=== PATIENT | male | born 1965 | race Caucasian/White ===

== ENCOUNTER 2016-07-03 15:53 | Inpatient (IN) | payer OTHER ==
[~2016-07-03] VITALS: Ht 175.3 cm; Wt 117.0 kg
[~2016-07-03 15:53] MED LIST: BACTDS PO; CEPH-443 PO; CHOL100062 PO; IBUP400T22 PO; KOMBIGLYZE XR PO; LANT3I SC; OMEG-135 PO; PRED20TA PO; ZOC10 PO
[2016-07-03] MEDS ORDERED: SOD CHLORIDE 0.9% 1,000 ML IV STA ×2 (16:14→17:24)
[2016-07-03] MEDS ORDERED: ONDANSETRON 4 MG INJ IV STA (16:27)
[2016-07-03] MEDS ORDERED: CARV6.2579 PO (16:34)
[2016-07-03] MEDS ORDERED: RIVA15TA PO (16:34)
[2016-07-03] MEDS ORDERED: INSU300I SQ (16:35)
[2016-07-03] MEDS ORDERED: INSU100C SQ (16:36)
[2016-07-03 16:48] LABS: ADD SCAN DIFF NO
[2016-07-03 16:56] LABS: BASOPHILS % 0.3 % (0.0-2.0); EOSINOPHILS # 0.1 10^3/ul (0.0-0.5); EOSINOPHILS % 0.4 % (0.0-7.0); HEMATOCRIT 35.4 % (42.0-52.0); HEMOGLOBIN 12.4 g/dl (14.0-18.0); LYMPHOCYTES # 2.6 10^3/ul (0.8-2.9); LYMPHOCYTES % 16.8 % (15.0-51.0); MEAN CORPUSCULAR HEMOGLOBIN 29.5 pg (29.0-33.0); MEAN CORPUSCULAR VOLUME 84.3 fl (82.0-101.0); MONOCYTE # 0.9 10^3/ul (0.3-0.9); MONOCYTES % 5.6 % (0.0-11.0); NEUTROPHILS % 76.4 % (39.0-77.0); PLATELET COUNT 323 10^3/UL (140-415); RED CELL DISTRIBUTION WIDTH 13.3 % (11.5-14.5); WHITE BLOOD COUNT 15.7 10^3/ul (4.8-10.8)
[2016-07-03 17:02] LABS: CHLORIDE 94 mmol/L (97-110); INR 0.9; PARTIAL THROMBOPLASTIN TIME 24.8 Sec (25.0-35.0); PROTIME 12.1 Sec (12.2-14.2); PT RATIO 0.9; SODIUM 128 mmol/L (135-144)
[2016-07-03 17:05] LABS: ANION GAP 21 (8-16); CARBON DIOXIDE 19 mmol/L (21-31); CREATININE 2.58 mg/dl (0.61-1.24)
[2016-07-03 17:06] LABS: BLOOD UREA NITROGEN 35 mg/dl (7-20); CALCIUM 8.5 mg/dl (8.4-10.2)
[2016-07-03 17:19] LABS: POTASSIUM 6.3 mmol/L (3.5-5.1)
[2016-07-03 17:20] LABS: GLUCOSE 700 mg/dl (70-220); TROPONIN-I < 0.010 ng/ml (0.00-0.12)
--- NOTE | 2016-07-03 17:20 | RADRPT ---
PROCEDURE: XR Chest. CLINICAL INDICATION: Syncope. Status post fall TECHNIQUE: Portable AP view of the chest was obtained. COMPARISON: 10/26/2008 FINDINGS: The cardiomediastinal silhouette is within upper normal limits. The lungs are clear. There is no e vidence for pleural effusion, pneumothorax or pulmonary vascular congestion. The osseous structures are intact with no evidence for acute abnormality. RPTAT:HJJR IMPRESSION: No evidence for acute intrathoracic pathology. Physician Lily Date Time Electronically viewed and signed by Azeem Blackwell Physician on 07/03/2016 17:20 JR/
[2016-07-03] MEDS ORDERED: CA GLUCONATE (GM) 10% 10ML INJ IV STA (17:24)
[2016-07-03] MEDS ORDERED: ALBUTEROL 0.5% (NEB) 2.5 MG/0.5 ML AMP INH STA (17:24)
[2016-07-03] MEDS ORDERED: INSULIN REGULAR, HUMAN 100 UNIT/1 ML 3ML VIAL IV STA (17:24)
--- NOTE | 2016-07-03 17:25 | RADRPT ---
PROCEDURE: XR shoulder. CLINICAL INDICATION: Syncope. Status post fall with left shoulder pain TECHNIQUE: Two views of the left shoulder were performed. COMPARISON: None available. FINDINGS: There is normal mineralization and alignment. Ossific fragment interposed between the humeral head a nd acromion process is concerning for an avulsion type fracture of the greater tuberosity . The join t spaces are preserved. Metallic density projecting at the left axilla suggest prior surgery RPTAT:HJJR IMPRESSION: Triangular shaped ossific density in the acromiohumeral space is concerning for an avulsion type fra cture of the greater tuberosity. Physician Lily Date Time Electronically viewed and signed by Physician Lily on 07/03/2016 17:24 JR/
[2016-07-03] MEDS ORDERED: INSULIN REGULAR, HUMAN 100 UNIT in SOD CHLORIDE 0.9% 99 ML IV STA ×2 (17:52)
[2016-07-03] MEDS ORDERED: LORAZEPAM 2 MG INJ ONE (18:10)
[2016-07-03] MEDS ORDERED: morphine 4 MG/ML VIAL IV STA (18:18)
[2016-07-03] MEDS ORDERED: GLUCOSE GEL 15 GRAM TUBE PO PRN ×2 (18:30)
[2016-07-03] MEDS ORDERED: DEXTROSE 50% 50 ML SYRINGE IV PRN ×4 (18:30→19:30)
[2016-07-03] MEDS ORDERED: GLUCOSE GEL 15 GRAM TUBE BUCCAL PRN (18:30)
[2016-07-03] MEDS ORDERED: GLUCAGON 1 MG INJ IM PRN (18:30)
[2016-07-03 18:55] LABS: MAGNESIUM 2.2 mg/dl (1.7-2.5); PHOSPHORUS 2.2 mg/dl (2.5-4.9)
--- NOTE | 2016-07-03 18:55 | RADRPT ---
PROCEDURE: CT brain without IV contrast. CLINICAL INDICATION: Syncope. TECHNIQUE: CT scan of the brain was performed without IV contrast on a 64-slice multidetector scan ner. . Coronal and sagittal reformatted images were made. Radiation dose: Total CTDI volume: 43 mGY. Total DLP: 698 mGycm. COMPARISON: None available. FINDINGS: There is mild cerebral atrophy. There are mild periventricular low density white matter changes, li delfino microvascular ischemic changes. The crockett/white matter differentiation is well preserved. Ther e is no abnormal intra-axial or extra-axial high or low density lesion, suggesting tumor or infarct, bleeding or inflammatory lesion. No subdural, epidural hematoma or subarachnoid bleeding is seen. No displacement of the midline. T he posterior fossa is normal. The visualized paranasal sinuses, orbits and temporal bones are deyanira l. No abnormal calvarial lesion. IMPRESSION: 1. Mild cerebral atrophy. 2. Mild periventricular low density white matter changes, likely microvascular ischemic changes.. RPTAT: GG .Mason Hanson MD, MD Date Time Electronically viewed and signed by .Mason Hanson MD, on 07/03/2016 18:54 .Y/
--- NOTE | 2016-07-03 18:56 | RADRPT ---
PROCEDURE: US bilateral lower extremity arteries. CLINICAL INDICATION: Bilateral leg pain. Claudication that interferes significantly with the tegan ent's lifestyle. TECHNIQUE: Multiple longitudinal and transverse images of the bilateral lower extremity arteries w ere obtained with crockett scale, pulsed Doppler, and color Doppler imaging. COMPARISON: No prior studies are available for comparison. FINDINGS: Right ENROLLMENT PROCESSOR:111 cm/sec PSFA:87 cm/sec MSFA:113 cm/sec DSFA:76 cm/sec POP:66 cm/sec PLUMBERS AND TOP HELPERS:136 cm/sec PER:48 cm/sec ROMA:60 cm/sec DPA:58 cm/sec Left ENROLLMENT PROCESSOR:81 cm/sec PSFA:102 cm/sec MSFA:128 cm/sec DSFA:75 cm/sec POP:67 cm/sec PLUMBERS AND TOP HELPERS:115 cm/sec PER:Not visualized ROMA:69 cm/sec DPA:58 cm/sec The left peroneal artery is not visualized. There is otherwise normal triphasic flow throughout the arterial system bilaterally. There is no significant plaque, stenosis, or occlusion. IMPRESSION: 1. Left peroneal artery not visualized. 2. Otherwise normal bilateral lower extremity arterial Doppler. RPTAT: QQ .Willie Ayers MD, MD Date Time Electronically viewed and signed by .Willie Ayers MD, on 07/03/2016 18:55 .R/
[2016-07-03] MEDS ORDERED: DEXTROSE 5%-0.45% NACL 1,000 ML IV PRN (19:03)
--- NOTE | 2016-07-03 19:15 | HP ---
Date/Time of Note Date/Time of Note DATE: 07/03/16 TIME: 18:56 Assessment/Plan VTE Prophylaxis VTE Prophylaxis Intervention: other (xarelto) Assessment/Plan Assessment/Plan 51 yo M with DKA Uncontrolled DM2 Reactive leucocytosis Humeral fracture Acute renal failure r/o CKD Prev DVT on anticoagulation Anemia of chronic disease Hyponatremia HTN: good control PLAN: admit ICU DKA protocol Ortho review and recs Serial labs Home meds PRN pain control/ antiemetics/ antipyretics/ supportive care PROPHYLAXIS: Xarelto / Pepcid HPI/ROS Admit Date/Time Admit Date/Time 07/03/16 Hx of Present Illness PRESENTING COMPLAINT: weakness and fall HISTORY OF PRESENTING COMPLAINT:pt biba from home. pt states his legs became weak while walking upstairs. pt was guided to ground and is positive for KO. noted redness, swelling and abrasions of L shoulder, flank, and legs. ROS 12 point review if systems was done and pertinent findings are as noted. Constitutional: fatigue, nausea, poor po, No diaphoresis, No febrile Cardiovascular: No chest pain Gastrointestinal: nausea, passing stool, No diarrhea, No vomiting Genitourinary: no complaints Neurologic: No focal-weakness, No seizure PMH/Family/Social Past Medical History * Osteomyelitis * ?DVT Medical History: diabetes, hypertension Past Surgical History * L shoulder surgery Family History Significant Family History: diabetes, hypertension Social History Alcohol Use: none Smoking Status: Never smoker Drug Use: none Exam/Review of Systems Vital Signs Vitals VS - Last 72 Hours, by Label Date Time Temp Pulse Resp B/P Pulse Ox O2 Delivery O2 Flow Rate FiO2 07/03/16 16:22 98.2 94 20 110/71 99 Vital Signs Date Time Temp Pulse Resp B/P Pulse Ox O2 Delivery O2 Flow Rate FiO2 07/03/16 16:22 98.2 94 20 110/71 99 Exam Constitutional: alert, oriented, No distress Head: atraumatic, normocephalic Eyes: PERRL ENMT: No mucosa pink and moist Neck: non-tender, supple Respiratory: clear to auscultation, normal air movement Cardiovascular: nl pulses, regular rate and rhythm Gastrointestinal: bowel sounds, non-tender, soft Extremities: No edema Neurological: lethargic, nl mental status Labs Result Diagram: 07/03/16 1635 07/03/16 1635 Medications Medications Current Medications Miscellaneous Information 1 ea NOTE XX ; Start 07/03/16 at 18:30 Glucose (Glutose) 15 gm Q15M PRN PO DECREASED GLUCOSE; Start 07/03/16 at 18:30 Glucose (Glutose) 22.5 gm Q15M PRN PO DECREASED GLUCOSE; Start 07/03/16 at 18: 30 Dextrose (D50w Syringe) 25 ml Q15M PRN IV DECREASED GLUCOSE; Start 07/03/16 at 18:30 Dextrose (D50w Syringe) 50 ml Q15M PRN IV DECREASED GLUCOSE; Start 07/03/16 at 18:30 Glucagon (Glucagen) 1 mg Q15M PRN IM DECREASED GLUCOSE; Start 07/03/16 at 18:30 Glucose (Glutose) 15 gm Q15M PRN BUCCAL DECREASED GLUCOSE; Start 07/03/16 at 18 :30 Procedures Procedures Laboratory Tests Test 07/03/16 16:35 07/03/16 16:38 07/03/16 18:00 Activated Partial Thromboplast Time 24.8Sec Anion Gap 21 Basophils # 0.010^3/ul Basophils % 0.3% Blood Urea Nitrogen 35mg/dl Calcium Level 8.5mg/dl Carbon Dioxide Level 19mmol/L Chloride Level 94mmol/L Creatinine 2.58mg/dl Eosinophils # 0.110^3/ul Eosinophils % 0.4% Glucose Level 700mg/dl Hematocrit 35.4% Hemoglobin 12.4g/dl INR International Normalized Ratio 0.90 Lymphocytes # 2.610^3/ul Lymphocytes % 16.8% Mean Corpuscular Hemoglobin 29.5pg Mean Corpuscular Hemoglobin Concent 35.0g/dl Mean Corpuscular Volume 84.3fl Mean Platelet Volume 12.0fl Monocytes # 0.910^3/ul Monocytes % 5.6% Neutrophils # 12.010^3/ul Neutrophils % 76.4% Nucleated Red Blood Cells # 0.010^3/ul Nucleated Red Blood Cells % 0.0/100WBC Platelet Count 25087^3/UL Potassium Level 6.3mmol/L Prothrombin Time 12.1Sec Prothrombin Time Ratio 0.9 Red Blood Count 4.2010^6/ul Red Cell Distribution Width 13.3% Sodium Level 128mmol/L Troponin I < 0.010ng/ml White Blood Count 15.710^3/ul Bedside Glucose > 595mg/dL Magnesium Level 2.2mg/dl Phosphorus Level 2.2mg/dl Current Medications Medications (Trade) Dose Ordered Sig/Eloy Route PRN Reason Start Time Stop Time Status Last Admin Dose Admin Sodium Chloride (NS) 1,000 ml @ 1,000 mls/hr Q1H STAT IV 07/03/16 16:14 07/03/16 17:13 DC 07/03/16 16:41 1,000 MLS/HR Ondansetron HCl (Zofran Inj) 4 mg ONCE STAT IV 07/03/16 16:27 07/03/16 16:28 DC 07/03/16 16:41 4 MG Insulin Human Regular (Humulin R) 10 unit ONCE STAT IV 07/03/16 17:24 07/03/16 17:31 DC 07/03/16 18:01 10 UNIT Albuterol (Proventil 0.5% (Neb)) 15 mg ONCE STAT INH 07/03/16 17:24 07/03/16 17:31 DC Calcium Gluconate 1 gm 1 gm ONCE STAT IV 07/03/16 17:24 07/03/16 17:31 DC 07/03/16 18:00 1 GM Sodium Chloride 1,000 ml @ 1,000 mls/hr Q1H STAT IV 07/03/16 17:24 07/03/16 18:23 DC 07/03/16 18:00 1,000 MLS/HR Insulin Human Regular/Sodium Chloride (Humulin R/NS) 100 ml @ 10 mls/hr TITRATE STAT IV 07/03/16 17:52 07/04/16 03:51 Lorazepam (Ativan) 2 mg STK-MED ONCE .ROUTE 07/03/16 18:10 07/03/16 18:11 DC Morphine Sulfate (morphine) 4 mg ONCE STAT IV 07/03/16 18:18 07/03/16 18:19 DC 07/03/16 18:23 4 MG Miscellaneous Information 1 ea NOTE XX 07/03/16 18:30 Glucose (Glutose) 15 gm Q15M PRN PO DECREASED GLUCOSE 07/03/16 18:30 Glucose (Glutose) 22.5 gm Q15M PRN PO DECREASED GLUCOSE 07/03/16 18:30 Dextrose (D50w Syringe) 25 ml Q15M PRN IV DECREASED GLUCOSE 07/03/16 18:30 Dextrose (D50w Syringe) 50 ml Q15M PRN IV DECREASED GLUCOSE 07/03/16 18:30 Glucagon (Glucagen) 1 mg Q15M PRN IM DECREASED GLUCOSE 07/03/16 18:30 Glucose (Glutose) 15 gm Q15M PRN BUCCAL DECREASED GLUCOSE 07/03/16 18:30 PROCEDURE: XR shoulder. CLINICAL INDICATION: Syncope. Status post fall with left shoulder pain TECHNIQUE: Two views of the left shoulder were performed. COMPARISON: None available. FINDINGS: There is normal mineralization and alignment. Ossific fragment interposed between the humeral head and acromion process is concerning for an avulsion type fracture of the greater tuberosity . The joint spaces are preserved. Metallic density projecting at the left axilla suggest prior surgery RPTAT:HJJR IMPRESSION: Triangular shaped ossific density in the acromiohumeral space is concerning for an avulsion type fracture of the greater tuberosity. Azeem Blackwell Physician Date Time Electronically viewed and signed by Azeem Blackwell Physician on 07/03/2016 17:24 JR/ CC: KRISH ADAMS MD PROCEDURE: XR Chest. CLINICAL INDICATION: Syncope. Status post fall TECHNIQUE: Portable AP view of the chest was obtained. COMPARISON: 10/26/2008 FINDINGS: The cardiomediastinal silhouette is within upper normal limits. The lungs are clear. There is no evidence for pleural effusion, pneumothorax or pulmonary vascular congestion. The osseous structures are intact with no evidence for acute abnormality. RPTAT:HJJR IMPRESSION: No evidence for acute intrathoracic pathology. Azeem Blackwell Physician Date Time Electronically viewed and signed by Azeem Blackwell Physician on 07/03/2016 17:20 LUCIANO WATT Jul 03, 2016 19:07
[2016-07-03] MEDS ORDERED: ONDANSETRON 4 MG INJ IV PRN (19:30)
--- NOTE | 2016-07-03 20:21 | ERA ---
ER Documentation Chief Complaint Date/Time DATE: 07/03/16 TIME: 19:59 Chief Complaint weakness, fall left shoulder pain started today HPI 51-year-old male with a history of diabetes on insulin, hypertension, and hyperlipidemia presenting after a syncopal episode. 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 As the last thing he remembers. Per his son, when he woke up he was combative and somewhat confused. Patient currently complains of nausea without chest pain, shortness of breath, headache, focal weakness or numbness. He also complains of left shoulder pain after the fall that is located in the anterior shoulder, worse with any type of movement. He has difficulty lifting his arm secondary to the pain. Pain is an 8 out of 10. He denies any associated numbness or tingling. He scraped up his legs and his left abdomen, however he denies any significant pain. He also complains of pain in the left thigh that is intermittent, worse with movement. He has not tried to ambulate ever since he fell. ROS All systems reviewed and are negative except as per history of present illness. Medications Home Meds Reported Medications Insulin Lispro (Humalog) 100 Unit/1 Ml Cartridge, 0 SQ WITH MEALS SLIDING SCALE 07/03/16 Insulin Glargine,Hum.rec.anlog (Vish Ospina) 300 Unit/1 Ml Insuln.pen, 40 UNIT SQ QHS 07/03/16 Carvedilol* (Carvedilol*) 6.25 Mg Tablet, 6.25 MG PO BID, #60 TAB 07/03/16 Rivaroxaban* (Xarelto*) 15 Mg Tablet, 15 MG PO DAILY, TAB 07/03/16 Discontinued Reported Medications Simvastatin (Simvastatin) 10 Mg Tablet, 10 MG PO HS, TAB 01/28/15 [Kombiglyze Xr] No Conflict Check, 5-1000 MG PO DAILY 01/28/15 Fish Oil* (Fish Oil*) 1,000 Mg Cap, 1000 MG PO BID, CAP 01/28/15 Cholecalciferol* (Vitamin D3*) 1,000 Unit Tablet, 1000 UNIT PO DAILY, TAB 01/28/15 Insulin Glargine* (Lantus*) 100 Unit/Ml Soln, 25 UNIT SC AM, EA 09/01/14 Discontinued Scripts Ibuprofen* (Motrin*) 400 Mg Tab, 400 MG PO Q6 for 7 Days, #30 TAB 0 Refills Prov:ALLA BOJORQUEZ PA-C 11/09/15 Sulfamethoxazole-Trimethoprim* (Bactrim* DS) 800-160 Mg Tab, 1 TAB PO BID for 7 Days, #14 TAB 0 Refills Prov:ALLA BOJORQUEZ PA-C 11/09/15 Cephalexin* (Keflex*) 500 Mg Capsule, 500 MG PO TID for 7 Days, #21 CAP 0 Refills Prov:ALLA BOJORQUEZ PA-C 11/09/15 Sulfamethoxazole-Trimethoprim* (Bactrim* DS) 800-160 Mg Tab, 1 TAB PO BID for 5 Days, TAB Prov:FÁTIMA GRAFF MD 01/28/15 Cephalexin* (Keflex*) 500 Mg Capsule, 500 MG PO QID for 5 Days, CAP Prov:FÁTIMA GRAFF MD 01/28/15 Prednisone* (Prednisone*) 20 Mg Tab, 40 MG PO DAILY for 4 Days, TAB Prov:FÁTIMA GRAFF MD 01/28/15 Allergies Allergies: Coded Allergies: levofloxacin (Verified Allergy, Unknown, 07/03/16) PMhx/Soc History of Surgery: Yes (LEFT SHOULDER IN 1985) Anesthesia Reaction: No Hx Neurological Disorder: No Hx Respiratory Disorders: No Hx Cardiac Disorders: Yes (HTN) Hx Psychiatric Problems: No Hx Miscellaneous Medical Probl: Yes (DM, DVT on Xarelto) Hx Alcohol Use: No Hx Substance Use: No Hx Tobacco Use: No Smoking Status: Never smoker FmHx Family History: diabetes Physical Exam Vitals Vital Signs Date Time Temp Pulse Resp B/P Pulse Ox O2 Delivery O2 Flow Rate FiO2 07/03/16 16:22 98.2 94 20 110/71 99 Physical Exam Const: Awake, speaking in full sentences, no significant distress Head: Atraumatic Eyes: Normal Conjunctiva, EOMI, PERRL, no nystagmus ENT: Normal External Ears, Nose. No facial tenderness to palpation. Bite hair to the left side of his tongue. Neck: Full range of motion. No meningismus. No midline C-spine tenderness. Resp: Clear to auscultation bilaterally Cardio: Regular rate and rhythm, no murmurs Abd: Soft, non tender, non distended. Normal bowel sounds. Superficial abrasions to the left abdominal wall. No ecchymoses. Pelvis: Stable, left hip tender to palpation. Limited range of motion secondary to pain. Skin: Superficial abrasions to left abdomen, and bilateral shins. Back: No midline or flank tenderness Ext: No cyanosis, or edema. Extremities distally warm with cap refill less than 2 seconds. 2+ bilateral radial pulses. Difficulty palpating DP and PT pulses. Left shoulder with tenderness to palpation in the anterior aspect. Unable to abduct arm secondary to pain. Full range of motion at the elbow, wrist, fingers. All other extremities without deformities and with full range of motion. Neur: Awake and alert and oriented 3, cranial nerves intact, normal telecommunications consultant strength in bilateral upper extremities. Strength and sensations intact in bilateral lower extremities. Psych: Normal Mood and Affect Result Diagram: 07/03/16 1635 07/03/16 1635 Results 24 hrs Laboratory Tests Test 07/03/16 16:35 07/03/16 16:38 07/03/16 18:00 Activated Partial Thromboplast Time 24.8Sec Anion Gap 21 Basophils # 0.010^3/ul Basophils % 0.3% Blood Urea Nitrogen 35mg/dl Calcium Level 8.5mg/dl Carbon Dioxide Level 19mmol/L Chloride Level 94mmol/L Creatinine 2.58mg/dl Eosinophils # 0.110^3/ul Eosinophils % 0.4% Glucose Level 700mg/dl Hematocrit 35.4% Hemoglobin 12.4g/dl INR International Normalized Ratio 0.90 Lymphocytes # 2.610^3/ul Lymphocytes % 16.8% Mean Corpuscular Hemoglobin 29.5pg Mean Corpuscular Hemoglobin Concent 35.0g/dl Mean Corpuscular Volume 84.3fl Mean Platelet Volume 12.0fl Monocytes # 0.910^3/ul Monocytes % 5.6% Neutrophils # 12.010^3/ul Neutrophils % 76.4% Nucleated Red Blood Cells # 0.010^3/ul Nucleated Red Blood Cells % 0.0/100WBC Platelet Count 59659^3/UL Potassium Level 6.3mmol/L Prothrombin Time 12.1Sec Prothrombin Time Ratio 0.9 Red Blood Count 4.2010^6/ul Red Cell Distribution Width 13.3% Sodium Level 128mmol/L Troponin I < 0.010ng/ml White Blood Count 15.710^3/ul Bedside Glucose > 595mg/dL Lactic Acid Level 3.3mmol/L Magnesium Level 2.2mg/dl Phosphorus Level 2.2mg/dl Current Medications Medications (Trade) Dose Ordered Sig/Eloy Route PRN Reason Start Time Stop Time Status Last Admin Dose Admin Sodium Chloride (NS) 1,000 ml @ 1,000 mls/hr Q1H STAT IV 07/03/16 16:14 07/03/16 17:13 DC 07/03/16 16:41 Ondansetron HCl (Zofran Inj) 4 mg ONCE STAT IV 07/03/16 16:27 07/03/16 16:28 DC 07/03/16 16:41 Insulin Human Regular (Humulin R) 10 unit ONCE STAT IV 07/03/16 17:24 07/03/16 17:31 DC 07/03/16 18:01 Albuterol (Proventil 0.5% (Neb)) 15 mg ONCE STAT INH 07/03/16 17:24 07/03/16 17:31 DC Calcium Gluconate 1 gm 1 gm ONCE STAT IV 07/03/16 17:24 07/03/16 17:31 DC 07/03/16 18:00 Sodium Chloride 1,000 ml @ 1,000 mls/hr Q1H STAT IV 07/03/16 17:24 07/03/16 18:23 DC 07/03/16 18:00 Insulin Human Regular/Sodium Chloride (Humulin R/NS) 100 ml @ 10 mls/hr TITRATE STAT IV 07/03/16 17:52 07/04/16 03:51 Lorazepam (Ativan) 2 mg STK-MED ONCE .ROUTE 07/03/16 18:10 07/03/16 18:11 DC Morphine Sulfate (morphine) 4 mg ONCE STAT IV 07/03/16 18:18 07/03/16 18:19 DC 07/03/16 18:23 Miscellaneous Information 1 ea NOTE XX 07/03/16 18:30 Glucose (Glutose) 15 gm Q15M PRN PO DECREASED GLUCOSE 07/03/16 18:30 Glucose (Glutose) 22.5 gm Q15M PRN PO DECREASED GLUCOSE 07/03/16 18:30 Dextrose (D50w Syringe) 25 ml Q15M PRN IV DECREASED GLUCOSE 07/03/16 18:30 Dextrose (D50w Syringe) 50 ml Q15M PRN IV DECREASED GLUCOSE 07/03/16 18:30 Glucagon (Glucagen) 1 mg Q15M PRN IM DECREASED GLUCOSE 07/03/16 18:30 Glucose (Glutose) 15 gm Q15M PRN BUCCAL DECREASED GLUCOSE 07/03/16 18:30 Dextrose (D50w Syringe) 50 ml Q15M PRN IV For BS 50 or less 07/03/16 19:30 UNV Dextrose 25 ml 25 ml Q15M PRN IV BS between 50-70 07/03/16 19:30 UNV Insulin Human Regular/Sodium Chloride (Humulin R/NS) 100 ml @ 0 mls/hr DKA PROTOCOL IV 07/03/16 19:30 UNV Diagnostic Test (Pha) (Accucheck) 1 ea Q1H XX 07/03/16 19:30 UNV Miscellaneous Information HYPOGLYCEMIA TREATMENT HYPOGLYCEM PROTOCOL PRN XX Hypoglycemia (BS < 70) 07/03/16 19:30 UNV Sodium Chloride 1,000 ml @ 125 mls/hr Q8H IV 07/03/16 19:03 UNV Dextrose/Sodium Chloride (D5-1/2ns) 1,000 ml @ 125 mls/hr Q8H IV 07/03/16 19:03 UNV Famotidine (Pepcid Iv) 20 mg BID IV 07/03/16 21:00 UNV Ondansetron HCl (Zofran Inj) 4 mg Q6H PRN IV NAUSEA AND/OR VOMITING 07/03/16 19:30 UNV Docusate Sodium (Colace) 200 mg BID PO 07/03/16 21:00 UNV Carvedilol (Coreg) 6.25 mg BID PO 07/03/16 21:00 UNV Rivaroxaban (Xarelto) 15 mg DAILY PO 07/04/16 09:00 UNV Acetaminophen (Tylenol Tab) 650 mg Q6H PRN PO PAIN AND OR ELEVATED TEMP 07/03/16 19:30 UNV Procedures/MDM EKG #1: Rate/Rhythm: Normal Sinus Rhythm QRS, ST, T-waves: Left anterior fascicular block, no changes consistent w/ acute ischemia Impression: No evidence of ischemia or arrhythmia EKG #2: Rate/Rhythm: Sinus tachycardia at 110 QRS, ST, T-waves: Left anterior fascicular block, no changes consistent w/ acute ischemia Impression: No evidence of ischemia or arrhythmia Patient is presenting after a syncopal episode with possible seizure-like activity. Initial vital signs were within normal limits. Patient was placed on a bus driver/monitor. Initial EKG did not show acute ischemia. Labs were however notable for acute renal failure with hyperkalemia, lactic acidosis, and severe hyperglycemia. Leukocytosis was also noted, likely a stress reaction. I also have a concern for acute coronary syndrome versus transient arrhythmia. I have a lower suspicion for severe sepsis or septic shock, pulmonary embolism, stroke. CT brain was normal. Chest x-ray was normal. 2 L of IV fluids were started. Hyperkalemia was treated with calcium gluconate, insulin IV, and albuterol inhaled. He was started on insulin drip for his hyperglycemia per the request of Dr. Bess, the admitting physician. Patient was also noted to have a left shoulder fracture on x-ray. I spoke with Dr. Mckeon, the orthopedist occupational health coordinator regarding this and he agreed to see the patient. His pain was treated with morphine with significant relief. Ultrasound of his lower extremities were done and showed normal arterial flow. Patient will be admitted to the ICU for treatment of his acute renal failure, hyperglycemia, hyperkalemia, and for ACS rule out. Critical Care Time: 45 minutes Treatments/Evaluations: Close monitoring and treatment of unstable vital signs, cardiorespiratory, and neurologic status, while maintaining tight balance of fluid, respiratory, and cardiac interventions. This time includes discussing the case with the patient and the patients family. This time does not include all procedures stated elsewhere in this record. This time also includes reviewing old records, labs and radiological studies. This time includes examining and re-examining the patient. Additionally, this time also includes arranging care with admitting and consulting physicians. Accepting Care Team: Current data and ongoing care discussed at time of admission. Primary: Maria Alejandra Consulting: Mike (Orthopedics) Outstanding Data: repeat lactate Departure Diagnosis: Primary Impression: Syncope and collapse Additional Impressions: Hyperglycemia Lactic acidosis Severe dehydration Acute renal failure Qualified Code: N17.9 - Acute renal failure, unspecified acute renal failure type Hyperkalemia Condition: Critical KRISH ADAMS MD Jul 03, 2016 20:12
[2016-07-03 20:33] LABS: ADD UMIC YES; URINE BILIRUBIN (Dip) NEGATIVE (NEGATIVE); URINE BLOOD (Dip) 2+ (NEGATIVE); URINE COLOR LT. YELLOW (YELLOW); URINE GLUCOSE (Dip) >=1000 % (NEGATIVE); URINE KETONES (Dip) NEGATIVE (NEGATIVE); URINE LEUKOCYTE ESTERASE (Dip) NEGATIVE (NEGATIVE); URINE NITRITE (Dip) NEGATIVE (NEGATIVE); URINE TOTAL PROTEIN (Dip) 2+ (NEGATIVE); URINE UROBILINOGEN (Dip) 0.2 E.U./dL (0.1-1.0)
--- NOTE | 2016-07-03 20:50 | RADRPT ---
PROCEDURE: XR Pelvis. CLINICAL INDICATION: Pain TECHNIQUE: Single AP view of the pelvis. COMPARISON: No prior studies are available for comparison. FINDINGS: Single frontal view of the pelvis demonstrates no displaced fracture. Both femoral heads are anatom ically seated. Pubic symphysis is intact. SI joints are within normal limits. Sacral arches are i ntact. IMPRESSION: No displaced fracture identified on this single frontal view of the pelvis. RPTAT: HH .Rashaun Mancini MD, Date Time Electronically viewed and signed by .Rashaun Mancini MD, on 07/03/2016 20:50 .W/
--- NOTE | 2016-07-03 20:50 | RADRPT ---
PROCEDURE: XR Hip. CLINICAL INDICATION: Pain TECHNIQUE: AP and frog lateral views of the left hip were performed. COMPARISON: None. FINDINGS: Two views of the left hip demonstrate no displaced fracture. The femoral head articulates anatomica lly with the acetabulum. There is no significant degenerative change. The bones are normally wrapper layer and examiner soft work alized. The soft tissues are unremarkable IMPRESSION: 1. No acute fracture dislocation. 2. No significant degenerate change. RPTAT: HH .Rashaun Mancini MD, Date Time Electronically viewed and signed by .Rashaun Mancini MD, on 07/03/2016 20:50 .W/
[2016-07-03 21:16] LABS: POTASSIUM 5.2 mmol/L (3.5-5.1)
[2016-07-03 21:18] LABS: CREATININE 2.27 mg/dl (0.61-1.24)
[2016-07-03 21:20] LABS: CALCIUM 8.5 mg/dl (8.4-10.2)
[2016-07-03 21:40] LABS: BARBITURATES Negative (NEGATIVE); BENZODIAZEPINES Negative (NEGATIVE); CANNABINOIDS Negative (NEGATIVE); COCAINE Negative (NEGATIVE); OPIATES Negative (NEGATIVE)
[2016-07-03] MEDS ORDERED: ACETAMINOPHEN 325 MG TAB ONE (22:26)
[2016-07-03] MEDS: ACETAMINOPHEN 325 MG TAB PO PRN (22:27)
[2016-07-03 22:51] LABS: POTASSIUM 4.2 mmol/L (3.5-5.1)
[2016-07-03 22:53] LABS: CREATININE 2.17 mg/dl (0.61-1.24)
[2016-07-03 22:54] LABS: CALCIUM 8.5 mg/dl (8.4-10.2)
[2016-07-04 00:09] LABS: CREATININE 2.18 mg/dl (0.61-1.24)
[2016-07-04 00:10] LABS: CALCIUM 8.4 mg/dl (8.4-10.2)
[2016-07-04] MEDS ORDERED: INSULIN REGULAR, HUMAN 100 UNIT in SOD CHLORIDE 0.9% 99 ML IV SCH ×2 (05:00)
[2016-07-04] MEDS: ACETAMINOPHEN 325 MG TAB PO PRN ×2 (05:09→22:46)
[2016-07-04 05:32] LABS: ADD SCAN DIFF NO
[2016-07-04 05:39] LABS: ABNORMAL IP MESSAGE 1; BASOPHILS % 0.1 % (0.0-2.0); EOSINOPHILS % 0.2 % (0.0-7.0); HEMATOCRIT 33.1 % (42.0-52.0); HEMOGLOBIN 11.4 g/dl (14.0-18.0); LYMPHOCYTES # 3.3 10^3/ul (0.8-2.9); LYMPHOCYTES % 16.5 % (15.0-51.0); MEAN CORPUSCULAR HEMOGLOBIN 29.1 pg (29.0-33.0); MEAN CORPUSCULAR HGB CONC 34.4 g/dl (32.0-37.0); MEAN CORPUSCULAR VOLUME 84.4 fl (82.0-101.0); MEAN PLATELET VOLUME 11.3 fl (7.4-10.4); MONOCYTE # 1.6 10^3/ul (0.3-0.9); MONOCYTES % 7.8 % (0.0-11.0); NEUTROPHIL # 15.1 10^3/ul (1.6-7.5); NEUTROPHILS % 74.9 % (39.0-77.0); PLATELET COUNT 300 10^3/UL (140-415); RED BLOOD COUNT 3.92 10^6/ul (4.70-6.10); RED CELL DISTRIBUTION WIDTH 13.5 % (11.5-14.5); WHITE BLOOD COUNT 20.2 10^3/ul (4.8-10.8)
[2016-07-04 05:58] LABS: CREATININE 2.39 mg/dl (0.61-1.24)
[2016-07-04 05:59] LABS: CALCIUM 8.7 mg/dl (8.4-10.2)
[2016-07-04 06:01] LABS: CHOL/HDL RATIO 7.5 RATIO
[2016-07-04] MEDS: SOD CHLORIDE 0.9% 1,000 ML IV SCH ×3 (06:31→19:03)
[2016-07-04] MEDS: ACCUCHECK XX SCH ×6 (07:08→21:20)
[2016-07-04 08:00] VITALS: TEMP 98.2
[2016-07-04] MEDS: FAMOTIDINE 20 MG INJ IV SCH (09:00)
[2016-07-04] MEDS: DOCUSATE SODIUM 100 MG CAP PO SCH ×2 (09:00→21:08)
[2016-07-04] MEDS ORDERED: INSULIN GLARGINE [LANtus] 3 ML PEN SC ONE ×2 (09:30→21:30)
[2016-07-04] MEDS: RIVAROXABAN 15 MG TABLET PO SCH (09:55)
[2016-07-04] MEDS: INSULIN ASPART [NOVOLOG] 3 ML PEN SC SCH ×3 (12:17→21:19)
[2016-07-04 16:32] VITALS: Ht 175.3 cm; Wt 117.0 kg
[2016-07-04 16:41] VITALS: BP 160/90; PULSE 77; RESP 20
[2016-07-04 20:00] VITALS: BP 174/84; PULSE 105; RESP 18
[2016-07-04 21:10] VITALS: BP 158/79
--- NOTE | 2016-07-04 21:17 | PN ---
Date/Time of Note Date/Time of Note DATE: 07/04/16 TIME: 21:16 Assessment/Plan VTE Prophylaxis VTE Prophylaxis Intervention: other Lines/Catheters IV Catheter Type (from Nrsg): Saline Lock Assessment/Plan Assessment/Plan 51 yo M with DKA: resolved Uncontrolled DM2 Reactive leucocytosis Humeral fracture Acute renal failure r/o CKD Prev DVT on anticoagulation Anemia of chronic disease Hyponatremia HTN: good control PLAN: * Resume home dosing of insulin * Resume and uptitrate antihypertensivse * Monitor renal function * PRN pain control/ antiemetics/ antipyretics/ supportive care PROPHYLAXIS: Xarelto / Pepcid Subjective 24 Hr Interval Summary Constitutional: improved, no complaints Exam/Review of Systems Vital Signs Vitals Vital Signs Date Time Temp Pulse Resp B/P Pulse Ox O2 Delivery O2 Flow Rate FiO2 07/04/16 16:41 96.7 77 20 160/90 98 Room Air 07/03/16 21:20 21 Intake and Output 07/03/16 07/03/16 07/04/16 15:00 23:00 07:00 Intake Total 125 ml Balance 125 ml Exam Constitutional: alert, oriented Psych: anxiety Head: normocephalic ENMT: mucosa pink and moist Neck: supple Respiratory: clear to auscultation Cardiovascular: regular rate and rhythm Gastrointestinal: bowel sounds, non-tender, soft Extremities: No edema Neurological: nl mental status Results Result Diagram: 07/04/16 0515 07/04/16 0525 Results 24 hrs Laboratory Tests Test 07/03/16 21:18 07/03/16 21:21 07/03/16 22:14 07/03/16 22:15 Bedside Glucose 438 *H 404 *H Lactic Acid Level 1.9 Anion Gap 17 H Blood Urea Nitrogen 34 H Calcium Level 8.5 Carbon Dioxide Level 22 Chloride Level 101 Creatinine 2.17 H Glucose Level 409 *H Potassium Level 4.2 Sodium Level 136 Test 07/03/16 23:01 07/03/16 23:21 07/04/16 00:04 07/04/16 01:10 Bedside Glucose 349 H 308 H 295 H Anion Gap 15 Blood Urea Nitrogen 34 H Calcium Level 8.4 Carbon Dioxide Level 22 Chloride Level 102 Creatinine 2.18 H Glucose Level 353 H Lactic Acid Level 2.3 H Potassium Level 4.0 Sodium Level 135 Test 07/04/16 02:06 07/04/16 03:04 07/04/16 04:13 07/04/16 05:02 Bedside Glucose 250 H 216 175 139 Test 07/04/16 05:15 07/04/16 05:25 07/04/16 06:07 07/04/16 06:48 Basophils # 0.0 Basophils % 0.1 Eosinophils # 0.0 Eosinophils % 0.2 Hematocrit 33.1 L Hemoglobin 11.4 L Hemoglobin A1c 13.0 H Lymphocytes # 3.3 H Lymphocytes % 16.5 Mean Corpuscular Hemoglobin 29.1 Mean Corpuscular Hemoglobin Concent 34.4 Mean Corpuscular Volume 84.4 Mean Platelet Volume 11.3 H Monocytes # 1.6 H Monocytes % 7.8 Neutrophils # 15.1 H Neutrophils % 74.9 Nucleated Red Blood Cells # 0.0 Nucleated Red Blood Cells % 0.0 Platelet Count 300 Red Blood Count 3.92 L Red Cell Distribution Width 13.5 White Blood Count 20.2 #H Anion Gap 15 Blood Urea Nitrogen 34 H Calcium Level 8.7 Carbon Dioxide Level 24 Chloride Level 105 Cholesterol Level 241 H Cholesterol/HDL Ratio 7.5 Creatinine 2.39 H Glucose Level 129 # HDL Cholesterol 32 LDL Cholesterol, Calculated 77 Potassium Level 4.0 Sodium Level 140 Triglycerides Level 658 H Bedside Glucose 140 155 Test 07/04/16 08:00 07/04/16 08:49 07/04/16 10:05 07/04/16 11:00 Bedside Glucose 197 205 287 H 354 H Test 07/04/16 14:21 07/04/16 17:49 07/04/16 21:07 07/04/16 21:14 Bedside Glucose 309 H 236 H 361 H 340 H Medications Medications Current Medications Miscellaneous Information 1 ea NOTE XX ; Start 07/03/16 at 18:30 Glucose (Glutose) 15 gm Q15M PRN PO DECREASED GLUCOSE; Start 07/03/16 at 18:30 Glucose (Glutose) 22.5 gm Q15M PRN PO DECREASED GLUCOSE; Start 07/03/16 at 18: 30 Dextrose (D50w Syringe) 25 ml Q15M PRN IV DECREASED GLUCOSE; Start 07/03/16 at 18:30 Dextrose (D50w Syringe) 50 ml Q15M PRN IV DECREASED GLUCOSE; Start 07/03/16 at 18:30 Glucagon (Glucagen) 1 mg Q15M PRN IM DECREASED GLUCOSE; Start 07/03/16 at 18:30 Glucose (Glutose) 15 gm Q15M PRN BUCCAL DECREASED GLUCOSE; Start 07/03/16 at 18 :30 Dextrose (D50w Syringe) 50 ml Q15M PRN IV For BS 50 or less; Start 07/03/16 at 19:30 Dextrose (D50w Syringe) 25 ml Q15M PRN IV BS between 50-70; Start 07/03/16 at 19:30 Diagnostic Test (Pha) 1 ea 1 ea Q1H XX Last administered on 07/04/16 19:20; Admin Dose 1 EA; Start 07/03/16 at 19:30 Sodium Chloride 1,000 ml @ 125 mls/hr Q8H IV Last administered on 07/04/16 18 :58; Admin Dose 125 MLS/HR; Start 07/03/16 at 19:03 Dextrose/Sodium Chloride (D5-1/2ns) 1,000 ml @ 125 mls/hr Q8H PRN IV START WHEN BS IS BELOW 125mg/d; Start 07/03/16 at 19:03 Famotidine (Pepcid Iv) 20 mg DAILY IV ; Start 07/04/16 at 09:00 Ondansetron HCl (Zofran Inj) 4 mg Q6H PRN IV NAUSEA AND/OR VOMITING; Start at 19:30 Docusate Sodium (Colace) 200 mg BID PO ; Start 07/04/16 at 09:00 Carvedilol (Coreg) 6.25 mg BID PO Last administered on 07/04/16 09:56; Admin Dose 6.25 MG; Start 07/04/16 at 09:00 Rivaroxaban (Xarelto) 15 mg DAILY PO Last administered on 07/04/16 09:55; Admin Dose 15 MG; Start 07/04/16 at 09:00 Acetaminophen (Tylenol Tab) 650 mg Q6H PRN PO PAIN AND OR ELEVATED TEMP Last administered on 07/04/16 05:09; Admin Dose 650 MG; Start 07/03/16 at 19:30 Diagnostic Test (Pha) (Accucheck) 1 ea 02 XX ; Start 07/05/16 at 02:00 LUCIANO WATT Jul 04, 2016 21:17
[2016-07-05] MEDS: ACCUCHECK AT 2AM (Patients on SS coverage) XX SCH (02:00)
[2016-07-05] MEDS: SOD CHLORIDE 0.9% 1,000 ML IV SCH ×3 (03:15→21:22)
[2016-07-05 08:04] VITALS: BP 188/94; RESP 16
[2016-07-05] MEDS: FAMOTIDINE 20 MG INJ IV SCH (08:26)
[2016-07-05] MEDS: RIVAROXABAN 15 MG TABLET PO SCH (08:26)
[2016-07-05] MEDS: INSULIN GLARGINE [LANtus] 3 ML PEN SC SCH (08:28)
[2016-07-05] MEDS: INSULIN ASPART [NOVOLOG] 3 ML PEN SC SCH ×7 (08:29→21:00)
[2016-07-05 08:34] VITALS: BP 166/83; PULSE 93
[2016-07-05] MEDS: DOCUSATE SODIUM 100 MG CAP PO SCH ×2 (08:34→21:25)
[2016-07-05 10:00] LABS: ADD SCAN DIFF NO
[2016-07-05 10:05] LABS: BASOPHIL # 0.1 10^3/ul (0.0-0.1); BASOPHILS % 0.3 % (0.0-2.0); EOSINOPHILS # 0.2 10^3/ul (0.0-0.5); HEMOGLOBIN 10.5 g/dl (14.0-18.0); LYMPHOCYTES % 11.9 % (15.0-51.0); MEAN CORPUSCULAR HEMOGLOBIN 29.1 pg (29.0-33.0); MEAN CORPUSCULAR HGB CONC 33.9 g/dl (32.0-37.0); MEAN CORPUSCULAR VOLUME 85.9 fl (82.0-101.0); MEAN PLATELET VOLUME 11.4 fl (7.4-10.4); MONOCYTE # 1.3 10^3/ul (0.3-0.9); MONOCYTES % 7.8 % (0.0-11.0); NEUTROPHIL # 13.5 10^3/ul (1.6-7.5); NEUTROPHILS % 78.4 % (39.0-77.0); PLATELET COUNT 285 10^3/UL (140-415); RED BLOOD COUNT 3.61 10^6/ul (4.70-6.10); RED CELL DISTRIBUTION WIDTH 13.6 % (11.5-14.5); WHITE BLOOD COUNT 17.2 10^3/ul (4.8-10.8)
--- NOTE | 2016-07-05 10:09 | PN ---
Date/Time of Note Date/Time of Note DATE: 07/05/16 TIME: 10:05 Assessment/Plan VTE Prophylaxis VTE Prophylaxis Intervention: SCD's Lines/Catheters IV Catheter Type (from Nrsg): Peripheral IV Assessment/Plan Assessment/Plan 51 yo M with 1. DKA: resolved 2. Uncontrolled DM2 HBA1C : 13 3. Mild sepsis 2/2 perirectal abscess 4. Perirectal pain and abscess 5. S/p Near syncopy with Acute Humeral fracture 6. Acute renal failure r/o CKD 7. Prev DVT on anticoagulation 8. Anemia of chronic disease 9. Hyponatremia 10. HTN: improved control PLAN: * Commence broad spectrum abx and f/u blood cultures * Surgical consult for abscess drainage * Monitor blood glucose levels today on current regimen / Titrate dosing as indicated * Patient will need JULIUS i or ARB once Cr is stable / Nephrology consult * Titrate BP meds for improved control * Continue use of sling / Per Ortho, no surgical intervention required, maintain arm in sling for comfort * PRN pain control/ antiemetics/ antipyretics/ supportive care PROPHYLAXIS: Hold Xarelto and use Lovenox till after surgical review/ Pepcid Subjective 24 Hr Interval Summary Free Text/Dictation c/o rectal pain and fluctuance spoke with surgery, spoke with ortho Exam/Review of Systems Vital Signs Vitals Vital Signs Date Time Temp Pulse Resp B/P Pulse Ox O2 Delivery O2 Flow Rate FiO2 07/05/16 08:34 93 166/83 07/05/16 08:04 98.8 16 95 07/04/16 20:00 Room Air 07/03/16 21:20 21 Intake and Output 07/04/16 07/04/16 07/05/16 15:00 23:00 07:00 Intake Total 500 ml 720 ml 1550 ml Output Total 1050 ml 800 ml Balance -550 ml 720 ml 750 ml Exam Constitutional: alert, oriented, No distress Psych: nl mood/affect Head: atraumatic, normocephalic Eyes: PERRL ENMT: mucosa pink and moist Neck: supple Respiratory: clear to auscultation, normal air movement Cardiovascular: nl pulses, regular rate and rhythm Gastrointestinal: non-tender, other (perirectal abscess and fluctuancy), soft Genitourinary - Male: nl penis, nl scrotum Musculoskeletal: other (LUE in sling) Extremities: No edema Neurological: nl mental status, nl speech, No focal weakness Results Result Diagram: 07/05/16 0950 07/04/16 0525 Results 24 hrs Laboratory Tests Test 07/04/16 11:00 07/04/16 14:21 07/04/16 17:49 07/04/16 21:07 Bedside Glucose 354 H 309 H 236 H 361 H Test 07/04/16 21:14 07/05/16 02:22 07/05/16 07:49 07/05/16 09:50 Bedside Glucose 340 H 306 H 260 H Basophils # 0.1 Basophils % 0.3 Eosinophils # 0.2 Eosinophils % 1.0 Hematocrit 31.0 L Hemoglobin 10.5 L Lymphocytes # 2.0 Lymphocytes % 11.9 L Mean Corpuscular Hemoglobin 29.1 Mean Corpuscular Hemoglobin Concent 33.9 Mean Corpuscular Volume 85.9 Mean Platelet Volume 11.4 H Monocytes # 1.3 H Monocytes % 7.8 Neutrophils # 13.5 H Neutrophils % 78.4 H Nucleated Red Blood Cells # 0.0 Nucleated Red Blood Cells % 0.0 Platelet Count 285 Red Blood Count 3.61 L Red Cell Distribution Width 13.6 White Blood Count 17.2 H Medications Medications Current Medications Miscellaneous Information 1 ea NOTE XX ; Start 07/03/16 at 18:30 Glucose (Glutose) 15 gm Q15M PRN PO DECREASED GLUCOSE; Start 07/03/16 at 18:30 Glucose (Glutose) 22.5 gm Q15M PRN PO DECREASED GLUCOSE; Start 07/03/16 at 18: 30 Dextrose (D50w Syringe) 25 ml Q15M PRN IV DECREASED GLUCOSE; Start 07/03/16 at 18:30 Dextrose (D50w Syringe) 50 ml Q15M PRN IV DECREASED GLUCOSE; Start 07/03/16 at 18:30 Glucagon (Glucagen) 1 mg Q15M PRN IM DECREASED GLUCOSE; Start 07/03/16 at 18:30 Glucose (Glutose) 15 gm Q15M PRN BUCCAL DECREASED GLUCOSE; Start 07/03/16 at 18 :30 Dextrose (D50w Syringe) 50 ml Q15M PRN IV For BS 50 or less; Start 07/03/16 at 19:30 Dextrose 25 ml 25 ml Q15M PRN IV BS between 50-70; Start 07/03/16 at 19:30 Sodium Chloride (NS) 1,000 ml @ 125 mls/hr Q8H IV Last administered on 03:15; Admin Dose 125 MLS/HR; Start 07/03/16 at 19:03 Famotidine (Pepcid Iv) 20 mg DAILY IV Last administered on 07/05/16 08:26; Admin Dose 20 MG; Start 07/04/16 at 09:00 Ondansetron HCl (Zofran Inj) 4 mg Q6H PRN IV NAUSEA AND/OR VOMITING; Start at 19:30 Docusate Sodium (Colace) 200 mg BID PO Last administered on 07/04/16 21:08; Admin Dose 200 MG; Start 07/04/16 at 09:00 Carvedilol (Coreg) 6.25 mg BID PO Last administered on 07/05/16 08:26; Admin Dose 6.25 MG; Start 07/04/16 at 09:00 Rivaroxaban (Xarelto) 15 mg DAILY PO Last administered on 07/05/16 08:26; Admin Dose 15 MG; Start 07/04/16 at 09:00 Acetaminophen (Tylenol Tab) 650 mg Q6H PRN PO PAIN AND OR ELEVATED TEMP Last administered on 07/04/16 22:46; Admin Dose 650 MG; Start 07/03/16 at 19:30 Diagnostic Test (Pha) (Accucheck) 1 ea 02 XX ; Start 07/05/16 at 02:00 Insulin Glargine (Lantus) 35 unit DAILY@08 SC Last administered on 07/05/16 08 :28; Admin Dose 35 UNIT; Start 07/05/16 at 08:00 LUCIANO WATT Jul 05, 2016 10:09
[2016-07-05 10:10] LABS: POTASSIUM 4.3 mmol/L (3.5-5.1)
[2016-07-05 10:13] LABS: CALCIUM 8.2 mg/dl (8.4-10.2); CREATININE 2.02 mg/dl (0.61-1.24)
[2016-07-05 10:47] VITALS: BP 129/70; PULSE 85
--- NOTE | 2016-07-05 12:00 | RADRPT ---
PROCEDURE: US Retroperitoneum. CLINICAL INDICATION: renal failure TECHNIQUE: Sonographic evaluation of the kidneys and bladder was performed using a curved array tr ansducer. COMPARISON: None. FINDINGS: Right kidney measures 13.2 cm in length. Left kidney measures 12.9 cm in length. There is mild bilateral cortical thinning with mild increase in echogenicity. No hydronephrosis is demonstrated bilaterally. The incompletely distended bladder is grossly unremarkable. IMPRESSION: 1. Mild bilateral cortical thinning and increased echogenicity reflecting medical renal disease. N o hydronephrosis bilaterally. RPTAT: [facility] .Bunny Carrasco MD, Date Time Electronically viewed and signed by .Bunny Carrasco MD, MD on 07/05/2016 11:59 .C/
[2016-07-05] MEDS ORDERED: LEVOFLOXACIN 500MG/D5W (PMX) 100 ML IVPB SCH ×2 (13:30→15:00)
[2016-07-05] MEDS ORDERED: VANCOMYCIN IV PER PHARMACY XX SCH (13:30)
[2016-07-05] MEDS ORDERED: CEFTRIAXONE 1 GM/50 ML (PMX) 50 ML IVPB SCH (14:00)
--- NOTE | 2016-07-05 14:00 | CONS ---
DATE OF ADMISSION: 07/03/2016 DATE OF CONSULTATION: 07/05/2016 TYPE OF CONSULTATION: Nephrology. REFERRING PHYSICIAN: Rosanne Del Valle MD REASON FOR CONSULTATION: Acute kidney injury versus acute kidney injury on chronic kidney disease. HISTORY OF PRESENT ILLNESS: This is a 51-year-old male with a past medical history of hypertension, diabetes mellitus, history of previous DVT on Xarelto for anticoagulation, patient presented with a cute humeral fracture. He also had uncontrolled diabetes with diabetic ketoacidosis and had reactiv e leukocytosis. The patient was noted to have hyponatremia on admission with a sodium down to 128, potassium 6.3, BUN 35, creatinine was 2.5. The patient was treated with IV fluid hydration and DKA protocol for diabetic ketoacidosis. The patient continues to improve slowly, gradually back to norm al. Currently, he is on NS at 125 mL/hour. He is on IV antibiotics for possible concern about infe ction, but his creatinine and BUN remain elevated. The patient had a BUN of 34, creatinine of 2.39. He also has elevated blood sugars in 200s to 350. Renal has been consulted for acute kidney injur y versus acute kidney injury on chronic kidney disease. REVIEW OF SYSTEMS: As per HPI. PAST MEDICAL HISTORY: Hypertension, diabetes mellitus, history of previous osteomyelitis, history o f previous left shoulder surgery, history of DVT on Xarelto. PAST SURGICAL HISTORY: History of left shoulder surgery in 1979. PICC line placement on the left u pper arm. SOCIAL HISTORY: No smoking, alcohol or recreational drug use. FAMILY HISTORY: Not available at this point. PHYSICAL EXAMINATION: VITAL SIGNS: Temperature 99.5, heart rate is 105, respirations , blood pressure 129/70, the bl ood pressure goes up to 174/84, and 97% room air saturation. GENERAL: Awake, alert, mild distress due to the elevated blood pressure. HEENT: Normal. Oropharynx clear. NECK: Supple, no JVD, no lymphadenopathy. LUNGS: Clear to auscultation. No crackles, no wheezes. HEART: S1, S2, with regular rhythm, no murmur. ABDOMEN: Soft, nontender, nondistended. Bowel sounds are present. EXTREMITIES: No clubbing, cyanosis, or edema. NEUROLOGICAL: Nonfocal, intact. PSYCHIATRIC: Appropriate affect and mood. LABORATORY DATA/DIAGNOSTIC IMAGING 1. Urinalysis shows 2+ blood, 2+ protein. Sodium 135, potassium 4.3, chloride 104, bicarbonate 22, BUN 27, creatinine 2.39. Potassium on admission was 6.3, sodium was 128, BUN was 35, creatinine wa s 2.58. 2. Blood sugar is still elevated. Hemoglobin A1c is 13. Calcium is 8.7. Urine toxicology is nega tive. 3. Prothrombin time 12.1, PTT 24.8, INR 0.9. WBC 17.2, hemoglobin 10.5, platelet count is 285. 4. The patient had a CT brain negative for any acute finding, mild cerebral atrophy. Chest x-ray d one on day of admission is negative. Left shoulder x-ray shows the left humerus fracture. IMPRESSION: This is a 51-year-old male with: 1. Acute kidney injury versus acute kidney injury on chronic kidney disease secondary to severe pre renal azotemia from diabetic ketoacidosis. 2. Hyponatremia secondary to uncontrolled diabetes mellitus. 3. Possible history of chronic kidney disease secondary to diabetic nephropathy, undiagnosed, unsta ged. 4. Acute humeral fracture, left. 5. Status post diabetic ketoacidosis with uncontrolled diabetes mellitus. 6. History of previous deep venous thrombosis on anticoagulation. 7. Anemia of chronic disease. 8. Hypertension, accelerated, not at goal. PLAN: 1. Thank you, Dr. Rosanne Del Valle, for this consultation. I will continue the patient on IV fluids NS at 125 mL/hour. Plan is to order the urine studies including a urine protein/creatinine ratio, uri ne sodium, urine eosinophils. 2. Renal ultrasound has been ordered to assess the kidney size and to rule out hydronephrosis. 3. I will also order the CK total with a uric acid in the a.m. labs. The patient currently seen in the medical/surgical floor and he will be followed up along with the hospitalist service. Once again, thank you, Dr. Rosanne Del Valle, for this consultation. I will continue to follow this tegan ent. Total time spent in this patient's assessment, evaluation, making a plan, communicating and updating the patient/family member, communicating with the nursing staff took more than 60 minutes. Dictated By: OPAL QUINONEZ MD, KP/ALEXANDREA Conf#: [id number] DID#: [id number]
[2016-07-05] MEDS ORDERED: VANCOMYCIN 2 GM in SOD CHLORIDE 0.9% 500 ML IVPB SCH (16:00)
[2016-07-05] MEDS ORDERED: PIPER-TAZO 3.375 GM IV (PMX) 100 ML IVPB SCH (18:00)
[2016-07-05 21:30] VITALS: BP 164/79; PULSE 87; RESP 18
[2016-07-05 22:30] VITALS: BP 141/65
[2016-07-06] MEDS: ACCUCHECK AT 2AM (Patients on SS coverage) XX SCH (02:00)
[2016-07-06] MEDS: SOD CHLORIDE 0.9% 1,000 ML IV SCH ×2 (03:03→05:33)
[2016-07-06] MEDS: PIPER-TAZO 3.375 GM IV (PMX) 100 ML IVPB SCH ×3 (05:32→21:57)
[2016-07-06 05:34] LABS: URIC ACID 5.1 mg/dl (3.1-7.9)
[2016-07-06 07:15] LABS: PROTEIN URINE > 200.0 mg/dl (0.0-9.9); PROTEIN/CREAT RATIO 2.01 RATIO
[2016-07-06] MEDS: FAMOTIDINE 20 MG INJ IV SCH (08:26)
[2016-07-06] MEDS: INSULIN GLARGINE [LANtus] 3 ML PEN SC SCH (08:36)
[2016-07-06] MEDS: INSULIN ASPART [NOVOLOG] 3 ML PEN SC SCH ×7 (08:36→20:53)
[2016-07-06 08:50] VITALS: BP 142/62; PULSE 88
[2016-07-06] MEDS: DOCUSATE SODIUM 100 MG CAP PO SCH ×3 (09:00→20:46)
[2016-07-06] MEDS: ENOXAPARIN 40 MG/0.4 ML SYG SC SCH (09:37)
[2016-07-06 10:35] LABS: ADD SCAN DIFF NO
[2016-07-06 10:46] LABS: ABNORMAL IP MESSAGE 1; BASOPHIL # 0.1 10^3/ul (0.0-0.1); BASOPHILS % 0.3 % (0.0-2.0); EOSINOPHILS # 0.2 10^3/ul (0.0-0.5); EOSINOPHILS % 0.9 % (0.0-7.0); HEMATOCRIT 29.1 % (42.0-52.0); HEMOGLOBIN 9.7 g/dl (14.0-18.0); LYMPHOCYTES # 2.9 10^3/ul (0.8-2.9); LYMPHOCYTES % 14.5 % (15.0-51.0); MEAN CORPUSCULAR HEMOGLOBIN 29.4 pg (29.0-33.0); MEAN CORPUSCULAR HGB CONC 33.3 g/dl (32.0-37.0); MEAN CORPUSCULAR VOLUME 88.2 fl (82.0-101.0); MONOCYTE # 1.6 10^3/ul (0.3-0.9); NEUTROPHILS % 75.6 % (39.0-77.0); PLATELET COUNT 283 10^3/UL (140-415); RED CELL DISTRIBUTION WIDTH 13.8 % (11.5-14.5); WHITE BLOOD COUNT 19.9 10^3/ul (4.8-10.8)
[2016-07-06 11:06] LABS: POTASSIUM 4.1 mmol/L (3.5-5.1)
[2016-07-06 11:09] LABS: CREATININE 2.14 mg/dl (0.61-1.24)
[2016-07-06 11:10] LABS: CALCIUM 8.1 mg/dl (8.4-10.2)
--- NOTE | 2016-07-06 12:05 | CONS ---
Date/Time of Note Date/Time of Note DATE: 07/06/16 TIME: 12:02 Assessment/Plan Assessment/Plan Additional Assessment/Plan 1. Acute kidney injury versus acute kidney injury on chronic kidney disease secondary to severe prerenal azotemia from diabetic ketoacidosis. 2. Hyponatremia secondary to uncontrolled diabetes mellitus. 3. Possible history of chronic kidney disease secondary to diabetic nephropathy , undiagnosed, unstaged. 4. Acute humeral fracture, left. 5. Status post diabetic ketoacidosis with uncontrolled diabetes mellitus. 6. History of previous deep venous thrombosis on anticoagulation. 7. Anemia of chronic disease. 8. Hypertension, accelerated, not at goal. PLAN: renal US c/w medical renal disease Change IVF To /2 NS at 100 cc/hr will start bicitra 30ml PO BID will continue to follow up on patient pt is on IV abx including vancomycin, please monitor level and renally dose all medications Consultation Date/Type/Reason Admit Date/Time Jul 03, 2016 at 19:03 Initial Consult Date Jun Type of Consultation: NEPHROLOGY Reason for Consultation Acute kidney injury Referring Provider: LUCIANO WATT 24 HR Interval Summary Free Text/Dictation Cr still high, good urine output, HCo3 20 Exam/Review of Systems Vital Signs Vitals Vital Signs Date Time Temp Pulse Resp B/P Pulse Ox O2 Delivery O2 Flow Rate FiO2 07/06/16 08:50 88 142/62 07/05/16 21:30 99.1 18 98 Room Air 07/03/16 21:20 21 Intake and Output 07/05/16 07/05/16 07/06/16 15:00 23:00 07:00 Intake Total 2780 ml 1500 ml Output Total 1400 ml 600 ml Balance 1380 ml 900 ml Exam GENERAL: Awake, alert, mild distress due to the elevated blood pressure. HEENT: Normal. Oropharynx clear. NECK: Supple, no JVD, no lymphadenopathy. LUNGS: Clear to auscultation. No crackles, no wheezes. HEART: S1, S2, with regular rhythm, no murmur. ABDOMEN: Soft, nontender, nondistended. Bowel sounds are present. EXTREMITIES: No clubbing, cyanosis, or edema. NEUROLOGICAL: Nonfocal, intact. PSYCHIATRIC: Appropriate affect and mood. Results Result Diagram: 07/06/16 5024 07/06/16 0500 Results 24 hrs Laboratory Tests Test 07/05/16 16:58 07/05/16 17:20 07/05/16 21:28 07/06/16 01:30 Bedside Glucose 114 160 Urine Eosinophils % 1.0 Urine Random Sodium 69 Urine Protein/Creatinine Ratio 2.01 Urine Random Creatinine 99.23 Urine Total Protein > 200.0 H Test 07/06/16 04:44 07/06/16 05:00 07/06/16 07:37 07/06/16 11:55 Basophils # 0.1 Basophils % 0.3 Creatine Kinase 96 Eosinophils # 0.2 Eosinophils % 0.9 Hematocrit 29.1 L Hemoglobin 9.7 L Lymphocytes # 2.9 Lymphocytes % 14.5 L Mean Corpuscular Hemoglobin 29.4 Mean Corpuscular Hemoglobin Concent 33.3 Mean Corpuscular Volume 88.2 Mean Platelet Volume 12.0 H Monocytes # 1.6 H Monocytes % 8.0 Neutrophils # 15.0 H Neutrophils % 75.6 Nucleated Red Blood Cells # 0.0 Nucleated Red Blood Cells % 0.0 Platelet Count 283 Red Blood Count 3.30 L Red Cell Distribution Width 13.8 Uric Acid 5.1 White Blood Count 19.9 H Anion Gap 14 Blood Urea Nitrogen 29 H Calcium Level 8.1 L Carbon Dioxide Level 20 L Chloride Level 103 Creatinine 2.14 H Glucose Level 151 # Potassium Level 4.1 Sodium Level 133 L Bedside Glucose 153 229 H Medications Medications Current Medications Miscellaneous Information 1 ea NOTE XX ; Start 07/03/16 at 18:30 Glucose (Glutose) 15 gm Q15M PRN PO DECREASED GLUCOSE; Start 07/03/16 at 18:30 Glucose (Glutose) 22.5 gm Q15M PRN PO DECREASED GLUCOSE; Start 07/03/16 at 18: 30 Dextrose (D50w Syringe) 25 ml Q15M PRN IV DECREASED GLUCOSE; Start 07/03/16 at 18:30 Dextrose (D50w Syringe) 50 ml Q15M PRN IV DECREASED GLUCOSE; Start 07/03/16 at 18:30 Glucagon (Glucagen) 1 mg Q15M PRN IM DECREASED GLUCOSE; Start 07/03/16 at 18:30 Glucose (Glutose) 15 gm Q15M PRN BUCCAL DECREASED GLUCOSE; Start 07/03/16 at 18 :30 Dextrose (D50w Syringe) 50 ml Q15M PRN IV For BS 50 or less; Start 07/03/16 at 19:30 Dextrose 25 ml 25 ml Q15M PRN IV BS between 50-70; Start 07/03/16 at 19:30 Sodium Chloride (NS) 1,000 ml @ 125 mls/hr Q8H IV Last administered on 05:33; Admin Dose 125 MLS/HR; Start 07/03/16 at 19:03 Famotidine (Pepcid Iv) 20 mg DAILY IV Last administered on 07/06/16 08:26; Admin Dose 20 MG; Start 07/04/16 at 09:00 Ondansetron HCl (Zofran Inj) 4 mg Q6H PRN IV NAUSEA AND/OR VOMITING; Start at 19:30 Docusate Sodium (Colace) 200 mg BID PO Last administered on 07/05/16 21:25; Admin Dose 200 MG; Start 07/04/16 at 09:00 Acetaminophen (Tylenol Tab) 650 mg Q6H PRN PO PAIN AND OR ELEVATED TEMP Last administered on 07/04/16 22:46; Admin Dose 650 MG; Start 07/03/16 at 19:30 Diagnostic Test (Pha) (Accucheck) 1 ea 02 XX ; Start 07/05/16 at 02:00 Insulin Glargine (Lantus) 35 unit DAILY@08 SC Last administered on 07/06/16 08 :36; Admin Dose 35 UNIT; Start 07/05/16 at 08:00 Carvedilol (Coreg) 12.5 mg BID PO Last administered on 07/06/16 08:26; Admin Dose 12.5 MG; Start 07/05/16 at 21:00 Enoxaparin Sodium 40 mg 40 mg DAILY SC Last administered on 07/06/16 09:37; Admin Dose 40 MG; Start 07/06/16 at 09:00 Vancomycin HCl 1.5 gm/Sodium Chloride 250 ml @ 83.333 mls/ hr Q24H IVPB ; Start 07/06/16 at 16:00 Piperacillin Sod/ Tazobactam Sod (Zosyn 3.375gm/ 100 ml (Pmx)) 100 ml @ 200 mls /hr Q8 IVPB Last administered on 07/06/16 05:32; Admin Dose 200 MLS/HR; Start 07/06/16 at 06:00 OPAL QUINONEZ MD Jul 06, 2016 12:05
[2016-07-06] MEDS ORDERED: CITRIC ACID/NA CITRATE 30 ML CUP PO ONE (12:30)
[2016-07-06] MEDS ORDERED: LIDOCAINE 1%/EPI 30 ML INJ INJ SCH (12:30)
[2016-07-06] MEDS ORDERED: LIDOCAINE 1%/EPI (MDV) 20 ML INJ INJ ONE (12:30)
[2016-07-06] MEDS: SOD CHLORIDE 0.45% 1,000 ML IV SCH ×2 (12:56→22:30)
--- NOTE | 2016-07-06 13:54 | PN ---
Date/Time of Note Date/Time of Note DATE: 07/06/16 TIME: 13:42 Assessment/Plan VTE Prophylaxis VTE Prophylaxis Intervention: LMWH Lines/Catheters IV Catheter Type (from Nrs): Peripheral IV Urinary Cath still in place: No Assessment/Plan Assessment/Plan 51 yo M with 1. DKA: resolved 2. Uncontrolled DM2 HBA1C : 13 : improved in-house control 3. Mild sepsis 2/2 perirectal abscess 4. Perirectal pain and abscess 5. S/p Near syncopy with Acute Humeral fracture 6. Acute renal failure r/o CKD 7. Prev DVT on anticoagulation 8. Anemia of chronic disease 9. HTN: improved control PLAN: * Continue abx / ID consult /Surgical consult for abscess drainage * Continue current blood glucose regimen and uptitrate as needed * Patient will need JULIUS i or ARB once Cr is stable / Appreciate Nephrology consult * Continue use of sling / Per Ortho, no surgical intervention required, maintain arm in sling for comfort * PRN pain control/ antiemetics/ antipyretics/ supportive care PROPHYLAXIS: Hold Xarelto and use Lovenox till after surgical review/ Pepcid Subjective 24 Hr Interval Summary Free Text/Dictation Still reporting rectal pain no new issues eating and drinking well Exam/Review of Systems Vital Signs Vitals Vital Signs Date Time Temp Pulse Resp B/P Pulse Ox O2 Delivery O2 Flow Rate FiO2 07/06/16 08:50 88 142/62 07/05/16 21:30 99.1 18 98 Room Air 07/03/16 21:20 21 Intake and Output 07/05/16 07/05/16 07/06/16 15:00 23:00 07:00 Intake Total 2780 ml 1500 ml Output Total 1400 ml 600 ml Balance 1380 ml 900 ml Exam Constitutional: alert, oriented, No distress Psych: nl mood/affect Head: atraumatic, normocephalic Eyes: PERRL ENMT: mucosa pink and moist Neck: supple Respiratory: clear to auscultation, normal air movement Cardiovascular: nl pulses, regular rate and rhythm Gastrointestinal: non-tender, other (perirectal abscess and fluctuancy), soft Genitourinary - Male: nl penis, nl scrotum Musculoskeletal: other (LUE in sling) Extremities: No edema Neurological: nl mental status, nl speech, No focal weakness Results Result Diagram: 07/06/16 0444 07/06/16 0500 Results 24 hrs Laboratory Tests Test 07/05/16 16:58 07/05/16 17:20 07/05/16 21:28 07/06/16 01:30 Bedside Glucose 114 160 Urine Eosinophils % 1.0 Urine Random Sodium 69 Urine Protein/Creatinine Ratio 2.01 Urine Random Creatinine 99.23 Urine Total Protein > 200.0 H Test 07/06/16 04:44 07/06/16 05:00 07/06/16 07:37 07/06/16 11:55 Basophils # 0.1 Basophils % 0.3 Creatine Kinase 96 Eosinophils # 0.2 Eosinophils % 0.9 Hematocrit 29.1 L Hemoglobin 9.7 L Lymphocytes # 2.9 Lymphocytes % 14.5 L Mean Corpuscular Hemoglobin 29.4 Mean Corpuscular Hemoglobin Concent 33.3 Mean Corpuscular Volume 88.2 Mean Platelet Volume 12.0 H Monocytes # 1.6 H Monocytes % 8.0 Neutrophils # 15.0 H Neutrophils % 75.6 Nucleated Red Blood Cells # 0.0 Nucleated Red Blood Cells % 0.0 Platelet Count 283 Red Blood Count 3.30 L Red Cell Distribution Width 13.8 Uric Acid 5.1 White Blood Count 19.9 H Anion Gap 14 Blood Urea Nitrogen 29 H Calcium Level 8.1 L Carbon Dioxide Level 20 L Chloride Level 103 Creatinine 2.14 H Glucose Level 151 # Potassium Level 4.1 Sodium Level 133 L Bedside Glucose 153 229 H Medications Medications Current Medications Miscellaneous Information 1 ea NOTE XX ; Start 07/03/16 at 18:30 Glucose (Glutose) 15 gm Q15M PRN PO DECREASED GLUCOSE; Start 07/03/16 at 18:30 Glucose (Glutose) 22.5 gm Q15M PRN PO DECREASED GLUCOSE; Start 07/03/16 at 18: 30 Dextrose (D50w Syringe) 25 ml Q15M PRN IV DECREASED GLUCOSE; Start 07/03/16 at 18:30 Dextrose (D50w Syringe) 50 ml Q15M PRN IV DECREASED GLUCOSE; Start 07/03/16 at 18:30 Glucagon (Glucagen) 1 mg Q15M PRN IM DECREASED GLUCOSE; Start 07/03/16 at 18:30 Glucose (Glutose) 15 gm Q15M PRN BUCCAL DECREASED GLUCOSE; Start 07/03/16 at 18 :30 Dextrose (D50w Syringe) 50 ml Q15M PRN IV For BS 50 or less; Start 07/03/16 at 19:30 Dextrose (D50w Syringe) 25 ml Q15M PRN IV BS between 50-70; Start 07/03/16 at 19:30 Famotidine (Pepcid Iv) 20 mg DAILY IV Last administered on 07/06/16 08:26; Admin Dose 20 MG; Start 07/04/16 at 09:00 Ondansetron HCl (Zofran Inj) 4 mg Q6H PRN IV NAUSEA AND/OR VOMITING; Start at 19:30 Docusate Sodium (Colace) 200 mg BID PO Last administered on 07/06/16 12:51; Admin Dose 200 MG; Start 07/04/16 at 09:00 Acetaminophen (Tylenol Tab) 650 mg Q6H PRN PO PAIN AND OR ELEVATED TEMP Last administered on 07/04/16 22:46; Admin Dose 650 MG; Start 07/03/16 at 19:30 Diagnostic Test (Pha) (Accucheck) 1 ea 02 XX ; Start 07/05/16 at 02:00 Insulin Glargine (Lantus) 35 unit DAILY@08 SC Last administered on 07/06/16 08 :36; Admin Dose 35 UNIT; Start 07/05/16 at 08:00 Carvedilol (Coreg) 12.5 mg BID PO Last administered on 07/06/16 08:26; Admin Dose 12.5 MG; Start 07/05/16 at 21:00 Enoxaparin Sodium 40 mg 40 mg DAILY SC Last administered on 07/06/16 09:37; Admin Dose 40 MG; Start 07/06/16 at 09:00 Vancomycin HCl 1.5 gm/Sodium Chloride 250 ml @ 83.333 mls/ hr Q24H IVPB ; Start 07/06/16 at 16:00 Piperacillin Sod/ Tazobactam Sod 100 ml @ 200 mls/hr Q8 IVPB Last administered on 07/06/16 05:32; Admin Dose 200 MLS/HR; Start 07/06/16 at 06:00 Sodium Chloride (1/2 NS) 1,000 ml @ 100 mls/hr Q10H IV Last administered on 12:56; Admin Dose 100 MLS/HR; Start 07/06/16 at 12:30 Citric Acid/ Sodium Citrate (Bicitra) 30 ml BID PO ; Start 07/06/16 at 21:00 Lidocaine/ Epinephrine (Xylocaine 1%/ Epi) 20 ml NOW INJ ; Start 07/06/16 at 12: 30; Stop 07/06/16 at 23:00 LUCIANO WATT Jul 06, 2016 13:52
[2016-07-06] MEDS ORDERED: VANCOMYCIN 1.5 GM in SOD CHLORIDE 0.9% 250 ML IVPB SCH (16:00)
--- NOTE | 2016-07-06 16:23 | PN ---
Date/Time of Note Date/Time of Note DATE: 07/06/16 TIME: 16:19 Assessment/Plan Lines/Catheters IV Catheter Type (from [facility]): Peripheral IV Espitia in Place (from [facility]): No Assessment/Plan Chief Complaint/Hosp Course 1. Right buttock abscess -Antibiotics -Incision and drainage 2. DKA improved -Judicious fluid management -Insulin and diabetes therapy 3. Type 2 diabetes mellitus -Diet and medication control -Encourage weight loss 4. Hypertension -Diet and medication control -Encourage weight loss 5. Morbid obesity with BMI of 38 -Diet optimization encouraged -Exercise encouraged 6. Sepsis secondary to above -Treatment as above 7. Acute kidney injury secondary to above -Judicious fluid management -Monitor creatinine -Treatment as above Thank you, Dictation #: [id number] Problems: Subjective 24 Hr Interval Summary Right buttock pain. No fevers or chills. No nausea vomiting. No chest pain or shortness of breath. No headache. No visual or neurologic changes. No dysuria. Bowel function. Leukocytosis. Exam/Review of Systems Vital Signs Vitals Vital Signs Date Time Temp Pulse Resp B/P Pulse Ox O2 Delivery O2 Flow Rate FiO2 07/06/16 08:50 88 142/62 07/05/16 21:30 99.1 18 98 Room Air 07/03/16 21:20 21 Intake and Output 07/05/16 07/05/16 07/06/16 15:00 23:00 07:00 Intake Total 2780 ml 1500 ml Output Total 1400 ml 600 ml Balance 1380 ml 900 ml Exam Constitutional: alert, obese, oriented, No distress Psych: nl mood/affect, No anxiety, No confusion Head: normocephalic, No atraumatic Eyes: EOMI, PERRL, nl conjunctiva, No icteric ENMT: mucosa pink and moist, nl external ears & nose, nl lips & teeth Neck: non-tender, supple, No jvd Respiratory: normal air movement, No congested cough, No diminished breath sounds Cardiovascular: regular rate and rhythm, No edema Gastrointestinal: non-tender, other (right buttock with induration and fluctuance plus erythema and tenderness), soft, No rebound or guarding Musculoskeletal: joint tenderness (left shoulder), nl gait and stance, No nl extremities to inspection (left upper extremity in a sling) Extremities: normal pulses, No calf tenderness, No cyanosis Neurological: nl mental status, nl speech, nl strength Skin: nl turgor, No diaphoresis, No rash or lesions Lymph: nl lymph nodes Results Result Diagram: 07/06/16 0444 07/06/16 0500 CHARLY ELY MD Jul 06, 2016 16:23
--- NOTE | 2016-07-06 18:55 | CONS ---
DATE OF ADMISSION: 07/03/2016 DATE OF CONSULTATION: 07/06/2016 TYPE OF CONSULTATION: Surgical. REFERRING PHYSICIAN: Rosanne Del Valle MD CHIEF COMPLAINT: 1. Right buttocks/perineal abscess. 2. BMI 38. 3. Diabetes. 4. Diabetic ketoacidosis. 5. Hypertension. 6. Sepsis. 7. Acute renal failure. 8. Previous DVT, on anticoagulation. 9. Anemia. HISTORY OF PRESENT ILLNESS: Mr. Taco Short is a 51-year-old male with multiple significant comor bidities who was brought in by ambulance from home after he became weak and fell down the stairs ass ociated with left shoulder injury and on presentation was found to be in sepsis and DKA. He has bee n on antibiotics and DKA has been stabilized. However, just recently the patient reported that he i s having right buttock swelling and pain and was found to have an abscess and surgical consult was o btained for further evaluation and treatment. He denies any current fevers or chills. No nausea, v omiting. No chest pain, shortness of breath. No visual or neurologic changes. No dysuria. No abd ominal pain. Positive bowel function. PAST MEDICAL HISTORY: 1. Morbid obesity, BMI of 38. 2. Diabetes. 3. Hypertension. 4. Osteomyelitis history. 5. Deep venous thrombosis history. 6. Left humeral fracture. 7. Syncope. 8. Acute kidney injury. 9. DKA. 10. Hypoglycemia. 11. Hypocalcemia. 12. Hypertriglyceridemia. 13. Hypercholesterolemia. 14. Anemia. 15. Leukocytosis. PAST SURGICAL HISTORY: 1. Left shoulder. 2. Excision of pilonidal cyst. 3. I and D of perirectal/anal abscess. MEDICATIONS: As per JUL. ALLERGIES: LEVOFLOXACIN. SOCIAL HISTORY: Drinks rarely. No recreational drugs. No tobacco. Works at a warehouse. FAMILY HISTORY: Noncontributory. REVIEW OF SYSTEMS: A 12-point review of systems negative, unless addressed in the HPI. PHYSICAL EXAMINATION: VITAL SIGNS: Temperature 99.1, pulse 87, blood pressure 164/79. GENERAL: No acute distress, obese. HEENT: Pupils equal, reactive. No scleral icterus. Mucous membranes are somewhat dry. NECK: Supple, no JVD. PULMONARY: No respiratory effort. No wheezing. HEART: S1, S2 present. ABDOMEN: Soft, nontender, obese. EXTREMITIES: Left shoulder in a sling. No edema. VASCULAR: Cap refill less than 2 seconds. NEUROLOGIC: Alert, oriented, moves all 4 extremities grossly. RECTAL: Right buttock with induration, fluctuance and erythema and tenderness. No perianal extensi on. No anal tenderness. LABORATORY DATA: WBC is 17, H and H 03/10, platelets 285, neutrophils 78%. Sodium 135, potassium 4 .3, chloride 104, CO2 22, BUN 27, creatinine 2, glucose 277, calcium 8.2. ASSESSMENT AND PLAN: Mr. Taco Short is a 51-year-old male with multiple significant comorbiditie s. 1. Right buttock abscess. Antibiotics. Incision and drainage. 2. Diabetic ketoacidosis, improved. Judicious fluid management. Insulin and diabetes therapy. 3. Type 2 diabetes mellitus. Diet and medication control. Encourage weight loss. 4. Hypertension. Diet and medication control. Encourage weight loss. 5. Morbid obesity with body mass index of 38. Diet optimization encouraged. Exercise encouraged. 6. Sepsis secondary to above. Treatment as above. 7. Acute kidney injury secondary to above. Judicious fluid management. Monitor creatinine. Treatment as above. Thank you very much for consulting me in this patient's care. Dictated By: CHARLY BYNUM/ALEXANDREA Conf#: [id number] DID#: [id number]
--- NOTE | 2016-07-06 19:01 | OPR ---
DATE OF OPERATION: 07/06/2016 PREOPERATIVE DIAGNOSIS: Right buttock abscess. POSTOPERATIVE DIAGNOSIS: Right buttock abscess. OPERATION PERFORMED: 1. Incision and drainage of right buttock abscess. 2. Local anesthetic injection, [id number]. SURGEON: Charly Ely MD CARPENTER FORM: None. ANESTHESIA: 1% lidocaine with epinephrine, 20 mL. COMPLICATIONS: None. SPECIMEN: Culture. ESTIMATED BLOOD LOSS: 5 mL. INDICATION: Mr. Taco Short is a 51-year-old male with multiple comorbidities with a right buttoc k abscess and sepsis and DKA in need of incision and drainage. Risks, benefits, alternatives were f ully explained to patient including bleeding, infection, abscess, chronic wound, chronic pain, fistu la, need for further surgeries, local damage, heart attack, stroke, PE, DVT, pneumonia, organ failur es or . Patient and understand and elect to proceed with surgery. DISPOSITION: Tolerated procedure well in his own room. PROCEDURE NOTE: The patient was placed in the lateral decubitus on his own bed and all pressure poi nts were well padded. Timeout was performed and he was prepped and draped sterilely. He is already on antibiotics. Local anesthetic was injected at the abscess site on the right buttock and after patient was numb, u sing an 11 blade scalpel, the abscess cavity was entered vertically and lots of pus under pressure w as released. Culture was sent. Wound was irrigated and loculations was opened with a Grisel instrum ent. Wound was packed with Kerlix and dry dressing was applied. The patient tolerated the procedur e well. Dictated By: CHARLY ELY MD SK/NTS Conf#: [id number] DID#: [id number]
[2016-07-06 19:33] VITALS: BP 132/66; RESP 18
[2016-07-06] MEDS: CITRIC ACID/NA CITRATE 30 ML CUP PO SCH (20:47)
[2016-07-07] MEDS: ACCUCHECK AT 2AM (Patients on SS coverage) XX SCH (02:00)
[2016-07-07] MEDS: SOD CHLORIDE 0.45% 1,000 ML IV SCH (03:11)
[2016-07-07] MEDS: PIPER-TAZO 3.375 GM IV (PMX) 100 ML IVPB SCH (06:20)
--- NOTE | 2016-07-07 07:30 | CONS ---
DATE OF ADMISSION: 07/03/2016 DATE OF CONSULTATION: 07/07/2016 CHIEF COMPLAINT: Fall. HISTORY OF PRESENT ILLNESS: This is a 51-year-old male with a history of diabetes and multiple medi daylni comorbidities who had a syncopal episode. The patient may have had loss of consciousness. He u nderwent incision and debridement for a buttock abscess. He complains of left shoulder pain after t he fall. He denies any numbness or weakness. He denies any other history of trauma. He denies any recent infections. He has no other complaints. PAST MEDICAL HISTORY: Diabetes, hypertension and hyperlipidemia. MEDICATIONS: 1. Insulin. 2. Lispro. 3. Carvedilol 6.25 mg. 4. Xarelto 15 mg. 5. Simvastatin 10 mg. PAST SURGICAL HISTORY: Previous left shoulder surgery in 1985. SOCIAL HISTORY: The patient denies tobacco, alcohol or drug use. FAMILY HISTORY: Diabetes. ALLERGIES: LEVAFLOXACIN. PHYSICAL EXAMINATION: VITAL SIGNS: 98.2 temperature, 94 pulse, 110/71 blood pressure, 20 Respiratory rate. GENERAL: The patient is in no acute distress. He is alert and oriented x3. EXTREMITIES: Left upper extremity, there is no deformity. There are no open wounds. There is pain with passive range of motion. He has 160 degrees of forward flexion, 160 degrees of abduction, 40 degrees of extension, 60 degrees of internal rotation and 60 degrees of external rotation. Negative Neer's and Kumar test and 5/5 function of axillary, radial, ulnar and median nerve function. X-RAYS: Left shoulder: Two views of the left shoulder demonstrates a triangular shaped avulsion fr acture. The fracture is well corticated. No other fractures or dislocations are seen. ASSESSMENT: A 51-year-old male who fell with a chronic avulsion fracture of the left greater tubero sity. PLAN: The patient can have a sling. He does not require any surgical intervention at this time. H e can follow up on an outpatient basis for further treatment. Dictated By: BULMARO PATINO/ALEXANDREA Conf#: [id number] DID#: [id number] CC: LUCIANO WATT MD;*EndCC*
[2016-07-07 07:49] VITALS: BP 167/83; RESP 18
[2016-07-07] MEDS: INSULIN ASPART [NOVOLOG] 3 ML PEN SC SCH ×4 (07:55→11:54)
[2016-07-07] MEDS ORDERED: INSULIN GLARGINE [LANtus] 3 ML PEN SC SCH (08:00)
[2016-07-07] MEDS: CITRIC ACID/NA CITRATE 30 ML CUP PO SCH (08:49)
[2016-07-07] MEDS: DOCUSATE SODIUM 100 MG CAP PO SCH (08:50)
[2016-07-07] MEDS ORDERED: FAMOTIDINE 20 MG TAB PO SCH (09:00)
[2016-07-07] MEDS: ENOXAPARIN 40 MG/0.4 ML SYG SC SCH (09:01)
[2016-07-07 09:03] VITALS: BP 150/78; PULSE 80
--- NOTE | 2016-07-07 09:30 | PN ---
Date/Time of Note Date/Time of Note DATE: 07/07/16 TIME: Assessment/Plan Lines/Catheters IV Catheter Type (from [facility]): Peripheral IV Espitia in Place (from [facility]): No Assessment/Plan Chief Complaint/Hosp Course 1. Right buttock abscess s/p I&D 07/06 -Antibiotics -Wound care -Off load -Nutrition optimization -Vit C -Debridement prn 2. DKA improved -Judicious fluid management -Insulin and diabetes therapy 3. Type 2 diabetes mellitus -Diet and medication control -Encourage weight loss 4. Hypertension -Diet and medication control -Encourage weight loss 5. Morbid obesity with BMI of 38 -Diet optimization encouraged -Exercise encouraged 6. Sepsis secondary to above -Treatment as above 7. Acute kidney injury secondary to above -Judicious fluid management -Monitor creatinine -Treatment as above Thank you, Problems: Subjective 24 Hr Interval Summary s/p I&D right buttock abscess 07/06. Right buttock pain improving. Leukocytosis. No fevers or chills. No nausea vomiting. No chest pain or shortness of breath. No headache. No visual or neurologic changes. No dysuria. Bowel function. Exam/Review of Systems Vital Signs Vitals Vital Signs Date Time Temp Pulse Resp B/P Pulse Ox O2 Delivery O2 Flow Rate FiO2 07/07/16 09:03 80 150/78 07/07/16 07:49 98.2 18 98 07/05/16 21:30 Room Air 07/03/16 21:20 21 Intake and Output 07/06/16 07/06/16 07/07/16 15:00 23:00 07:00 Intake Total 600 ml 1570 ml 1250 ml Output Total 900 ml Balance 600 ml 670 ml 1250 ml Exam Free Text/Dictation Constitutional: alert, obese, oriented, No distress Psych: nl mood/affect, No anxiety, No confusion Head: normocephalic, No atraumatic Eyes: EOMI, PERRL, nl conjunctiva, No icteric ENMT: mucosa pink and moist, nl external ears & nose, nl lips & teeth Neck: non-tender, supple, No jvd Respiratory: normal air movement, No congested cough, No diminished breath sounds Cardiovascular: regular rate and rhythm, No edema Gastrointestinal: non-tender, soft, No rebound or guarding. Right buttock wound packed. Decreased erythema Musculoskeletal: joint tenderness (left shoulder), nl gait and stance, No nl extremities to inspection (left upper extremity in a sling) Extremities: normal pulses, No calf tenderness, No cyanosis Neurological: nl mental status, nl speech, nl strength Skin: nl turgor, No diaphoresis, No rash or lesions Lymph: nl lymph nodes Results Result Diagram: 07/06/16 0444 07/06/16 0500 CHARLY ELY MD Jul 07, 2016 09:30
[2016-07-07] MEDS ORDERED: hydrALAzine 20 MG INJ IV PRN (11:00)
--- NOTE | 2016-07-07 11:09 | PDOCDIS ---
Discharge Instructions CONDITION Patient Condition: Stable HOME CARE INSTRUCTIONS: Special Diet: 1800 ada, 2 gm na ACTIVITY: Activity Restrictions: Slowly Increase Activity FOLLOW UP/APPOINTMENTS Appointments Please take your medications, and see your doctor in the clinic in 1 week. KALA SOLOMON Jul 07, 2016 11:09
[2016-07-07] MEDS ORDERED: NOVO3I SC (11:12)
[2016-07-07] MEDS ORDERED: CEPH-443 PO (11:12)
[2016-07-07] MEDS ORDERED: CARV6.2579 PO (11:12)
[2016-07-07] MEDS ORDERED: INSU300I SQ (11:12)
--- NOTE | 2016-07-07 11:56 | DS ---
DATE OF ADMISSION: 07/03/2016 DATE OF DISCHARGE: 07/07/2016 HOSPITAL COURSE: The patient came in with weakness symptoms, lower extremity weakness, specifically was found to have DKA. His hemoglobin A1c was found to be 13.0. He was admitted, given aggressive IV fluids and IV insulin management. His sugars improved. He was also seen by renal team for camacho l insufficiency, thought to be prerenal cause from diabetic ketoacidosis. He was given IV fluids as well. He had some hyponatremia which resolved as well. He was also found with shoulder pain and o n imaging studies. He had a triangular-shaped avulsion fracture of the left shoulder. He was seen by orthopedic surgery team for that. Recommended sling placement. No indications for surgical inte rvention at this time. The patient was also given pain control medicines as well for that. He also was found with a rectal abscess that had an incision and drainage performed for that, placed on ant ibiotics as well for that. There was a right buttock abscess, specifically. Again, over the course of his hospital stay after getting IV fluids, insulin, his sugars improved. His white count was st ill elevated on time of discharge, but no fevers and this was thought to be reactive secondary to th e surgical procedure, so the patient had again his sodium levels improved, his renal insufficiency t hat resolved. He was able to ambulate and tolerate a p.o. diet. He will be discharged home today i n improved condition. DISCHARGE MEDICATIONS: He will be sent with: 1. Coreg 12.5 mg b.i.d. 2. Keflex 500 mg q.8 hours for 7 days. 3. Aspart insulin 10 units with meals. 4. Lantus 40 units subQ at bedtime. 5. Xarelto 15 mg daily. He will need to follow up with orthopedic surgery team, primary care doctor team, and general surger y team in the clinic in the next 1 to 2 weeks. FINAL DIAGNOSES: 1. Weakness and lethargy secondary to DKA with an A1c found of 13.0, now resolved. 2. Uncontrolled type 2 diabetes with A1c of 13.0, now improved with subcutaneous insulin. 3. Left greater tuberosity chronic avulsion fracture, now on sling placement, status post fall. 4. Renal insufficiency, now resolved, secondary to prerenal azotemia from diabetic ketoacidosis. 5. History of deep venous thrombosis, on anticoagulation, Xarelto. 6. Hyponatremia, resolved. 7. Reactive leukocytosis, improving. 8. Rectal abscess, status post incision and drainage. 9. Essential hypertension. Time spent discharging the patient, 50 minutes. Dictated By: KALA WELLS Conf#: [id number] DID#: [id number]
[2016-07-07 12:39] LABS: POTASSIUM 4.2 mmol/L (3.5-5.1)
[2016-07-07 12:42] LABS: CALCIUM 8.2 mg/dl (8.4-10.2)
[2016-07-07 12:47] LABS: CREATININE 2.32 mg/dl (0.61-1.24)
[2016-07-07] MEDS ORDERED: SODIUM HYPOCHLORITE 0.125% 473 ML BTL IRR SCH (13:00)
--- NOTE | 2016-07-07 17:37 | CONS ---
Date/Time of Note Date/Time of Note DATE: 07/07/16 TIME: 17:36 Assessment/Plan Assessment/Plan Additional Assessment/Plan 1. Acute kidney injury versus acute kidney injury on chronic kidney disease secondary to severe prerenal azotemia from diabetic ketoacidosis. 2. Hyponatremia secondary to uncontrolled diabetes mellitus. 3. Possible history of chronic kidney disease secondary to diabetic nephropathy , undiagnosed, unstaged. 4. Acute humeral fracture, left. 5. Status post diabetic ketoacidosis with uncontrolled diabetes mellitus. 6. History of previous deep venous thrombosis on anticoagulation. 7. Anemia of chronic disease. 8. Hypertension, accelerated, not at goal. PLAN: pt is seen early in AM, plan for d/c home today renal US c/w medical renal disease Cr stable, on bicitra will start bicitra 30ml PO BID will continue to follow up on patient pt is on IV abx including vancomycin, please monitor level and renally dose all medications ok to d/c with follow up with me in clinic in 1 -2 week afte rdischarge Consultation Date/Type/Reason Admit Date/Time Jul 03, 2016 at 19:03 Initial Consult Date Jun Type of Consultation: NEPHROLOGY Referring Provider: LUCIANO WATT 24 HR Interval Summary Free Text/Dictation Pt seen early in AM< cr stable, no dysuria, no hematuria Exam/Review of Systems Vital Signs Vitals Vital Signs Date Time Temp Pulse Resp B/P Pulse Ox O2 Delivery O2 Flow Rate FiO2 07/07/16 09:03 80 150/78 07/07/16 07:49 98.2 18 98 07/05/16 21:30 Room Air 07/03/16 21:20 21 Intake and Output 07/06/16 07/06/16 07/07/16 15:00 23:00 07:00 Intake Total 600 ml 1570 ml 1250 ml Output Total 900 ml Balance 600 ml 670 ml 1250 ml Exam GENERAL: Awake, alert, mild distress due to the elevated blood pressure. HEENT: Normal. Oropharynx clear. NECK: Supple, no JVD, no lymphadenopathy. LUNGS: Clear to auscultation. No crackles, no wheezes. HEART: S1, S2, with regular rhythm, no murmur. ABDOMEN: Soft, nontender, nondistended. Bowel sounds are present. EXTREMITIES: No clubbing, cyanosis, or edema. NEUROLOGICAL: Nonfocal, intact. PSYCHIATRIC: Appropriate affect and mood. Results Result Diagram: 07/06/16 0444 07/07/16 1200 Results 24 hrs Laboratory Tests Test 07/06/16 20:50 07/07/16 02:12 07/07/16 07:42 07/07/16 11:49 Bedside Glucose 186 159 148 238 H Test 07/07/16 12:00 Anion Gap 12 Blood Urea Nitrogen 29 H Calcium Level 8.2 L Carbon Dioxide Level 24 Chloride Level 104 Creatinine 2.32 H Glucose Level 221 H Potassium Level 4.2 Sodium Level 136 OPAL QUINONEZ MD Jul 07, 2016 17:37
== END 2016-07-07 13:25 | disposition home or self-care (01) | DRG 638 ==
LOC: E/R 15:53 → MS2 19:03
PROVIDERS: ADMIT Family Medicine; ATTEND Family Medicine
PROC: 0Y900ZZ Drainage of Right Buttock, Open Approach (ICD-10-PCS; principal; 2016-07-06)
DX: E13.10 Other specified diabetes mellitus with ketoacidosis without coma (principal); N17.9 Acute kidney failure, unspecified; E87.5 Hyperkalemia; E66.01 Morbid (severe) obesity due to excess calories; E87.1 Hypo-osmolality and hyponatremia; S42.255A Nondisplaced fracture of greater tuberosity of left humerus, initial encounter for closed fracture; I10 Essential (primary) hypertension; D63.8 Anemia in other chronic diseases classified elsewhere; L02.31 Cutaneous abscess of buttock; N28.9 Disorder of kidney and ureter, unspecified; D72.829 Elevated white blood cell count, unspecified; E78.5 Hyperlipidemia, unspecified; E86.0 Dehydration; W19.XXXA Unspecified fall, initial encounter; Y92.038 Other place in apartment as the place of occurrence of the external cause; Z79.4 Long term (current) use of insulin; Z68.38 Body mass index [BMI] 38.0-38.9, adult
CPT/HCPCS: 36415; 70450; 71010; 72170; 73030; 73510; 76775; 80048; 80061; 80307; 81001; 81003; 82550; 82553; 82570; 82962; 83036; 83605; 83735; 84100; 84300; 84484; 84560; 85025; 85610; 85730; 87070; 89190; 93005; 93923; 94664; 96365; 96366; 96372; 96375; 96376; 97166; J0610; J0696; J1650; J1815; J2060; J2270; J2405; J2543; J3370; J7030; J7040; J7050

== ENCOUNTER 2017-01-30 07:53 | Day surgery (SDC) | payer OTHER ==
[~2017-01-30] VITALS: Ht 177.8 cm; Wt 122.2 kg
[2017-01-30] VITALS (10 sets, daily range): BP systolic 107–164; BP diastolic 59–92; PULSE 68–84; RESP 10–17; Ht 177.8 cm; Wt 122.2 kg
[~2017-01-30 07:53] MED LIST changes: -BACTDS PO; +CARV6.2579 PO; +CEFAZOLIN 1 GM INJ ONE; -CHOL100062 PO; -IBUP400T22 PO; +INSU300I SQ; -KOMBIGLYZE XR PO; -LANT3I SC; +NOVO3I SC; -OMEG-135 PO; -PRED20TA PO; +RIVA15TA PO; -ZOC10 PO
[2017-01-30] MEDS ORDERED: CARV25TA97 PO (08:20)
[2017-01-30] MEDS ORDERED: ATOR10TA65 PO (08:22)
--- NOTE | 2017-01-30 09:00 | HPN ---
Date/Time of Note Date/Time of Note DATE: 01/30/17 TIME: 08:59 Interval H&P Admission Note Pt. seen H&P reviewed: No system changes SOLITARIO SY MD Jan 30, 2017 08:59
[2017-01-30] MEDS ORDERED: LIDOCAINE 1% (MPF) 30 ML INJ ONE (09:01)
[2017-01-30] MEDS ORDERED: HEPARIN 1000 UNITS/ML 10 ML INJ ONE (09:01)
[2017-01-30] MEDS ORDERED: INSULIN LISPRO 100 UNIT/ML VIAL SC STA ×2 (09:09→10:44)
[2017-01-30] MEDS ORDERED: HEPARIN 1000 UNITS/ML 10 ML INJ IRR ONE (09:25)
[2017-01-30] MEDS ORDERED: LIDOCAINE 1% (MDV) 20 ML INJ INJ ONE (09:25)
[2017-01-30] MEDS ORDERED: MIDAZOLAM 1 MG/ML 2 ML INJ ONE (09:36)
[2017-01-30] MEDS ORDERED: FENTAnyl 50 MCG/ML VIAL ONE (09:36)
[2017-01-30] MEDS ORDERED: PROPOFOL 40 ML ONE (09:36)
[2017-01-30] MEDS ORDERED: ONDANSETRON 4 MG INJ ONE (10:13)
[2017-01-30] MEDS ORDERED: METOCLOPRAMIDE 10 MG INJ ONE (10:13)
[2017-01-30] MEDS ORDERED: PROPOFOL 20 ML ONE ×2 (10:13)
[2017-01-30] MEDS ORDERED: EPHEDrine SULFATE 50 MG/5 ML SYG ONE (10:15)
[2017-01-30] MEDS ORDERED: FENTAnyl 50 MCG/ML VIAL IV PRN ×3 (10:30)
[2017-01-30] MEDS ORDERED: MEPERIDINE 25 MG INJ IV PRN (10:30)
[2017-01-30] MEDS ORDERED: DIPHENHYDRAMINE 50 MG INJ IV PRN (10:30)
[2017-01-30] MEDS ORDERED: LABETALOL HCL 20MG INJ IV PRN (10:30)
[2017-01-30] MEDS ORDERED: ONDANSETRON 4 MG INJ IV PRN (10:30)
[2017-01-30] MEDS ORDERED: morphine (1 MG/ML) 10ML SYRINGE IV PRN ×3 (10:30)
[2017-01-30] MEDS ORDERED: hydrALAzine 20 MG INJ IV PRN (10:30)
[2017-01-30] MEDS ORDERED: EPHEDrine SULFATE 50 MG/5 ML SYG IV PRN (10:30)
--- NOTE | 2017-01-30 10:30 | SIPON ---
Date/Time of Note Date/Time of Note DATE: 01/30/17 TIME: 10:27 Operative Report Preoperative Diagnosis CKD Stage 4 Postoperative Diagnosis same Operation/Procedure Performed R snuffbox AVF creation Surgeon see signature line physiotherapy assistant none Anesthesia: MAC Estimated blood loss: minimal Transfusion Required none Specimen none Grafts/Implants none Complications none SOLITARIO SY MD Jan 30, 2017 10:29
--- NOTE | 2017-01-31 10:16 | OPR ---
DATE OF OPERATION: 01/30/2017 PREOPERATIVE DIAGNOSIS: End-stage renal disease. POSTOPERATIVE DIAGNOSIS: End-stage renal disease. ANESTHESIA: Local with sedation. ESTIMATED BLOOD LOSS: Minimal. COMPLICATIONS: No intraprocedural complications. INDICATIONS: This is a 51-year-old man with long-term diabetes. He has chronic kidney disease. He is not on dialysis yet, but he is thought to be nearing the need to begin dialysis. His solar energy sales specialist, Dr. Smith, had asked me to place an AV fistula for access in the future. He had a good vein mapping which showed the right cephalic vein is patent from the wrist all the way up to the shoulder. He is left handed. We did a right snuffbox radial artery branch to cephalic AV fistula. OPERATION PERFORMED: Patient was brought to the operating room, placed on table in the supine position. I used ultrasound to map the right cephalic vein from the hand up to the shoulder. It is patent along its entire length. I felt a good snuffbox branch of the radial artery and I looked at it with ultrasound. It was pulsatile and good caliber so I decided to make a snuffbox fistula. After he was prepped and draped, I injected about 10 cc 1 percent xylocaine over the anatomic snuffbox. I made a longitudinal incision right over the snuffbox. I carefully dissected out the cephalic vein as it coursed through the anatomic snuffbox. I clipped it distally with surgical clips, marked the anterior surface and divided it. I then cut the connective tissue overlying the snuffbox branch of the radial artery and carefully dissected out that snuffbox branch of the radial artery. It was a good artery. It was about the size of a normal radial. Once I had it exposed, I clamped it proximally and distally, made an 8 mm long anterior arteriotomy. I then spatulated the end of the cephalic vein to fit the arteriotomy and then anastomosed the end of the vein to the side of the artery using 6-0 Prolene suture in a running standard vascular surgical fashion. I removed the clamps. There was a good flow into the vein. It dilated it up. There was a thrill higher up in the forearm. There was good hemostasis. I closed the skin incision in two layers using an inner layer of 3-0 Vicryl and an outer layer of 4-0 Monocryl subcuticular suture. Sterile dressing was applied. The patient was then transferred to recovery room in stable condition. Tolerated procedure well without any complications. Dictated By: Yan Ann MD /palmira/ricardo /Document#: [id number] ; Dr. Tab Rosenberg; Dr. Elyssa Smith
== END 2017-01-30 12:45 | disposition home or self-care (01) ==
LOC: SDS 07:53
PROVIDERS: ATTEND Surgery Vascular Surgery
DX: I12.0 Hypertensive chronic kidney disease with stage 5 chronic kidney disease or end stage renal disease (principal); N18.6 End stage renal disease; E11.22 Type 2 diabetes mellitus with diabetic chronic kidney disease; K21.9 Gastro-esophageal reflux disease without esophagitis; E78.5 Hyperlipidemia, unspecified; G47.30 Sleep apnea, unspecified; Z88.8 Allergy status to other drugs, medicaments and biological substances
CPT/HCPCS: 36821; 82962; 84132; C1725; J0690; J1644; J1815; J2250; J3010; J2405; J2765

== ENCOUNTER 2017-06-22 08:47 | Inpatient (IN) | END 2017-06-29 19:00 | disposition home health service (06) | DRG 853 ==

== ENCOUNTER 2018-01-03 23:17 | Inpatient (IN) | END 2018-01-08 13:05 | disposition home or self-care (01) | DRG 853 ==

== ENCOUNTER 2018-02-10 09:54 | Day surgery (SDC) | END 2018-02-10 15:15 | disposition home or self-care (01) ==

== ENCOUNTER 2018-09-02 14:18 | Inpatient (IN) | payer OTHER, MEDICARE ==
[~2018-09-02] VITALS: Ht 177.8 cm; Wt 116.7 kg
[~2018-09-02 14:18] MED LIST changes: +AMLO5TAB4 PO; +ATOR10TA65 PO; +CALC0.255 PO; +CARV25TA79 PO; -CARV6.2579 PO; -CEFAZOLIN 1 GM INJ ONE; -CEPH-443 PO; +FERR210T PO; +HYDR-3670 PO; +INSU100I12 SQ; -NOVO3I SC; -RIVA15TA PO
--- NOTE | 2018-09-02 17:31 | ERD ---
ER Documentation Chief Complaint Chief Complaint c/o weakness with NV, s/p dialysis today "2.5L" out HPI 53-year-old man complains of about 1 hour of chest discomfort, shortness of breath, dizziness and near syncopal episode which began while walking to his son's track meet today. Patient also had a couple episodes of clear nonbloody nonbilious emesis after most of his symptoms resolved. His symptoms began in the middle of his walk and he states the walk was a fair distance from where he parked his car. He has been having pressure-like chest discomfort intermittently this week but his discomfort became constant during this walk. He felt dizzy lightheaded for about 1 hour [address] himself here for evaluation. Patient underwent 4 hours of hemodialysis today and the episode occurred during his walk shortly after hemodialysis. Patient denies fevers or chills, no calf or leg swelling, no headache or blurry vision. Patient denies symptoms in the ER. ROS All systems reviewed and are negative except as per history of present illness. Medications Home Meds Reported Medications Calcitriol* (Rocaltrol*) 0.25 Mcg Capsule, 0.25 MCG PO DAILY, CAP 09/02/18 Sodium Bicarbonate* (Sodium Bicarbonate*) Unknown Strength Tablet, 1 TAB PO BID, TAB 09/02/18 Insulin Lispro (Humalog Kwikpen U-100) 100 Unit/1 Ml Insuln.pen, 10 UNIT SQ WITH MEALS, EA 09/02/18 Insulin Glargine,Hum.rec.anlog (Tokylie Solostar) 300 Unit/1 Ml Insuln.pen, 20 UNIT SQ QHS, EA 09/02/18 Ferric Citrate (Auryxia) 210 Mg Tablet, 420 MG PO TID, TAB 09/02/18 Atorvastatin Calcium* (Atorvastatin Calcium*) 20 Mg Tablet, 20 MG PO QHS, #30 TAB 09/02/18 Ergocalciferol (Vitamin D2) (VITAMIN D2) 50,000 Unit Capsule, 25108 UNIT PO Q SUN, CAP 09/02/18 Amlodipine Besylate* (Amlodipine Besylate*) 10 Mg Tablet, 10 MG PO DAILY, #30 TAB 09/02/18 Carvedilol* (Carvedilol*) 25 Mg Tablet, 25 MG PO BID, #60 TAB 09/02/18 Discontinued Reported Medications Ferric Citrate (Auryxia) 210 Mg Tablet, 210 MG PO AC MEALS, TAB 02/10/18 Insulin Glargine,Hum.rec.anlog (Tougema Solostar) 300 Unit/1 Ml Insuln.pen, 40 U NIT SQ QHS, EA 02/10/18 Amlodipine Besylate* (Norvasc*) 5 Mg Tablet, 5 MG PO DAILY, TAB 02/10/18 Insulin Lispro (Humalog Kwikpen U-100) 100 Unit/1 Ml Insuln.pen, 0 SQ AC MEALS, EA SLIDING SCALE NO SCALE GIVIN 06/22/17 Calcitriol* (Rocaltrol*) 0.25 Mcg Capsule, 0.25 MCG PO DAILY, CAP 06/22/17 Carvedilol* (Carvedilol*) 25 Mg Tablet, 25 MG PO BID, #60 TAB 06/22/17 Atorvastatin Calcium (Atorvastatin Calcium) 10 Mg Tablet, 10 MG PO QHS, #30 TAB 06/22/17 Discontinued Scripts Hydralazine Hcl* (Hydralazine Hcl*) 10 Mg Tablet, 10 MG PO TID for 30 Days, #90 TAB 1 Refill Prov:FÁTIMA SLAUGHTER 01/08/18 Allergies Allergies: Coded Allergies: levofloxacin (Verified Allergy, Unknown, 09/02/18) PMhx/Soc Obesity, diabetes mellitus, diabetic foot ulcers, end-stage renal disease on hemodialysis, hypertension, hyperlipidemia, hypothyroidism, chronic left Charcot foot History of Surgery: Yes (LEFT SHOULDER SX, CARPAL TUNNEL, AV FISTULA) Anesthesia Reaction: No Hx Neurological Disorder: Yes (DIABETIC NEUROPATHY LOWER EXT) Hx Respiratory Disorders: Yes (SLEEP APNEA, SNORING) Hx Cardiac Disorders: Yes (HTN, HIGH CHOL) Hx Psychiatric Problems: No Hx Miscellaneous Medical Probl: Yes (AV FISTULA RIGHT UPPER ARM FOR HD) Hx Alcohol Use: No Hx Substance Use: No Hx Tobacco Use: No FmHx Family History: No diabetes Physical Exam Vitals Vital Signs Date Temp Pulse Resp B/P (MAP) Pulse Ox O2 O2 Flow FiO2 Time Delivery Rate 09/02/18 98.6 85 18 164/88 100 Room Air 19:06 (113) 09/02/18 98.5 90 20 106/56 92 14:26 (73) Physical Exam Const: No acute distress, afebrile Head: Atraumatic Eyes: Normal Conjunctiva ENT: Normal External Ears, Nose and Mouth. Neck: Full range of motion. No meningismus. Resp: Clear to auscultation bilaterally Cardio: Regular rate and rhythm, no murmurs Abd: Soft, non tender, non distended. Normal bowel sounds Skin: No petechiae or rashes Back: No midline or flank tenderness Ext: No cyanosis, 1+ pitting edema in the lower extremities bilaterally, calves symmetrical Neur: Awake and alert x3, no focal deficits or facial asymmetry Psych: Normal Mood and Affect Result Diagram: 09/02/18182209/02/181822 Results 24 hrs Laboratory Tests Test 09/02/18 16:07 09/02/18 18:23 Bedside Glucose 301 mg/dL White Blood Count 13.9 10^3/ul Red Blood Count 3.76 10^6/ul Hemoglobin 11.6 g/dl Hematocrit 34.6 % Mean Corpuscular Volume 92.0 fl Mean Corpuscular Hemoglobin 30.9 pg Mean Corpuscular Hemoglobin Concent 33.5 g/dl Red Cell Distribution Width 13.8 % Platelet Count 311 10^3/UL Mean Platelet Volume 10.5 fl Immature Granulocytes % 0.400 % Neutrophils % 72.3 % Lymphocytes % 18.8 % Monocytes % 7.8 % Eosinophils % 0.3 % Basophils % 0.4 % Nucleated Red Blood Cells % 0.0 /100WBC Immature Granulocytes # 0.050 10^3/ul Neutrophils # 10.1 10^3/ul Lymphocytes # 2.6 10^3/ul Monocytes # 1.1 10^3/ul Eosinophils # 0.0 10^3/ul Basophils # 0.1 10^3/ul Nucleated Red Blood Cells # 0.0 10^3/ul Sodium Level 137 mmol/L Potassium Level 4.7 mmol/L Chloride Level 90 mmol/L Carbon Dioxide Level 32 mmol/L Anion Gap 15 Blood Urea Nitrogen 25 mg/dl Creatinine 5.23 mg/dl Est Glomerular Filtrat Rate mL/min 12 mL/min Glucose Level 300 mg/dl Calcium Level 9.1 mg/dl Total Bilirubin 0.3 mg/dl Direct Bilirubin 0.00 mg/dl Indirect Bilirubin 0.3 mg/dl Aspartate Amino Transf (AST/SGOT) 22 IU/L Alanine Aminotransferase (ALT/SGPT) 13 IU/L Alkaline Phosphatase 81 IU/L Troponin I 0.012 ng/ml Total Protein 8.8 g/dl Albumin 4.5 g/dl Globulin 4.30 g/dl Albumin/Globulin Ratio 1.04 Lipase 63 U/L Current Medications Medications Dose Sig/Eloy Start Time Status Last (Trade) Ordered Route PRN Stop Time Admin Dose Reason Admin Aspirin 162 mg ONCE ONCE 09/02/18 DC 09/02/18 (Aspirin) PO 18:30 19:02 09/02/18 18:31 Procedures/MDM IV line was established 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 Patient was afebrile EKG performed, read by me revealed a normal sinus rhythm at 85 bpm, left axis deviation, narrow QRS complex, no concerning ST elevations or depressions noted I administered aspirin 162 mg p.o. for cardioprotective measures. Chest X-ray 1V Interpreted by me: Soft Tissue: No acute abnormalities Bones: No acute abnormalities Mediastinum/Cardiac Silhouette/Lungs: No acute abnormalities CBC was within normal limits, electrolytes revealed renal failure and hypergl ycemia, liver function test within normal limits, troponin negative Patient admitted to telemetry setting for continued medical management and cardiology consultation. Departure Diagnosis: Primary Impression: Near syncope Additional Impressions: Chest pain Chest pain type: unspecified Qualified Codes: R07.9 - Chest pain, unspecified End stage kidney disease Condition: FÁTIMA Mi MD Sep 02, 2018 17:31
[2018-09-02] MEDS ORDERED: ASPIRIN 81 MG TAB PO ONE (18:30)
[2018-09-02] MEDS ORDERED: CARV25TA79 PO (18:31)
[2018-09-02] MEDS ORDERED: AMLO-147 PO (18:32)
[2018-09-02] MEDS ORDERED: ERGO500013 PO (18:32)
[2018-09-02] MEDS ORDERED: ATOR20TA38 PO (18:33)
[2018-09-02] MEDS ORDERED: FERR210T PO (18:34)
[2018-09-02] MEDS ORDERED: INSU300I SQ (18:35)
[2018-09-02] MEDS ORDERED: INSU100I12 SQ (18:36)
[2018-09-02] MEDS ORDERED: SODI325T PO (18:39)
[2018-09-02] MEDS ORDERED: CALC0.255 PO (18:44)
[2018-09-02] MEDS ORDERED: NACL 0.9% 3 ML SYG IV SCH (19:30)
[2018-09-02] MEDS ORDERED: NITROGLYCERIN (SL) 0.4 MG TAB SL PRN (19:30)
[2018-09-02] MEDS ORDERED: ACETAMINOPHEN 325 MG TAB PO PRN (19:30)
[2018-09-02] MEDS ORDERED: morphine 2 MG INJ IV PRN (19:30)
[2018-09-02] MEDS ORDERED: HYDROCODONE/APAP (5/325) TAB PO PRN (19:30)
[2018-09-02] MEDS ORDERED: INSULIN ASPART [NOVOLOG] 3 ML PEN SC SCH (21:00)
[2018-09-02 21:57] VITALS: PULSE 96
[2018-09-02 22:00] VITALS: BP 129/68; PULSE 94; RESP 20
[2018-09-02 22:15] VITALS: Ht 177.8 cm; Wt 116.7 kg
[2018-09-02 22:41] VITALS: PULSE 96
--- NOTE | 2018-09-02 23:46 | HP ---
Date/Time of Note Date/Time of Note DATE: 09/02/18 TIME: 23:46 Assessment/Plan VTE Prophylaxis Pharmacological prophylaxis: heparin Lines/Catheters IV Catheter Type (from Nrs): Saline Lock Assessment/Plan Result Diagram: 09/02/18 1823 09/02/18 1823 Results 24hrs Laboratory Tests Test 09/02/18 16:07 09/02/18 18:23 09/02/18 20:27 Bedside Glucose 301 H 234 H White Blood Count 13.9 H Red Blood Count 3.76 L Hemoglobin 11.6 L Hematocrit 34.6 L Mean Corpuscular Volume 92.0 Mean Corpuscular Hemoglobin 30.9 Mean Corpuscular Hemoglobin Concent 33.5 Red Cell Distribution Width 13.8 Platelet Count 311 Mean Platelet Volume 10.5 H Immature Granulocytes % 0.400 Neutrophils % 72.3 Lymphocytes % 18.8 Monocytes % 7.8 Eosinophils % 0.3 Basophils % 0.4 Nucleated Red Blood Cells % 0.0 Immature Granulocytes # 0.050 H Neutrophils # 10.1 H Lymphocytes # 2.6 Monocytes # 1.1 H Eosinophils # 0.0 Basophils # 0.1 Nucleated Red Blood Cells # 0.0 Sodium Level 137 Potassium Level 4.7 Chloride Level 90 L Carbon Dioxide Level 32 H Anion Gap 15 H Blood Urea Nitrogen 25 H Creatinine 5.23 H Est Glomerular Filtrat Rate mL/min 12 L Glucose Level 300 H Calcium Level 9.1 Total Bilirubin 0.3 Direct Bilirubin 0.00 Indirect Bilirubin 0.3 Aspartate Amino Transf (AST/SGOT) 22 Alanine Aminotransferase (ALT/SGPT) 13 Alkaline Phosphatase 81 Troponin I 0.012 Total Protein 8.8 H Albumin 4.5 Globulin 4.30 H Albumin/Globulin Ratio 1.04 Lipase 63 HPI/ROS Admit Date/Time Admit Date/Time Sep 02, 2018 at 19:20 PMH/Family/Social Past Medical History Past Surgical Hx: other (See HPI) Family History Significant Family History: no pertinent family hx Social History Alcohol Use: other Smoking Status: Never smoker Drug Use: none Exam/Review of Systems Vital Signs Exam Constitutional: alert, oriented, well developed, other (No acute distress. Answering questions appropriately) Head: normocephalic, atraumatic Eyes: EOMI, PERRL Respiratory: clear to auscultation, normal air movement Cardiovascular: regular rate and rhythm, nl pulses Gastrointestinal: soft, other (Tenderness in the epigastric area) Extremities: other (Trace pitting edema noted) Coded Allergies: levofloxacin (Verified Allergy, Unknown, 09/02/18) Past Surgical History Past Surgical Hx: other Family History Significant Family History: no pertinent family hx Social History Smoking Status: Never smoker Exam/Review of Systems Vital Signs Vitals Vital Signs Date Temp Pulse Resp B/P (MAP) Pulse Ox O2 O2 Flow FiO2 Time Delivery Rate 09/02/18 96 22:41 09/02/18 18 152/86 99 Room Air 21:38 (108) 09/02/18 98.6 19:06 MARIAMA VASQUEZ MD Sep 02, 2018 23:46
[2018-09-03] MEDS ORDERED: ACCU-CHEK XX SCH (02:00)
[2018-09-03] MEDS ORDERED: ASPIRIN 81 MG TAB PO SCH (09:00)
== END 2018-09-02 23:00 | disposition left against medical advice (07) | DRG 312 ==
LOC: E/R 14:18 → TEL 19:20
PROVIDERS: ADMIT Internal Medicine; ATTEND Internal Medicine
DX: R55 Syncope and collapse (principal); N18.6 End stage renal disease; I12.0 Hypertensive chronic kidney disease with stage 5 chronic kidney disease or end stage renal disease; R07.9 Chest pain, unspecified; E11.21 Type 2 diabetes mellitus with diabetic nephropathy; E11.22 Type 2 diabetes mellitus with diabetic chronic kidney disease; Z99.2 Dependence on renal dialysis
CPT/HCPCS: 71045; 80053; 82962; 83690; 84484; 85025; 93005; J1815

== ENCOUNTER 2018-09-23 11:58 | Inpatient (IN) | payer OTHER, MEDICARE ==
[2018-09-22 16:59] VITALS: Ht 177.8 cm; Wt 114.5 kg
[~2018-09-23] VITALS: Ht 177.8 cm; Wt 114.5 kg
[2018-09-23] VITALS (8 sets, daily range): BP systolic 126–156; BP diastolic 58–88; PULSE 69–92; RESP 16–19
[~2018-09-23 11:58] MED LIST changes: +AMLO-147 PO; -AMLO5TAB4 PO; -ATOR10TA65 PO; +ATOR20TA38 PO; +ERGO500013 PO; -HYDR-3670 PO; +SODI325T PO
[2018-09-23] MEDS ORDERED: INSU300I SQ (12:47)
[2018-09-23] MEDS ORDERED: CEFAZOLIN 2 GM/50 ML (PMX) 50 ML IVPB ONE (13:00)
[2018-09-23] MEDS ORDERED: INSULIN REGULAR, HUMAN 100 UNIT/1 ML 3ML VIAL SC ONE ×2 (13:30→16:00)
[2018-09-23] MEDS ORDERED: GLUCOSE GEL 15 GRAM TUBE BUCCAL PRN ×2 (16:30→19:00)
[2018-09-23] MEDS ORDERED: GLUCAGON 1 MG INJ IM PRN ×2 (16:30→19:00)
[2018-09-23] MEDS ORDERED: DEXTROSE 50% 50 ML SYRINGE IV PRN ×4 (16:30→19:00)
[2018-09-23] MEDS ORDERED: GLUCOSE GEL 15 GRAM TUBE PO PRN ×4 (16:30→19:00)
--- NOTE | 2018-09-23 17:03 | CONS ---
Assessment/Plan Assessment/Plan Assessment/Plan (Daily) 1. Acute Hyperglycemia 2. ESRD on HD TTS schedule 3. H/O DM II 4. H/o HL 5. H/O HTN Plan: pt seen In recovery room, getting Admitted for uncontrolled hyperglycemia, Plan for OR tomorrow will arrange HD today, HD ordered as stat for today , will keep pt on his original schedule TTS after HD today Endocrine has been consulted for better DM control will follow up Consultation Date/Type/Reason Admit Date/Time September 23, 2018 at 11:58 Date of Consultation: September 23, 2018 Type of Consult NEPHROLOGY Reason for Consultation ESRD on HD Requesting Provider: JANE QUICK MD Date/Time of Note DATE: 09/23/18 TIME: 17:03 Hx of Present Illness 53 yo M with PMH insulin dependent diabetes, ESRD on HD /, HTN and RITA presented for elective surgical intervention on left Charcot neurarthropathy. Surgery was cancelled since sugars were elevated. pt is TTS scheduel pt, has not had his HD today After Surgery cancellation he is getting admitted to med/surge floor and Renal has been consulted for HD need, pt will possibly go to OR tomorrow and we have to plan for emergent HD overnight Constitutional: no complaints Eyes: no complaints ENT: no complaints Respiratory: no complaints Cardiovascular: no complaints Gastrointestinal: no complaints Genitourinary: no complaints Musculoskeletal: other (left foot chacoat neuroarthropathy, pain ) Skin: no complaints Neurologic: no complaints Endocrine: no complaints Lymphatic: no complaints Psychological: no complaints Immunologic: no complaints Past Medical History Medical History: high cholesterol, hypertension, other (ESRD oN HD TTS ) Home Meds Reported Medications Insulin Glargine,Hum.rec.anlog (Tougema Ospina) 300 Unit/1 Ml Insuln.pen, 30 UNIT SQ QHS, EA 09/23/18 Calcitriol* (Rocaltrol*) 0.25 Mcg Capsule, 0.25 MCG PO DAILY, CAP 09/02/18 Sodium Bicarbonate* (Sodium Bicarbonate*) Unknown Strength Tablet, 1 TAB PO BID, TAB 09/02/18 Insulin Lispro (Humalog Kwikpen U-100) 100 Unit/1 Ml Insuln.pen, 10 UNIT SQ WITH MEALS, EA 09/02/18 Ferric Citrate (Auryxia) 210 Mg Tablet, 420 MG PO TID, TAB 09/02/18 Atorvastatin Calcium* (Atorvastatin Calcium*) 20 Mg Tablet, 20 MG PO QHS, #30 TAB 09/02/18 Ergocalciferol (Vitamin D2) (VITAMIN D2) 50,000 Unit Capsule, 01014 UNIT PO Q SUN, CAP 09/02/18 Amlodipine Besylate* (Amlodipine Besylate*) 10 Mg Tablet, 10 MG PO DAILY, #30 TAB 09/02/18 Carvedilol* (Carvedilol*) 25 Mg Tablet, 25 MG PO BID, #60 TAB 09/02/18 Discontinued Reported Medications Insulin Glargine,Hum.rec.anlog (Vish Marychuyanthony) 300 Unit/1 Ml Insuln.pen, 20 UNIT SQ QHS, EA 09/02/18 Medications Current Medications Sodium Chloride 500 ml @ 5 mls/hr Q24H IV ; Start 09/23/18 at 14:30 Miscellaneous Information 1 ea NOTE XX ; Start 09/23/18 at 16:30 Glucose (Glutose) 15 gm Q15M PRN PO DECREASED GLUCOSE; Start 09/23/18 at 16:30 Glucose (Glutose) 22.5 gm Q15M PRN PO DECREASED GLUCOSE; Start 09/23/18 at 16:30 Dextrose (D50w Syringe) 25 ml Q15M PRN IV DECREASED GLUCOSE; Start 09/23/18 at 16:30 Dextrose (D50w Syringe) 50 ml Q15M PRN IV DECREASED GLUCOSE; Start 09/23/18 at 16:30 Glucagon (Glucagen) 1 mg Q15M PRN IM DECREASED GLUCOSE; Start 09/23/18 at 16:30 Glucose (Glutose) 15 gm Q15M PRN BUCCAL DECREASED GLUCOSE; Start 09/23/18 at 16:30 Allergies: Coded Allergies: levofloxacin (Verified Allergy, Unknown, 09/23/18) Past Surgical History Past Surgical Hx: other (R arm AVG, left shoulder rotator cuff surgery, Debridement of foot surgery ) Family History Significant Family History: no pertinent family hx Social History Alcohol Use: none Smoking Status: Never smoker Exam/Review of Systems Exam Vitals Vital Signs Date Temp Pulse Resp B/P (MAP) Pulse Ox O2 O2 Flow FiO2 Time Delivery Rate 09/23/18 97.6 92 16 156/76 98 Room Air 13:33 (102) Constitutional: alert Psych: no complaints Head: normocephalic Eyes: nl conjunctiva ENMT: nl external ears & nose Neck: supple, non-tender Respiratory: clear to auscultation, diminished breath sounds Cardiovascular: regular rate and rhythm, nl pulses Gastrointestinal: soft, non-tender Musculoskeletal: muscle weakness, swelling, other (R arm AVG) Neurological: PACKING FLOOR WORKER II-XII intact, nl mental status, nl speech, nl strength Skin: nl turgor, rash or lesions Lymph: nl lymph nodes Results Result Diagram: 09/23/18 1415 Results 24hrs Laboratory Tests Test 09/23/18 13:13 09/23/18 14:15 09/23/18 14:16 09/23/18 14:47 Bedside Glucose 251 H 254 H 235 H Potassium Level 4.9 Test 09/23/18 15:44 09/23/18 16:25 Bedside Glucose 218 202 Medications Medication Current Medications Sodium Chloride 500 ml @ 5 mls/hr Q24H IV ; Start 09/23/18 at 14:30 Miscellaneous Information 1 ea NOTE XX ; Start 09/23/18 at 16:30 Glucose (Glutose) 15 gm Q15M PRN PO DECREASED GLUCOSE; Start 09/23/18 at 16:30 Glucose (Glutose) 22.5 gm Q15M PRN PO DECREASED GLUCOSE; Start 09/23/18 at 16:30 Dextrose (D50w Syringe) 25 ml Q15M PRN IV DECREASED GLUCOSE; Start 09/23/18 at 16:30 Dextrose (D50w Syringe) 50 ml Q15M PRN IV DECREASED GLUCOSE; Start 09/23/18 at 16:30 Glucagon (Glucagen) 1 mg Q15M PRN IM DECREASED GLUCOSE; Start 09/23/18 at 16:30 Glucose (Glutose) 15 gm Q15M PRN BUCCAL DECREASED GLUCOSE; Start 09/23/18 at 16:30 OPAL QUINONEZ MD September 23, 2018 17:03
--- NOTE | 2018-09-23 17:21 | HP ---
Date/Time of Note Date/Time of Note DATE: 09/23/18 TIME: 17:08 Assessment/Plan VTE Prophylaxis SCD applied (from Nsg): Yes Pharmacological prophylaxis: NA/contraindicated Pharm contraindication: low risk/ambulating Lines/Catheters IV Catheter Type (from Nrsg): Saline Lock Assessment/Plan Assessment/Plan 1. Charcot neuroarthropathy of left foot - plans for surgical intervention tomorrow - Podiatry on board - will keep NPO after midnight 2. Diabetes Mellitus - will check A1c - continue Lantus and Novolog home doses. will adjust as needed for optimal glucose control - ISS and accuchecks 3. ESRD on HD - Nephrology consulted for dialysis management - , , Thursday schedule. Last session was Thursday - not acutely overloaded 4. HTN - continue home medications and will adjust as needed 5. RITA - offered CPAP but refusing face mask 6. Diet - Cardiac/Carb controlled - NPO after midnight for procedure 7. DVT ppx - SCD 8. Gi ppx - PPI 9. Disposition - Admit to med/surg for treatment of hyperglycemia and optimization of medical status for surgical intervention. Further clinical course based on recovery after surgical intervention Result Diagram: 09/23/18 1415 Results 24hrs Laboratory Tests Test 09/23/18 13:13 09/23/18 14:15 09/23/18 14:16 09/23/18 14:47 Bedside Glucose 251 H 254 H 235 H Potassium Level 4.9 Test 09/23/18 15:44 09/23/18 16:25 Bedside Glucose 218 202 HPI/ROS Admit Date/Time Admit Date/Time September 23, 2018 at 11:58 Hx of Present Illness 53 yo M with PMH insulin dependent diabetes, ESRD on HD /, HTN and RITA presented for elective surgical intervention on left Charcot neurarthropathy. Surgery was cancelled since sugars were elevated. Patient denies any current chest pain, shortness of breath, nausea, vomiting, dizziness, abdominal pain, or urinary issues. Patient has ESRD and currently undergoes dialysis on Thursday, , and Thursday with last session on Thursday. Patient was also recently diagnosed with obstructive sleep apnea and having CPAP machine delivered. ROS All 12 systems reviewed and pertinent positives as per HPI. All others negative. Constitutional: No chills, No fatigue, No nausea Eyes: No discharge ENT: No congestion Respiratory: No cough, No shortness of breath, No sputum, No wheezing Cardiovascular: No chest pain, No edema, No lightheadedness, No palpitations Gastrointestinal: No pain, No constipation, No decreased appetite, No nausea Genitourinary: no complaints Musculoskeletal: No back pain, No neck pain Skin: No laceration, No rash Neurologic: No confusion, No focal-weakness, No syncope Endocrine: no complaints Lymphatic: no complaints Psychological: nl mood/affect Immunologic: no complaints PMH/Family/Social Past Medical History Medical History: diabetes, hypertension, renal disease Medications Current Medications Sodium Chloride 500 ml @ 5 mls/hr Q24H IV ; Start 09/23/18 at 14:30 Miscellaneous Information 1 ea NOTE XX ; Start 09/23/18 at 16:30 Glucose (Glutose) 15 gm Q15M PRN PO DECREASED GLUCOSE; Start 09/23/18 at 16:30 Glucose (Glutose) 22.5 gm Q15M PRN PO DECREASED GLUCOSE; Start 09/23/18 at 16:30 Dextrose (D50w Syringe) 25 ml Q15M PRN IV DECREASED GLUCOSE; Start 09/23/18 at 16:30 Dextrose (D50w Syringe) 50 ml Q15M PRN IV DECREASED GLUCOSE; Start 09/23/18 at 16:30 Glucagon (Glucagen) 1 mg Q15M PRN IM DECREASED GLUCOSE; Start 09/23/18 at 16:30 Glucose (Glutose) 15 gm Q15M PRN BUCCAL DECREASED GLUCOSE; Start 09/23/18 at 16:30 Amlodipine Besylate (Norvasc) 10 mg DAILY PO ; Start 09/24/18 at 09:00; Status UNV Atorvastatin Calcium (Lipitor) 20 mg QHS PO ; Start 09/23/18 at 21:00; Status UNV Calcitriol (Rocaltrol) 0.25 mcg DAILY PO ; Start 09/24/18 at 09:00; Status UNV Carvedilol (Coreg) 25 mg BID PO ; Start 09/23/18 at 21:00; Status UNV Insulin Glargine (Lantus) 30 units DAILY@2000 SC ; Start 09/23/18 at 20:00; Status UNV Insulin Aspart (Novolog Insulin Pen) 10 unit WITH MEALS SC ; Start 09/23/18 at 18:00; Status UNV IV Flush (NS 3 ml) 3 ml PER PROTOCOL IV ; Start 09/23/18 at 17:30; Status UNV Ondansetron HCl (Zofran Inj) 4 mg Q6H PRN IV NAUSEA/VOMITING; Start 09/23/18 at 17:30; Status UNV Acetaminophen (Tylenol Tab) 650 mg Q6H PRN PO .PAIN 1-3 OR TEMP; Start 09/23/18 at 17:30; Status UNV Acetaminophen/ Hydrocodone Bitart ([place] (5/325)) 1 tab Q6H PRN PO .MOD PAIN 4- 6; Start 09/23/18 at 17:30; Status UNV Acetaminophen/ Hydrocodone Bitart ([place] (5/325)) 2 tab Q6H PRN PO .SEVERE PAIN 7-10; Start 09/23/18 at 17:30; Status UNV Hydromorphone HCl (Dilaudid) 0.5 mg Q4H PRN IV .SEVERE PAIN 7-10; Start 09/23/18 at 17:30; Status UNV Docusate Sodium (Colace) 100 mg Q12H PRN PO .CONSTIPATION; Start 09/23/18 at 17:30; Status UNV Magnesium Hydroxide (Milk Of Mag) 30 ml DAILY PRN PO .CONSTIPATION; Start 09/23/18 at 17:30; Status UNV Pantoprazole (Protonix Iv) 40 mg DAILY@06 IV ; Start 09/24/18 at 06:00; Status UNV Miscellaneous Information (* Miscellaneous Pharmacy Order) Discontinue current oral sulfonylur... ONCE ONCE XX ; Start 09/23/18 at 17:30; Stop 09/23/18 at 17:31; Status UNV Miscellaneous Information (* Miscellaneous Pharmacy Order) HYPOGLYCEMIA PROTOCOL w... ONCE ONCE XX ; Start 09/23/18 at 17:30; Stop 09/23/18 at 17:31; Status UNV Insulin Aspart (Novolog Insulin Pen) NOVOLOG *MILD* ALGORITHM WITH MEALS B EDTIME SC ; Start 09/23/18 at 18:00; Status UNV Miscellaneous Information (* Miscellaneous Pharmacy Order) Discontinue all previ... ONCE ONCE XX ; Start 09/23/18 at 17:30; Stop 09/23/18 at 17:31; S tatus UNV Coded Allergies: levofloxacin (Verified Allergy, Unknown, 09/23/18) Past Surgical History Past Surgical Hx: other (left rotator cuff repair, carpal tunnel repair, AV fistula placement) Family History Significant Family History: no pertinent family hx Social History Alcohol Use: none Smoking Status: Never smoker Drug Use: none Exam/Review of Systems Vital Signs Vitals Vital Signs Date Temp Pulse Resp B/P (MAP) Pulse Ox O2 O2 Flow FiO2 Time Delivery Rate 09/23/18 97.6 92 16 156/76 98 Room Air 13:33 (102) Exam Exam General: Patient is a pleasant male currently lying in bed in no acute distress HEENT: Atraumatic, normocephalic. The pupils are equal, round and reactive. Extraocular motor are intact Neck: Supple with full range of motion. No rigidity or meningismus Chest: Nontender Lungs: Clear to auscultation bilaterally, no wheezing or rhonchi Heart: Normal S1-S2, Regular rhythm and rate. No murmur, S3, or S4 Abdomen: Soft , nontender, nondistended , bowel sounds are present. No guarding no rebound tenderness , No masses or organomegaly. No costovertebral temporal angle mass Extremities: Normal to inspection, no edema no cyanosis Neurologic: Normal mental status, speech normal, cranial nerves II through XII are intact, motor and sensory are intact, no focal weakness Additional Comments Home medications reviewed JANE QUICK MD September 23, 2018 17:20
[2018-09-23] MEDS ORDERED: HEPARIN 1000 UNITS/ML 10 ML INJ CATHETER SCH (17:30)
[2018-09-23] MEDS ORDERED: DOCUSATE SODIUM 100 MG CAP PO PRN (17:30)
[2018-09-23] MEDS ORDERED: MAGNESIUM HYDROXIDE 30ML CUP PO PRN (17:30)
[2018-09-23] MEDS ORDERED: ACETAMINOPHEN 325 MG TAB PO PRN (17:30)
[2018-09-23] MEDS ORDERED: NACL 0.9% 3 ML SYG IV SCH (17:30)
[2018-09-23] MEDS ORDERED: ALBUMIN HUMAN 25% 50 ML IV PRN (17:30)
[2018-09-23] MEDS ORDERED: SODIUM CHLORIDE 0.9% 1L BAG IV PRN (17:30)
[2018-09-23] MEDS ORDERED: HYDROCODONE/APAP (5/325) TAB PO PRN (17:30)
[2018-09-23] MEDS ORDERED: INSULIN ASPART [NOVOLOG] 3 ML PEN SC SCH (18:00)
[2018-09-23] MEDS: INSULIN ASPART [NOVOLOG] 3 ML PEN SC SCH ×2 (18:18→21:20)
--- NOTE | 2018-09-23 18:49 | CONS ---
Assessment/Plan Assessment/Plan Problems: (1) Diabetes mellitus type 2 in obese Onset Date: ~ 09/1995 Status: Chronic Comment: This gentleman is on a multiple daily injection regimen but has not enjoyed good blood sugar control. He reports that the multiple daily injection regimen is a significant negative on his overall quality of life would like to find a way of simplifying this. Given that he is a clear-cut type II diabetic we can combo this with some oral agents and see if we can adjust his regimen around. I will get started with that now. Specifically he will be placed on a DPP 4 inhibitor, and a short acting insulin secretagogue at meals. (2) Charcot's joint, right ankle and foot Status: Chronic Comment: As per podiatry (3) Charcot's joint, left ankle and foot Status: Chronic Comment: As per podiatry (4) End-stage renal disease on hemodialysis Status: Chronic Comment: As per nephrology. (5) Essential hypertension Status: Chronic Comment: Please note since he is already on dialysis the usage of an JULIUS inhibitor will not cause hyperkalemia or other issues. As such we can go ahead and use the JULIUS inhibitor in him and lower down the dihydropyridine calcium channel annabel which is causing lower extremity edema. I will try and fine- tune this (6) Obstructive sleep apnea Status: Chronic Comment: Noted. As per primary team (7) Hyperlipidemia associated with type 2 diabetes mellitus Status: Chronic Comment: Usage of omega-3 fish oil and increased dosage of statin drug for control. (8) Chronic kidney disease-mineral and bone disorder Status: Chronic Comment: Noted. See nephrology notes (9) History of deep venous thrombosis Status: Chronic Comment: Noted. CC: KRISS MIRAMONTES DPM; JANE QUICK MD; OPAL QUINONEZ MD ; Consultation Date/Type/Reason Admit Date/Time September 23, 2018 at 11:58 Date of Consultation: September 23, 2018 Type of Consult Endocrinology Reason for Consultation Diabetes mellitus type 2 complicated by Charcot joint bilaterally; peripheral neuropathy; end-stage renal disease on hemodialysis; no known retinopathy?; Essential hypertension; mixed hyperlipidemia Requesting Provider: KRISS MIRAMONTES DPM Date/Time of Note DATE: 09/23/18 TIME: 18:41 Hx of Present Illness 53-year-old gentleman with a history of diabetes mellitus type 2 of at least 23 years duration. He has complications of nephropathy with end-stage renal disease on dialysis. Curiously there is no known retinopathy. He also has peripheral neuropathy with bilateral Charcot joints, history of an osteomyelitis status post foot surgery on the left, essential hypertension, mixed hyperlipidemia, reported history of DVT although our studies here did not show anything. Constitutional: no complaints Eyes: no complaints ENT: no complaints Respiratory: no complaints Cardiovascular: no complaints Gastrointestinal: no complaints Genitourinary: no complaints Past Medical History Medical History: deep vein thrombosis (Reported history of DVT), diabetes (Diabetes mellitus type 2 complicated by end-stage renal disease; Charcot joint bilaterally; peripheral neuropathy), high cholesterol (Next hyperlipidemia), hypertension, renal disease (End-stage renal disease on hemodialysis) Home Meds Reported Medications Insulin Glargine,Hum.rec.anlog (Vish Ospina) 300 Unit/1 Ml Insuln.pen, 30 UNIT SQ QHS, EA 09/23/18 Calcitriol* (Rocaltrol*) 0.25 Mcg Capsule, 0.25 MCG PO DAILY, CAP 09/02/18 Sodium Bicarbonate* (Sodium Bicarbonate*) Unknown Strength Tablet, 1 TAB PO BID, TAB 09/02/18 Insulin Lispro (Humalog Kwikpen U-100) 100 Unit/1 Ml Insuln.pen, 10 UNIT SQ WITH MEALS, EA 09/02/18 Ferric Citrate (Auryxia) 210 Mg Tablet, 420 MG PO TID, TAB 09/02/18 Atorvastatin Calcium* (Atorvastatin Calcium*) 20 Mg Tablet, 20 MG PO QHS, #30 TAB 09/02/18 Ergocalciferol (Vitamin D2) (VITAMIN D2) 50,000 Unit Capsule, 83185 UNIT PO Q SUN, CAP 09/02/18 Amlodipine Besylate* (Amlodipine Besylate*) 10 Mg Tablet, 10 MG PO DAILY, #30 TAB 09/02/18 Carvedilol* (Carvedilol*) 25 Mg Tablet, 25 MG PO BID, #60 TAB 09/02/18 Discontinued Reported Medications Insulin Glargine,Hum.rec.anlog (Vish Solostjoel) 300 Unit/1 Ml Insuln.pen, 20 UNIT SQ QHS, EA 09/02/18 Medications Current Medications Sodium Chloride 500 ml @ 5 mls/hr Q24H IV ; Start 09/23/18 at 14:30 Miscellaneous Information 1 ea NOTE XX ; Start 09/23/18 at 16:30 Glucose (Glutose) 15 gm Q15M PRN PO DECREASED GLUCOSE; Start 09/23/18 at 16:30 Glucose (Glutose) 22.5 gm Q15M PRN PO DECREASED GLUCOSE; Start 09/23/18 at 16:30 Dextrose (D50w Syringe) 25 ml Q15M PRN IV DECREASED GLUCOSE; Start 09/23/18 at 16:30 Dextrose (D50w Syringe) 50 ml Q15M PRN IV DECREASED GLUCOSE; Start 09/23/18 at 16:30 Glucagon (Glucagen) 1 mg Q15M PRN IM DECREASED GLUCOSE; Start 09/23/18 at 16:30 Glucose (Glutose) 15 gm Q15M PRN BUCCAL DECREASED GLUCOSE; Start 09/23/18 at 16:30 Amlodipine Besylate (Norvasc) 10 mg DAILY PO ; Start 09/24/18 at 09:00 Atorvastatin Calcium (Lipitor) 20 mg QHS PO ; Start 09/23/18 at 21:00 Calcitriol (Rocaltrol) 0.25 mcg DAILY PO ; Start 09/24/18 at 09:00 Carvedilol (Coreg) 25 mg BID PO ; Start 09/23/18 at 21:00 Insulin Glargine (Lantus) 30 units DAILY@2000 SC ; Start 09/23/18 at 20:00 Insulin Aspart (Novolog Insulin Pen) 10 unit WITH MEALS SC Last administered on 09/23/18at 18:17; Admin Dose 10 UNIT; Start 09/23/18 at 18:00 IV Flush (NS 3 ml) 3 ml PER PROTOCOL IV ; Start 09/23/18 at 17:30 Ondansetron HCl (Zofran Inj) 4 mg Q6H PRN IV NAUSEA/VOMITING; Start 09/23/18 at 17:30 Acetaminophen (Tylenol Tab) 650 mg Q6H PRN PO .PAIN 1-3 OR TEMP; Start 09/23/18 at 17:30 Acetaminophen/ Hydrocodone Bitart ([place] (5/325)) 1 tab Q6H PRN PO .MOD PAIN 4- 6; Start 09/23/18 at 17:30 Acetaminophen/ Hydrocodone Bitart ([place] (5/325)) 2 tab Q6H PRN PO .SEVERE PAIN 7-10; Start 09/23/18 at 17:30 Hydromorphone HCl (Dilaudid) 0.5 mg Q4H PRN IV .SEVERE PAIN 7-10; Start 09/23/18 at 17:30 Docusate Sodium (Colace) 100 mg Q12H PRN PO .CONSTIPATION; Start 09/23/18 at 17:30 Magnesium Hydroxide (Milk Of Mag) 30 ml DAILY PRN PO .CONSTIPATION; Start at 17:30 Famotidine (Pepcid Iv) 20 mg DAILY IV ; Start 09/24/18 at 09:00 Insulin Aspart (Novolog Insulin Pen) NOVOLOG *MILD* ALGORITHM WITH MEALS BEDTIME SC Last administered on 09/23/18at 18:18; Admin Dose 1 UNIT; Start 09/23/18 at 18:00 Heparin Sodium (Porcine) (Heparin (1000 Units/ml)) 4,000 unit AFTER DIALYSIS CATHETER ; Start 09/23/18 at 17:30 Albumin Human 50 ml @ 100 mls/hr WITH DIALYSIS PRN IV SBP < 90 DURING DIALYSIS; Start 09/23/18 at 17:30 Sodium Chloride (NS) -To prime the dialy... DIRECTED FOR HD PRN IV HD; Start 09/23/18 at 17:30 Allergies: Coded Allergies: levofloxacin (Verified Allergy, Unknown, 09/23/18) Past Surgical History Past Surgical Hx: other (left rotator cuff repair, carpal tunnel repair, AV fistula placement) Family History Significant Family History: diabetes, hypertension Social History Alcohol Use: none Smoking Status: Never smoker Drug Use: none Exam/Review of Systems Exam Vitals Vital Signs Date Temp Pulse Resp B/P (MAP) Pulse Ox O2 O2 Flow FiO2 Time Delivery Rate 09/23/18 97.6 92 16 156/76 98 Room Air 13:33 (102) Constitutional: alert, oriented Neck: supple, non-tender Respiratory: clear to auscultation, normal air movement Cardiovascular: regular rate and rhythm, nl pulses Gastrointestinal: soft, nl liver, spleen, non-tender Musculoskeletal: nl extremities to inspection, nl gait and stance Extremities: normal pulses Neurological: B[employer] INST[employer]ER II-XII intact, nl mental status, nl speech, nl strength Results Result Diagram: 09/23/18 1415 Results 24hrs Laboratory Tests Test 09/23/18 13:13 09/23/18 14:15 09/23/18 14:16 09/23/18 14:47 Bedside Glucose 251 H 254 H 235 H Potassium Level 4.9 Test 09/23/18 15:44 09/23/18 16:25 09/23/18 18:16 Bedside Glucose 218 202 150 Medications Medication Current Medications Sodium Chloride 500 ml @ 5 mls/hr Q24H IV ; Start 09/23/18 at 14:30 Miscellaneous Information 1 ea NOTE XX ; Start 09/23/18 at 16:30 Glucose (Glutose) 15 gm Q15M PRN PO DECREASED GLUCOSE; Start 09/23/18 at 16:30 Glucose (Glutose) 22.5 gm Q15M PRN PO DECREASED GLUCOSE; Start 09/23/18 at 16:30 Dextrose (D50w Syringe) 25 ml Q15M PRN IV DECREASED GLUCOSE; Start 09/23/18 at 16:30 Dextrose (D50w Syringe) 50 ml Q15M PRN IV DECREASED GLUCOSE; Start 09/23/18 at 16:30 Glucagon (Glucagen) 1 mg Q15M PRN IM DECREASED GLUCOSE; Start 09/23/18 at 16:30 Glucose (Glutose) 15 gm Q15M PRN BUCCAL DECREASED GLUCOSE; Start 09/23/18 at 16:30 Amlodipine Besylate (Norvasc) 10 mg DAILY PO ; Start 09/24/18 at 09:00 Atorvastatin Calcium (Lipitor) 20 mg QHS PO ; Start 09/23/18 at 21:00 Calcitriol (Rocaltrol) 0.25 mcg DAILY PO ; Start 09/24/18 at 09:00 Carvedilol (Coreg) 25 mg BID PO ; Start 09/23/18 at 21:00 Insulin Glargine (Lantus) 30 units DAILY@2000 SC ; Start 09/23/18 at 20:00 Insulin Aspart (Novolog Insulin Pen) 10 unit WITH MEALS SC Last administered on 09/23/18at 18:17; Admin Dose 10 UNIT; Start 09/23/18 at 18:00 IV Flush (NS 3 ml) 3 ml PER PROTOCOL IV ; Start 09/23/18 at 17:30 Ondansetron HCl (Zofran Inj) 4 mg Q6H PRN IV NAUSEA/VOMITING; Start 09/23/18 at 17:30 Acetaminophen (Tylenol Tab) 650 mg Q6H PRN PO .PAIN 1-3 OR TEMP; Start 09/23/18 at 17:30 Acetaminophen/ Hydrocodone Bitart ([place] (5/325)) 1 tab Q6H PRN PO .MOD PAIN 4- 6; Start 09/23/18 at 17:30 Acetaminophen/ Hydrocodone Bitart ([place] (5/325)) 2 tab Q6H PRN PO .SEVERE PAIN 7-10; Start 09/23/18 at 17:30 Hydromorphone HCl (Dilaudid) 0.5 mg Q4H PRN IV .SEVERE PAIN 7-10; Start 09/23/18 at 17:30 Docusate Sodium (Colace) 100 mg Q12H PRN PO .CONSTIPATION; Start 09/23/18 at 17:30 Magnesium Hydroxide (Milk Of Mag) 30 ml DAILY PRN PO .CONSTIPATION; Start 09/23/18 at 17:30 Famotidine (Pepcid Iv) 20 mg DAILY IV ; Start 09/24/18 at 09:00 Insulin Aspart (Novolog Insulin Pen) NOVOLOG *MILD* ALGORITHM WITH MEALS BEDTIME SC Last administered on 09/23/18at 18:18; Admin Dose 1 UNIT; Start 09/23/18 at 18:00 Heparin Sodium (Porcine) (Heparin (1000 Units/ml)) 4,000 unit AFTER DIALYSIS CATHETER ; Start 09/23/18 at 17:30 Albumin Human 50 ml @ 100 mls/hr WITH DIALYSIS PRN IV SBP < 90 DURING DIALYSIS; Start 09/23/18 at 17:30 Sodium Chloride (NS) -To prime the dialy... DIRECTED FOR HD PRN IV HD; Start 09/23/18 at 17:30 BRIE GRAF MD September 23, 2018 18:49
[2018-09-23] MEDS: SOD CHLORIDE 0.9% 500 ML IV SCH (19:28)
[2018-09-23] MEDS ORDERED: INSULIN GLARGINE [LANTus] (100 UNITS/ML) SYG SC SCH (20:00)
[2018-09-23] MEDS: ACCU-CHEK XX SCH (20:00)
[2018-09-23] MEDS ORDERED: LISINOPRIL 20 MG TAB PO SCH (21:00)
[2018-09-23] MEDS ORDERED: ATORVASTATIN 20 MG TAB PO SCH (21:00)
[2018-09-23] MEDS: ATORVASTATIN 40 MG TAB PO SCH (21:17)
[2018-09-23] MEDS: FISH OIL 1,000 MG CAP PO SCH (21:17)
[2018-09-24] VITALS (28 sets, daily range): BP systolic 89–140; BP diastolic 42–78; PULSE 72–92; RESP 15–18
[2018-09-24] MEDS: FLUTICASONE 0.05% 16 GM NAS SPRAY NASAL SCH ×3 (00:58→21:18)
[2018-09-24] MEDS: REPAGLINIDE 2 MG TAB PO SCH ×3 (06:24→17:30)
[2018-09-24] MEDS: ACCU-CHEK XX SCH ×6 (08:08→20:00)
[2018-09-24] MEDS: INSULIN ASPART [NOVOLOG] 3 ML PEN SC SCH ×4 (08:11→21:00)
[2018-09-24] MEDS: FAMOTIDINE 20 MG INJ IV SCH (08:15)
[2018-09-24] MEDS ORDERED: AMLODIPINE 2.5 MG TAB PO SCH (09:00)
[2018-09-24] MEDS: FISH OIL 1,000 MG CAP PO SCH ×2 (09:00→21:17)
[2018-09-24] MEDS ORDERED: AMLODIPINE 10 MG TAB PO SCH (09:00)
[2018-09-24] MEDS: CALCITRIOL 0.25 MCG CAP PO SCH (09:00)
[2018-09-24] MEDS: LINAGLIPTIN 5 MG TABLET PO SCH (09:00)
--- NOTE | 2018-09-24 11:18 | PN ---
Date/Time of Note Date/Time of Note DATE: 09/24/18 TIME: 11:18 Assessment/Plan VTE Prophylaxis Risk score (from Nsg)>0 risk: 2 SCD applied (from Nsg): No SCD contraindicated: low risk/ambulating Pharmacological prophylaxis: NA/contraindicated Pharm contraindication: surgical contra Lines/Catheters IV Catheter Type (from Nrsg): Peripheral IV Assessment/Plan Assessment/Plan 1. Charcot neuroarthropathy of left foot - Scheduled for surgery this afternoon - Podiatry on board and appreciate consultation 2. Uncontrolled Diabetes Mellitus - A1c noted - Endocrinology consultation appreciated for medication recommendations for better glucose control - ISS and accuchecks 3. ESRD on HD - Nephrology consultation appreciated - , , Thursday schedule. Last session was Thursday 4. HTN - continue home medications and will adjust as needed 5. RITA - offered CPAP but refusing face mask 6. Disposition - Surgical intervention today and will initiate physical therapy once cleared by podiatry. Discharge planning based on clinical course Result Diagram: 09/24/18 0506 09/24/18 0506 Results 24hrs Laboratory Tests Test 09/23/18 13:13 09/23/18 14:15 09/23/18 14:16 09/23/18 14:47 Bedside Glucose 251 H 254 H 235 H Potassium Level 4.9 Test 09/23/18 15:44 09/23/18 16:25 09/23/18 18:16 09/23/18 19:29 Bedside Glucose 218 202 150 Sodium Level 139 Potassium Level 4.2 Chloride Level 95 L Carbon Dioxide 31 Level Anion Gap 13 Blood Urea 66 H Nitrogen Creatinine 10.51 H Glucose Level 159 Calcium Level 9.2 Phosphorus Level 7.4 H Magnesium Level 2.4 Albumin 4.3 Vitamin B12 Level 501 Thyroid 1.240 Stimulating Hormone (TSH) Free Thyroxine 1.41 Free 3.99 Triiodothyronine (T3) pg/mL Hepatitis B NEGATIVE Surface Antigen Test 09/23/18 19:30 09/23/18 21:14 09/24/18 05:06 09/24/18 05:12 White Blood Count 12.5 H 12.7 H Red Blood Count 3.30 L 3.10 L Hemoglobin 10.1 L 9.5 L Hematocrit 30.1 L 28.9 L Mean Corpuscular 91.2 93.2 Volume Mean Corpuscular 30.6 30.6 Hemoglobin Mean Corpuscular 33.6 32.9 Hemoglobin Concent Red Cell 14.0 13.7 Distribution Width Platelet Count 361 341 Mean Platelet 10.5 H 10.6 H Volume Immature 0.600 H 0.400 Granulocytes % Neutrophils % 60.0 60.9 Lymphocytes % 28.4 28.1 Monocytes % 9.1 9.0 Eosinophils % 1.4 1.2 Basophils % 0.5 0.4 Nucleated Red 0.2 H 0.2 H Blood Cells % Immature 0.070 H 0.050 H Granulocytes # Neutrophils # 7.5 7.8 H Lymphocytes # 3.6 H 3.6 H Monocytes # 1.1 H 1.1 H Eosinophils # 0.2 0.2 Basophils # 0.1 0.1 Nucleated Red 0.0 0.0 Blood Cells # Hemoglobin A1c 11.7 H Bedside Glucose 208 Sodium Level 141 Potassium Level 4.8 Chloride Level 103 Carbon Dioxide 26 Level Anion Gap 12 Blood Urea 38 #H Nitrogen Creatinine 6.60 #H Est Glomerular 9 L Filtrat Rate mL/min Glucose Level 173 Calcium Level 8.8 Magnesium Level 2.1 Triglycerides 506 H Level Cholesterol Level 169 LDL Cholesterol, 47 Calculated HDL Cholesterol 21 L Cholesterol/HDL 8.0 Ratio Lab Scanned Report REFERENCE LAB Test 09/24/18 08:08 09/24/18 09:02 Bedside Glucose 162 169 Subjective 24 Hr Interval Summary Free Text/Dictation Patient denies any acute issues. Nervous about his surgery this afternoon. No chest pain or shortness of breath appreciated. Exam/Review of Systems Exam Vitals Vital Signs Date Temp Pulse Resp B/P (MAP) Pulse Ox O2 O2 Flow FiO2 Time Delivery Rate 09/24/18 72 128/68 09:08 (88) 09/24/18 99.2 18 8 07:28 09/23/18 Room Air 13:33 Intake and Output 09/23/18 09/23/18 09/24/18 1515:00 23:00 07:00 IntakeIntake Total 12 ml 400 ml OutputOutput Total 2600 ml BalanceBalance 12 ml -2200 ml Exam General: Patient is a pleasant male currently lying in bed in no acute distress Neck: Supple Chest: Nontender Lungs: Clear to auscultation bilaterally, no wheezing or rhonchi Heart: Normal S1-S2, Regular rhythm and rate. No murmur, S3, or S4 Abdomen: Soft , nontender, nondistended , bowel sounds are present. No guarding no rebound tenderness Extremities: No edema no cyanosis Results Results 24hrs Laboratory Tests Test 09/23/18 13:13 09/23/18 14:15 09/23/18 14:16 09/23/18 14:47 Bedside Glucose 251 H 254 H 235 H Potassium Level 4.9 Test 09/23/18 15:44 09/23/18 16:25 09/23/18 18:16 09/23/18 19:29 Bedside Glucose 218 202 150 Sodium Level 139 Potassium Level 4.2 Chloride Level 95 L Carbon Dioxide 31 Level Anion Gap 13 Blood Urea 66 H Nitrogen Creatinine 10.51 H Glucose Level 159 Calcium Level 9.2 Phosphorus Level 7.4 H Magnesium Level 2.4 Albumin 4.3 Vitamin B12 Level 501 Thyroid 1.240 Stimulating Hormone (TSH) Free Thyroxine 1.41 Free 3.99 Triiodothyronine (T3) pg/mL Hepatitis B NEGATIVE Surface Antigen Test 09/23/18 19:30 09/23/18 21:14 09/24/18 05:06 09/24/18 05:12 White Blood Count 12.5 H 12.7 H Red Blood Count 3.30 L 3.10 L Hemoglobin 10.1 L 9.5 L Hematocrit 30.1 L 28.9 L Mean Corpuscular 91.2 93.2 Volume Mean Corpuscular 30.6 30.6 Hemoglobin Mean Corpuscular 33.6 32.9 Hemoglobin Concent Red Cell 14.0 13.7 Distribution Width Platelet Count 361 341 Mean Platelet 10.5 H 10.6 H Volume Immature 0.600 H 0.400 Granulocytes % Neutrophils % 60.0 60.9 Lymphocytes % 28.4 28.1 Monocytes % 9.1 9.0 Eosinophils % 1.4 1.2 Basophils % 0.5 0.4 Nucleated Red 0.2 H 0.2 H Blood Cells % Immature 0.070 H 0.050 H Granulocytes # Neutrophils # 7.5 7.8 H Lymphocytes # 3.6 H 3.6 H Monocytes # 1.1 H 1.1 H Eosinophils # 0.2 0.2 Basophils # 0.1 0.1 Nucleated Red 0.0 0.0 Blood Cells # Hemoglobin A1c 11.7 H Bedside Glucose 208 Sodium Level 141 Potassium Level 4.8 Chloride Level 103 Carbon Dioxide 26 Level Anion Gap 12 Blood Urea 38 #H Nitrogen Creatinine 6.60 #H Est Glomerular 9 L Filtrat Rate mL/min Glucose Level 173 Calcium Level 8.8 Magnesium Level 2.1 Triglycerides 506 H Level Cholesterol Level 169 LDL Cholesterol, 47 Calculated HDL Cholesterol 21 L Cholesterol/HDL 8.0 Ratio Lab Scanned Report REFERENCE LAB Test 09/24/18 08:08 09/24/18 09:02 Bedside Glucose 162 169 Medications Medication Current Medications Sodium Chloride 500 ml @ 5 mls/hr Q24H IV Last administered on 09/23/18at 19:28; Admin Dose 5 MLS/HR; Start 09/23/18 at 14:30 Miscellaneous Information 1 ea NOTE XX ; Start 09/23/18 at 16:30 Glucose (Glutose) 15 gm Q15M PRN PO DECREASED GLUCOSE; Start 09/23/18 at 16:30 Glucose (Glutose) 22.5 gm Q15M PRN PO DECREASED GLUCOSE; Start 09/23/18 at 16:30 Dextrose (D50w Syringe) 25 ml Q15M PRN IV DECREASED GLUCOSE; Start 09/23/18 at 16:30 Dextrose (D50w Syringe) 50 ml Q15M PRN IV DECREASED GLUCOSE; Start 09/23/18 at 16:30 Glucagon (Glucagen) 1 mg Q15M PRN IM DECREASED GLUCOSE; Start 09/23/18 at 16:30 Glucose (Glutose) 15 gm Q15M PRN BUCCAL DECREASED GLUCOSE; Start 09/23/18 at 16:30 Calcitriol (Rocaltrol) 0.25 mcg DAILY PO ; Start 09/24/18 at 09:00 Carvedilol (Coreg) 25 mg BID PO Last administered on 09/24/18at 08:14; Admin Dose 25 MG; Start 09/23/18 at 21:00 Insulin Glargine (Lantus) 30 units DAILY@2000 SC Last administered on 09/23/18at 21:19; Admin Dose 30 UNITS; Start 09/23/18 at 20:00 IV Flush (NS 3 ml) 3 ml PER PROTOCOL IV ; Start 09/23/18 at 17:30 Ondansetron HCl (Zofran Inj) 4 mg Q6H PRN IV NAUSEA/VOMITING; Start 09/23/18 at 17:30 Acetaminophen (Tylenol Tab) 650 mg Q6H PRN PO .PAIN 1-3 OR TEMP; Start 09/23/18 at 17:30 Acetaminophen/ Hydrocodone Bitart ([place] (5/325)) 1 tab Q6H PRN PO .MOD PAIN 4- 6; Start 09/23/18 at 17:30 Acetaminophen/ Hydrocodone Bitart ([place] (5/325)) 2 tab Q6H PRN PO .SEVERE PAIN 7-10; Start 09/23/18 at 17:30 Hydromorphone HCl (Dilaudid) 0.5 mg Q4H PRN IV .SEVERE PAIN 7-10; Start 09/23/18 at 17:30 Docusate Sodium (Colace) 100 mg Q12H PRN PO .CONSTIPATION; Start 09/23/18 at 17:30 Magnesium Hydroxide (Milk Of Mag) 30 ml DAILY PRN PO .CONSTIPATION; Start 09/23/18 at 17:30 Famotidine (Pepcid Iv) 20 mg DAILY IV Last administered on 09/24/18at 08:15; Admin Dose 20 MG; Start 09/24/18 at 09:00 Insulin Aspart (Novolog Insulin Pen) NOVOLOG *MILD* ALGORITHM WITH MEALS BEDTIME SC Last administered on 09/24/18at 08:11; Admin Dose 1 UNIT; Start 09/23 at 18:00 Heparin Sodium (Porcine) (Heparin (1000 Units/ml)) 4,000 unit AFTER DIALYSIS CATHETER ; Start 09/23/18 at 17:30 Albumin Human 50 ml @ 100 mls/hr WITH DIALYSIS PRN IV SBP < 90 DURING DI ALYSIS; Start 09/23/18 at 17:30 Sodium Chloride (NS) -To prime the dialy... DIRECTED FOR HD PRN IV HD; Start 09/23/18 at 17:30 Amlodipine Besylate (Norvasc) 2.5 mg DAILY PO Last administered on 09/24/18at 08:14; Admin Dose 2.5 MG; Start 09/24/18 at 09:00 Atorvastatin Calcium (Lipitor) 40 mg QHS PO Last administered on 09/23/18at 21:17; Admin Dose 40 MG; Start 09/23/18 at 21:00 Linagliptin (Tradjenta) 5 mg DAILY PO ; Start 09/24/18 at 09:00 Repaglinide (Prandin) 2 mg AC MEALS PO ; Start 09/24/18 at 07:00 Lisinopril (Zestril) 20 mg QHS PO ; Start 09/23/18 at 21:00 Fish Oil (Fish Oil) 2,000 mg BID PO Last administered on 09/23/18at 21:17; Admin Dose 2,000 MG; Start 09/23/18 at 21:00 Diagnostic Test (Pha) (Accu-Chek) 1 ea AC MEALS XX ; Start 09/24/18 at 07:00 Diagnostic Test (Pha) (Accu-Chek) 1 ea 2 HOURS AFTER MEALS XX ; Start 09/23/18 at 20:00 Miscellaneous Information 1 ea NOTE XX ; Start 09/23/18 at 19:00 Glucose (Glutose) 15 gm Q15M PRN PO DECREASED GLUCOSE; Start 09/23/18 at 19:00 Glucose (Glutose) 22.5 gm Q15M PRN PO DECREASED GLUCOSE; Start 09/23/18 at 19:00 Dextrose (D50w Syringe) 25 ml Q15M PRN IV DECREASED GLUCOSE; Start 09/23/18 at 19:00 Dextrose (D50w Syringe) 50 ml Q15M PRN IV DECREASED GLUCOSE; Start 09/23/18 at 19:00 Glucagon (Glucagen) 1 mg Q15M PRN IM DECREASED GLUCOSE; Start 09/23/18 at 19:00 Glucose (Glutose) 15 gm Q15M PRN BUCCAL DECREASED GLUCOSE; Start 09/23/18 at 19:00 Fluticasone Propionate (Flonase 0.05% Nasal) 1 spray BID NASAL Last adminis tered on 09/24/18at 00:58; Admin Dose 1 SPRAY; Start 09/24/18 at 01:00 JANE QUICK MD September 24, 2018 11:18
[2018-09-24] MEDS: SOD CHLORIDE 0.9% 500 ML IV SCH (14:30)
--- NOTE | 2018-09-24 15:21 | CONS ---
Assessment/Plan Assessment/Plan Problems: (1) Diabetes mellitus type 2 in obese Onset Date: ~ 09/1995 Status: Chronic Comment: With the adjustment in his regimen she is having at present a good response with a lower blood sugars. I will continue to try and fine-tune this to make this user-friendly for him as an outpatient. (2) Charcot's joint, left ankle and foot Status: Chronic Comment: As per podiatry (3) Charcot's joint, right ankle and foot Status: Chronic Comment: As per podiatry (4) End-stage renal disease on hemodialysis Status: Chronic Comment: As per nephrology continue with hemodialysis (5) Essential hypertension Status: Chronic Comment: Blood pressure control is doing well we are able to get away with decreasing the dihydropyridine calcium channel annabel and its attendant side effects. I am going to discontinue the amlodipine and go up on the JULIUS inhibitor in combination with beta-blockade. (6) Hyperlipidemia associated with type 2 diabetes mellitus Status: Chronic Comment: Improving control. Consultation Date/Type/Reason Admit Date/Time September 23, 2018 at 11:58 Initial Consult Date 09/23/18 Type of Consult Endocrinology Reason for Consultation Diabetes mellitus type 2 complicated by end-stage renal disease; peripheral neuropathy; other issues. In addition hypertension, mixed hyperlipidemia Requesting Provider: JANE QUICK MD Date/Time of Note DATE: 09/24/18 TIME: 15:18 24 HR Interval Summary Constitutional: no complaints Detailed Summary Endocrine: no complaints Exam/Review of Systems Exam Vitals Vital Signs Date Temp Pulse Resp B/P (MAP) Pulse Ox O2 O2 Flow FiO2 Time Delivery Rate 09/24/18 98.9 78 18 121/65 97 13:35 (83) 09/23/18 Room Air 13:33 Intake and Output 09/23/18 09/23/18 09/24/18 1515:00 23:00 07:00 IntakeIntake Total 12 ml 400 ml OutputOutput Total 2600 ml BalanceBalance 12 ml -2200 ml Exam No change in exam Constitutional: alert, oriented Results Result Diagram: 09/24/18 0506 09/24/18 0506 Results 24hrs Laboratory Tests Test 09/23/18 15:44 09/23/18 16:25 09/23/18 18:16 09/23/18 19:29 Bedside Glucose 218 202 150 Sodium Level 139 Potassium Level 4.2 Chloride Level 95 L Carbon Dioxide 31 Level Anion Gap 13 Blood Urea 66 H Nitrogen Creatinine 10.51 H Glucose Level 159 Calcium Level 9.2 Phosphorus Level 7.4 H Magnesium Level 2.4 Albumin 4.3 Vitamin B12 Level 501 Thyroid 1.240 Stimulating Hormone (TSH) Free Thyroxine 1.41 Free 3.99 Triiodothyronine (T3) pg/mL Hepatitis B NEGATIVE Surface Antigen Test 09/23/18 19:30 09/23/18 21:14 09/24/18 05:06 09/24/18 05:12 White Blood Count 12.5 H 12.7 H Red Blood Count 3.30 L 3.10 L Hemoglobin 10.1 L 9.5 L Hematocrit 30.1 L 28.9 L Mean Corpuscular 91.2 93.2 Volume Mean Corpuscular 30.6 30.6 Hemoglobin Mean Corpuscular 33.6 32.9 Hemoglobin Concent Red Cell 14.0 13.7 Distribution Width Platelet Count 361 341 Mean Platelet 10.5 H 10.6 H Volume Immature 0.600 H 0.400 Granulocytes % Neutrophils % 60.0 60.9 Lymphocytes % 28.4 28.1 Monocytes % 9.1 9.0 Eosinophils % 1.4 1.2 Basophils % 0.5 0.4 Nucleated Red 0.2 H 0.2 H Blood Cells % Immature 0.070 H 0.050 H Granulocytes # Neutrophils # 7.5 7.8 H Lymphocytes # 3.6 H 3.6 H Monocytes # 1.1 H 1.1 H Eosinophils # 0.2 0.2 Basophils # 0.1 0.1 Nucleated Red 0.0 0.0 Blood Cells # Hemoglobin A1c 11.7 H Bedside Glucose 208 Sodium Level 141 Potassium Level 4.8 Chloride Level 103 Carbon Dioxide 26 Level Anion Gap 12 Blood Urea 38 #H Nitrogen Creatinine 6.60 #H Est Glomerular 9 L Filtrat Rate mL/min Glucose Level 173 Calcium Level 8.8 Magnesium Level 2.1 Triglycerides 506 H Level Cholesterol Level 169 LDL Cholesterol, 47 Calculated HDL Cholesterol 21 L Cholesterol/HDL 8.0 Ratio Lab Scanned Report REFERENCE LAB Test 09/24/18 08:08 09/24/18 09:02 09/24/18 12:11 09/24/18 14:24 Bedside Glucose 162 169 189 175 Medications Medication Current Medications Sodium Chloride 500 ml @ 5 mls/hr Q24H IV Last administered on 09/23/18at 19:28; Admin Dose 5 MLS/HR; Start 09/23/18 at 14:30 Miscellaneous Information 1 ea NOTE XX ; Start 09/23/18 at 16:30 Glucose (Glutose) 15 gm Q15M PRN PO DECREASED GLUCOSE; Start 09/23/18 at 16:30 Glucose (Glutose) 22.5 gm Q15M PRN PO DECREASED GLUCOSE; Start 09/23/18 at 16:30 Dextrose (D50w Syringe) 25 ml Q15M PRN IV DECREASED GLUCOSE; Start 09/23/18 at 16:30 Dextrose (D50w Syringe) 50 ml Q15M PRN IV DECREASED GLUCOSE; Start 09/23/18 at 16:30 Glucagon (Glucagen) 1 mg Q15M PRN IM DECREASED GLUCOSE; Start 09/23/18 at 16:30 Glucose (Glutose) 15 gm Q15M PRN BUCCAL DECREASED GLUCOSE; Start 09/23/18 at 16:30 Calcitriol (Rocaltrol) 0.25 mcg DAILY PO ; Start 09/24/18 at 09:00 Carvedilol (Coreg) 25 mg BID PO Last administered on 09/24/18at 08:14; Admin Dose 25 MG; Start 09/23/18 at 21:00 Insulin Glargine (Lantus) 30 units DAILY@2000 SC Last administered on 09/23/18at 21:19; Admin Dose 30 UNITS; Start 09/23/18 at 20:00 IV Flush (NS 3 ml) 3 ml PER PROTOCOL IV ; Start 09/23/18 at 17:30 Ondansetron HCl (Zofran Inj) 4 mg Q6H PRN IV NAUSEA/VOMITING; Start 09/23/18 at 17:30 Acetaminophen (Tylenol Tab) 650 mg Q6H PRN PO .PAIN 1-3 OR TEMP; Start 09/23/18 at 17:30 Acetaminophen/ Hydrocodone Bitart ([place] (5/325)) 1 tab Q6H PRN PO .MOD PAIN 4- 6; Start 09/23/18 at 17:30 Acetaminophen/ Hydrocodone Bitart ([place] (5/325)) 2 tab Q6H PRN PO .SEVERE PAIN 7-10; Start 09/23/18 at 17:30 Hydromorphone HCl (Dilaudid) 0.5 mg Q4H PRN IV .SEVERE PAIN 7-10; Start 09/23/18 at 17:30 Docusate Sodium (Colace) 100 mg Q12H PRN PO .CONSTIPATION; Start 09/23/18 at 17:30 Magnesium Hydroxide (Milk Of Mag) 30 ml DAILY PRN PO .CONSTIPATION; Start at 17:30 Famotidine (Pepcid Iv) 20 mg DAILY IV Last administered on 09/24/18at 08:15; Admin Dose 20 MG; Start 09/24/18 at 09:00 Insulin Aspart (Novolog Insulin Pen) NOVOLOG *MILD* ALGORITHM WITH MEALS BEDTIME SC Last administered on 09/24/18at 12:15; Admin Dose 2 UNIT; Start 09/23/18 at 18:00 Heparin Sodium (Porcine) (Heparin (1000 Units/ml)) 4,000 unit AFTER DIALYSIS CATHETER ; Start 09/23/18 at 17:30 Albumin Human 50 ml @ 100 mls/hr WITH DIALYSIS PRN IV SBP < 90 DURING DIALYSIS; Start 09/23/18 at 17:30 Sodium Chloride (NS) -To prime the dialy... DIRECTED FOR HD PRN IV HD; Start 09/23/18 at 17:30 Atorvastatin Calcium (Lipitor) 40 mg QHS PO Last administered on 09/23/18at 21:17; Admin Dose 40 MG; Start 09/23/18 at 21:00 Linagliptin (Tradjenta) 5 mg DAILY PO ; Start 09/24/18 at 09:00 Repaglinide (Prandin) 2 mg AC MEALS PO ; Start 09/24/18 at 07:00 Fish Oil (Fish Oil) 2,000 mg BID PO Last administered on 09/23/18at 21:17; Admin Dose 2,000 MG; Start 09/23/18 at 21:00 Diagnostic Test (Pha) (Accu-Chek) 1 ea AC MEALS XX ; Start 09/24/18 at 07:00 Diagnostic Test (Pha) (Accu-Chek) 1 ea 2 HOURS AFTER MEALS XX ; Start 09/23/18 at 20:00 Miscellaneous Information 1 ea NOTE XX ; Start 09/23/18 at 19:00 Glucose (Glutose) 15 gm Q15M PRN PO DECREASED GLUCOSE; Start 09/23/18 at 19:00 Glucose (Glutose) 22.5 gm Q15M PRN PO DECREASED GLUCOSE; Start 09/23/18 at 19:00 Dextrose (D50w Syringe) 25 ml Q15M PRN IV DECREASED GLUCOSE; Start 09/23/18 at 19:00 Dextrose (D50w Syringe) 50 ml Q15M PRN IV DECREASED GLUCOSE; Start 09/23/18 at 19:00 Glucagon (Glucagen) 1 mg Q15M PRN IM DECREASED GLUCOSE; Start 09/23/18 at 19:00 Glucose (Glutose) 15 gm Q15M PRN BUCCAL DECREASED GLUCOSE; Start 09/23/18 at 19:00 Fluticasone Propionate (Flonase 0.05% Nasal) 1 spray BID NASAL Last adminis tered on 09/24/18at 00:58; Admin Dose 1 SPRAY; Start 09/24/18 at 01:00 Lisinopril (Zestril) 20 mg BID PO ; Start 09/24/18 at 21:00; Status BRIE GREENWOOD MD September 24, 2018 15:21
--- NOTE | 2018-09-24 15:42 | PREAC ---
Date/Time of Note Date/Time of Note DATE: 09/24/18 TIME: 15:40 Anesthesia Eval and Record Evaluation Time Pre-Procedure Interview DATE: 09/24/18 TIME: 15:40 Age 53 Sex male NPO: 8 hrs Preoperative diagnosis Left Charcot neuroarthropathy Planned procedure Left midfoot fusion with osteotomy, application of multiplanar external fixator Past Medical History Past Medical History: Includes Cardio: HTN, Dyslipidemia Endo: Diabetes Renal: ESRD on dialysis GI: Obesity Heme: Anemia Surgery & Anesthesia Issues No known issue Meds Anticoagulation: No Beta Jeison within 24 hr: Yes Reported Medications Insulin Glargine,Hum.rec.anlog ([place] Solostar) 300 Unit/1 Ml Insuln.pen, 30 UNIT SQ QHS, EA 09/23/18 Calcitriol* (Rocaltrol*) 0.25 Mcg Capsule, 0.25 MCG PO DAILY, CAP 09/02/18 Sodium Bicarbonate* (Sodium Bicarbonate*) Unknown Strength Tablet, 1 TAB PO BID, TAB 09/02/18 Insulin Lispro (Humalog Kwikpen U-100) 100 Unit/1 Ml Insuln.pen, 10 UNIT SQ WITH MEALS, EA 09/02/18 Ferric Citrate (Auryxia) 210 Mg Tablet, 420 MG PO TID, TAB 09/02/18 Atorvastatin Calcium* (Atorvastatin Calcium*) 20 Mg Tablet, 20 MG PO QHS, #30 TAB 09/02/18 Ergocalciferol (Vitamin D2) (VITAMIN D2) 50,000 Unit Capsule, 73148 UNIT PO Q SUN, CAP 09/02/18 Amlodipine Besylate* (Amlodipine Besylate*) 10 Mg Tablet, 10 MG PO DAILY, #30 TAB 09/02/18 Carvedilol* (Carvedilol*) 25 Mg Tablet, 25 MG PO BID, #60 TAB 09/02/18 Discontinued Reported Medications Insulin Glargine,Hum.rec.anlog ([place] Solostar) 300 Unit/1 Ml Insuln.pen, 20 UNIT SQ QHS, EA 09/02/18 Current Medications Sodium Chloride 500 ml @ 5 mls/hr Q24H IV Last administered on 09/23/18at 19:28; Admin Dose 5 MLS/HR; Start 09/23/18 at 14:30 Miscellaneous Information 1 ea NOTE XX ; Start 09/23/18 at 16:30 Glucose (Glutose) 15 gm Q15M PRN PO DECREASED GLUCOSE; Start 09/23/18 at 16:30 Glucose (Glutose) 22.5 gm Q15M PRN PO DECREASED GLUCOSE; Start 09/23/18 at 16:30 Dextrose (D50w Syringe) 25 ml Q15M PRN IV DECREASED GLUCOSE; Start 09/23/18 at 16:30 Dextrose (D50w Syringe) 50 ml Q15M PRN IV DECREASED GLUCOSE; Start 09/23/18 at 16:30 Glucagon (Glucagen) 1 mg Q15M PRN IM DECREASED GLUCOSE; Start 09/23/18 at 16:30 Glucose (Glutose) 15 gm Q15M PRN BUCCAL DECREASED GLUCOSE; Start 09/23/18 at 16:30 Calcitriol (Rocaltrol) 0.25 mcg DAILY PO ; Start 09/24/18 at 09:00 Carvedilol (Coreg) 25 mg BID PO Last administered on 09/24/18at 08:14; Admin Dose 25 MG; Start 09/23/18 at 21:00 IV Flush (NS 3 ml) 3 ml PER PROTOCOL IV ; Start 09/23/18 at 17:30 Ondansetron HCl (Zofran Inj) 4 mg Q6H PRN IV NAUSEA/VOMITING; Start 09/23/18 at 17:30 Acetaminophen (Tylenol Tab) 650 mg Q6H PRN PO .PAIN 1-3 OR TEMP; Start 09/23/18 at 17:30 Acetaminophen/ Hydrocodone Bitart ([place] (5/325)) 1 tab Q6H PRN PO .MOD PAIN 4- 6; Start 09/23/18 at 17:30 Acetaminophen/ Hydrocodone Bitart ([place] (5/325)) 2 tab Q6H PRN PO .SEVERE PAIN 7-10; Start 09/23/18 at 17:30 Hydromorphone HCl (Dilaudid) 0.5 mg Q4H PRN IV .SEVERE PAIN 7-10; Start 9 at 17:30 Docusate Sodium (Colace) 100 mg Q12H PRN PO .CONSTIPATION; Start 09/23/18 at 17:30 Magnesium Hydroxide (Milk Of Mag) 30 ml DAILY PRN PO .CONSTIPATION; Start 09/23/18 at 17:30 Famotidine (Pepcid Iv) 20 mg DAILY IV Last administered on 09/24/18at 08:15; Admin Dose 20 MG; Start 09/24/18 at 09:00 Insulin Aspart (Novolog Insulin Pen) NOVOLOG *MILD* ALGORITHM WITH MEALS BEDTIME SC Last administered on 09/24/18at 12:15; Admin Dose 2 UNIT; Start 09/23/18 at 18:00 Heparin Sodium (Porcine) (Heparin (1000 Units/ml)) 4,000 unit AFTER DIALYSIS CATHETER ; Start 09/23/18 at 17:30 Albumin Human 50 ml @ 100 mls/hr WITH DIALYSIS PRN IV SBP < 90 DURING DIALYSIS; Start 09/23/18 at 17:30 Sodium Chloride (NS) -To prime the dialy... DIRECTED FOR HD PRN IV HD; Start 09/23/18 at 17:30 Atorvastatin Calcium (Lipitor) 40 mg QHS PO Last administered on 09/23/18at 21:17; Admin Dose 40 MG; Start 09/23/18 at 21:00 Linagliptin (Tradjenta) 5 mg DAILY PO ; Start 09/24/18 at 09:00 Repaglinide (Prandin) 2 mg AC MEALS PO ; Start 09/24/18 at 07:00 Fish Oil (Fish Oil) 2,000 mg BID PO Last administered on 09/23/18at 21:17; Admin Dose 2,000 MG; Start 09/23/18 at 21:00 Diagnostic Test (Pha) (Accu-Chek) 1 ea AC MEALS XX ; Start 09/24/18 at 07:00 Diagnostic Test (Pha) (Accu-Chek) 1 ea 2 HOURS AFTER MEALS XX ; Start 09/23/18 at 20:00 Miscellaneous Information 1 ea NOTE XX ; Start 09/23/18 at 19:00 Glucose (Glutose) 15 gm Q15M PRN PO DECREASED GLUCOSE; Start 09/23/18 at 19:00 Glucose (Glutose) 22.5 gm Q15M PRN PO DECREASED GLUCOSE; Start 09/23/18 at 19:00 Dextrose (D50w Syringe) 25 ml Q15M PRN IV DECREASED GLUCOSE; Start 09/23/18 at 19:00 Dextrose (D50w Syringe) 50 ml Q15M PRN IV DECREASED GLUCOSE; Start 09/23/18 at 19:00 Glucagon (Glucagen) 1 mg Q15M PRN IM DECREASED GLUCOSE; Start 09/23/18 at 19:00 Glucose (Glutose) 15 gm Q15M PRN BUCCAL DECREASED GLUCOSE; Start 09/23/18 at 19:00 Fluticasone Propionate (Flonase 0.05% Nasal) 1 spray BID NASAL Last administered on 09/24/18at 00:58; Admin Dose 1 SPRAY; Start 09/24/18 at 01:00 Lisinopril (Zestril) 20 mg BID PO ; Start 09/24/18 at 21:00 Insulin Glargine (Lantus) 32 units DAILY@2000 SC ; Start 09/24/18 at 20:00 Meds reviewed: Yes Allergies Coded Allergies: levofloxacin (Verified Allergy, Unknown, 09/23/18) Allergies Reviewed: Yes Labs/Studies Labs Reviewed: Reviewed by anesthesiologist Result Diagram: 09/24/18 0506 09/24/18 0506 Laboratory Tests 09/24/18 05:06 test: N/A Pre-procedure Exam Last vitals Vital Signs Date Temp Pulse Resp B/P (MAP) Pulse Ox O2 O2 Flow FiO2 Time Delivery Rate 09/24/18 98.9 78 18 121/65 97 13:35 (83) 09/23/18 Room Air 13:33 Airway: Adequate mouth opening Mallampati: Mallampati II Teeth: Normal Lung: Normal Heart: Normal ASA Physical Status ASA physical status: 3 Emergency: None Planned Anesthetic General/MAC: ETT, LMA Planned Pain Management Parenteral pain med Pre-operative Attestations Prior to commencing anesthesia and surgery, the patient was re-evaluated, there was verification of: *The patient's identity *The results of appropriate recent lab work and preoperative vital signs *The above evaluation not changing prior to induction *Anesthetic plan, risk benefits, alternative and complications discussed with patient/family; questions answered; patient/family understands, accepts and wishes to proceed. ELGIN SLAUGHTER MD September 24, 2018 15:42
[2018-09-24] MEDS ORDERED: LIDOCAINE 2% (SDV) 5 ML INJ ONE (16:04)
[2018-09-24] MEDS ORDERED: PROPOFOL 20 ML ONE (16:04)
[2018-09-24] MEDS ORDERED: POLYMYXIN/BACITRACIN 1L IRRIG ONE (16:17)
--- NOTE | 2018-09-24 16:20 | HPN ---
Date/Time of Note Date/Time of Note DATE: 09/24/18 TIME: 16:20 Interval H&P Admission Note Pt. seen H&P reviewed: No system changes KRISS MIRAMONTES DPM September 24, 2018 16:20
[2018-09-24] MEDS ORDERED: LIDOCAINE 1% (MPF) 30 ML INJ ONE (16:49)
[2018-09-24] MEDS ORDERED: BUPIVACAINE 0.5% (SDV) 30 ML INJ ONE (16:49)
--- NOTE | 2018-09-24 19:49 | SIPON ---
Date/Time of Note Date/Time of Note DATE: 09/24/18 TIME: 19:35 Operative Report Preoperative Diagnosis Left foot charcot Left foot varus deformity Left foot diabetic foot ulceration DM2 with peripheral neuropathy Postoperative Diagnosis Same Operation/Procedure Performed Left foot midfoot osteotomy and fusion of calcaneal cuboid joint Left foot exostectomy 5th metatarsal Left foot application multiplane external offloading fixator Left foot excisional debridement of ulceration left foot skin, subcut < 20 cm2 Left foot island pedicle flap Surgeon see signature line maintenance assistant Ahmet Parks DPM Anesthesia: general Estimated blood loss: 10 - 50 ml's Transfusion Required none Specimen none Grafts/Implants none Complications none KRISS MIRAMONTES DPM September 24, 2018 19:48
[2018-09-24] MEDS ORDERED: MIDAZOLAM 1 MG/ML 2 ML INJ IV PRN (20:00)
[2018-09-24] MEDS ORDERED: LABETALOL HCL 20MG INJ IV PRN (20:00)
[2018-09-24] MEDS ORDERED: FENTAnyl 50 MCG/ML VIAL IV PRN ×3 (20:00)
[2018-09-24] MEDS ORDERED: OXYCODONE/ACETAMINOPHEN (5/325) TAB PO PRN ×2 (20:00)
[2018-09-24] MEDS ORDERED: hydrALAzine 20 MG INJ IV PRN (20:00)
[2018-09-24] MEDS ORDERED: EPHEDrine 25 MG/5 ML SYG IV PRN (20:00)
[2018-09-24] MEDS ORDERED: MEPERIDINE 25 MG INJ IV PRN (20:00)
[2018-09-24] MEDS ORDERED: INSULIN GLARGINE [LANTus] (100 UNITS/ML) SYG SC SCH (20:00)
[2018-09-24] MEDS ORDERED: METOCLOPRAMIDE 10 MG INJ IV PRN (20:00)
[2018-09-24] MEDS ORDERED: ONDANSETRON 4 MG INJ IV PRN (20:00)
[2018-09-24] MEDS ORDERED: DIPHENHYDRAMINE 50 MG INJ IV PRN (20:00)
[2018-09-24] MEDS ORDERED: HYDROmorphONE 1 MG/5 ML IV SYRINGE IV PRN ×3 (20:00)
[2018-09-24] MEDS ORDERED: HYDROmorphONE 1 MG/5 ML IV SYRINGE IV ONE (20:01)
[2018-09-24] MEDS: ATORVASTATIN 40 MG TAB PO SCH (21:18)
[2018-09-24] MEDS: LISINOPRIL 20 MG TAB PO SCH (21:18)
--- NOTE | 2018-09-24 21:25 | PAC ---
Date/Time of Note Date/Time of Note DATE: 09/24/18 TIME: 21:24 Post-Anesthesia Notes Post-Anesthesia Note Last documented vital signs Vital Signs Date Temp Pulse Resp B/P (MAP) Pulse Ox O2 O2 Flow FiO2 Time Delivery Rate 09/24/18 98.2 79 18 123/64 98 21:10 (83) 09/24/18 Nasal 2.0 20:40 Cannula Activity: WNL Respiratory function: WNL Cardiovascular function: WNL Mental status: Baseline Pain reasonably controlled: Yes Hydration appropriate: Yes Nausea/Vomiting absent: Yes ELGIN SLAUGHTER MD September 24, 2018 21:25
--- NOTE | 2018-09-24 21:40 | OPR ---
DATE OF OPERATION: 09/24/2018 SURGEON: Kriss Jackson DPM PULP MIXER: Martin Lozada DPM PREOPERATIVE DIAGNOSES: 1. Left foot Charcot, left foot varus deformity with degenerative joint disease. 2. Left foot diabetic foot ulceration. 3. Diabetes type 2 with peripheral neuropathy. POSTOPERATIVE DIAGNOSES: 1. Left foot Charcot, left foot varus deformity with degenerative joint disease. 2. Left foot diabetic foot ulceration. 3. Diabetes type 2 with peripheral neuropathy. PROCEDURES PERFORMED: 1. Left foot midfoot osteotomy and fusion of calcaneocuboid joint. 2. Left foot exostectomy, 5th metatarsal. 3. Left foot application of multiplane external fixator. 4. Left foot excisional debridement of ulceration, skin, subcutaneous tissue; less than 20 cm2. 5. Left foot island pedicle flap, 3.5 x 1 cm. PATHOLOGY: None. ANESTHESIA: General. ESTIMATED BLOOD LOSS: 30 mL TOURNIQUET: Left thigh tourniquet 300 mmHg. TIME: See per anesthesia record. SPECIMEN: None. GRAFTS: None. COMPLICATIONS: None. INDICATION FOR PROCEDURE: This is a 53-year-old gentleman with nonhealing ulceration to the left foot. He has chronic Charcot deformity with residual varus and DJD of the midfoot. He has failed nonoperative treatment -- wound care, offloading, different types of accommodative inserts/shoes, and at this time presents for operative intervention. Surgery had been rescheduled due to hyperglycemia and was seen by both the Hospitalist and Endocrinology, recommendations given, and at this time presents for operative intervention. Discussed planned procedure, risks, benefits, potential complications. Informed consent was obtained. The foot was marked. The patient had been on preoperative antibiotics. PROCEDURE IN DETAIL: The patient brought in to operating room, placed in the supine position. A formal timeout was performed. Extremity was prepped with Betadine scrub and draped in the usual sterile fashion, and the leg was exsanguinated. Thigh tourniquet elevated to 300 mmHg. At this time, a lateral incision was made and a flap was elevated, exposing both the 5th metatarsal base and calcaneocuboid joint. A periosteal elevator was used to free the tissue. Using a rongeur, a curette, osteotome, joint surface was debrided, the calcaneocuboid joint. There was subluxation, dorsal osteophytes which were excised, and multiple drill holes were made. At this time, the joint was then mobilized using a lamina part time flexible clerk and additional soft tissue ligaments transected. The varus deformity was realigned. K-wire fixation applied through the calcaneocuboid joint in satisfactory apposition. At this time, an exostectomy of the plantar surface of the 5th metatarsal was performed, and the ulceration over the area was then irrigated with saline solution. Excisional debridement of the plantar ulceration, excising necrotic skin and subcutaneous tissue. At this time, a multiplane circular ring fixator was applied to offload the plantar foot. Multiple smooth wires were placed in the proximal tibial block and tensioned appropriately, followed by 2 crossing smooth wires in the calcaneus and 1 in the midfoot, and prior to tensioning the midfoot wire, the foot was then held in a realigned position and tensioned appropriately. A smooth wire was applied through the forefoot. All wires were connected with appropriate connecting bolts and nuts and tensioned appropriately. The lateral skin flap was then closed with a nonabsorbable suture material. Then, attention was directed to the plantar foot where there was an ulceration at the plantar lateral aspect, measuring approximately 1 x 1 cm. A linear incision was made to extend for a skin paddle. The circular skin paddle was incised. The skin off of the pedicle was elevated. Multiple small perforators were noted. The length of the island measured 3.5 cm in the base of 1 cm. Full-thickness incision made adjacent to the pedicle and the skin was then rotated approximately 90 to 100 degrees. Adipose was then sutured to cover the defect. The donor site was closed primarily using 3-0 Prolene, and after inserting the flap, Steri-Strips were utilized. The patient had an estimated blood loss of 30 mL. The pin sites were covered with a silver dressing, Kerlix and bias. The patient tolerated the procedure well. Dictated By: KRISS CANDELARIO/ALEXANDREA Conf#: [id number] DID#: [id number] CC: MARTIN LOZADA DPM;*EndCC* MTDD
[2018-09-25] VITALS (19 sets, daily range): BP systolic 107–168; BP diastolic 57–80; PULSE 74–96; RESP 17–18
[2018-09-25] MEDS: HYDROmorphONE 0.5 MG/0.5 ML SYG IV PRN ×4 (02:59→21:00)
[2018-09-25] MEDS: ACCU-CHEK XX SCH ×6 (07:00→20:00)
[2018-09-25] MEDS: INSULIN ASPART [NOVOLOG] 3 ML PEN SC SCH ×4 (08:00→20:56)
--- NOTE | 2018-09-25 08:02 | CONS ---
Assessment/Plan Assessment/Plan Problems: (1) Diabetes mellitus type 2 in obese Onset Date: ~ 09/1995 Status: Chronic Comment: His blood sugar control under the current circumstances in a controlled environment with controlled dietary intake is doing well. I may actually have to back off on the dosage of Prandin. Continue to observe and fine-tune. (2) Essential hypertension Status: Chronic Comment: Adequate blood pressure control with discontinuation of the dihydropyridine calcium channel annabel. Continue with JULIUS inhibitor, beta- annabel. (3) Hyperlipidemia associated with type 2 diabetes mellitus Status: Chronic Comment: Adequate control with the current regimen (4) End-stage renal disease on hemodialysis Status: Chronic Comment: As per nephrology. (5) Obstructive sleep apnea Status: Chronic Comment: Noted. Consultation Date/Type/Reason Admit Date/Time September 23, 2018 at 11:58 Initial Consult Date 09/23/18 Type of Consult Endocrinology Reason for Consultation Diabetes mellitus type 2 complicated by end-stage renal disease (without retinopathy?); Peripheral neuropathy with Charcot joint bilaterally; essential hypertension; mixed hyperlipidemia Requesting Provider: JANE QUICK MD Date/Time of Note DATE: 09/25/18 TIME: 07:59 24 HR Interval Summary Free Text/Dictation Patient reports he is postop from podiatric surgery and doing well. Constitutional: no complaints (No fevers chills or sweats) Detailed Summary Respiratory: no complaints (No cough no wheezing no shortness of breath) Cardiovascular: no complaints (Chest pain no palpitations no orthopnea no PND) Gastrointestinal: no complaints Endocrine: no complaints (No hypoglycemia) Exam/Review of Systems Exam Vitals Vital Signs Date Temp Pulse Resp B/P (MAP) Pulse Ox O2 O2 Flow FiO2 Time Delivery Rate 09/25/18 98.3 78 17 117/60 99 Nasal 07:25 (79) Cannula 09/24/18 2.0 20:40 Intake and Output 09/24/18 09/24/18 09/25/18 1414:59 22:59 06:59 IntakeIntake Total 265 ml 40 ml OutputOutput Total 20 ml BalanceBalance 245 ml 40 ml Constitutional: alert, oriented Respiratory: clear to auscultation, normal air movement Cardiovascular: regular rate and rhythm, nl pulses Gastrointestinal: soft, nl liver, spleen, non-tender Results Result Diagram: 09/25/18 04309/25/18431 Results 24hrs Laboratory Tests Test 09/24/18 08:08 09/24/18 09:02 09/24/18 12:11 09/24/18 14:24 Bedside Glucose 162 169 189 175 Test 09/24/18 15:39 09/24/18 21:20 09/25/18 04:32 Prothrombin Time 13.0 Prothrombin Time 1.0 Ratio INR International 0.97 Normalized Ratio Activated 26.8 Partial Thromboplast Time Potassium Level 5.5 H 5.6 H Bedside Glucose 135 White Blood Count 16.6 #H Red Blood Count 3.06 L Hemoglobin 9.4 L Hematocrit 29.6 L Mean Corpuscular 96.7 Volume Mean Corpuscular 30.7 Hemoglobin Mean Corpuscular 31.8 L Hemoglobin Concent Red Cell 14.3 Distribution Width Platelet Count 338 Mean Platelet Volume 10.7 H Immature 0.400 Granulocytes % Neutrophils % 74.5 Lymphocytes % 15.4 Monocytes % 8.9 Eosinophils % 0.5 Basophils % 0.3 Nucleated Red Blood 0.1 H Cells % Immature 0.060 H Granulocytes # Neutrophils # 12.4 H Lymphocytes # 2.6 Monocytes # 1.5 H Eosinophils # 0.1 Basophils # 0.1 Nucleated Red Blood 0.0 Cells # Sodium Level 140 Chloride Level 103 Carbon Dioxide Level 27 Anion Gap 10 Blood Urea Nitrogen 47 H Creatinine 9.01 #H Glucose Level 109 # Calcium Level 8.3 L Phosphorus Level 7.1 H Magnesium Level 2.2 Albumin 3.9 Medications Medication Current Medications Sodium Chloride 500 ml @ 5 mls/hr Q24H IV Last administered on 09/23/18at 19:28; Admin Dose 5 MLS/HR; Start 09/23/18 at 14:30 Miscellaneous Information 1 ea NOTE XX ; Start 09/23/18 at 16:30 Glucose (Glutose) 15 gm Q15M PRN PO DECREASED GLUCOSE; Start 09/23/18 at 16:30 Glucose (Glutose) 22.5 gm Q15M PRN PO DECREASED GLUCOSE; Start 09/23/18 at 16:30 Dextrose (D50w Syringe) 25 ml Q15M PRN IV DECREASED GLUCOSE; Start 09/23/18 at 16:30 Dextrose (D50w Syringe) 50 ml Q15M PRN IV DECREASED GLUCOSE; Start 09/23/18 at 16:30 Glucagon (Glucagen) 1 mg Q15M PRN IM DECREASED GLUCOSE; Start 09/23/18 at 16:30 Glucose (Glutose) 15 gm Q15M PRN BUCCAL DECREASED GLUCOSE; Start 09/23/18 at 16:30 Calcitriol (Rocaltrol) 0.25 mcg DAILY PO ; Start 09/24/18 at 09:00 Carvedilol (Coreg) 25 mg BID PO Last administered on 09/24/18at 21:17; Admin Dose 25 MG; Start 09/23/18 at 21:00 IV Flush (NS 3 ml) 3 ml PER PROTOCOL IV ; Start 09/23/18 at 17:30 Ondansetron HCl (Zofran Inj) 4 mg Q6H PRN IV NAUSEA/VOMITING; Start 09/23/18 at 17:30 Acetaminophen (Tylenol Tab) 650 mg Q6H PRN PO .PAIN 1-3 OR TEMP; Start 09/23/18 at 17:30 Acetaminophen/ Hydrocodone Bitart ([place] (5/325)) 1 tab Q6H PRN PO .MOD PAIN 4- 6; Start 09/23/18 at 17:30 Acetaminophen/ Hydrocodone Bitart ([place] (5/325)) 2 tab Q6H PRN PO .SEVERE PAIN 7-10; Start 09/23/18 at 17:30 Hydromorphone HCl (Dilaudid) 0.5 mg Q4H PRN IV .SEVERE PAIN 7-10 Last administered on 09/25/18at 02:59; Admin Dose 0.5 MG; Start 09/23/18 at 17:30 Docusate Sodium (Colace) 100 mg Q12H PRN PO .CONSTIPATION; Start 09/23/18 at 17:30 Magnesium Hydroxide (Milk Of Mag) 30 ml DAILY PRN PO .CONSTIPATION; Start 09/23/18 at 17:30 Famotidine (Pepcid Iv) 20 mg DAILY IV Last administered on 09/24/18at 08:15; Admin Dose 20 MG; Start 09/24/18 at 09:00 Insulin Aspart (Novolog Insulin Pen) NOVOLOG *MILD* ALGORITHM WITH MEALS BEDTIME SC Last administered on 09/24/18at 12:15; Admin Dose 2 UNIT; Start 09/23/18 at 18:00 Heparin Sodium (Porcine) (Heparin (1000 Units/ml)) 4,000 unit AFTER DIALYSIS CATHETER ; Start 09/23/18 at 17:30 Albumin Human 50 ml @ 100 mls/hr WITH DIALYSIS PRN IV SBP < 90 DURING DIALYSIS; Start 09/23/18 at 17:30 Sodium Chloride (NS) -To prime the dialy... DIRECTED FOR HD PRN IV HD; Start 09/23/18 at 17:30 Atorvastatin Calcium (Lipitor) 40 mg QHS PO Last administered on 09/24/18at 21:18; Admin Dose 40 MG; Start 09/23/18 at 21:00 Linagliptin (Tradjenta) 5 mg DAILY PO ; Start 09/24/18 at 09:00 Repaglinide (Prandin) 2 mg AC MEALS PO ; Start 09/24/18 at 07:00 Fish Oil (Fish Oil) 2,000 mg BID PO Last administered on 09/24/18at 21:17; Admin Dose 2,000 MG; Start 09/23/18 at 21:00 Diagnostic Test (Pha) (Accu-Chek) 1 ea AC MEALS XX ; Start 09/24/18 at 07:00 Diagnostic Test (Pha) (Accu-Chek) 1 ea 2 HOURS AFTER MEALS XX ; Start 09/23/18 at 20:00 Miscellaneous Information 1 ea NOTE XX ; Start 09/23/18 at 19:00 Glucose (Glutose) 15 gm Q15M PRN PO DECREASED GLUCOSE; Start 09/23/18 at 19:00 Glucose (Glutose) 22.5 gm Q15M PRN PO DECREASED GLUCOSE; Start 09/23/18 at 19:00 Dextrose (D50w Syringe) 25 ml Q15M PRN IV DECREASED GLUCOSE; Start 09/23/18 at 19:00 Dextrose (D50w Syringe) 50 ml Q15M PRN IV DECREASED GLUCOSE; Start 09/23/18 at 19:00 Glucagon (Glucagen) 1 mg Q15M PRN IM DECREASED GLUCOSE; Start 09/23/18 at 19:00 Glucose (Glutose) 15 gm Q15M PRN BUCCAL DECREASED GLUCOSE; Start 09/23/18 at 19:00 Fluticasone Propionate (Flonase 0.05% Nasal) 1 spray BID NASAL Last administered on 09/24/18at 21:18; Admin Dose 1 SPRAY; Start 09/24/18 at 01:00 Lisinopril (Zestril) 20 mg BID PO Last administered on 09/24/18at 21:18; Admin Dose 20 MG; Start 09/24/18 at 21:00 Insulin Glargine (Lantus) 32 units DAILY@2000 SC Last administered on 09/24/18at 21:25; Admin Dose 32 UNITS; Start 09/24/18 at 20:00 BRIE GRAF MD September 25, 2018 08:02
[2018-09-25] MEDS: CALCITRIOL 0.25 MCG CAP PO SCH (08:48)
[2018-09-25] MEDS: FISH OIL 1,000 MG CAP PO SCH ×2 (08:48→20:52)
[2018-09-25] MEDS: LISINOPRIL 20 MG TAB PO SCH ×2 (08:49→20:52)
[2018-09-25] MEDS: LINAGLIPTIN 5 MG TABLET PO SCH (08:49)
[2018-09-25] MEDS: FAMOTIDINE 20 MG INJ IV SCH (08:49)
[2018-09-25] MEDS: FLUTICASONE 0.05% 16 GM NAS SPRAY NASAL SCH ×3 (08:50→20:56)
--- NOTE | 2018-09-25 09:13 | PN ---
Date/Time of Note Date/Time of Note DATE: 09/25/18 TIME: 09:13 Assessment/Plan VTE Prophylaxis Risk score (from Nsg)>0 risk: 3 SCD applied (from Nsg): Yes Pharmacological prophylaxis: NA/contraindicated Pharm contraindication: surgical contra Lines/Catheters IV Catheter Type (from Nrsg): Peripheral IV Assessment/Plan Assessment/Plan 1. Charcot neuroarthropathy of left foot - patient is s/p Left foot midfoot osteotomy and fusion of calcaneocuboid joint, foot exostectomy, 5th metatarsal, application of multiplane external fixator, excisional debridement of ulceration, skin, subcutaneous tissue, and foot island pedicle flap, 3.5 x 1 cm. on 09/24/18 - Podiatry on board and appreciate consultation. patient is to remain on bedrest currently. Once PT able to work with patient, will place ARU consultation - pain control 2. Uncontrolled Diabetes Mellitus - A1c noted - Endocrinology consultation appreciated for medication recommendations for better glucose control - ISS and accuchecks 3. ESRD on HD - Nephrology consultation appreciated - , Thursday schedule 4. HTN - continue home medications and will adjust as needed 5. RITA - offered CPAP but refusing face mask 6. Disposition - Continue current plan of care with bedrest. Once able to ambulate with PT, will have ARU evaluate for placement Result Diagram: 09/25/18 0432 09/25/18 0432 Results 24hrs Laboratory Tests Test 09/24/18 12:11 09/24/18 14:24 09/24/18 15:39 09/24/18 21:20 Bedside Glucose 189 175 135 Prothrombin Time 13.0 Prothrombin Time 1.0 Ratio INR International 0.97 Normalized Ratio Activated 26.8 Partial Thromboplast Time Potassium Level 5.5 H Test 09/25/18 04:32 09/25/18 07:47 White Blood Count 16.6 #H Red Blood Count 3.06 L Hemoglobin 9.4 L Hematocrit 29.6 L Mean Corpuscular 96.7 Volume Mean Corpuscular 30.7 Hemoglobin Mean Corpuscular 31.8 L Hemoglobin Concent Red Cell 14.3 Distribution Width Platelet Count 338 Mean Platelet Volume 10.7 H Immature 0.400 Granulocytes % Neutrophils % 74.5 Lymphocytes % 15.4 Monocytes % 8.9 Eosinophils % 0.5 Basophils % 0.3 Nucleated Red Blood 0.1 H Cells % Immature 0.060 H Granulocytes # Neutrophils # 12.4 H Lymphocytes # 2.6 Monocytes # 1.5 H Eosinophils # 0.1 Basophils # 0.1 Nucleated Red Blood 0.0 Cells # Sodium Level 140 Potassium Level 5.6 H Chloride Level 103 Carbon Dioxide Level 27 Anion Gap 10 Blood Urea Nitrogen 47 H Creatinine 9.01 #H Glucose Level 109 # Calcium Level 8.3 L Phosphorus Level 7.1 H Magnesium Level 2.2 Albumin 3.9 Bedside Glucose 112 Subjective 24 Hr Interval Summary Free Text/Dictation Patient is doing well and was concerning about BP cuff being placed above fistula. Ensured there was no damage done given strong thrill. No acute overnight events. Exam/Review of Systems Exam Vitals Vital Signs Date Temp Pulse Resp B/P (MAP) Pulse Ox O2 O2 Flow FiO2 Time Delivery Rate 09/25/18 98.3 78 17 117/60 99 Nasal 07:25 (79) Cannula 09/24/18 2.0 20:40 Intake and Output 09/24/18 09/24/18 09/25/18 1515:00 23:00 07:00 IntakeIntake Total 265 ml 40 ml OutputOutput Total 20 ml BalanceBalance 245 ml 40 ml Exam General: Patient is a pleasant male currently lying in bed in no acute distress Neck: Supple Chest: Nontender Lungs: Clear to auscultation bilaterally, no wheezing or rhonchi Heart: Normal S1-S2, Regular rhythm and rate. No murmur, S3, or S4 Abdomen: Soft , nontender, nondistended , bowel sounds are present. No guarding no rebound tenderness Extremities: No edema no cyanosis. LLE in external fixation. bandage in place Results Results 24hrs Laboratory Tests Test 09/24/18 12:11 09/24/18 14:24 09/24/18 15:39 09/24/18 21:20 Bedside Glucose 189 175 135 Prothrombin Time 13.0 Prothrombin Time 1.0 Ratio INR International 0.97 Normalized Ratio Activated 26.8 Partial Thromboplast Time Potassium Level 5.5 H Test 09/25/18 04:32 09/25/18 07:47 White Blood Count 16.6 #H Red Blood Count 3.06 L Hemoglobin 9.4 L Hematocrit 29.6 L Mean Corpuscular 96.7 Volume Mean Corpuscular 30.7 Hemoglobin Mean Corpuscular 31.8 L Hemoglobin Concent Red Cell 14.3 Distribution Width Platelet Count 338 Mean Platelet Volume 10.7 H Immature 0.400 Granulocytes % Neutrophils % 74.5 Lymphocytes % 15.4 Monocytes % 8.9 Eosinophils % 0.5 Basophils % 0.3 Nucleated Red Blood 0.1 H Cells % Immature 0.060 H Granulocytes # Neutrophils # 12.4 H Lymphocytes # 2.6 Monocytes # 1.5 H Eosinophils # 0.1 Basophils # 0.1 Nucleated Red Blood 0.0 Cells # Sodium Level 140 Potassium Level 5.6 H Chloride Level 103 Carbon Dioxide Level 27 Anion Gap 10 Blood Urea Nitrogen 47 H Creatinine 9.01 #H Glucose Level 109 # Calcium Level 8.3 L Phosphorus Level 7.1 H Magnesium Level 2.2 Albumin 3.9 Bedside Glucose 112 Medications Medication Current Medications Sodium Chloride 500 ml @ 5 mls/hr Q24H IV Last administered on 09/23/18at 19:28; Admin Dose 5 MLS/HR; Start 09/23/18 at 14:30 Miscellaneous Information 1 ea NOTE XX ; Start 09/23/18 at 16:30 Glucose (Glutose) 15 gm Q15M PRN PO DECREASED GLUCOSE; Start 09/23/18 at 16:30 Glucose (Glutose) 22.5 gm Q15M PRN PO DECREASED GLUCOSE; Start 09/23/18 at 16:30 Dextrose (D50w Syringe) 25 ml Q15M PRN IV DECREASED GLUCOSE; Start 09/23/18 at 16:30 Dextrose (D50w Syringe) 50 ml Q15M PRN IV DECREASED GLUCOSE; Start 09/23/18 at 16:30 Glucagon (Glucagen) 1 mg Q15M PRN IM DECREASED GLUCOSE; Start 09/23/18 at 16:30 Glucose (Glutose) 15 gm Q15M PRN BUCCAL DECREASED GLUCOSE; Start 09/23/18 at 16:30 Calcitriol (Rocaltrol) 0.25 mcg DAILY PO Last administered on 09/25/18at 08:48; Admin Dose 0.25 MCG; Start 09/24/18 at 09:00 Carvedilol (Coreg) 25 mg BID PO Last administered on 09/24/18at 21:17; Admin Dose 25 MG; Start 09/23/18 at 21:00 IV Flush (NS 3 ml) 3 ml PER PROTOCOL IV ; Start 09/23/18 at 17:30 Ondansetron HCl (Zofran Inj) 4 mg Q6H PRN IV NAUSEA/VOMITING; Start 09/23/18 at 17:30 Acetaminophen (Tylenol Tab) 650 mg Q6H PRN PO .PAIN 1-3 OR TEMP; Start 09/23/18 at 17:30 Acetaminophen/ Hydrocodone Bitart ([place] (5/325)) 1 tab Q6H PRN PO .MOD PAIN 4- 6; Start 09/23/18 at 17:30 Acetaminophen/ Hydrocodone Bitart ([place] (5/325)) 2 tab Q6H PRN PO .SEVERE PAIN 7-10; Start 09/23/18 at 17:30 Hydromorphone HCl (Dilaudid) 0.5 mg Q4H PRN IV .SEVERE PAIN 7-10 Last administered on 09/25/18at 08:49; Admin Dose 0.5 MG; Start 09/23/18 at 17:30 Docusate Sodium (Colace) 100 mg Q12H PRN PO .CONSTIPATION; Start 09/23/18 at 17:30 Magnesium Hydroxide (Milk Of Mag) 30 ml DAILY PRN PO .CONSTIPATION; Start 09/23/18 at 17:30 Famotidine (Pepcid Iv) 20 mg DAILY IV Last administered on 09/25/18at 08:49; Admin Dose 20 MG; Start 09/24/18 at 09:00 Insulin Aspart (Novolog Insulin Pen) NOVOLOG *MILD* ALGORITHM WITH MEALS BEDTIME SC Last administered on 09/24/18at 12:15; Admin Dose 2 UNIT; Start 09/23/18 at 18:00 Heparin Sodium (Porcine) (Heparin (1000 Units/ml)) 4,000 unit AFTER DIALYSIS CATHETER ; Start 09/23/18 at 17:30 Albumin Human 50 ml @ 100 mls/hr WITH DIALYSIS PRN IV SBP < 90 DURING DIALYSIS; Start 09/23/18 at 17:30 Sodium Chloride (NS) -To prime the dialy... DIRECTED FOR HD PRN IV HD; Start 09/23/18 at 17:30 Atorvastatin Calcium (Lipitor) 40 mg QHS PO Last administered on 09/24/18at 21:18; Admin Dose 40 MG; Start 09/23/18 at 21:00 Linagliptin (Tradjenta) 5 mg DAILY PO Last administered on 09/25/18at 08:49; Admin Dose 5 MG; Start 09/24/18 at 09:00 Fish Oil (Fish Oil) 2,000 mg BID PO Last administered on 09/25/18at 08:48; Admin Dose 2,000 MG; Start 09/23/18 at 21:00 Diagnostic Test (Pha) (Accu-Chek) 1 ea AC MEALS XX ; Start 09/24/18 at 07:00 Diagnostic Test (Pha) (Accu-Chek) 1 ea 2 HOURS AFTER MEALS XX ; Start 09/23/18 at 20:00 Miscellaneous Information 1 ea NOTE XX ; Start 09/23/18 at 19:00 Glucose (Glutose) 15 gm Q15M PRN PO DECREASED GLUCOSE; Start 09/23/18 at 19:00 Glucose (Glutose) 22.5 gm Q15M PRN PO DECREASED GLUCOSE; Start 09/23/18 at 19:00 Dextrose (D50w Syringe) 25 ml Q15M PRN IV DECREASED GLUCOSE; Start 09/23/18 at 19:00 Dextrose (D50w Syringe) 50 ml Q15M PRN IV DECREASED GLUCOSE; Start 09/23/18 at 19:00 Glucagon (Glucagen) 1 mg Q15M PRN IM DECREASED GLUCOSE; Start 09/23/18 at 19:00 Glucose (Glutose) 15 gm Q15M PRN BUCCAL DECREASED GLUCOSE; Start 09/23/18 at 19:00 Fluticasone Propionate (Flonase 0.05% Nasal) 1 spray BID NASAL Last administered on 09/25/18at 08:50; Admin Dose 1 SPRAY; Start 09/24/18 at 01:00 Lisinopril (Zestril) 20 mg BID PO Last administered on 09/24/18at 21:18; Admin Dose 20 MG; Start 09/24/18 at 21:00 Insulin Glargine (Lantus) 30 units DAILY@2000 SC ; Start 09/25/18 at 20:00 Repaglinide (Prandin) 1 mg AC MEALS PO ; Start 09/25/18 at 11:30 JANE QUICK MD September 25, 2018 09:13
--- NOTE | 2018-09-25 12:31 | CONS ---
Assessment/Plan Assessment/Plan Assessment/Plan (Daily) Left foot Charcot, left foot varus deformity with degenerative joint disease. Left foot diabetic foot ulceration. Diabetes type 2 with peripheral neuropathy ESRD on HD RITA Plan Patient to remain in bedrest and keep dressings clean dry and intact. Patient would benefit from 4th floor acute rehab. Continue with dialysis as scheduled and tight glycemic control. Pain medications as needed. Reviewed X-rays. Consultation Date/Type/Reason Admit Date/Time September 23, 2018 at 11:58 Initial Consult Date 09/23/18 Requesting Provider: JANE QUICK MD Date/Time of Note DATE: 09/25/18 TIME: 12:28 24 HR Interval Summary Free Text/Dictation No acute events overnight. Patient denies f/c/n/v no chest pain or shortness of breath. Exam/Review of Systems Exam Vitals Vital Signs Date Temp Pulse Resp B/P (MAP) Pulse Ox O2 O2 Flow FiO2 Time Delivery Rate 09/25/18 98.3 78 17 117/60 99 Nasal 07:25 (79) Cannula 09/24/18 2.0 20:40 Intake and Output 09/24/18 09/24/18 09/25/18 1515:00 23:00 07:00 IntakeIntake Total 265 ml 40 ml OutputOutput Total 20 ml BalanceBalance 245 ml 40 ml Exam external fixator in alignment Dressings are clean dry and intact no strikethrough, no proximal streaking Protective sensations absent Results Result Diagram: 09/25/18 0432 09/25/18 0432 Results 24hrs Laboratory Tests Test 09/24/18 14:24 09/24/18 15:39 09/24/18 21:20 09/25/18 04:32 Bedside Glucose 175 135 Prothrombin Time 13.0 Prothrombin Time 1.0 Ratio INR International 0.97 Normalized Ratio Activated 26.8 Partial Thromboplast Time Potassium Level 5.5 H 5.6 H White Blood Count 16.6 #H Red Blood Count 3.06 L Hemoglobin 9.4 L Hematocrit 29.6 L Mean Corpuscular 96.7 Volume Mean Corpuscular 30.7 Hemoglobin Mean Corpuscular 31.8 L Hemoglobin Concent Red Cell 14.3 Distribution Width Platelet Count 338 Mean Platelet Volume 10.7 H Immature 0.400 Granulocytes % Neutrophils % 74.5 Lymphocytes % 15.4 Monocytes % 8.9 Eosinophils % 0.5 Basophils % 0.3 Nucleated Red Blood 0.1 H Cells % Immature 0.060 H Granulocytes # Neutrophils # 12.4 H Lymphocytes # 2.6 Monocytes # 1.5 H Eosinophils # 0.1 Basophils # 0.1 Nucleated Red Blood 0.0 Cells # Sodium Level 140 Chloride Level 103 Carbon Dioxide Level 27 Anion Gap 10 Blood Urea Nitrogen 47 H Creatinine 9.01 #H Glucose Level 109 # Calcium Level 8.3 L Phosphorus Level 7.1 H Magnesium Level 2.2 Albumin 3.9 Test 09/25/18 07:47 09/25/18 10:08 09/25/18 12:19 Bedside Glucose 112 183 184 Medications Medication Current Medications Sodium Chloride 500 ml @ 5 mls/hr Q24H IV Last administered on 09/23/18at 19:28; Admin Dose 5 MLS/HR; Start 09/23/18 at 14:30 Miscellaneous Information 1 ea NOTE XX ; Start 09/23/18 at 16:30 Glucose (Glutose) 15 gm Q15M PRN PO DECREASED GLUCOSE; Start 09/23/18 at 16:30 Glucose (Glutose) 22.5 gm Q15M PRN PO DECREASED GLUCOSE; Start 09/23/18 at 16:30 Dextrose (D50w Syringe) 25 ml Q15M PRN IV DECREASED GLUCOSE; Start 09/23/18 at 16:30 Dextrose (D50w Syringe) 50 ml Q15M PRN IV DECREASED GLUCOSE; Start 09/23/18 at 16:30 Glucagon (Glucagen) 1 mg Q15M PRN IM DECREASED GLUCOSE; Start 09/23/18 at 16:30 Glucose (Glutose) 15 gm Q15M PRN BUCCAL DECREASED GLUCOSE; Start 09/23/18 at 16:30 Calcitriol (Rocaltrol) 0.25 mcg DAILY PO Last administered on 09/25/18at 08:48; Admin Dose 0.25 MCG; Start 09/24/18 at 09:00 Carvedilol (Coreg) 25 mg BID PO Last administered on 09/24/18at 21:17; Admin Dose 25 MG; Start 09/23/18 at 21:00 IV Flush (NS 3 ml) 3 ml PER PROTOCOL IV ; Start 09/23/18 at 17:30 Ondansetron HCl (Zofran Inj) 4 mg Q6H PRN IV NAUSEA/VOMITING; Start 09/23/18 at 17:30 Acetaminophen (Tylenol Tab) 650 mg Q6H PRN PO .PAIN 1-3 OR TEMP; Start 09/23/18 at 17:30 Acetaminophen/ Hydrocodone Bitart ([place] (5/325)) 1 tab Q6H PRN PO .MOD PAIN 4-6; Start 09/23/18 at 17:30 Acetaminophen/ Hydrocodone Bitart ([place] (5/325)) 2 tab Q6H PRN PO .SEVERE PAIN 7-10; Start 09/23/18 at 17:30 Hydromorphone HCl (Dilaudid) 0.5 mg Q4H PRN IV .SEVERE PAIN 7-10 Last administered on 09/25/18at 08:49; Admin Dose 0.5 MG; Start 09/23/18 at 17:30 Docusate Sodium (Colace) 100 mg Q12H PRN PO .CONSTIPATION; Start 09/23/18 at 17:30 Magnesium Hydroxide (Milk Of Mag) 30 ml DAILY PRN PO .CONSTIPATION; Start 09/23/18 at 17:30 Famotidine (Pepcid Iv) 20 mg DAILY IV Last administered on 09/25/18at 08:49; Admin Dose 20 MG; Start 09/24/18 at 09:00 Insulin Aspart (Novolog Insulin Pen) NOVOLOG *MILD* ALGORITHM WITH MEALS BEDTIME SC Last administered on 09/24/18at 12:15; Admin Dose 2 UNIT; Start 09/23/18 at 18:00 Heparin Sodium (Porcine) (Heparin (1000 Units/ml)) 4,000 unit AFTER DIALYSIS CATHETER ; Start 09/23/18 at 17:30 Albumin Human 50 ml @ 100 mls/hr WITH DIALYSIS PRN IV SBP < 90 DURING DIALYSIS; Start 09/23/18 at 17:30 Sodium Chloride (NS) -To prime the dialy... DIRECTED FOR HD PRN IV HD; Start 09/23/18 at 17:30 Atorvastatin Calcium (Lipitor) 40 mg QHS PO Last administered on 09/24/18at 21:18; Admin Dose 40 MG; Start 09/23/18 at 21:00 Linagliptin (Tradjenta) 5 mg DAILY PO Last administered on 09/25/18at 08:49; Admin Dose 5 MG; Start 09/24/18 at 09:00 Fish Oil (Fish Oil) 2,000 mg BID PO Last administered on 09/25/18at 08:48; Admin Dose 2,000 MG; Start 09/23/18 at 21:00 Diagnostic Test (Pha) (Accu-Chek) 1 ea AC MEALS XX ; Start 09/24/18 at 07:00 Diagnostic Test (Pha) (Accu-Chek) 1 ea 2 HOURS AFTER MEALS XX ; Start 09/23/18 at 20:00 Miscellaneous Information 1 ea NOTE XX ; Start 09/23/18 at 19:00 Glucose (Glutose) 15 gm Q15M PRN PO DECREASED GLUCOSE; Start 09/23/18 at 19:00 Glucose (Glutose) 22.5 gm Q15M PRN PO DECREASED GLUCOSE; Start 09/23/18 at 19:00 Dextrose (D50w Syringe) 25 ml Q15M PRN IV DECREASED GLUCOSE; Start 09/23/18 at 19:00 Dextrose (D50w Syringe) 50 ml Q15M PRN IV DECREASED GLUCOSE; Start 09/23/18 at 19:00 Glucagon (Glucagen) 1 mg Q15M PRN IM DECREASED GLUCOSE; Start 09/23/18 at 19:00 Glucose (Glutose) 15 gm Q15M PRN BUCCAL DECREASED GLUCOSE; Start 09/23/18 at 19:00 Fluticasone Propionate (Flonase 0.05% Nasal) 1 spray BID NASAL Last administered on 09/25/18at 08:50; Admin Dose 1 SPRAY; Start 09/24/18 at 01:00 Lisinopril (Zestril) 20 mg BID PO Last administered on 09/24/18at 21:18; Admin Dose 20 MG; Start 09/24/18 at 21:00 Insulin Glargine (Lantus) 30 units DAILY@2000 SC ; Start 09/25/18 at 20:00 Repaglinide (Prandin) 1 mg AC MEALS PO ; Start 09/25/18 at 11:30 MARTIN LOZADA DPSara September 25, 2018 12:31
[2018-09-25] MEDS: REPAGLINIDE 2 MG TAB PO SCH ×2 (12:47→17:30)
--- NOTE | 2018-09-25 14:23 | CONS ---
Assessment/Plan Assessment/Plan Assessment/Plan (Daily) 1. Acute Hyperglycemia 2. ESRD on HD TTS schedule 3. H/O DM II 4. H/o HL 5. H/O HTN Plan: s/p HD - 2.2 L removed plan for HD today; pt regular schedule for HD is TTS , SP left foot sx yesterday will follow up Patient seen in collaboration with Dr Surekha Mock/. Dw Staff Consultation Date/Type/Reason Admit Date/Time September 23, 2018 at 11:58 Initial Consult Date 09/23/18 Type of Consult NEPHROLOGY Reason for Consultation ESRD ON HD Requesting Provider: JANE QUICK MD Date/Time of Note DATE: 09/25/18 TIME: 14:21 24 HR Interval Summary Free Text/Dictation K 5.8; HD today Staff called and notified HD nurse about K level- patient will get Dialysis soon no new events reported last night dw staff Detailed Summary Eyes: no complaints ENT: no complaints Respiratory: no complaints Cardiovascular: no complaints Gastrointestinal: no complaints Genitourinary: no complaints Musculoskeletal: bone/joint pain, restricted range of motion Skin: no complaints Neurologic: no complaints Lymphatic: no complaints Psychological: nl mood/affect Immunologic: no complaints Exam/Review of Systems Exam Vitals Vital Signs Date Temp Pulse Resp B/P (MAP) Pulse Ox O2 O2 Flow FiO2 Time Delivery Rate 09/25/18 98.3 78 17 117/60 99 Nasal 07:25 (79) Cannula 09/24/18 2.0 20:40 Intake and Output 09/24/18 09/24/18 09/25/18 1515:00 23:00 07:00 IntakeIntake Total 265 ml 40 ml OutputOutput Total 20 ml BalanceBalance 245 ml 40 ml Constitutional: alert, oriented, well developed, obese Psych: nl mood/affect Head: normocephalic Eyes: nl lids, nl sclera ENMT: nl external ears & nose Neck: non-tender Respiratory: clear to auscultation Cardiovascular: nl pulses, other (s1s2) Gastrointestinal: soft, non-tender Musculoskeletal: joint tenderness, range of motion Extremities: normal pulses Neurological: nl mental status, nl speech Skin: other Lymph: nontender Results Result Diagram: 09/25/18 0432 09/25/18 0432 Results 24hrs Laboratory Tests Test 09/24/18 14:24 09/24/18 15:39 09/24/18 21:20 09/25/18 04:32 Bedside Glucose 175 135 Prothrombin Time 13.0 Prothrombin Time 1.0 Ratio INR International 0.97 Normalized Ratio Activated 26.8 Partial Thromboplast Time Potassium Level 5.5 H 5.6 H White Blood Count 16.6 #H Red Blood Count 3.06 L Hemoglobin 9.4 L Hematocrit 29.6 L Mean Corpuscular 96.7 Volume Mean Corpuscular 30.7 Hemoglobin Mean Corpuscular 31.8 L Hemoglobin Concent Red Cell 14.3 Distribution Width Platelet Count 338 Mean Platelet Volume 10.7 H Immature 0.400 Granulocytes % Neutrophils % 74.5 Lymphocytes % 15.4 Monocytes % 8.9 Eosinophils % 0.5 Basophils % 0.3 Nucleated Red Blood 0.1 H Cells % Immature 0.060 H Granulocytes # Neutrophils # 12.4 H Lymphocytes # 2.6 Monocytes # 1.5 H Eosinophils # 0.1 Basophils # 0.1 Nucleated Red Blood 0.0 Cells # Sodium Level 140 Chloride Level 103 Carbon Dioxide Level 27 Anion Gap 10 Blood Urea Nitrogen 47 H Creatinine 9.01 #H Glucose Level 109 # Calcium Level 8.3 L Phosphorus Level 7.1 H Magnesium Level 2.2 Albumin 3.9 Test 09/25/18 07:47 09/25/18 10:08 09/25/18 12:19 Bedside Glucose 112 183 184 Medications Medication Current Medications Sodium Chloride 500 ml @ 5 mls/hr Q24H IV Last administered on 09/23/18at 19:28; Admin Dose 5 MLS/HR; Start 09/23/18 at 14:30 Miscellaneous Information 1 ea NOTE XX ; Start 09/23/18 at 16:30 Glucose (Glutose) 15 gm Q15M PRN PO DECREASED GLUCOSE; Start 09/23/18 at 16:30 Glucose (Glutose) 22.5 gm Q15M PRN PO DECREASED GLUCOSE; Start 09/23/18 at 16:30 Dextrose (D50w Syringe) 25 ml Q15M PRN IV DECREASED GLUCOSE; Start 09/23/18 at 16:30 Dextrose (D50w Syringe) 50 ml Q15M PRN IV DECREASED GLUCOSE; Start 09/23/18 at 16:30 Glucagon (Glucagen) 1 mg Q15M PRN IM DECREASED GLUCOSE; Start 09/23/18 at 16:30 Glucose (Glutose) 15 gm Q15M PRN BUCCAL DECREASED GLUCOSE; Start 09/23/18 at 16:30 Calcitriol (Rocaltrol) 0.25 mcg DAILY PO Last administered on 09/25/18at 08:48; Admin Dose 0.25 MCG; Start 09/24/18 at 09:00 Carvedilol (Coreg) 25 mg BID PO Last administered on 09/24/18at 21:17; Admin Dose 25 MG; Start 09/23/18 at 21:00 IV Flush (NS 3 ml) 3 ml PER PROTOCOL IV ; Start 09/23/18 at 17:30 Ondansetron HCl (Zofran Inj) 4 mg Q6H PRN IV NAUSEA/VOMITING; Start 09/23/18 at 17:30 Acetaminophen (Tylenol Tab) 650 mg Q6H PRN PO .PAIN 1-3 OR TEMP; Start 09/23/18 at 17:30 Acetaminophen/ Hydrocodone Bitart ([place] (5/325)) 1 tab Q6H PRN PO .MOD PAIN 4- 6; Start 09/23/18 at 17:30 Acetaminophen/ Hydrocodone Bitart ([place] (5/325)) 2 tab Q6H PRN PO .SEVERE PAIN 7-10; Start 09/23/18 at 17:30 Hydromorphone HCl (Dilaudid) 0.5 mg Q4H PRN IV .SEVERE PAIN 7-10 Last administered on 09/25/18at 08:49; Admin Dose 0.5 MG; Start 09/23/18 at 17:30 Docusate Sodium (Colace) 100 mg Q12H PRN PO .CONSTIPATION; Start 09/23/18 at 17:30 Magnesium Hydroxide (Milk Of Mag) 30 ml DAILY PRN PO .CONSTIPATION; Start 09/23/18 at 17:30 Famotidine (Pepcid Iv) 20 mg DAILY IV Last administered on 09/25/18at 08:49; Admin Dose 20 MG; Start 09/24/18 at 09:00 Insulin Aspart (Novolog Insulin Pen) NOVOLOG *MILD* ALGORITHM WITH MEALS BEDTIME SC Last administered on 09/25/18at 12:47; Admin Dose 2 UNIT; Start 09/23/18 at 18:00 Heparin Sodium (Porcine) (Heparin (1000 Units/ml)) 4,000 unit AFTER DIALYSIS CATHETER ; Start 09/23/18 at 17:30 Albumin Human 50 ml @ 100 mls/hr WITH DIALYSIS PRN IV SBP < 90 DURING DIALYSIS; Start 09/23/18 at 17:30 Sodium Chloride (NS) -To prime the dialy... DIRECTED FOR HD PRN IV HD; Start 09/23/18 at 17:30 Atorvastatin Calcium (Lipitor) 40 mg QHS PO Last administered on 09/24/18at 21:18; Admin Dose 40 MG; Start 09/23/18 at 21:00 Linagliptin (Tradjenta) 5 mg DAILY PO Last administered on 09/25/18at 08:49; Admin Dose 5 MG; Start 09/24/18 at 09:00 Fish Oil (Fish Oil) 2,000 mg BID PO Last administered on 09/25/18at 08:48; Admin Dose 2,000 MG; Start 09/23/18 at 21:00 Diagnostic Test (Pha) (Accu-Chek) 1 ea AC MEALS XX ; Start 09/24/18 at 07:00 Diagnostic Test (Pha) (Accu-Chek) 1 ea 2 HOURS AFTER MEALS XX ; Start 09/23/18 at 20:00 Miscellaneous Information 1 ea NOTE XX ; Start 09/23/18 at 19:00 Glucose (Glutose) 15 gm Q15M PRN PO DECREASED GLUCOSE; Start 09/23/18 at 19:00 Glucose (Glutose) 22.5 gm Q15M PRN PO DECREASED GLUCOSE; Start 09/23/18 at 19:00 Dextrose (D50w Syringe) 25 ml Q15M PRN IV DECREASED GLUCOSE; Start 09/23/18 at 19:00 Dextrose (D50w Syringe) 50 ml Q15M PRN IV DECREASED GLUCOSE; Start 09/23/18 at 19:00 Glucagon (Glucagen) 1 mg Q15M PRN IM DECREASED GLUCOSE; Start 09/23/18 at 19:00 Glucose (Glutose) 15 gm Q15M PRN BUCCAL DECREASED GLUCOSE; Start 09/23/18 at 19:00 Fluticasone Propionate (Flonase 0.05% Nasal) 1 spray BID NASAL Last administered on 09/25/18at 08:50; Admin Dose 1 SPRAY; Start 09/24/18 at 01:00 Lisinopril (Zestril) 20 mg BID PO Last administered on 09/24/18at 21:18; Admin Dose 20 MG; Start 09/24/18 at 21:00 Insulin Glargine (Lantus) 30 units DAILY@2000 SC ; Start 09/25/18 at 20:00 Repaglinide (Prandin) 1 mg AC MEALS PO Last administered on 09/25/18at 12:47; Admin Dose 1 MG; Start 09/25/18 at 11:30 MAURICE BLOUNT September 25, 2018 14:23
[2018-09-25] MEDS: SOD CHLORIDE 0.9% 500 ML IV SCH (14:30)
[2018-09-25] MEDS: ONDANSETRON 4 MG INJ IV PRN (15:05)
[2018-09-25] MEDS: ATORVASTATIN 40 MG TAB PO SCH (20:51)
[2018-09-25] MEDS: INSULIN GLARGINE [LANTus] (100 UNITS/ML) SYG SC SCH (21:16)
[2018-09-26] MEDS: DIPHENHYDRAMINE 50 MG INJ IV PRN ×2 (00:59→13:28)
[2018-09-26] MEDS ORDERED: SEVELAMER CARBONATE 800 MG TABLET PO ONE (01:00)
[2018-09-26 02:22] VITALS: BP 126/63; PULSE 85; RESP 18
[2018-09-26] MEDS: ACCU-CHEK XX SCH ×6 (07:00→21:00)
[2018-09-26 07:50] VITALS: BP 117/57; PULSE 89; RESP 18
[2018-09-26] MEDS: INSULIN ASPART [NOVOLOG] 3 ML PEN SC SCH ×4 (08:00→21:00)
[2018-09-26] MEDS: FAMOTIDINE 20 MG INJ IV SCH (08:19)
[2018-09-26] MEDS: LISINOPRIL 20 MG TAB PO SCH ×2 (08:19→21:06)
[2018-09-26] MEDS: FISH OIL 1,000 MG CAP PO SCH ×2 (08:19→21:05)
[2018-09-26] MEDS: CALCITRIOL 0.25 MCG CAP PO SCH (08:19)
[2018-09-26] MEDS: REPAGLINIDE 2 MG TAB PO SCH ×3 (08:20→17:34)
[2018-09-26] MEDS: LINAGLIPTIN 5 MG TABLET PO SCH (08:21)
[2018-09-26] MEDS: HYDROCODONE/APAP (5/325) TAB PO PRN (08:47)
[2018-09-26] MEDS: FLUTICASONE 0.05% 16 GM NAS SPRAY NASAL SCH ×2 (09:00→21:00)
--- NOTE | 2018-09-26 09:17 | PN ---
Date/Time of Note Date/Time of Note DATE: 09/26/18 TIME: 09:17 Assessment/Plan VTE Prophylaxis Risk score (from Nsg)>0 risk: 3 SCD applied (from Nsg): Yes Pharmacological prophylaxis: NA/contraindicated Pharm contraindication: surgical contra Lines/Catheters IV Catheter Type (from Nrsg): Peripheral IV Assessment/Plan Assessment/Plan 1. Charcot neuroarthropathy of left foot - patient is s/p Left foot midfoot osteotomy and fusion of calcaneocuboid joint, foot exostectomy, 5th metatarsal, application of multiplane external fixator, excisional debridement of ulceration, skin, subcutaneous tissue, and foot island pedicle flap, 3.5 x 1 cm. on 09/24/18 - Podiatry on board and appreciate consultation. once cleared with order PT evaluation for ARU evaluation - pain control 2. Uncontrolled Diabetes Mellitus - A1c noted - Endocrinology consultation appreciated. Sugars now well controlled - ISS and accuchecks 3. ESRD on HD - Nephrology consultation appreciated - , Thursday schedule 4. HTN - stable - continue home medications 5. RITA - offered CPAP but refusing face mask 6. Disposition - Continue current plan of care. Once cleared by Podiatry for PT, ARU will evaluate for placement Result Diagram: 09/26/18 0434 09/26/18 0434 Results 24hrs Laboratory Tests Test 09/25/18 10:08 09/25/18 12:19 09/25/18 14:30 09/25/18 17:23 Bedside Glucose 183 184 177 108 Test 09/25/18 20:55 09/26/18 04:34 09/26/18 08:14 Bedside Glucose 153 134 White Blood Count 14.8 H Red Blood Count 2.99 L Hemoglobin 9.1 L Hematocrit 28.7 L Mean Corpuscular 96.0 Volume Mean Corpuscular 30.4 Hemoglobin Mean Corpuscular 31.7 L Hemoglobin Concent Red Cell 14.5 Distribution Width Platelet Count 305 Mean Platelet Volume 10.5 H Immature 0.500 H Granulocytes % Neutrophils % 71.5 Lymphocytes % 17.1 Monocytes % 10.2 Eosinophils % 0.5 Basophils % 0.2 Nucleated Red Blood 0.0 Cells % Immature 0.070 H Granulocytes # Neutrophils # 10.6 H Lymphocytes # 2.5 Monocytes # 1.5 H Eosinophils # 0.1 Basophils # 0.0 Nucleated Red Blood 0.0 Cells # Sodium Level 137 Potassium Level 4.9 Chloride Level 99 Carbon Dioxide Level 27 Anion Gap 11 Blood Urea Nitrogen 34 H Creatinine 7.60 H Est Glomerular 8 L Filtrat Rate mL/min Glucose Level 165 Calcium Level 8.4 Phosphorus Level 5.6 H Magnesium Level 2.1 Albumin 3.6 Subjective 24 Hr Interval Summary Free Text/Dictation Patient admits to episode of general full body pruritus and unsure if medication related. Took all medications this am and no further episodes. Exam/Review of Systems Exam Vitals Vital Signs Date Temp Pulse Resp B/P (MAP) Pulse Ox O2 O2 Flow FiO2 Time Delivery Rate 09/26/18 98.7 89 18 117/57 99 07:50 (77) 09/25/18 Nasal 2.0 16:00 Cannula Intake and Output 09/25/18 09/25/18 09/26/18 1515:00 23:00 07:00 IntakeIntake Total 240 ml 302 ml 40 ml OutputOutput Total 3100 ml BalanceBalance 240 ml -2798 ml 40 ml Exam General: Patient is a pleasant male currently lying in bed in no acute distress Neck: Supple Chest: Nontender Lungs: Clear to auscultation bilaterally, no wheezing or rhonchi Heart: Normal S1-S2, Regular rhythm and rate. No murmur, S3, or S4 Abdomen: Soft , nontender, nondistended , bowel sounds are present. No guarding no rebound tenderness Extremities: No edema no cyanosis. LLE in external fixation. bandage in place Results Results 24hrs Laboratory Tests Test 09/25/18 10:08 09/25/18 12:19 09/25/18 14:30 09/25/18 17:23 Bedside Glucose 183 184 177 108 Test 09/25/18 20:55 09/26/18 04:34 09/26/18 08:14 Bedside Glucose 153 134 White Blood Count 14.8 H Red Blood Count 2.99 L Hemoglobin 9.1 L Hematocrit 28.7 L Mean Corpuscular 96.0 Volume Mean Corpuscular 30.4 Hemoglobin Mean Corpuscular 31.7 L Hemoglobin Concent Red Cell 14.5 Distribution Width Platelet Count 305 Mean Platelet Volume 10.5 H Immature 0.500 H Granulocytes % Neutrophils % 71.5 Lymphocytes % 17.1 Monocytes % 10.2 Eosinophils % 0.5 Basophils % 0.2 Nucleated Red Blood 0.0 Cells % Immature 0.070 H Granulocytes # Neutrophils # 10.6 H Lymphocytes # 2.5 Monocytes # 1.5 H Eosinophils # 0.1 Basophils # 0.0 Nucleated Red Blood 0.0 Cells # Sodium Level 137 Potassium Level 4.9 Chloride Level 99 Carbon Dioxide Level 27 Anion Gap 11 Blood Urea Nitrogen 34 H Creatinine 7.60 H Est Glomerular 8 L Filtrat Rate mL/min Glucose Level 165 Calcium Level 8.4 Phosphorus Level 5.6 H Magnesium Level 2.1 Albumin 3.6 Medications Medication Current Medications Sodium Chloride 500 ml @ 5 mls/hr Q24H IV Last administered on 09/23/18at 19:28; Admin Dose 5 MLS/HR; Start 09/23/18 at 14:30 Miscellaneous Information 1 ea NOTE XX ; Start 09/23/18 at 16:30 Glucose (Glutose) 15 gm Q15M PRN PO DECREASED GLUCOSE; Start 09/23/18 at 16:30 Glucose (Glutose) 22.5 gm Q15M PRN PO DECREASED GLUCOSE; Start 09/23/18 at 1 6:30 Dextrose (D50w Syringe) 25 ml Q15M PRN IV DECREASED GLUCOSE; Start 09/23/18 at 16:30 Dextrose (D50w Syringe) 50 ml Q15M PRN IV DECREASED GLUCOSE; Start 09/23/18 at 16:30 Glucagon (Glucagen) 1 mg Q15M PRN IM DECREASED GLUCOSE; Start 09/23/18 at 16:30 Glucose (Glutose) 15 gm Q15M PRN BUCCAL DECREASED GLUCOSE; Start 09/23/18 at 16:30 Calcitriol (Rocaltrol) 0.25 mcg DAILY PO Last administered on 09/26/18at 08:19; Admin Dose 0.25 MCG; Start 09/24/18 at 09:00 Carvedilol (Coreg) 25 mg BID PO Last administered on 09/26/18at 08:17; Admin Dose 25 MG; Start 09/23/18 at 21:00 IV Flush (NS 3 ml) 3 ml PER PROTOCOL IV ; Start 09/23/18 at 17:30 Ondansetron HCl (Zofran Inj) 4 mg Q6H PRN IV NAUSEA/VOMITING Last administered on 09/25/18at 15:05; Admin Dose 4 MG; Start 09/23/18 at 17:30 Acetaminophen (Tylenol Tab) 650 mg Q6H PRN PO .PAIN 1-3 OR TEMP; Start 09/23/18 at 17:30 Acetaminophen/ Hydrocodone Bitart ([place] (5/325)) 1 tab Q6H PRN PO .MOD PAIN 4- 6; Start 09/23/18 at 17:30 Acetaminophen/ Hydrocodone Bitart ([place] (5/325)) 2 tab Q6H PRN PO .SEVERE PAIN 7-10 Last administered on 09/26/18 08:47; Admin Dose 2 TAB; Start 09/23/18 at 17:30 Hydromorphone HCl (Dilaudid) 0.5 mg Q4H PRN IV .SEVERE PAIN 7-10 Last administered on 09/25/18 21:00; Admin Dose 0.5 MG; Start 09/23/18 at 17:30 Docusate Sodium (Colace) 100 mg Q12H PRN PO .CONSTIPATION; Start 09/23/18 at 17:30 Magnesium Hydroxide (Milk Of Mag) 30 ml DAILY PRN PO .CONSTIPATION; Start 09/23/18 at 17:30 Famotidine (Pepcid Iv) 20 mg DAILY IV Last administered on 09/26/18 08:19; Admin Dose 20 MG; Start 09/24/18 at 09:00 Insulin Aspart (Novolog Insulin Pen) NOVOLOG *MILD* ALGORITHM WITH MEALS BEDTIME SC Last administered on 09/25/18 12:47; Admin Dose 2 UNIT; Start 09/23/18 at 18:00 Heparin Sodium (Porcine) (Heparin (1000 Units/ml)) 4,000 unit AFTER DIALYSIS CATHETER ; Start 09/23/18 at 17:30 Albumin Human 50 ml @ 100 mls/hr WITH DIALYSIS PRN IV SBP < 90 DURING DIALYSIS; Start 09/23/18 at 17:30 Sodium Chloride (NS) -To prime the dialy... DIRECTED FOR HD PRN IV HD; Start 09/23/18 at 17:30 Atorvastatin Calcium (Lipitor) 40 mg QHS PO Last administered on 09/25/18at 20:51; Admin Dose 40 MG; Start 09/23/18 at 21:00 Linagliptin (Tradjenta) 5 mg DAILY PO Last administered on 09/26/18 08:21; Admin Dose 5 MG; Start 09/24/18 at 09:00 Fish Oil (Fish Oil) 2,000 mg BID PO Last administered on 09/25/18at 20:52; Admin Dose 2,000 MG; Start 09/23/18 at 21:00 Diagnostic Test (Pha) (Accu-Chek) 1 ea AC MEALS XX Last administered on 09/26/18at 07:00; Admin Dose 1 EA; Start 09/24/18 at 07:00 Diagnostic Test (Pha) (Accu-Chek) 1 ea 2 HOURS AFTER MEALS XX ; Start 09/23/18 at 20:00 Miscellaneous Information 1 ea NOTE XX ; Start 09/23/18 at 19:00 Glucose (Glutose) 15 gm Q15M PRN PO DECREASED GLUCOSE; Start 09/23/18 at 19:00 Glucose (Glutose) 22.5 gm Q15M PRN PO DECREASED GLUCOSE; Start 09/23/18 at 19:00 Dextrose (D50w Syringe) 25 ml Q15M PRN IV DECREASED GLUCOSE; Start 09/23/18 at 19:00 Dextrose (D50w Syringe) 50 ml Q15M PRN IV DECREASED GLUCOSE; Start 09/23/18 at 19:00 Glucagon (Glucagen) 1 mg Q15M PRN IM DECREASED GLUCOSE; Start 09/23/18 at 19:00 Glucose (Glutose) 15 gm Q15M PRN BUCCAL DECREASED GLUCOSE; Start 09/23/18 at 19:00 Fluticasone Propionate (Flonase 0.05% Nasal) 1 spray BID NASAL Last admini stered on 09/24/18at 21:18; Admin Dose 1 SPRAY; Start 09/24/18 at 01:00 Insulin Glargine (Lantus) 30 units DAILY@2000 SC Last administered on 09/25/18at 21:16; Admin Dose 30 UNITS; Start 09/25/18 at 20:00 Repaglinide (Prandin) 1 mg AC MEALS PO Last administered on 09/26/18at 08:20; Admin Dose 1 MG; Start 09/25/18 at 11:30 Lisinopril (Zestril) 40 mg BID PO Last administered on 09/26/18at 08:19; Admin Dose 40 MG; Start 09/26/18 at 09:00 Diphenhydramine HCl (Benadryl) 25 mg Q6H PRN IV itching Last administered on 09/26/18at 00:59; Admin Dose 25 MG; Start 09/26/18 at 01:00 JANE QUICK MD September 26, 2018 09:17
--- NOTE | 2018-09-26 09:41 | CONS ---
Assessment/Plan Assessment/Plan Problems: (1) Diabetes mellitus type 2 in obese Onset Date: ~ 09/1995 Status: Chronic Comment: Acceptable blood sugar control on a simplified regimen. Would continue the current regimen as it stands. No evidence of untoward side effects or complications the medication (2) Charcot's joint, right ankle and foot Status: Chronic Comment: As per podiatry and the plans. (3) Charcot's joint, left ankle and foot Status: Chronic Comment: As per podiatry and the plans and direction (4) End-stage renal disease on hemodialysis Status: Chronic Comment: As per nephrology. Now on a phosphate binder (5) Essential hypertension Status: Chronic Comment: Adequate control on a simplified regimen (6) Chronic kidney disease-mineral and bone disorder Status: Chronic Comment: Noted. (7) Obesity (BMI 30-39.9) Status: Chronic Comment: Calorie restriction diet (8) Obstructive sleep apnea Status: Chronic Comment: Noted. As per primary team consider nocturnal BiPAP Consultation Date/Type/Reason Admit Date/Time September 23, 2018 at 11:58 Initial Consult Date 09/23/18 Type of Consult Endocrinology Reason for Consultation Diabetes mellitus type 2 with complication; essential hypertension; hyperlipi demia Requesting Provider: JANE QUICK MD Date/Time of Note DATE: 09/26/18 TIME: 09:36 24 HR Interval Summary Free Text/Dictation Patient complains at surgical site. He also reports he is a little disappointed because he is essentially get to be nonambulatory for an extended period of time Constitutional: no complaints Detailed Summary Respiratory: no complaints Cardiovascular: no complaints Endocrine: no complaints Exam/Review of Systems Exam Vitals Vital Signs Date Temp Pulse Resp B/P (MAP) Pulse Ox O2 O2 Flow FiO2 Time Delivery Rate 09/26/18 98.7 89 18 117/57 99 07:50 (77) 09/25/18 Nasal 2.0 16:00 Cannula Intake and Output 09/25/18 09/25/18 09/26/18 1515:00 23:00 07:00 IntakeIntake Total 240 ml 302 ml 40 ml OutputOutput Total 3100 ml BalanceBalance 240 ml -2798 ml 40 ml Constitutional: alert, oriented Respiratory: clear to auscultation, normal air movement Cardiovascular: regular rate and rhythm, nl pulses Gastrointestinal: soft, nl liver, spleen, non-tender Results Result Diagram: 09/26/18 0434 09/26/18 0434 Results 24hrs Laboratory Tests Test 09/25/18 10:08 09/25/18 12:19 09/25/18 14:30 09/25/18 17:23 Bedside Glucose 183 184 177 108 Test 09/25/18 20:55 09/26/18 04:34 09/26/18 08:14 Bedside Glucose 153 134 White Blood Count 14.8 H Red Blood Count 2.99 L Hemoglobin 9.1 L Hematocrit 28.7 L Mean Corpuscular 96.0 Volume Mean Corpuscular 30.4 Hemoglobin Mean Corpuscular 31.7 L Hemoglobin Concent Red Cell 14.5 Distribution Width Platelet Count 305 Mean Platelet Volume 10.5 H Immature 0.500 H Granulocytes % Neutrophils % 71.5 Lymphocytes % 17.1 Monocytes % 10.2 Eosinophils % 0.5 Basophils % 0.2 Nucleated Red Blood 0.0 Cells % Immature 0.070 H Granulocytes # Neutrophils # 10.6 H Lymphocytes # 2.5 Monocytes # 1.5 H Eosinophils # 0.1 Basophils # 0.0 Nucleated Red Blood 0.0 Cells # Sodium Level 137 Potassium Level 4.9 Chloride Level 99 Carbon Dioxide Level 27 Anion Gap 11 Blood Urea Nitrogen 34 H Creatinine 7.60 H Est Glomerular 8 L Filtrat Rate mL/min Glucose Level 165 Calcium Level 8.4 Phosphorus Level 5.6 H Magnesium Level 2.1 Albumin 3.6 Medications Medication Current Medications Sodium Chloride 500 ml @ 5 mls/hr Q24H IV Last administered on 09/23/18at 19:28; Admin Dose 5 MLS/HR; Start 09/23/18 at 14:30 Miscellaneous Information 1 ea NOTE XX ; Start 09/23/18 at 16:30 Glucose (Glutose) 15 gm Q15M PRN PO DECREASED GLUCOSE; Start 09/23/18 at 16:30 Glucose (Glutose) 22.5 gm Q15M PRN PO DECREASED GLUCOSE; Start 09/23/18 at 16:30 Dextrose (D50w Syringe) 25 ml Q15M PRN IV DECREASED GLUCOSE; Start 09/23/18 at 16:30 Dextrose (D50w Syringe) 50 ml Q15M PRN IV DECREASED GLUCOSE; Start 09/23/18 at 16:30 Glucagon (Glucagen) 1 mg Q15M PRN IM DECREASED GLUCOSE; Start 09/23/18 at 16:30 Glucose (Glutose) 15 gm Q15M PRN BUCCAL DECREASED GLUCOSE; Start 09/23/18 at 16:30 Calcitriol (Rocaltrol) 0.25 mcg DAILY PO Last administered on 09/26/18at 08:19; Admin Dose 0.25 MCG; Start 09/24/18 at 09:00 Carvedilol (Coreg) 25 mg BID PO Last administered on 09/26/18at 08:17; Admin Dose 25 MG; Start 09/23/18 at 21:00 IV Flush (NS 3 ml) 3 ml PER PROTOCOL IV ; Start 09/23/18 at 17:30 Ondansetron HCl (Zofran Inj) 4 mg Q6H PRN IV NAUSEA/VOMITING Last administered on 09/25/18at 15:05; Admin Dose 4 MG; Start 09/23/18 at 17:30 Acetaminophen (Tylenol Tab) 650 mg Q6H PRN PO .PAIN 1-3 OR TEMP; Start 09/23/18 at 17:30 Acetaminophen/ Hydrocodone Bitart ([place] (5/325)) 1 tab Q6H PRN PO .MOD PAIN 4- 6; Start 09/23/18 at 17:30 Acetaminophen/ Hydrocodone Bitart ([place] (5/325)) 2 tab Q6H PRN PO .SEVERE PAIN 7-10 Last administered on 09/26/18at 08:47; Admin Dose 2 TAB; Start 09/23/18 at 17:30 Hydromorphone HCl (Dilaudid) 0.5 mg Q4H PRN IV .SEVERE PAIN 7-10 Last administered on 09/25/18at 21:00; Admin Dose 0.5 MG; Start 09/23/18 at 17:30 Docusate Sodium (Colace) 100 mg Q12H PRN PO .CONSTIPATION; Start 09/23/18 at 1 7:30 Magnesium Hydroxide (Milk Of Mag) 30 ml DAILY PRN PO .CONSTIPATION; Start 09/23/18 at 17:30 Famotidine (Pepcid Iv) 20 mg DAILY IV Last administered on 09/26/18at 08:19; Admin Dose 20 MG; Start 09/24/18 at 09:00 Insulin Aspart (Novolog Insulin Pen) NOVOLOG *MILD* ALGORITHM WITH MEALS BEDTIME SC Last administered on 09/25/18at 12:47; Admin Dose 2 UNIT; Start 09/23/18 at 18:00 Heparin Sodium (Porcine) (Heparin (1000 Units/ml)) 4,000 unit AFTER DIALYSIS CATHETER ; Start 09/23/18 at 17:30 Albumin Human 50 ml @ 100 mls/hr WITH DIALYSIS PRN IV SBP < 90 DURING DIALYSIS; Start 09/23/18 at 17:30 Sodium Chloride (NS) -To prime the dialy... DIRECTED FOR HD PRN IV HD; Start 09/23/18 at 17:30 Atorvastatin Calcium (Lipitor) 40 mg QHS PO Last administered on 09/25/18at 20:51; Admin Dose 40 MG; Start 09/23/18 at 21:00 Linagliptin (Tradjenta) 5 mg DAILY PO Last administered on 09/26/18at 08:21; Admin Dose 5 MG; Start 09/24/18 at 09:00 Fish Oil (Fish Oil) 2,000 mg BID PO Last administered on 09/25/18at 20:52; Admin Dose 2,000 MG; Start 09/23/18 at 21:00 Diagnostic Test (Pha) (Accu-Chek) 1 ea AC MEALS XX Last administered on 09/26/18at 07:00; Admin Dose 1 EA; Start 09/24/18 at 07:00 Diagnostic Test (Pha) (Accu-Chek) 1 ea 2 HOURS AFTER MEALS XX ; Start 09/23/18 at 20:00 Miscellaneous Information 1 ea NOTE XX ; Start 09/23/18 at 19:00 Glucose (Glutose) 15 gm Q15M PRN PO DECREASED GLUCOSE; Start 09/23/18 at 19:00 Glucose (Glutose) 22.5 gm Q15M PRN PO DECREASED GLUCOSE; Start 09/23/18 at 19:00 Dextrose (D50w Syringe) 25 ml Q15M PRN IV DECREASED GLUCOSE; Start 09/23/18 at 19:00 Dextrose (D50w Syringe) 50 ml Q15M PRN IV DECREASED GLUCOSE; Start 09/23/18 at 19:00 Glucagon (Glucagen) 1 mg Q15M PRN IM DECREASED GLUCOSE; Start 09/23/18 at 19:00 Glucose (Glutose) 15 gm Q15M PRN BUCCAL DECREASED GLUCOSE; Start 09/23/18 at 19:00 Fluticasone Propionate (Flonase 0.05% Nasal) 1 spray BID NASAL Last administered on 09/24/18 21:18; Admin Dose 1 SPRAY; Start 09/24/18 at 01:00 Insulin Glargine (Lantus) 30 units DAILY@2000 SC Last administered on 09/25/18 21:16; Admin Dose 30 UNITS; Start 09/25/18 at 20:00 Repaglinide (Prandin) 1 mg AC MEALS PO Last administered on 09/26/18at 08:20; Admin Dose 1 MG; Start 09/25/18 at 11:30 Lisinopril (Zestril) 40 mg BID PO Last administered on 09/26/18 08:19; Admin Dose 40 MG; Start 09/26/18 at 09:00 Diphenhydramine HCl (Benadryl) 25 mg Q6H PRN IV itching Last administered on 09/26/18at 00:59; Admin Dose 25 MG; Start 09/26/18 at 01:00 BRIE GRAF MD September 26, 2018 09:41
[2018-09-26] MEDS: HYDROmorphONE 0.5 MG/0.5 ML SYG IV PRN (11:07)
[2018-09-26] MEDS: ONDANSETRON 4 MG INJ IV PRN (11:12)
[2018-09-26 13:37] VITALS: BP 101/58; PULSE 77; RESP 16
[2018-09-26 19:39] VITALS: BP 135/69; PULSE 82; RESP 18
[2018-09-26] MEDS: ATORVASTATIN 40 MG TAB PO SCH (21:05)
[2018-09-26] MEDS: INSULIN GLARGINE [LANTus] (100 UNITS/ML) SYG SC SCH (21:12)
[2018-09-26] MEDS ORDERED: PIPER-TAZO 3.375 GM IV (PMX) 100 ML IVPB SCH (22:00)
[2018-09-26] MEDS: PIPER-TAZO 2.25 GM/NS 50 ML IVPB SCH (22:39)
[2018-09-27 01:38] VITALS: BP 131/72; PULSE 72; RESP 20
[2018-09-27] MEDS: PIPER-TAZO 2.25 GM/NS 50 ML IVPB SCH ×3 (05:21→22:22)
[2018-09-27] MEDS: ONDANSETRON 4 MG INJ IV PRN ×2 (07:14→14:47)
[2018-09-27 07:47] VITALS: BP 130/67; PULSE 82; RESP 18
[2018-09-27] MEDS: INSULIN ASPART [NOVOLOG] 3 ML PEN SC SCH ×4 (08:00→21:00)
[2018-09-27] MEDS: ACCU-CHEK XX SCH ×6 (08:18→20:00)
[2018-09-27] MEDS: FISH OIL 1,000 MG CAP PO SCH ×2 (08:20→21:19)
[2018-09-27] MEDS: FAMOTIDINE 20 MG INJ IV SCH (08:20)
[2018-09-27] MEDS: CALCITRIOL 0.25 MCG CAP PO SCH (08:20)
[2018-09-27] MEDS: REPAGLINIDE 2 MG TAB PO SCH ×3 (08:20→17:34)
[2018-09-27] MEDS: FLUTICASONE 0.05% 16 GM NAS SPRAY NASAL SCH ×2 (08:21→21:00)
[2018-09-27] MEDS: LISINOPRIL 20 MG TAB PO SCH ×2 (08:21→21:18)
[2018-09-27] MEDS: MUPIROCIN 2% 22 GM OINT TOP SCH ×2 (08:22→22:24)
[2018-09-27] MEDS: LINAGLIPTIN 5 MG TABLET PO SCH (08:22)
[2018-09-27] MEDS: DAKINS 0.0125%(1/40) 473 ML SOLUTION TP SCH ×2 (09:43→22:24)
[2018-09-27] MEDS ORDERED: NA POLYST SULFON 15 GM/60 ML BTL PO ONE (10:30)
[2018-09-27] MEDS ORDERED: SODIUM POLYSTYRENE 15 GM KIT (POWDER + SORBITOL) PO ONE (11:30)
--- NOTE | 2018-09-27 11:43 | PN ---
Date/Time of Note Date/Time of Note DATE: 09/27/18 TIME: 11:40 Assessment/Plan VTE Prophylaxis Risk score (from Nsg)>0 risk: 7 SCD applied (from Ns): No SCD contraindicated: other Pharmacological prophylaxis: NA/contraindicated Pharm contraindication: low risk/ambulating Lines/Catheters IV Catheter Type (from Nrsg): [place] Assessment/Plan Assessment/Plan 1. Charcot neuroarthropathy of left foot - s/p Left foot midfoot osteotomy and fusion of calcaneocuboid joint, foot exostectomy, 5th metatarsal, application of multiplane external fixator, excisional debridement of ulceration, skin, subcutaneous tissue, and foot island pedicle flap, 3.5 x 1 cm. on 09/24/18 - Podiatry on board and appreciate consultation. once cleared with order PT evaluation for ARU placement - pain control 2. Uncontrolled Diabetes Mellitus - A1c noted - Endocrinology consultation appreciated. Sugars well controlled - ISS and accuchecks 3. ESRD on HD - Nephrology consultation appreciated - , Thursday schedule 4. HTN - stable - continue home medications 5. RITA - offered CPAP but refusing face mask 6. Disposition - Continue current plan of care. Awaiting podiatry clearance for OOB status. Recommending ARU placement which is pending PT evaluation. Result Diagram: 09/27/18 0449 09/27/189 Results 24hrs Laboratory Tests Test 09/26/18 12:31 09/26/18 14:56 09/26/18 17:32 09/26/18 21:03 Bedside Glucose 140 113 156 94 Test 09/27/18 04:49 09/27/18 08:17 White Blood Count 14.6 H Red Blood Count 3.01 L Hemoglobin 9.3 L Hematocrit 29.1 L Mean Corpuscular 96.7 Volume Mean Corpuscular 30.9 Hemoglobin Mean Corpuscular 32.0 Hemoglobin Concent Red Cell 14.5 Distribution Width Platelet Count 301 Mean Platelet Volume 10.6 H Immature 0.600 H Granulocytes % Neutrophils % 70.9 Lymphocytes % 14.9 L Monocytes % 12.3 H Eosinophils % 1.2 Basophils % 0.1 Nucleated Red Blood 0.0 Cells % Immature 0.090 H Granulocytes # Neutrophils # 10.4 H Lymphocytes # 2.2 Monocytes # 1.8 H Eosinophils # 0.2 Basophils # 0.0 Nucleated Red Blood 0.0 Cells # Sodium Level 136 Potassium Level 5.4 H Chloride Level 98 Carbon Dioxide Level 25 Anion Gap 13 Blood Urea Nitrogen 53 H Creatinine 10.34 #H Glucose Level 89 # Calcium Level 8.9 Phosphorus Level 7.7 #H Magnesium Level 2.4 Albumin 3.9 Bedside Glucose 122 Subjective 24 Hr Interval Summary Free Text/Dictation Patient doing well and in no acute distress. Discussed plan of care with PT evaluation once cleared by Podiatry and hopefully ARU admission. No acute overnight events. Exam/Review of Systems Exam Vitals Vital Signs Date Temp Pulse Resp B/P (MAP) Pulse Ox O2 O2 Flow FiO2 Time Delivery Rate 09/27/18 98.4 82 18 130/67 97 07:47 (88) 09/26/18 Nasal 3.0 13:37 Cannula Intake and Output 09/26/18 09/26/18 09/27/18 1515:00 23:00 07:00 IntakeIntake Total 1000 ml 700 ml 580 ml BalanceBalance 1000 ml 700 ml 580 ml Exam General: Patient is a pleasant male currently lying in bed in no acute distress Neck: Supple Chest: Nontender Lungs: Clear to auscultation bilaterally, no wheezing or rhonchi Heart: Normal S1-S2, Regular rhythm and rate. No murmur, S3, or S4 Abdomen: Soft , nontender, nondistended , bowel sounds are present. No guarding no rebound tenderness Extremities: No edema no cyanosis. LLE in external fixation. bandage in place Results Results 24hrs Laboratory Tests Test 09/26/18 12:31 09/26/18 14:56 09/26/18 17:32 09/26/18 21:03 Bedside Glucose 140 113 156 94 Test 09/27/18 04:49 09/27/18 08:17 White Blood Count 14.6 H Red Blood Count 3.01 L Hemoglobin 9.3 L Hematocrit 29.1 L Mean Corpuscular 96.7 Volume Mean Corpuscular 30.9 Hemoglobin Mean Corpuscular 32.0 Hemoglobin Concent Red Cell 14.5 Distribution Width Platelet Count 301 Mean Platelet Volume 10.6 H Immature 0.600 H Granulocytes % Neutrophils % 70.9 Lymphocytes % 14.9 L Monocytes % 12.3 H Eosinophils % 1.2 Basophils % 0.1 Nucleated Red Blood 0.0 Cells % Immature 0.090 H Granulocytes # Neutrophils # 10.4 H Lymphocytes # 2.2 Monocytes # 1.8 H Eosinophils # 0.2 Basophils # 0.0 Nucleated Red Blood 0.0 Cells # Sodium Level 136 Potassium Level 5.4 H Chloride Level 98 Carbon Dioxide Level 25 Anion Gap 13 Blood Urea Nitrogen 53 H Creatinine 10.34 #H Glucose Level 89 # Calcium Level 8.9 Phosphorus Level 7.7 #H Magnesium Level 2.4 Albumin 3.9 Bedside Glucose 122 Medications Medication Current Medications Miscellaneous Information 1 ea NOTE XX ; Start 09/23/18 at 16:30 Glucose (Glutose) 15 gm Q15M PRN PO DECREASED GLUCOSE; Start 09/23/18 at 16:30 Glucose (Glutose) 22.5 gm Q15M PRN PO DECREASED GLUCOSE; Start 09/23/18 at 16:30 Dextrose (D50w Syringe) 25 ml Q15M PRN IV DECREASED GLUCOSE; Start 09/23/18 at 16:30 Dextrose (D50w Syringe) 50 ml Q15M PRN IV DECREASED GLUCOSE; Start 09/23/18 at 16:30 Glucagon (Glucagen) 1 mg Q15M PRN IM DECREASED GLUCOSE; Start 09/23/18 at 16:30 Glucose (Glutose) 15 gm Q15M PRN BUCCAL DECREASED GLUCOSE; Start 09/23/18 at 16:30 Calcitriol (Rocaltrol) 0.25 mcg DAILY PO Last administered on 09/27/18at 08:20; Admin Dose 0.25 MCG; Start 09/24/18 at 09:00 Carvedilol (Coreg) 25 mg BID PO Last administered on 09/27/18at 08:21; Admin Dose 25 MG; Start 09/23/18 at 21:00 IV Flush (NS 3 ml) 3 ml PER PROTOCOL IV ; Start 09/23/18 at 17:30 Ondansetron HCl (Zofran Inj) 4 mg Q6H PRN IV NAUSEA/VOMITING Last administered on 09/27/18at 07:14; Admin Dose 4 MG; Start 09/23/18 at 17:30 Acetaminophen (Tylenol Tab) 650 mg Q6H PRN PO .PAIN 1-3 OR TEMP; Start 09/23/18 at 17:30 Acetaminophen/ Hydrocodone Bitart ([place] (5/325)) 1 tab Q6H PRN PO .MOD PAIN 4- 6; Start 09/23/18 at 17:30 Acetaminophen/ Hydrocodone Bitart ([place] (5/325)) 2 tab Q6H PRN PO .SEVERE PAIN 7-10 Last administered on 09/26/18 08:47; Admin Dose 2 TAB; Start 09/23/18 at 17:30 Hydromorphone HCl (Dilaudid) 0.5 mg Q4H PRN IV .SEVERE PAIN 7-10 Last administered on 09/26/18 11:07; Admin Dose 0.5 MG; Start 09/23/18 at 17:30 Docusate Sodium (Colace) 100 mg Q12H PRN PO .CONSTIPATION Last administered on 09/27/18 06:48; Admin Dose 100 MG; Start 09/23/18 at 17:30 Magnesium Hydroxide (Milk Of Mag) 30 ml DAILY PRN PO .CONSTIPATION; Start 09/23/18 at 17:30 Famotidine (Pepcid Iv) 20 mg DAILY IV Last administered on 09/27/18 08:20; Admin Dose 20 MG; Start 09/24/18 at 09:00 Insulin Aspart (Novolog Insulin Pen) NOVOLOG *MILD* ALGORITHM WITH MEALS BEDTIME SC Last administered on 09/26/18 17:44; Admin Dose 1 UNIT; Start 09/23/18 at 18:00 Heparin Sodium (Porcine) (Heparin (1000 Units/ml)) 4,000 unit AFTER DIALYSIS CATHETER ; Start 09/23/18 at 17:30 Albumin Human 50 ml @ 100 mls/hr WITH DIALYSIS PRN IV SBP < 90 DURING DIALYSIS; Start 09/23/18 at 17:30 Atorvastatin Calcium (Lipitor) 40 mg QHS PO Last administered on 09/26/18 21:05; Admin Dose 40 MG; Start 09/23/18 at 21:00 Linagliptin (Tradjenta) 5 mg DAILY PO Last administered on 09/26/18 08:21; Admin Dose 5 MG; Start 09/24/18 at 09:00 Fish Oil (Fish Oil) 2,000 mg BID PO Last administered on 09/27/18 08:20; Admin Dose 2,000 MG; Start 09/23/18 at 21:00 Diagnostic Test (Pha) (Accu-Chek) 1 ea AC MEALS XX Last administered on 09/08 17:33; Admin Dose 1 EA; Start 09/24/18 at 07:00 Diagnostic Test (Pha) (Accu-Chek) 1 ea 2 HOURS AFTER MEALS XX Last administered on 09/26/18 14:59; Admin Dose 1 EA; Start 09/23/18 at 20:00 Miscellaneous Information 1 ea NOTE XX ; Start 09/23/18 at 19:00 Glucose (Glutose) 15 gm Q15M PRN PO DECREASED GLUCOSE; Start 09/23/18 at 19:00 Glucose (Glutose) 22.5 gm Q15M PRN PO DECREASED GLUCOSE; Start 09/23/18 at 19:00 Dextrose (D50w Syringe) 25 ml Q15M PRN IV DECREASED GLUCOSE; Start 09/23/18 at 19:00 Dextrose (D50w Syringe) 50 ml Q15M PRN IV DECREASED GLUCOSE; Start 09/23/18 at 19:00 Glucagon (Glucagen) 1 mg Q15M PRN IM DECREASED GLUCOSE; Start 09/23/18 at 19:00 Glucose (Glutose) 15 gm Q15M PRN BUCCAL DECREASED GLUCOSE; Start 09/23/18 at 19:00 Fluticasone Propionate (Flonase 0.05% Nasal) 1 spray BID NASAL Last administered on 09/24/18 21:18; Admin Dose 1 SPRAY; Start 09/24/18 at 01:00 Insulin Glargine (Lantus) 30 units DAILY@2000 SC Last administered on 09/26/18 21:12; Admin Dose 30 UNITS; Start 09/25/18 at 20:00 Repaglinide (Prandin) 1 mg AC MEALS PO Last administered on 09/26/18 17:34; Admin Dose 1 MG; Start 09/25/18 at 11:30 Lisinopril (Zestril) 40 mg BID PO Last administered on 09/27/18 08:21; Admin Dose 40 MG; Start 09/26/18 at 09:00 Diphenhydramine HCl (Benadryl) 25 mg Q6H PRN IV itching Last administered on 09/26/18 13:28; Admin Dose 25 MG; Start 09/26/18 at 01:00 Mupirocin (Bactroban) 1 applic BID TOP Last administered on 09/27/18 08:22; Admin Dose 1 APPLIC; Start 09/27/18 at 09:00 Sodium Hypochlorite (Dakins Diluted ()) 1 applic BID TP Last administered on 09/27/18at 09:43; Admin Dose 1 APPLIC; Start 09/27/18 at 09:00 Piperacillin Sod/ Tazobactam Sod 50 ml @ 100 mls/hr Q8 IVPB Last administered on 09/27/18at 05:21; Admin Dose 100 MLS/HR; Start 09/26/18 at 22:00 Calcium Acetate (Phoslo) 667 mg WITH MEALS PO ; Start 09/27/18 at 12:00 JANE QUICK MD September 27, 2018 11:43
--- NOTE | 2018-09-27 11:49 | CONS ---
Assessment/Plan Assessment/Plan Assessment/Plan (Daily) 1. Acute Hyperglycemia 2. ESRD on HD TTS schedule 3. H/O DM II 4. H/o HL 5. H/O HTN Plan: HD ordered for tomorrow pt regular schedule for HD is TTS , s/p Surgery for left foot charcoat foot will follow up Consultation Date/Type/Reason Admit Date/Time September 23, 2018 at 11:58 Initial Consult Date 09/23/18 Type of Consult NEPHROLOGY Requesting Provider: JANE QUICK MD Date/Time of Note DATE: 09/27/18 TIME: 11:49 24 HR Interval Summary Free Text/Dictation pain controlled, paln for HD tomorrow Exam/Review of Systems Exam Vitals Vital Signs Date Temp Pulse Resp B/P (MAP) Pulse Ox O2 O2 Flow FiO2 Time Delivery Rate 09/27/18 98.4 82 18 130/67 97 07:47 (88) 09/26/18 Nasal 3.0 13:37 Cannula Intake and Output 09/26/18 09/26/18 09/27/18 1515:00 23:00 07:00 IntakeIntake Total 1000 ml 700 ml 580 ml BalanceBalance 1000 ml 700 ml 580 ml Exam Constitutional: alert Respiratory: clear to auscultation, diminished breath sounds Cardiovascular: regular rate and rhythm, nl pulses Gastrointestinal: soft, non-tender Musculoskeletal: muscle weakness, swelling, other (R arm AVG) Neurological: WATER TAXI CAPTAIN II-XII intact, nl mental status, nl speech, nl strength Results Result Diagram: 09/27/18 0449 09/27/189 Results 24hrs Laboratory Tests Test 09/26/18 12:31 09/26/18 14:56 09/26/18 17:32 09/26/18 21:03 Bedside Glucose 140 113 156 94 Test 09/27/18 04:49 09/27/18 08:17 White Blood Count 14.6 H Red Blood Count 3.01 L Hemoglobin 9.3 L Hematocrit 29.1 L Mean Corpuscular 96.7 Volume Mean Corpuscular 30.9 Hemoglobin Mean Corpuscular 32.0 Hemoglobin Concent Red Cell 14.5 Distribution Width Platelet Count 301 Mean Platelet Volume 10.6 H Immature 0.600 H Granulocytes % Neutrophils % 70.9 Lymphocytes % 14.9 L Monocytes % 12.3 H Eosinophils % 1.2 Basophils % 0.1 Nucleated Red Blood 0.0 Cells % Immature 0.090 H Granulocytes # Neutrophils # 10.4 H Lymphocytes # 2.2 Monocytes # 1.8 H Eosinophils # 0.2 Basophils # 0.0 Nucleated Red Blood 0.0 Cells # Sodium Level 136 Potassium Level 5.4 H Chloride Level 98 Carbon Dioxide Level 25 Anion Gap 13 Blood Urea Nitrogen 53 H Creatinine 10.34 #H Glucose Level 89 # Calcium Level 8.9 Phosphorus Level 7.7 #H Magnesium Level 2.4 Albumin 3.9 Bedside Glucose 122 Medications Medication Current Medications Miscellaneous Information 1 ea NOTE XX ; Start 09/23/18 at 16:30 Glucose (Glutose) 15 gm Q15M PRN PO DECREASED GLUCOSE; Start 09/23/18 at 16:30 Glucose (Glutose) 22.5 gm Q15M PRN PO DECREASED GLUCOSE; Start 09/23/18 at 16:30 Dextrose (D50w Syringe) 25 ml Q15M PRN IV DECREASED GLUCOSE; Start 09/23/18 at 16:30 Dextrose (D50w Syringe) 50 ml Q15M PRN IV DECREASED GLUCOSE; Start 09/23/18 at 16:30 Glucagon (Glucagen) 1 mg Q15M PRN IM DECREASED GLUCOSE; Start 09/23/18 at 16:30 Glucose (Glutose) 15 gm Q15M PRN BUCCAL DECREASED GLUCOSE; Start 09/23/18 at 16:30 Calcitriol (Rocaltrol) 0.25 mcg DAILY PO Last administered on 09/27/18at 08:20; Admin Dose 0.25 MCG; Start 09/24/18 at 09:00 Carvedilol (Coreg) 25 mg BID PO Last administered on 09/27/18at 08:21; Admin Dose 25 MG; Start 09/23/18 at 21:00 IV Flush (NS 3 ml) 3 ml PER PROTOCOL IV ; Start 09/23/18 at 17:30 Ondansetron HCl (Zofran Inj) 4 mg Q6H PRN IV NAUSEA/VOMITING Last administered on 09/27/18at 07:14; Admin Dose 4 MG; Start 09/23/18 at 17:30 Acetaminophen (Tylenol Tab) 650 mg Q6H PRN PO .PAIN 1-3 OR TEMP; Start 09/23/18 at 17:30 Acetaminophen/ Hydrocodone Bitart ([place] (5/325)) 1 tab Q6H PRN PO .MOD PAIN 4- 6; Start 09/23/18 at 17:30 Acetaminophen/ Hydrocodone Bitart ([place] (5/325)) 2 tab Q6H PRN PO .SEVERE PAIN 7-10 Last administered on 09/26/18 08:47; Admin Dose 2 TAB; Start 09/23/18 at 17:30 Hydromorphone HCl (Dilaudid) 0.5 mg Q4H PRN IV .SEVERE PAIN 7-10 Last administered on 09/26/18 11:07; Admin Dose 0.5 MG; Start 09/23/18 at 17:30 Docusate Sodium (Colace) 100 mg Q12H PRN PO .CONSTIPATION Last administered on 09/27/18 06:48; Admin Dose 100 MG; Start 09/23/18 at 17:30 Magnesium Hydroxide (Milk Of Mag) 30 ml DAILY PRN PO .CONSTIPATION; Start 09/23/18 at 17:30 Famotidine (Pepcid Iv) 20 mg DAILY IV Last administered on 09/27/18 08:20; Admin Dose 20 MG; Start 09/24/18 at 09:00 Insulin Aspart (Novolog Insulin Pen) NOVOLOG *MILD* ALGORITHM WITH MEALS BEDTIME SC Last administered on 09/26/18 17:44; Admin Dose 1 UNIT; Start 09/23/18 at 18:00 Heparin Sodium (Porcine) (Heparin (1000 Units/ml)) 4,000 unit AFTER DIALYSIS CATHETER ; Start 09/23/18 at 17:30 Albumin Human 50 ml @ 100 mls/hr WITH DIALYSIS PRN IV SBP < 90 DURING DIALYSIS; Start 09/23/18 at 17:30 Atorvastatin Calcium (Lipitor) 40 mg QHS PO Last administered on 09/26/18 21:05; Admin Dose 40 MG; Start 09/23/18 at 21:00 Linagliptin (Tradjenta) 5 mg DAILY PO Last administered on 09/26/18 08:21; Admin Dose 5 MG; Start 09/24/18 at 09:00 Fish Oil (Fish Oil) 2,000 mg BID PO Last administered on 09/27/18 08:20; Admin Dose 2,000 MG; Start 09/23/18 at 21:00 Diagnostic Test (Pha) (Accu-Chek) 1 ea AC MEALS XX Last administered on 09/26/18 17:33; Admin Dose 1 EA; Start 09/24/18 at 07:00 Diagnostic Test (Pha) (Accu-Chek) 1 ea 2 HOURS AFTER MEALS XX Last administered on 09/26/18at 14:59; Admin Dose 1 EA; Start 09/23/18 at 20:00 Miscellaneous Information 1 ea NOTE XX ; Start 09/23/18 at 19:00 Glucose (Glutose) 15 gm Q15M PRN PO DECREASED GLUCOSE; Start 09/23/18 at 19:00 Glucose (Glutose) 22.5 gm Q15M PRN PO DECREASED GLUCOSE; Start 09/23/18 at 19:00 Dextrose (D50w Syringe) 25 ml Q15M PRN IV DECREASED GLUCOSE; Start 09/23/18 at 19:00 Dextrose (D50w Syringe) 50 ml Q15M PRN IV DECREASED GLUCOSE; Start 09/23/18 at 19:00 Glucagon (Glucagen) 1 mg Q15M PRN IM DECREASED GLUCOSE; Start 09/23/18 at 19:00 Glucose (Glutose) 15 gm Q15M PRN BUCCAL DECREASED GLUCOSE; Start 09/23/18 at 19:00 Fluticasone Propionate (Flonase 0.05% Nasal) 1 spray BID NASAL Last administered on 09/24/18at 21:18; Admin Dose 1 SPRAY; Start 09/24/18 at 01:00 Insulin Glargine (Lantus) 30 units DAILY@2000 SC Last administered on 09/26/18 21:12; Admin Dose 30 UNITS; Start 09/25/18 at 20:00 Repaglinide (Prandin) 1 mg AC MEALS PO Last administered on 09/26/18 17:34; Admin Dose 1 MG; Start 09/25/18 at 11:30 Lisinopril (Zestril) 40 mg BID PO Last administered on 09/27/18 08:21; Admin Dose 40 MG; Start 09/26/18 at 09:00 Diphenhydramine HCl (Benadryl) 25 mg Q6H PRN IV itching Last administered on 09/26/18at 13:28; Admin Dose 25 MG; Start 09/26/18 at 01:00 Mupirocin (Bactroban) 1 applic BID TOP Last administered on 5/20/19at 08:22; Admin Dose 1 APPLIC; Start 09/27/18 at 09:00 Sodium Hypochlorite (Dakins Diluted ()) 1 applic BID TP Last administered on 09/27/18at 09:43; Admin Dose 1 APPLIC; Start 09/27/18 at 09:00 Piperacillin Sod/ Tazobactam Sod 50 ml @ 100 mls/hr Q8 IVPB Last administered on 09/27/18at 05:21; Admin Dose 100 MLS/HR; Start 09/26/18 at 22:00 Calcium Acetate (Phoslo) 667 mg WITH MEALS PO ; Start 09/27/18 at 12:00 OPAL QUINONEZ MD September 27, 2018 11:49
[2018-09-27] MEDS: CALCIUM ACETATE 667 MG CAP PO SCH ×2 (12:56→17:35)
[2018-09-27 15:01] VITALS: BP 138/65; PULSE 87; RESP 16
--- NOTE | 2018-09-27 15:54 | CONS ---
Assessment/Plan Assessment/Plan Problems: (1) Diabetes mellitus type 2 in obese Onset Date: ~ 09/1995 Status: Chronic Comment: Blood sugar control is doing well. Sugars actually little bit tight we might need to back off on the Lantus insulin by 2 units but right now would like to continue to observe (2) Charcot's joint, right ankle and foot Status: Chronic Comment: As per podiatry. ARU consult is pending (3) Charcot's joint, left ankle and foot Status: Chronic Comment: As per podiatry. ARU consult is pending (4) End-stage renal disease on hemodialysis Status: Chronic Comment: Stable, as per nephrology (5) Essential hypertension Status: Chronic Comment: Good control blood pressure with the modification of the medication regimen. Please note this is not the same as the regimen he came in from home (6) Obstructive sleep apnea Status: Chronic Comment: Noted. Consider nocturnal BiPAP (7) Hyperlipidemia associated with type 2 diabetes mellitus Status: Chronic Comment: Good control. Consultation Date/Type/Reason Admit Date/Time September 23, 2018 at 11:58 Initial Consult Date 09/23/18 Type of Consult Endocrinology Reason for Consultation Diabetes mellitus type 2 with [id number] renal disease-peripheral vascular disease-peripheral neuropathy. Essential hypertension; mixed hyperlipidemia Requesting Provider: JANE QUICK MD Date/Time of Note DATE: 09/27/18 TIME: 15:52 24 HR Interval Summary Free Text/Dictation Patient reports no new complaints. Detailed Summary Endocrine: no complaints Exam/Review of Systems Exam Vitals Vital Signs Date Temp Pulse Resp B/P (MAP) Pulse Ox O2 O2 Flow FiO2 Time Delivery Rate 09/27/18 99.0 87 16 138/65 91 15:01 (89) 09/26/18 Nasal 3.0 13:37 Cannula Intake and Output 09/26/18 09/26/18 09/27/18 1414:59 22:59 06:59 IntakeIntake Total 1000 ml 700 ml 580 ml BalanceBalance 1000 ml 700 ml 580 ml Constitutional: alert, oriented Cardiovascular: regular rate and rhythm, nl pulses Gastrointestinal: soft, nl liver, spleen, non-tender Results Result Diagram: 09/27/18 0449 09/27/18 0449 Results 24hrs Laboratory Tests Test 09/26/18 17:32 09/26/18 21:03 09/27/18 04:49 09/27/18 08:17 Bedside Glucose 156 94 122 White Blood Count 14.6 H Red Blood Count 3.01 L Hemoglobin 9.3 L Hematocrit 29.1 L Mean Corpuscular 96.7 Volume Mean Corpuscular 30.9 Hemoglobin Mean Corpuscular 32.0 Hemoglobin Concent Red Cell 14.5 Distribution Width Platelet Count 301 Mean Platelet Volume 10.6 H Immature 0.600 H Granulocytes % Neutrophils % 70.9 Lymphocytes % 14.9 L Monocytes % 12.3 H Eosinophils % 1.2 Basophils % 0.1 Nucleated Red Blood 0.0 Cells % Immature 0.090 H Granulocytes # Neutrophils # 10.4 H Lymphocytes # 2.2 Monocytes # 1.8 H Eosinophils # 0.2 Basophils # 0.0 Nucleated Red Blood 0.0 Cells # Sodium Level 136 Potassium Level 5.4 H Chloride Level 98 Carbon Dioxide Level 25 Anion Gap 13 Blood Urea Nitrogen 53 H Creatinine 10.34 #H Glucose Level 89 # Calcium Level 8.9 Phosphorus Level 7.7 #H Magnesium Level 2.4 Albumin 3.9 Test 09/27/18 12:48 09/27/18 14:44 Bedside Glucose 82 87 Medications Medication Current Medications Miscellaneous Information 1 ea NOTE XX ; Start 09/23/18 at 16:30 Glucose (Glutose) 15 gm Q15M PRN PO DECREASED GLUCOSE; Start 09/23/18 at 16:30 Glucose (Glutose) 22.5 gm Q15M PRN PO DECREASED GLUCOSE; Start 09/23/18 at 16:30 Dextrose (D50w Syringe) 25 ml Q15M PRN IV DECREASED GLUCOSE; Start 09/23/18 at 16:30 Dextrose (D50w Syringe) 50 ml Q15M PRN IV DECREASED GLUCOSE; Start 09/23/18 at 16:30 Glucagon (Glucagen) 1 mg Q15M PRN IM DECREASED GLUCOSE; Start 09/23/18 at 16:30 Glucose (Glutose) 15 gm Q15M PRN BUCCAL DECREASED GLUCOSE; Start 09/23/18 at 16:30 Calcitriol (Rocaltrol) 0.25 mcg DAILY PO Last administered on 09/27/18at 08:20; Admin Dose 0.25 MCG; Start 09/24/18 at 09:00 Carvedilol (Coreg) 25 mg BID PO Last administered on 09/27/18at 08:21; Admin Dose 25 MG; Start 09/23/18 at 21:00 IV Flush (NS 3 ml) 3 ml PER PROTOCOL IV ; Start 09/23/18 at 17:30 Ondansetron HCl (Zofran Inj) 4 mg Q6H PRN IV NAUSEA/VOMITING Last administered on 09/27/18 14:47; Admin Dose 4 MG; Start 09/23/18 at 17:30 Acetaminophen (Tylenol Tab) 650 mg Q6H PRN PO .PAIN 1-3 OR TEMP; Start 09/23/18 at 17:30 Acetaminophen/ Hydrocodone Bitart ([place] (5/325)) 1 tab Q6H PRN PO .MOD PAIN 4- 6; Start 09/23/18 at 17:30 Acetaminophen/ Hydrocodone Bitart ([place] (5/325)) 2 tab Q6H PRN PO .SEVERE PAIN 7-10 Last administered on 09/26/18 08:47; Admin Dose 2 TAB; Start 09/23/18 at 17:30 Hydromorphone HCl (Dilaudid) 0.5 mg Q4H PRN IV .SEVERE PAIN 7-10 Last administered on 09/26/18 11:07; Admin Dose 0.5 MG; Start 09/23/18 at 17:30 Docusate Sodium (Colace) 100 mg Q12H PRN PO .CONSTIPATION Last administered on 09/27/18 06:48; Admin Dose 100 MG; Start 09/23/18 at 17:30 Magnesium Hydroxide (Milk Of Mag) 30 ml DAILY PRN PO .CONSTIPATION; Start 09/23/18 at 17:30 Insulin Aspart (Novolog Insulin Pen) NOVOLOG *MILD* ALGORITHM WITH MEALS BEDTIME SC Last administered on 09/26/18 17:44; Admin Dose 1 UNIT; Start 09/23/18 at 18:00 Heparin Sodium (Porcine) (Heparin (1000 Units/ml)) 4,000 unit AFTER DIALYSIS CATHETER ; Start 09/23/18 at 17:30 Albumin Human 50 ml @ 100 mls/hr WITH DIALYSIS PRN IV SBP < 90 DURING DIALYSIS; Start 09/23/18 at 17:30 Atorvastatin Calcium (Lipitor) 40 mg QHS PO Last administered on 09/26/18 21:05; Admin Dose 40 MG; Start 09/23/18 at 21:00 Linagliptin (Tradjenta) 5 mg DAILY PO Last administered on 09/26/18at 08:21; Ad min Dose 5 MG; Start 09/24/18 at 09:00 Fish Oil (Fish Oil) 2,000 mg BID PO Last administered on 09/27/18 08:20; Admin Dose 2,000 MG; Start 09/23/18 at 21:00 Diagnostic Test (Pha) (Accu-Chek) 1 ea AC MEALS XX Last administered on 09/26/18at 17:33; Admin Dose 1 EA; Start 09/24/18 at 07:00 Diagnostic Test (Pha) (Accu-Chek) 1 ea 2 HOURS AFTER MEALS XX Last administered on 09/26/18at 14:59; Admin Dose 1 EA; Start 09/23/18 at 20:00 Miscellaneous Information 1 ea NOTE XX ; Start 09/23/18 at 19:00 Glucose (Glutose) 15 gm Q15M PRN PO DECREASED GLUCOSE; Start 09/23/18 at 19:00 Glucose (Glutose) 22.5 gm Q15M PRN PO DECREASED GLUCOSE; Start 09/23/18 at 19:00 Dextrose (D50w Syringe) 25 ml Q15M PRN IV DECREASED GLUCOSE; Start 09/23/18 at 19:00 Dextrose (D50w Syringe) 50 ml Q15M PRN IV DECREASED GLUCOSE; Start 09/23/18 at 19:00 Glucagon (Glucagen) 1 mg Q15M PRN IM DECREASED GLUCOSE; Start 09/23/18 at 19:00 Glucose (Glutose) 15 gm Q15M PRN BUCCAL DECREASED GLUCOSE; Start 09/23/18 at 19:00 Fluticasone Propionate (Flonase 0.05% Nasal) 1 spray BID NASAL Last administered on 09/24/18at 21:18; Admin Dose 1 SPRAY; Start 09/24/18 at 01:00 Insulin Glargine (Lantus) 30 units DAILY@2000 SC Last administered on 09/26/18at 21:12; Admin Dose 30 UNITS; Start 09/25/18 at 20:00 Repaglinide (Prandin) 1 mg AC MEALS PO Last administered on 09/27/18at 12:56; Admin Dose 1 MG; Start 09/25/18 at 11:30 Lisinopril (Zestril) 40 mg BID PO Last administered on 09/27/18 08:21; Admin Dose 40 MG; Start 09/26/18 at 09:00 Diphenhydramine HCl (Benadryl) 25 mg Q6H PRN IV itching Last administered on 09/26/18 13:28; Admin Dose 25 MG; Start 09/26/18 at 01:00 Mupirocin (Bactroban) 1 applic BID TOP Last administered on 09/27/18 08:22; Admin Dose 1 APPLIC; Start 09/27/18 at 09:00 Sodium Hypochlorite (Dakins Diluted (40)) 1 applic BID TP Last administered on 09/27/18 09:43; Admin Dose 1 APPLIC; Start 09/27/18 at 09:00 Piperacillin Sod/ Tazobactam Sod 50 ml @ 100 mls/hr Q8 IVPB Last administered on 09/27/18 14:15; Admin Dose 100 MLS/HR; Start 09/26/18 at 22:00 Calcium Acetate (Phoslo) 667 mg WITH MEALS PO Last administered on 09/27/18at 12:56; Admin Dose 667 MG; Start 09/27/18 at 12:00 Famotidine (Pepcid) 20 mg DAILY PO ; Start 09/28/18 at 09:00 BRIE GRAF MD September 27, 2018 15:54
[2018-09-27] MEDS: INSULIN GLARGINE [LANTus] (100 UNITS/ML) SYG SC SCH (20:00)
[2018-09-27 20:14] VITALS: BP 138/57; PULSE 98; RESP 18
[2018-09-27] MEDS: ATORVASTATIN 40 MG TAB PO SCH (21:19)
[2018-09-28] VITALS (18 sets, daily range): BP systolic 97–141; BP diastolic 61–77; PULSE 77–93; RESP 18
[2018-09-28] MEDS: PIPER-TAZO 2.25 GM/NS 50 ML IVPB SCH ×3 (06:04→21:45)
[2018-09-28] MEDS: ACCU-CHEK XX SCH ×6 (07:45→21:30)
[2018-09-28] MEDS: INSULIN ASPART [NOVOLOG] 3 ML PEN SC SCH ×4 (08:00→21:00)
[2018-09-28] MEDS: LISINOPRIL 20 MG TAB PO SCH ×2 (08:43→20:28)
[2018-09-28] MEDS: FISH OIL 1,000 MG CAP PO SCH ×2 (08:47→20:29)
[2018-09-28] MEDS: CALCIUM ACETATE 667 MG CAP PO SCH ×3 (08:48→18:14)
[2018-09-28] MEDS: CALCITRIOL 0.25 MCG CAP PO SCH (08:48)
[2018-09-28] MEDS: FAMOTIDINE 20 MG TAB PO SCH (08:49)
[2018-09-28] MEDS: LINAGLIPTIN 5 MG TABLET PO SCH (08:50)
[2018-09-28] MEDS: FLUTICASONE 0.05% 16 GM NAS SPRAY NASAL SCH ×2 (08:50→20:25)
[2018-09-28] MEDS: REPAGLINIDE 2 MG TAB PO SCH ×3 (08:52→17:30)
[2018-09-28] MEDS: HYDROCODONE/APAP (5/325) TAB PO PRN (16:15)
[2018-09-28] MEDS: DAKINS 0.0125%(1/40) 473 ML SOLUTION TP SCH ×2 (16:20→21:47)
[2018-09-28] MEDS: MUPIROCIN 2% 22 GM OINT TOP SCH ×2 (16:20→21:47)
--- NOTE | 2018-09-28 16:20 | PN ---
Date/Time of Note Date/Time of Note DATE: 09/28/18 TIME: 16:20 Objective Vitals Vital Signs Date Temp Pulse Resp B/P (MAP) Pulse Ox O2 O2 Flow FiO2 Time Delivery Rate 09/28/18 88 14:55 09/28/18 18 126/67 14:03 (86) 09/28/18 97 Room Air 11:55 09/28/18 98.2 08:09 09/26/18 3.0 13:37 Intake and Output 09/27/18 09/27/18 09/28/18 1515:00 23:00 07:00 IntakeIntake Total 470 ml 420 ml 340 ml OutputOutput Total 400 ml 100 ml BalanceBalance 70 ml 420 ml 240 ml Results Result Diagram: 09/28/18 0456 09/28/18 0453 Medications Medications Current Medications Miscellaneous Information 1 ea NOTE XX ; Start 09/23/18 at 16:30 Glucose (Glutose) 15 gm Q15M PRN PO DECREASED GLUCOSE; Start 09/23/18 at 16:30 Glucose (Glutose) 22.5 gm Q15M PRN PO DECREASED GLUCOSE; Start 09/23/18 at 16 :30 Dextrose (D50w Syringe) 25 ml Q15M PRN IV DECREASED GLUCOSE; Start 09/23/18 at 16:30 Dextrose (D50w Syringe) 50 ml Q15M PRN IV DECREASED GLUCOSE; Start 09/23/18 at 16:30 Glucagon (Glucagen) 1 mg Q15M PRN IM DECREASED GLUCOSE; Start 09/23/18 at 16:30 Glucose (Glutose) 15 gm Q15M PRN BUCCAL DECREASED GLUCOSE; Start 09/23/18 at 16:30 Calcitriol (Rocaltrol) 0.25 mcg DAILY PO Last administered on 09/28/18at 08:48; Admin Dose 0.25 MCG; Start 09/24/18 at 09:00 Carvedilol (Coreg) 25 mg BID PO Last administered on 09/27/18at 21:19; Admin Dose 25 MG; Start 09/23/18 at 21:00 IV Flush (NS 3 ml) 3 ml PER PROTOCOL IV ; Start 09/23/18 at 17:30 Ondansetron HCl (Zofran Inj) 4 mg Q6H PRN IV NAUSEA/VOMITING Last administered on 09/27/18at 14:47; Admin Dose 4 MG; Start 09/23/18 at 17:30 Acetaminophen (Tylenol Tab) 650 mg Q6H PRN PO .PAIN 1-3 OR TEMP; Start 09/23/18 at 17:30 Acetaminophen/ Hydrocodone Bitart ([place] (5/325)) 1 tab Q6H PRN PO .MOD PAIN 4- 6; Start 09/23/18 at 17:30 Acetaminophen/ Hydrocodone Bitart ([place] (5/325)) 2 tab Q6H PRN PO .SEVERE PAIN 7-10 Last administered on 09/26/18 08:47; Admin Dose 2 TAB; Start 09/23/18 at 17:30 Hydromorphone HCl (Dilaudid) 0.5 mg Q4H PRN IV .SEVERE PAIN 7-10 Last administered on 09/26/18 11:07; Admin Dose 0.5 MG; Start 09/23/18 at 17:30 Docusate Sodium (Colace) 100 mg Q12H PRN PO .CONSTIPATION Last administered on 09/27/18 06:48; Admin Dose 100 MG; Start 09/23/18 at 17:30 Magnesium Hydroxide (Milk Of Mag) 30 ml DAILY PRN PO .CONSTIPATION; Start 09/23/18 at 17:30 Insulin Aspart (Novolog Insulin Pen) NOVOLOG *MILD* ALGORITHM WITH MEALS BEDTIME SC Last administered on 09/26/18 17:44; Admin Dose 1 UNIT; Start 09/23/18 at 18:00 Heparin Sodium (Porcine) (Heparin (1000 Units/ml)) 4,000 unit AFTER DIALYSIS CATHETER ; Start 09/23/18 at 17:30 Albumin Human 50 ml @ 100 mls/hr WITH DIALYSIS PRN IV SBP < 90 DURING DIALYSIS; Start 09/23/18 at 17:30 Atorvastatin Calcium (Lipitor) 40 mg QHS PO Last administered on 09/27/18 21:19; Admin Dose 40 MG; Start 09/23/18 at 21:00 Linagliptin (Tradjenta) 5 mg DAILY PO Last administered on 09/28/18 08:50; Admin Dose 5 MG; Start 09/24/18 at 09:00 Fish Oil (Fish Oil) 2,000 mg BID PO Last administered on 09/28/18 08:47; Admin Dose 2,000 MG; Start 09/23/18 at 21:00 Diagnostic Test (Pha) (Accu-Chek) 1 ea AC MEALS XX Last administered on 09/26/18at 17:33; Admin Dose 1 EA; Start 09/24/18 at 07:00 Diagnostic Test (Pha) (Accu-Chek) 1 ea 2 HOURS AFTER MEALS XX Last administered on 09/26/18at 14:59; Admin Dose 1 EA; Start 09/23/18 at 20:00 Miscellaneous Information 1 ea NOTE XX ; Start 09/23/18 at 19:00 Glucose (Glutose) 15 gm Q15M PRN PO DECREASED GLUCOSE; Start 09/23/18 at 19:00 Glucose (Glutose) 22.5 gm Q15M PRN PO DECREASED GLUCOSE; Start 09/23/18 at 19:00 Dextrose (D50w Syringe) 25 ml Q15M PRN IV DECREASED GLUCOSE; Start 09/23/18 at 19:00 Dextrose (D50w Syringe) 50 ml Q15M PRN IV DECREASED GLUCOSE; Start 09/23/18 at 19:00 Glucagon (Glucagen) 1 mg Q15M PRN IM DECREASED GLUCOSE; Start 09/23/18 at 19:00 Glucose (Glutose) 15 gm Q15M PRN BUCCAL DECREASED GLUCOSE; Start 09/23/18 at 19:00 Fluticasone Propionate (Flonase 0.05% Nasal) 1 spray BID NASAL Last administered on 09/24/18at 21:18; Admin Dose 1 SPRAY; Start 09/24/18 at 01:00 Insulin Glargine (Lantus) 30 units DAILY@2000 SC Last administered on 09/26/18at 21:12; Admin Dose 30 UNITS; Start 09/25/18 at 20:00 Repaglinide (Prandin) 1 mg AC MEALS PO Last administered on 09/28/18at 15:07; Admin Dose 1 MG; Start 09/25/18 at 11:30 Lisinopril (Zestril) 40 mg BID PO Last administered on 09/27/18 21:18; Admin Dose 40 MG; Start 09/26/18 at 09:00 Diphenhydramine HCl (Benadryl) 25 mg Q6H PRN IV itching Last administered on 09/26/18at 13:28; Admin Dose 25 MG; Start 09/26/18 at 01:00 Mupirocin (Bactroban) 1 applic BID TOP Last administered on 09/27/18at 22:24; Admin Dose 1 APPLIC; Start 09/27/18 at 09:00 Sodium Hypochlorite (Dakins Diluted (/40)) 1 applic BID TP Last administered on 09/27/18at 22:24; Admin Dose 1 APPLIC; Start 09/27/18 at 09:00 Piperacillin Sod/ Tazobactam Sod 50 ml @ 100 mls/hr Q8 IVPB Last administered on 09/28/18at 15:06; Admin Dose 100 MLS/HR; Start 09/26/18 at 22:00 Calcium Acetate (Phoslo) 667 mg WITH MEALS PO Last administered on 09/28/18 15:06; Admin Dose 667 MG; Start 09/27/18 at 12:00 Famotidine (Pepcid) 20 mg DAILY PO Last administered on 09/28/18 08:49; Admin Dose 20 MG; Start 09/28/18 at 09:00 VTE Prophylaxis Risk score (from Ns)>0 risk: 2 SCD applied (from Ns): No SCD contraindication: other Lines/Catheters IV Catheter Type: Espitia in Place: No Assessment/Plan Hospital Course Subjective Undergoing dialysis, no acute complaints Objective Physical exam General: Patient is laying in bed and answers questions appropriately Mentation: Patient is alert and oriented 4, Head: Normocephalic atraumatic Eyes: EOMI, pupils reactive to light Neck: Supple, nontender, midline Respiratory: Clear to auscultation bilaterally Cardiovascular: regular rate, no obvious murmurs Gastrointestinal: non-tender to palpation, bowel sounds heard. Neurological: Moves all extremities spontaneously Skin: Left foot surgical site, bandaged, CDI Assessment/Plan 1. Charcot neuroarthropathy of left foot - s/p Left foot midfoot osteotomy and fusion of calcaneocuboid joint, foot exostectomy, 5th metatarsal, application of multiplane external fixator, excisional debridement of ulceration, skin, subcutaneous tissue, and foot island pedicle flap, 3.5 x 1 cm. on 09/24/18 - Podiatry on board and appreciate consultation. - pain control 2. Uncontrolled Diabetes Mellitus - A1c noted - Endocrinology consultation appreciated. Sugars well controlled - ISS and accuchecks 3. ESRD on HD - Nephrology consultation appreciated - , Thursday schedule 4. HTN - stable - continue home medications 5. RITA - offered CPAP but refusing face mask 6. Disposition - Continue current plan of care. possible aru? FÁTIMA SLAUGHTER September 28, 2018 16:20
--- NOTE | 2018-09-28 16:24 | CONS ---
Assessment/Plan Assessment/Plan Assessment/Plan (Daily) 1. Acute Hyperglycemia 2. ESRD on HD TTS schedule 3. H/O DM II 4. H/o HL 5. H/O HTN Plan: s/p HD today 3 L removed, BP stable, pt regular schedule for HD is TTS , s/p Surgery for left foot charcoat foot pt is accepted in ARU will follow up Consultation Date/Type/Reason Admit Date/Time September 23, 2018 at 11:58 Initial Consult Date 09/23/18 Type of Consult NEPHROLOGY Requesting Provider: JANE QUICK MD Date/Time of Note DATE: 09/28/18 TIME: 16:24 Exam/Review of Systems Exam Vitals Vital Signs Date Temp Pulse Resp B/P (MAP) Pulse Ox O2 O2 Flow FiO2 Time Delivery Rate 09/28/18 88 14:55 09/28/18 18 126/67 14:03 (86) 09/28/18 97 Room Air 11:55 09/28/18 98.2 08:09 09/26/18 3.0 13:37 Intake and Output 09/27/18 09/27/18 09/28/18 1515:00 23:00 07:00 IntakeIntake Total 470 ml 420 ml 340 ml OutputOutput Total 400 ml 100 ml BalanceBalance 70 ml 420 ml 240 ml Results Result Diagram: 09/28/18 0456 09/28/18 0453 Results 24hrs Laboratory Tests Test 09/27/18 17:29 09/27/18 21:06 09/27/18 22:04 09/28/18 04:53 Bedside Glucose 100 62 L 113 Sodium Level 137 Potassium Level 4.8 Chloride Level 97 Carbon Dioxide Level 24 Anion Gap 16 H Blood Urea Nitrogen 65 H Creatinine 12.13 H Glucose Level 60 #L Calcium Level 8.5 Phosphorus Level 9.6 H Magnesium Level 2.4 Albumin 3.7 Test 09/28/18 04:56 09/28/18 08:09 09/28/18 13:35 09/28/18 15:02 White Blood Count 12.1 H Red Blood Count 2.79 L Hemoglobin 8.5 L Hematocrit 26.4 L Mean Corpuscular 94.6 Volume Mean Corpuscular 30.5 Hemoglobin Mean Corpuscular 32.2 Hemoglobin Concent Red Cell 14.5 Distribution Width Platelet Count 299 Mean Platelet Volume 10.4 Immature 0.600 H Granulocytes % Neutrophils % 67.7 Lymphocytes % 14.9 L Monocytes % 15.5 H Eosinophils % 1.1 Basophils % 0.2 Nucleated Red Blood 0.2 H Cells % Immature 0.070 H Granulocytes # Neutrophils # 8.2 H Lymphocytes # 1.8 Monocytes # 1.9 H Eosinophils # 0.1 Basophils # 0.0 Nucleated Red Blood 0.0 Cells # Bedside Glucose 81 73 91 Medications Medication Current Medications Miscellaneous Information 1 ea NOTE XX ; Start 09/23/18 at 16:30 Glucose (Glutose) 15 gm Q15M PRN PO DECREASED GLUCOSE; Start 09/23/18 at 16:30 Glucose (Glutose) 22.5 gm Q15M PRN PO DECREASED GLUCOSE; Start 09/23/18 at 16:30 Dextrose (D50w Syringe) 25 ml Q15M PRN IV DECREASED GLUCOSE; Start 09/23/18 at 16:30 Dextrose (D50w Syringe) 50 ml Q15M PRN IV DECREASED GLUCOSE; Start 09/23/18 at 16:30 Glucagon (Glucagen) 1 mg Q15M PRN IM DECREASED GLUCOSE; Start 09/23/18 at 16:30 Glucose (Glutose) 15 gm Q15M PRN BUCCAL DECREASED GLUCOSE; Start 09/23/18 at 16:30 Calcitriol (Rocaltrol) 0.25 mcg DAILY PO Last administered on 09/28/18at 08:48; Admin Dose 0.25 MCG; Start 09/24/18 at 09:00 Carvedilol (Coreg) 25 mg BID PO Last administered on 09/27/18at 21:19; Admin Dose 25 MG; Start 09/23/18 at 21:00 IV Flush (NS 3 ml) 3 ml PER PROTOCOL IV ; Start 09/23/18 at 17:30 Ondansetron HCl (Zofran Inj) 4 mg Q6H PRN IV NAUSEA/VOMITING Last administered on 09/27/18at 14:47; Admin Dose 4 MG; Start 09/23/18 at 17:30 Acetaminophen (Tylenol Tab) 650 mg Q6H PRN PO .PAIN 1-3 OR TEMP; Start 09/23/18 at 17:30 Acetaminophen/ Hydrocodone Bitart ([place] (5/325)) 1 tab Q6H PRN PO .MOD PAIN 4- 6; Start 09/23/18 at 17:30 Acetaminophen/ Hydrocodone Bitart ([place] (5/325)) 2 tab Q6H PRN PO .SEVERE PAIN 7-10 Last administered on 09/28/18 16:15; Admin Dose 2 TAB; Start 09/23/18 at 17:30 Hydromorphone HCl (Dilaudid) 0.5 mg Q4H PRN IV .SEVERE PAIN 7-10 Last administered on 09/26/18 11:07; Admin Dose 0.5 MG; Start 09/23/18 at 17:30 Docusate Sodium (Colace) 100 mg Q12H PRN PO .CONSTIPATION Last administered on 09/27/18 06:48; Admin Dose 100 MG; Start 09/23/18 at 17:30 Magnesium Hydroxide (Milk Of Mag) 30 ml DAILY PRN PO .CONSTIPATION; Start 09/23/18 at 17:30 Insulin Aspart (Novolog Insulin Pen) NOVOLOG *MILD* ALGORITHM WITH MEALS BEDTIME SC Last administered on 09/26/18 17:44; Admin Dose 1 UNIT; Start 09/23/18 at 18:00 Heparin Sodium (Porcine) (Heparin (1000 Units/ml)) 4,000 unit AFTER DIALYSIS CATHETER ; Start 09/23/18 at 17:30 Albumin Human 50 ml @ 100 mls/hr WITH DIALYSIS PRN IV SBP < 90 DURING DIALYSIS; Start 09/23/18 at 17:30 Atorvastatin Calcium (Lipitor) 40 mg QHS PO Last administered on 09/27/18 21:19; Admin Dose 40 MG; Start 09/23/18 at 21:00 Linagliptin (Tradjenta) 5 mg DAILY PO Last administered on 09/28/18 08:50; Admin Dose 5 MG; Start 09/24/18 at 09:00 Fish Oil (Fish Oil) 2,000 mg BID PO Last administered on 09/28/18 08:47; Admin Dose 2,000 MG; Start 09/23/18 at 21:00 Diagnostic Test (Pha) (Accu-Chek) 1 ea AC MEALS XX Last administered on 09/26/18 17:33; Admin Dose 1 EA; Start 09/24/18 at 07:00 Diagnostic Test (Pha) (Accu-Chek) 1 ea 2 HOURS AFTER MEALS XX Last administered on 09/26/18 14:59; Admin Dose 1 EA; Start 09/23/18 at 20:00 Miscellaneous Information 1 ea NOTE XX ; Start 09/23/18 at 19:00 Glucose (Glutose) 15 gm Q15M PRN PO DECREASED GLUCOSE; Start 09/23/18 at 19:00 Glucose (Glutose) 22.5 gm Q15M PRN PO DECREASED GLUCOSE; Start 09/23/18 at 19:00 Dextrose (D50w Syringe) 25 ml Q15M PRN IV DECREASED GLUCOSE; Start 09/23/18 at 19:00 Dextrose (D50w Syringe) 50 ml Q15M PRN IV DECREASED GLUCOSE; Start 09/23/18 at 19:00 Glucagon (Glucagen) 1 mg Q15M PRN IM DECREASED GLUCOSE; Start 09/23/18 at 19:00 Glucose (Glutose) 15 gm Q15M PRN BUCCAL DECREASED GLUCOSE; Start 09/23/18 at 19:00 Fluticasone Propionate (Flonase 0.05% Nasal) 1 spray BID NASAL Last administered on 09/24/18at 21:18; Admin Dose 1 SPRAY; Start 09/24/18 at 01:00 Insulin Glargine (Lantus) 30 units DAILY@2000 SC Last administered on 09/26/18 21:12; Admin Dose 30 UNITS; Start 09/25/18 at 20:00 Repaglinide (Prandin) 1 mg AC MEALS PO Last administered on 09/28/18at 15:07; Admin Dose 1 MG; Start 09/25/18 at 11:30 Lisinopril (Zestril) 40 mg BID PO Last administered on 09/27/18 21:18; Admin Dose 40 MG; Start 09/26/18 at 09:00 Diphenhydramine HCl (Benadryl) 25 mg Q6H PRN IV itching Last administered on 09/26/18 13:28; Admin Dose 25 MG; Start 09/26/18 at 01:00 Mupirocin (Bactroban) 1 applic BID TOP Last administered on 09/28/18 16:20; Ad min Dose 1 APPLIC; Start 09/27/18 at 09:00 Sodium Hypochlorite (Dakins Diluted (/40)) 1 applic BID TP Last administered on 09/28/18 16:20; Admin Dose 1 APPLIC; Start 09/27/18 at 09:00 Piperacillin Sod/ Tazobactam Sod 50 ml @ 100 mls/hr Q8 IVPB Last administered on 09/28/18at 15:06; Admin Dose 100 MLS/HR; Start 09/26/18 at 22:00 Calcium Acetate (Phoslo) 667 mg WITH MEALS PO Last administered on 09/28/18at 15:06; Admin Dose 667 MG; Start 09/27/18 at 12:00 Famotidine (Pepcid) 20 mg DAILY PO Last administered on 09/28/18at 08:49; Admin Dose 20 MG; Start 09/28/18 at 09:00 OPAL QUINONEZ MD September 28, 2018 16:24
--- NOTE | 2018-09-28 17:27 | CONS ---
DATE OF ADMISSION: 09/23/2018 DATE OF CONSULTATION: 09/28/2018 TYPE OF CONSULTATION: Infectious disease. REQUESTING PHYSICIAN: Fátima Levine MD Thank you Dr. Levine for this consultation. HISTORY OF PRESENT ILLNESS: Well-developed, well-nourished middle-aged man with a history of Charcot neuroarthropathy of left foot, diabetes, end-stage renal disease, hemodialysis dependent with right upper extremity AV fistula, hypertension, obstructive sleep apnea. The patient was admitted for elective surgery of the left foot, status post mid foot osteotomy and fusion of the calcaneal cuboid joint with external hardware placement done on 09/24/2018. The patient was spiking fevers postoperatively, he was started on Zosyn and is currently getting it. ALLERGIES: HE IS ALLERGIC TO LEVOFLOXACIN. MICROBIOLOGY: No cultures on this admission. The latest cultures of the wounds were done on 05/29/2018 and that was over the right foot. LABORATORY DATA: WBC 12.1, H and H 8.5 and 26.4, platelets 299, neutrophils 67.7. VITAL SIGNS: The patient had been afebrile since admission to the hospital with a T-max yesterday was 99.7. Today, temperature 98.2, pulse 86, respirations 18, blood pressure 126/67, saturation 97%. SOCIAL HISTORY: No history of smoking, alcohol or illicits. PAST SURGICAL HISTORY: The patient had left rotator cuff repair, carpal tunnel repair and AV fistula. PHYSICAL EXAMINATION: GENERAL: This is a well-developed, well-nourished, middle-aged man who is alert, in no distress. HEENT: Head is atraumatic, normocephalic. Sclerae are anicteric. Buccal mucosa is pink. NECK: Supple. CHEST: Rise symmetrical. Breath sounds diminished to bases. HEART: S1, S2. ABDOMEN: Soft. Bowel tones are present. EXTREMITIES: Without cyanosis. Left foot with Douglas wrap and external hardware present. DIAGNOSTIC IMPRESSION: This is a 53-year-old man with numerous medical problems admitted for elective surgery for Charcot neuroarthropathy. The patient is stable and still with leukocytosis with white blood cell count trending down, no shift. He is on Zosyn day #3. Per discussion with Dr. Miramontes we will continue antibiotics for seven days postoperatively. Further recommendations per patient's clinical course. Discussed with Dr. Newell who is covering Dr. Ponce. Dictated By: JAZMYNE [address] [employer] for PATRICK PONCE MD NI/NTS Conf#: [id number] DID#: [id number] CC: FÁTIMA LEVINE MD; KRISS MIRAMONTES DPM; MARTIN LOZADA DPM;*EndCC* MTDD
--- NOTE | 2018-09-28 18:17 | CONS ---
Assessment/Plan Assessment/Plan Problems: (1) Diabetes mellitus type 2 in obese Onset Date: ~ 09/1995 Status: Chronic Comment: Excellent control volume and back off on the long-acting insulin as we have more than exceeded the goals we had originally set. He may need to come down on the Lantus from 30- and then from there to , we will see (2) Charcot's joint, left ankle and foot Status: Chronic Comment: As per podiatry. (3) Charcot's joint, right ankle and foot Status: Chronic Comment: As per podiatry. (4) Obstructive sleep apnea Status: Chronic Comment: Fair control. Weight loss will be of enormous help (5) Essential hypertension Status: Chronic Comment: Excellent control on the current regimen. (6) End-stage renal disease on hemodialysis Status: Chronic Comment: As per nephrology (7) Hyperlipidemia associated with type 2 diabetes mellitus Status: Chronic Comment: Stable on aggressive medical therapy (8) Chronic kidney disease-mineral and bone disorder Status: Chronic Comment: On calcitriol. Consultation Date/Type/Reason Admit Date/Time September 23, 2018 at 11:58 Initial Consult Date 09/23/18 Type of Consult Endocrinology Reason for Consultation Diabetes mellitus type 2 complicated by peripheral neuropathy; bilateral Charcot joints; initially poor control; end-stage renal disease; Requesting Provider: JANE QUICK MD Date/Time of Note DATE: 09/28/18 TIME: 18:14 24 HR Interval Summary Free Text/Dictation Patient did have mild hypoglycemia. Constitutional: no complaints Exam/Review of Systems Exam Vitals Vital Signs Date Temp Pulse Resp B/P (MAP) Pulse Ox O2 O2 Flow FiO2 Time Delivery Rate 09/28/18 88 14:55 09/28/18 18 126/67 14:03 (86) 09/28/18 97 Room Air 11:55 09/28/18 98.2 08:09 09/26/18 3.0 13:37 Intake and Output 09/27/18 09/27/18 09/28/18 1515:00 23:00 07:00 IntakeIntake Total 470 ml 420 ml 340 ml OutputOutput Total 400 ml 100 ml BalanceBalance 70 ml 420 ml 240 ml Exam No change in examination Results Result Diagram: 09/28/18 0456 09/28/18 0453 Results 24hrs Laboratory Tests Test 09/27/18 21:06 09/27/18 22:04 09/28/18 04:53 09/28/18 04:56 Bedside Glucose 62 L 113 Sodium Level 137 Potassium Level 4.8 Chloride Level 97 Carbon Dioxide Level 24 Anion Gap 16 H Blood Urea Nitrogen 65 H Creatinine 12.13 H Glucose Level 60 #L Calcium Level 8.5 Phosphorus Level 9.6 H Magnesium Level 2.4 Albumin 3.7 White Blood Count 12.1 H Red Blood Count 2.79 L Hemoglobin 8.5 L Hematocrit 26.4 L Mean Corpuscular 94.6 Volume Mean Corpuscular 30.5 Hemoglobin Mean Corpuscular 32.2 Hemoglobin Concent Red Cell 14.5 Distribution Width Platelet Count 299 Mean Platelet Volume 10.4 Immature 0.600 H Granulocytes % Neutrophils % 67.7 Lymphocytes % 14.9 L Monocytes % 15.5 H Eosinophils % 1.1 Basophils % 0.2 Nucleated Red Blood 0.2 H Cells % Immature 0.070 H Granulocytes # Neutrophils # 8.2 H Lymphocytes # 1.8 Monocytes # 1.9 H Eosinophils # 0.1 Basophils # 0.0 Nucleated Red Blood 0.0 Cells # Test 09/28/18 08:09 09/28/18 13:35 09/28/18 15:02 09/28/18 17:40 Bedside Glucose 81 73 91 105 Medications Medication Current Medications Miscellaneous Information 1 ea NOTE XX ; Start 09/23/18 at 16:30 Glucose (Glutose) 15 gm Q15M PRN PO DECREASED GLUCOSE; Start 09/23/18 at 16:30 Glucose (Glutose) 22.5 gm Q15M PRN PO DECREASED GLUCOSE; Start 09/23/18 at 16:30 Dextrose (D50w Syringe) 25 ml Q15M PRN IV DECREASED GLUCOSE; Start 09/23/18 at 16:30 Dextrose (D50w Syringe) 50 ml Q15M PRN IV DECREASED GLUCOSE; Start 09/23/18 at 16:30 Glucagon (Glucagen) 1 mg Q15M PRN IM DECREASED GLUCOSE; Start 09/23/18 at 16:30 Glucose (Glutose) 15 gm Q15M PRN BUCCAL DECREASED GLUCOSE; Start 09/23/18 at 16:30 Calcitriol (Rocaltrol) 0.25 mcg DAILY PO Last administered on 09/28/18at 08:48; Admin Dose 0.25 MCG; Start 09/24/18 at 09:00 Carvedilol (Coreg) 25 mg BID PO Last administered on 09/27/18at 21:19; Admin Dose 25 MG; Start 09/23/18 at 21:00 IV Flush (NS 3 ml) 3 ml PER PROTOCOL IV ; Start 09/23/18 at 17:30 Ondansetron HCl (Zofran Inj) 4 mg Q6H PRN IV NAUSEA/VOMITING Last administered on 09/27/18at 14:47; Admin Dose 4 MG; Start 09/23/18 at 17:30 Acetaminophen (Tylenol Tab) 650 mg Q6H PRN PO .PAIN 1-3 OR TEMP; Start 09/23/18 at 17:30 Acetaminophen/ Hydrocodone Bitart ([place] (5/325)) 1 tab Q6H PRN PO .MOD PAIN 4- 6; Start 09/23/18 at 17:30 Acetaminophen/ Hydrocodone Bitart ([place] (5/325)) 2 tab Q6H PRN PO .SEVERE PAIN 7-10 Last administered on 09/28/18at 16:15; Admin Dose 2 TAB; Start 09/23/18 at 17:30 Hydromorphone HCl (Dilaudid) 0.5 mg Q4H PRN IV .SEVERE PAIN 7-10 Last administered on 09/26/18at 11:07; Admin Dose 0.5 MG; Start 09/23/18 at 17:30 Docusate Sodium (Colace) 100 mg Q12H PRN PO .CONSTIPATION Last administered on 09/27/18 06:48; Admin Dose 100 MG; Start 09/23/18 at 17:30 Magnesium Hydroxide (Milk Of Mag) 30 ml DAILY PRN PO .CONSTIPATION; Start 09/23/18 at 17:30 Insulin Aspart (Novolog Insulin Pen) NOVOLOG *MILD* ALGORITHM WITH MEALS BEDTIME SC Last administered on 09/26/18at 17:44; Admin Dose 1 UNIT; Start 09/23/18 at 18:00 Heparin Sodium (Porcine) (Heparin (1000 Units/ml)) 4,000 unit AFTER DIALYSIS CATHETER ; Start 09/23/18 at 17:30 Albumin Human 50 ml @ 100 mls/hr WITH DIALYSIS PRN IV SBP < 90 DURING DIALYSIS; Start 09/23/18 at 17:30 Atorvastatin Calcium (Lipitor) 40 mg QHS PO Last administered on 09/27/18at 21:19; Admin Dose 40 MG; Start 09/23/18 at 21:00 Linagliptin (Tradjenta) 5 mg DAILY PO Last administered on 09/28/18at 08:50; Admin Dose 5 MG; Start 09/24/18 at 09:00 Fish Oil (Fish Oil) 2,000 mg BID PO Last administered on 09/28/18 08:47; Admin Dose 2,000 MG; Start 09/23/18 at 21:00 Diagnostic Test (Pha) (Accu-Chek) 1 ea AC MEALS XX Last administered on 09/26/18at 17:33; Admin Dose 1 EA; Start 09/24/18 at 07:00 Diagnostic Test (Pha) (Accu-Chek) 1 ea 2 HOURS AFTER MEALS XX Last administered on 09/26/18at 14:59; Admin Dose 1 EA; Start 09/23/18 at 20:00 Miscellaneous Information 1 ea NOTE XX ; Start 09/23/18 at 19:00 Glucose (Glutose) 15 gm Q15M PRN PO DECREASED GLUCOSE; Start 09/23/18 at 19:00 Glucose (Glutose) 22.5 gm Q15M PRN PO DECREASED GLUCOSE; Start 09/23/18 at 19:00 Dextrose (D50w Syringe) 25 ml Q15M PRN IV DECREASED GLUCOSE; Start 09/23/18 at 19:00 Dextrose (D50w Syringe) 50 ml Q15M PRN IV DECREASED GLUCOSE; Start 09/23/18 at 19:00 Glucagon (Glucagen) 1 mg Q15M PRN IM DECREASED GLUCOSE; Start 09/23/18 at 19:00 Glucose (Glutose) 15 gm Q15M PRN BUCCAL DECREASED GLUCOSE; Start 09/23/18 at 19:00 Fluticasone Propionate (Flonase 0.05% Nasal) 1 spray BID NASAL Last administered on 09/24/18at 21:18; Admin Dose 1 SPRAY; Start 09/24/18 at 01:00 Repaglinide (Prandin) 1 mg AC MEALS PO Last administered on 09/28/18at 15:07; Admin Dose 1 MG; Start 09/25/18 at 11:30 Lisinopril (Zestril) 40 mg BID PO Last administered on 09/27/18at 21:18; Admin Dose 40 MG; Start 09/26/18 at 09:00 Diphenhydramine HCl (Benadryl) 25 mg Q6H PRN IV itching Last administered on 09/26/18 13:28; Admin Dose 25 MG; Start 09/26/18 at 01:00 Mupirocin (Bactroban) 1 applic BID TOP Last administered on 09/28/18 16:20; Admin Dose 1 APPLIC; Start 09/27/18 at 09:00 Sodium Hypochlorite (Dakins Diluted (40)) 1 applic BID TP Last administered on 09/28/18 16:20; Admin Dose 1 APPLIC; Start 09/27/18 at 09:00 Piperacillin Sod/ Tazobactam Sod 50 ml @ 100 mls/hr Q8 IVPB Last administered on 09/28/18 15:06; Admin Dose 100 MLS/HR; Start 09/26/18 at 22:00 Calcium Acetate (Phoslo) 667 mg WITH MEALS PO Last administered on 09/28/18 15:06; Admin Dose 667 MG; Start 09/27/18 at 12:00 Famotidine (Pepcid) 20 mg DAILY PO Last administered on 09/28/18 08:49; Admin Dose 20 MG; Start 09/28/18 at 09:00 Insulin Glargine (Lantus) 28 units DAILY@2000 SC ; Start 09/28/18 at 20:00; Status BRIE GREENWOOD MD September 28, 2018 18:16
[2018-09-28] MEDS: morphine 2 MG INJ IV PRN (19:40)
[2018-09-28] MEDS: ONDANSETRON 4 MG INJ IV PRN (19:48)
[2018-09-28] MEDS: ATORVASTATIN 40 MG TAB PO SCH (20:28)
[2018-09-28] MEDS: INSULIN GLARGINE [LANTus] (100 UNITS/ML) SYG SC SCH (21:39)
[2018-09-29 01:13] VITALS: BP 124/60; PULSE 85; RESP 18
[2018-09-29] MEDS: morphine 2 MG INJ IV PRN (01:49)
[2018-09-29] MEDS: ONDANSETRON 4 MG INJ IV PRN ×3 (01:49→20:23)
[2018-09-29] MEDS: PIPER-TAZO 2.25 GM/NS 50 ML IVPB SCH ×2 (06:12→13:50)
[2018-09-29] MEDS: REPAGLINIDE 2 MG TAB PO SCH ×3 (07:00→17:53)
[2018-09-29 07:33] VITALS: BP 135/76; PULSE 88; RESP 18
[2018-09-29] MEDS: ACCU-CHEK XX SCH ×6 (07:54→20:00)
[2018-09-29] MEDS: INSULIN ASPART [NOVOLOG] 3 ML PEN SC SCH ×4 (07:55→20:16)
[2018-09-29] MEDS: CALCIUM ACETATE 667 MG CAP PO SCH ×3 (08:00→17:53)
[2018-09-29] MEDS: LINAGLIPTIN 5 MG TABLET PO SCH (09:00)
[2018-09-29] MEDS: FAMOTIDINE 20 MG TAB PO SCH (09:00)
[2018-09-29] MEDS: FLUTICASONE 0.05% 16 GM NAS SPRAY NASAL SCH ×2 (09:00→20:16)
[2018-09-29] MEDS: CALCITRIOL 0.25 MCG CAP PO SCH (09:00)
[2018-09-29] MEDS: FISH OIL 1,000 MG CAP PO SCH ×2 (09:01→20:18)
[2018-09-29] MEDS: LISINOPRIL 20 MG TAB PO SCH ×2 (09:02→20:19)
[2018-09-29] MEDS: MUPIROCIN 2% 22 GM OINT TOP SCH ×2 (09:03→20:26)
[2018-09-29] MEDS: DAKINS 0.0125%(1/40) 473 ML SOLUTION TP SCH ×2 (09:03→20:26)
--- NOTE | 2018-09-29 13:54 | CONS ---
Assessment/Plan Assessment/Plan Problems: (1) Diabetes mellitus type 2 in obese Onset Date: ~ 09/1995 Status: Chronic Comment: Stable control. Please note he might need an adjustment in dosage of medication if the nausea resolves and he starts eating more. (2) Charcot's joint, left ankle and foot Status: Chronic Comment: As per podiatric surgery (3) Charcot's joint, right ankle and foot Status: Chronic Comment: Podiatry is in involved in decision-making (4) Essential hypertension Status: Chronic Comment: Adequate blood pressure control (5) End-stage renal disease on hemodialysis Status: Chronic Comment: Nephrology is managing any continues on dialysis (6) Hyperlipidemia associated with type 2 diabetes mellitus Status: Chronic Comment: Stable on treatment (7) Chronic kidney disease-mineral and bone disorder Status: Chronic Comment: On calcitriol. 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 Constitutional: no complaints Detailed Summary Respiratory: no complaints Cardiovascular: no complaints Gastrointestinal: nausea Exam/Review of Systems Exam Vitals Vital Signs Date Temp Pulse Resp B/P (MAP) Pulse Ox O2 O2 Flow FiO2 Time Delivery Rate 09/29/18 98.4 88 18 135/76 97 07:33 (95) 09/28/18 Room Air 11:55 09/26/18 3.0 13:37 Intake and Output 09/28/18 09/28/18 09/29/18 1515:00 23:00 07:00 IntakeIntake Total 120 ml 320 ml 50 ml OutputOutput Total 3400 ml BalanceBalance -3280 ml 320 ml 50 ml Constitutional: alert, oriented Cardiovascular: regular rate and rhythm, nl pulses Gastrointestinal: soft, nl liver, spleen, non-tender Results Result Diagram: 09/29/18 0450 09/29/18 0450 Results 24hrs Laboratory Tests Test 09/28/18 15:02 09/28/18 17:40 09/28/18 21:33 09/29/18 04:50 Bedside Glucose 91 105 105 White Blood Count 12.3 H Red Blood Count 2.91 L Hemoglobin 8.9 L Hematocrit 27.4 L Mean Corpuscular 94.2 Volume Mean Corpuscular 30.6 Hemoglobin Mean Corpuscular 32.5 Hemoglobin Concent Red Cell 14.4 Distribution Width Platelet Count 325 Mean Platelet Volume 10.1 Immature 0.600 H Granulocytes % Neutrophils % 66.1 Lymphocytes % 15.2 Monocytes % 15.8 H Eosinophils % 1.9 Basophils % 0.4 Nucleated Red Blood 0.2 H Cells % Immature 0.070 H Granulocytes # Neutrophils # 8.1 H Lymphocytes # 1.9 Monocytes # 2.0 H Eosinophils # 0.2 Basophils # 0.1 Nucleated Red Blood 0.0 Cells # Sodium Level 140 Potassium Level 4.5 Chloride Level 98 Carbon Dioxide Level 27 Anion Gap 15 H Blood Urea Nitrogen 40 #H Creatinine 9.61 #H Glucose Level 93 Calcium Level 8.6 Phosphorus Level 8.7 H Magnesium Level 2.3 Albumin 4.0 Test 09/29/18 07:35 09/29/18 12:54 Bedside Glucose 99 92 Medications Medication Current Medications Miscellaneous Information 1 ea NOTE XX ; Start 09/23/18 at 16:30 Glucose (Glutose) 15 gm Q15M PRN PO DECREASED GLUCOSE; Start 09/23/18 at 16:30 Glucose (Glutose) 22.5 gm Q15M PRN PO DECREASED GLUCOSE; Start 09/23/18 at 16:30 Dextrose (D50w Syringe) 25 ml Q15M PRN IV DECREASED GLUCOSE; Start 09/23/18 at 16:30 Dextrose (D50w Syringe) 50 ml Q15M PRN IV DECREASED GLUCOSE; Start 09/23/18 at 16:30 Glucagon (Glucagen) 1 mg Q15M PRN IM DECREASED GLUCOSE; Start 09/23/18 at 16:30 Glucose (Glutose) 15 gm Q15M PRN BUCCAL DECREASED GLUCOSE; Start 09/23/18 at 16:30 Calcitriol (Rocaltrol) 0.25 mcg DAILY PO Last administered on 09/29/18at 09:00; Admin Dose 0.25 MCG; Start 09/24/18 at 09:00 Carvedilol (Coreg) 25 mg BID PO Last administered on 09/29/18 09:03; Admin Dose 25 MG; Start 09/23/18 at 21:00 IV Flush (NS 3 ml) 3 ml PER PROTOCOL IV ; Start 09/23/18 at 17:30 Ondansetron HCl (Zofran Inj) 4 mg Q6H PRN IV NAUSEA/VOMITING Last administered on 09/29/18 07:38; Admin Dose 4 MG; Start 09/23/18 at 17:30 Acetaminophen (Tylenol Tab) 650 mg Q6H PRN PO .PAIN 1-3 OR TEMP; Start 09/23/18 at 17:30 Acetaminophen/ Hydrocodone Bitart ([place] (5/325)) 1 tab Q6H PRN PO .MOD PAIN 4- 6; Start 09/23/18 at 17:30 Acetaminophen/ Hydrocodone Bitart ([place] (5/325)) 2 tab Q6H PRN PO .SEVERE PAIN 7-10 Last administered on 09/28/18 16:15; Admin Dose 2 TAB; Start 09/23/18 at 17:30 Docusate Sodium (Colace) 100 mg Q12H PRN PO .CONSTIPATION Last administered on 09/27/18 06:48; Admin Dose 100 MG; Start 09/23/18 at 17:30 Magnesium Hydroxide (Milk Of Mag) 30 ml DAILY PRN PO .CONSTIPATION; Start 09/23/18 at 17:30 Insulin Aspart (Novolog Insulin Pen) NOVOLOG *MILD* ALGORITHM WITH MEALS BEDTIME SC Last administered on 09/26/18 17:44; Admin Dose 1 UNIT; Start 09/23/18 at 18:00 Heparin Sodium (Porcine) (Heparin (1000 Units/ml)) 4,000 unit AFTER DIALYSIS CATHETER ; Start 09/23/18 at 17:30 Albumin Human 50 ml @ 100 mls/hr WITH DIALYSIS PRN IV SBP < 90 DURING DIALYSIS; Start 09/23/18 at 17:30 Atorvastatin Calcium (Lipitor) 40 mg QHS PO Last administered on 09/28/18 20:28; Admin Dose 40 MG; Start 09/23/18 at 21:00 Linagliptin (Tradjenta) 5 mg DAILY PO Last administered on 09/28/18 08:50; Admin Dose 5 MG; Start 09/24/18 at 09:00 Fish Oil (Fish Oil) 2,000 mg BID PO Last administered on 09/29/18 09:01; Admin Dose 2,000 MG; Start 09/23/18 at 21:00 Diagnostic Test (Pha) (Accu-Chek) 1 ea AC MEALS XX Last administered on 09/29/18 11:30; Admin Dose 1 EA; Start 09/24/18 at 07:00 Diagnostic Test (Pha) (Accu-Chek) 1 ea 2 HOURS AFTER MEALS XX Last administered on 09/26/18 14:59; Admin Dose 1 EA; Start 09/23/18 at 20:00 Miscellaneous Information 1 ea NOTE XX ; Start 09/23/18 at 19:00 Glucose (Glutose) 15 gm Q15M PRN PO DECREASED GLUCOSE; Start 09/23/18 at 19:00 Glucose (Glutose) 22.5 gm Q15M PRN PO DECREASED GLUCOSE; Start 09/23/18 at 19:00 Dextrose (D50w Syringe) 25 ml Q15M PRN IV DECREASED GLUCOSE; Start 09/23/18 at 19:00 Dextrose (D50w Syringe) 50 ml Q15M PRN IV DECREASED GLUCOSE; Start 09/23/18 at 19:00 Glucagon (Glucagen) 1 mg Q15M PRN IM DECREASED GLUCOSE; Start 09/23/18 at 19:00 Glucose (Glutose) 15 gm Q15M PRN BUCCAL DECREASED GLUCOSE; Start 09/23/18 at 19:00 Fluticasone Propionate (Flonase 0.05% Nasal) 1 spray BID NASAL Last administered on 09/24/18 21:18; Admin Dose 1 SPRAY; Start 09/24/18 at 01:00 Repaglinide (Prandin) 1 mg AC MEALS PO Last administered on 09/29/18 13:01; Admin Dose 1 MG; Start 09/25/18 at 11:30 Lisinopril (Zestril) 40 mg BID PO Last administered on 09/29/18 09:02; Admin Dose 40 MG; Start 09/26/18 at 09:00 Diphenhydramine HCl (Benadryl) 25 mg Q6H PRN IV itching Last administered on 09/26/18 13:28; Admin Dose 25 MG; Start 09/26/18 at 01:00 Mupirocin (Bactroban) 1 applic BID TOP Last administered on 09/29/18 09:03; Admin Dose 1 APPLIC; Start 09/27/18 at 09:00 Sodium Hypochlorite (Dakins Diluted ()) 1 applic BID TP Last administered on 09/29/18 09:03; Admin Dose 1 APPLIC; Start 09/27/18 at 09:00 Piperacillin Sod/ Tazobactam Sod 50 ml @ 100 mls/hr Q8 IVPB Last administered on 09/29/18 13:50; Admin Dose 100 MLS/HR; Start 09/26/18 at 22:00 Calcium Acetate (Phoslo) 667 mg WITH MEALS PO Last administered on 09/29/18 13:00; Admin Dose 667 MG; Start 09/27/18 at 12:00 Famotidine (Pepcid) 20 mg DAILY PO Last administered on 09/29/18 09:00; Admin Dose 20 MG; Start 09/28/18 at 09:00 Insulin Glargine (Lantus) 28 units DAILY@2000 SC Last administered on 09/28/18 21:39; Admin Dose 28 UNITS; Start 09/28/18 at 20:00 Morphine Sulfate (morphine) 2 mg Q4H PRN IV SEVERE PAIN LEVEL 7-10 Last administered on 09/29/18 01:49; Admin Dose 2 MG; Start 09/28/18 at 19:30 BRIE GRAF MD September 29, 2018 13:54
[2018-09-29 13:57] VITALS: BP 144/67; PULSE 85; RESP 16
--- NOTE | 2018-09-29 14:05 | CONS ---
Assessment/Plan Assessment/Plan Hospital Course (Demo Recall) Patient is alert wants to go home no fevers overnight T-max 99.9 yesterday. He reports frequent stools but no diarrhea. WBC 12.3 platelets 325 neutrophils 66.1 Antimicrobials: Zosyn, day #4 PHYSICAL EXAMINATION: GENERAL: This is a well-developed, well-nourished, middle-aged man who is lucas rt, in no distress. HEENT: Head is atraumatic, normocephalic. Sclerae are anicteric. Buccal mucos a is pink. NECK: Supple. CHEST: Rise symmetrical. Breath sounds diminished to bases. HEART: S1, S2. ABDOMEN: Soft. Bowel tones are present. EXTREMITIES: Without cyanosis. Left foot with Douglas wrap and external hardware present. Assessment: 1. Systemic inflammatory response syndrome 2. Left foot charcoaled status post midfoot osteotomy and fusion 09/24/18 3. Diabetes with diabetic neuropathy 4. End-stage renal disease 5. Left upper extremity AV fistula Plan: Patient is stable we will change antibiotics to IV vancomycin given frequent stools, follow podiatry recommendations Consultation Date/Type/Reason Admit Date/Time September 23, 2018 at 11:58 Initial Consult Date 09/23/18 Type of Consult id Requesting Provider: JANE QUICK MD Date/Time of Note DATE: 09/29/18 TIME: 14:05 Exam/Review of Systems Exam Vitals Vital Signs Date Temp Pulse Resp B/P (MAP) Pulse Ox O2 O2 Flow FiO2 Time Delivery Rate 09/29/18 99.0 85 16 144/67 94 13:57 (92) 09/28/18 Room Air 11:55 09/26/18 3.0 13:37 Intake and Output 09/28/18 09/28/18 09/29/18 1515:00 23:00 07:00 IntakeIntake Total 120 ml 320 ml 50 ml OutputOutput Total 3400 ml BalanceBalance -3280 ml 320 ml 50 ml Results Result Diagram: 09/29/18 0450 09/29/18 0450 Results 24hrs Laboratory Tests Test 09/28/18 15:02 09/28/18 17:40 09/28/18 21:33 09/29/18 04:50 Bedside Glucose 91 105 105 White Blood Count 12.3 H Red Blood Count 2.91 L Hemoglobin 8.9 L Hematocrit 27.4 L Mean Corpuscular 94.2 Volume Mean Corpuscular 30.6 Hemoglobin Mean Corpuscular 32.5 Hemoglobin Concent Red Cell 14.4 Distribution Width Platelet Count 325 Mean Platelet Volume 10.1 Immature 0.600 H Granulocytes % Neutrophils % 66.1 Lymphocytes % 15.2 Monocytes % 15.8 H Eosinophils % 1.9 Basophils % 0.4 Nucleated Red Blood 0.2 H Cells % Immature 0.070 H Granulocytes # Neutrophils # 8.1 H Lymphocytes # 1.9 Monocytes # 2.0 H Eosinophils # 0.2 Basophils # 0.1 Nucleated Red Blood 0.0 Cells # Sodium Level 140 Potassium Level 4.5 Chloride Level 98 Carbon Dioxide Level 27 Anion Gap 15 H Blood Urea Nitrogen 40 #H Creatinine 9.61 #H Glucose Level 93 Calcium Level 8.6 Phosphorus Level 8.7 H Magnesium Level 2.3 Albumin 4.0 Test 09/29/18 07:35 09/29/18 12:54 Bedside Glucose 99 92 Medications Medication Current Medications Miscellaneous Information 1 ea NOTE XX ; Start 09/23/18 at 16:30 Glucose (Glutose) 15 gm Q15M PRN PO DECREASED GLUCOSE; Start 09/23/18 at 16:30 Glucose (Glutose) 22.5 gm Q15M PRN PO DECREASED GLUCOSE; Start 09/23/18 at 16:30 Dextrose (D50w Syringe) 25 ml Q15M PRN IV DECREASED GLUCOSE; Start 09/23/18 at 16:30 Dextrose (D50w Syringe) 50 ml Q15M PRN IV DECREASED GLUCOSE; Start 09/23/18 at 16:30 Glucagon (Glucagen) 1 mg Q15M PRN IM DECREASED GLUCOSE; Start 09/23/18 at 16:30 Glucose (Glutose) 15 gm Q15M PRN BUCCAL DECREASED GLUCOSE; Start 09/23/18 at 16:30 Calcitriol (Rocaltrol) 0.25 mcg DAILY PO Last administered on 09/29/18at 09:00; Admin Dose 0.25 MCG; Start 09/24/18 at 09:00 Carvedilol (Coreg) 25 mg BID PO Last administered on 09/29/18at 09:03; Admin Dose 25 MG; Start 09/23/18 at 21:00 IV Flush (NS 3 ml) 3 ml PER PROTOCOL IV ; Start 09/23/18 at 17:30 Ondansetron HCl (Zofran Inj) 4 mg Q6H PRN IV NAUSEA/VOMITING Last administered on 09/29/18 07:38; Admin Dose 4 MG; Start 09/23/18 at 17:30 Acetaminophen (Tylenol Tab) 650 mg Q6H PRN PO .PAIN 1-3 OR TEMP; Start 09/23/18 at 17:30 Acetaminophen/ Hydrocodone Bitart ([place] (5/325)) 1 tab Q6H PRN PO .MOD PAIN 4- 6; Start 09/23/18 at 17:30 Acetaminophen/ Hydrocodone Bitart ([place] (5/325)) 2 tab Q6H PRN PO .SEVERE PAIN 7-10 Last administered on 09/28/18 16:15; Admin Dose 2 TAB; Start 09/23/18 at 17:30 Docusate Sodium (Colace) 100 mg Q12H PRN PO .CONSTIPATION Last administered on 09/27/18 06:48; Admin Dose 100 MG; Start 09/23/18 at 17:30 Magnesium Hydroxide (Milk Of Mag) 30 ml DAILY PRN PO .CONSTIPATION; Start 09/23/18 at 17:30 Insulin Aspart (Novolog Insulin Pen) NOVOLOG *MILD* ALGORITHM WITH MEALS BEDTIME SC Last administered on 09/26/18 17:44; Admin Dose 1 UNIT; Start 09/23/18 at 18:00 Heparin Sodium (Porcine) (Heparin (1000 Units/ml)) 4,000 unit AFTER DIALYSIS CATHETER ; Start 09/23/18 at 17:30 Albumin Human 50 ml @ 100 mls/hr WITH DIALYSIS PRN IV SBP < 90 DURING DIALYSIS; Start 09/23/18 at 17:30 Atorvastatin Calcium (Lipitor) 40 mg QHS PO Last administered on 09/28/18 20:28; Admin Dose 40 MG; Start 09/23/18 at 21:00 Linagliptin (Tradjenta) 5 mg DAILY PO Last administered on 09/28/18 08:50; Admin Dose 5 MG; Start 09/24/18 at 09:00 Fish Oil (Fish Oil) 2,000 mg BID PO Last administered on 09/29/18 09:01; Admin Dose 2,000 MG; Start 09/23/18 at 21:00 Diagnostic Test (Pha) (Accu-Chek) 1 ea AC MEALS XX Last administered on 09/29/18 11:30; Admin Dose 1 EA; Start 09/24/18 at 07:00 Diagnostic Test (Pha) (Accu-Chek) 1 ea 2 HOURS AFTER MEALS XX Last administered on 09/26/18at 14:59; Admin Dose 1 EA; Start 09/23/18 at 20:00 Miscellaneous Information 1 ea NOTE XX ; Start 09/23/18 at 19:00 Glucose (Glutose) 15 gm Q15M PRN PO DECREASED GLUCOSE; Start 09/23/18 at 19:00 Glucose (Glutose) 22.5 gm Q15M PRN PO DECREASED GLUCOSE; Start 09/23/18 at 19:00 Dextrose (D50w Syringe) 25 ml Q15M PRN IV DECREASED GLUCOSE; Start 09/23/18 at 19:00 Dextrose (D50w Syringe) 50 ml Q15M PRN IV DECREASED GLUCOSE; Start 09/23/18 at 19:00 Glucagon (Glucagen) 1 mg Q15M PRN IM DECREASED GLUCOSE; Start 09/23/18 at 19:00 Glucose (Glutose) 15 gm Q15M PRN BUCCAL DECREASED GLUCOSE; Start 09/23/18 at 19:00 Fluticasone Propionate (Flonase 0.05% Nasal) 1 spray BID NASAL Last administered on 09/24/18at 21:18; Admin Dose 1 SPRAY; Start 09/24/18 at 01:00 Repaglinide (Prandin) 1 mg AC MEALS PO Last administered on 09/29/18at 13:01; Admin Dose 1 MG; Start 09/25/18 at 11:30 Lisinopril (Zestril) 40 mg BID PO Last administered on 09/29/18 09:02; Admin Dose 40 MG; Start 09/26/18 at 09:00 Diphenhydramine HCl (Benadryl) 25 mg Q6H PRN IV itching Last administered on 09/26/18 13:28; Admin Dose 25 MG; Start 09/26/18 at 01:00 Mupirocin (Bactroban) 1 applic BID TOP Last administered on 09/29/18at 09:03; Admin Dose 1 APPLIC; Start 09/27/18 at 09:00 Sodium Hypochlorite (Dakins Diluted (40)) 1 applic BID TP Last administered on 09/29/18 09:03; Admin Dose 1 APPLIC; Start 09/27/18 at 09:00 Piperacillin Sod/ Tazobactam Sod 50 ml @ 100 mls/hr Q8 IVPB Last administered on 09/29/18 13:50; Admin Dose 100 MLS/HR; Start 09/26/18 at 22:00 Calcium Acetate (Phoslo) 667 mg WITH MEALS PO Last administered on 09/29/18 13:00; Admin Dose 667 MG; Start 09/27/18 at 12:00 Famotidine (Pepcid) 20 mg DAILY PO Last administered on 09/29/18 09:00; Admin Dose 20 MG; Start 09/28/18 at 09:00 Insulin Glargine (Lantus) 28 units DAILY@2000 SC Last administered on 09/28/18 21:39; Admin Dose 28 UNITS; Start 09/28/18 at 20:00 Morphine Sulfate (morphine) 2 mg Q4H PRN IV SEVERE PAIN LEVEL 7-10 Last administered on 09/29/18 01:49; Admin Dose 2 MG; Start 09/28/18 at 19:30 JAZMYNE BANG NP September 29, 2018 14:05
[2018-09-29] MEDS ORDERED: VANCOMYCIN IV PER PHARMACY XX SCH (14:30)
--- NOTE | 2018-09-29 14:54 | PN ---
Date/Time of Note Date/Time of Note DATE: 09/29/18 TIME: 14:53 Objective Vitals Vital Signs Date Temp Pulse Resp B/P (MAP) Pulse Ox O2 O2 Flow FiO2 Time Delivery Rate 09/29/18 99.0 85 16 144/67 94 13:57 (92) 09/28/18 Room Air 11:55 09/26/18 3.0 13:37 Intake and Output 09/28/18 09/28/18 09/29/18 1515:00 23:00 07:00 IntakeIntake Total 120 ml 320 ml 50 ml OutputOutput Total 3400 ml BalanceBalance -3280 ml 320 ml 50 ml Results Result Diagram: 09/29/18 0450 09/29/18 0450 Medications Medications Current Medications Miscellaneous Information 1 ea NOTE XX ; Start 09/23/18 at 16:30 Glucose (Glutose) 15 gm Q15M PRN PO DECREASED GLUCOSE; Start 09/23/18 at 16:30 Glucose (Glutose) 22.5 gm Q15M PRN PO DECREASED GLUCOSE; Start 09/23/18 at 16:30 Dextrose (D50w Syringe) 25 ml Q15M PRN IV DECREASED GLUCOSE; Start 09/23/18 at 16:30 Dextrose (D50w Syringe) 50 ml Q15M PRN IV DECREASED GLUCOSE; Start 09/23/18 at 16:30 Glucagon (Glucagen) 1 mg Q15M PRN IM DECREASED GLUCOSE; Start 09/23/18 at 16:30 Glucose (Glutose) 15 gm Q15M PRN BUCCAL DECREASED GLUCOSE; Start 09/23/18 at 16:30 Calcitriol (Rocaltrol) 0.25 mcg DAILY PO Last administered on 09/29/18at 09:00; Admin Dose 0.25 MCG; Start 09/24/18 at 09:00 Carvedilol (Coreg) 25 mg BID PO Last administered on 09/29/18at 09:03; Admin Dose 25 MG; Start 09/23/18 at 21:00 IV Flush (NS 3 ml) 3 ml PER PROTOCOL IV ; Start 09/23/18 at 17:30 Ondansetron HCl (Zofran Inj) 4 mg Q6H PRN IV NAUSEA/VOMITING Last administered on 09/29/18at 07:38; Admin Dose 4 MG; Start 09/23/18 at 17:30 Acetaminophen (Tylenol Tab) 650 mg Q6H PRN PO .PAIN 1-3 OR TEMP; Start 09/23/18 at 17:30 Acetaminophen/ Hydrocodone Bitart ([place] (5/325)) 1 tab Q6H PRN PO .MOD PAIN 4- 6; Start 09/23/18 at 17:30 Acetaminophen/ Hydrocodone Bitart ([place] (5/325)) 2 tab Q6H PRN PO .SEVERE PAIN 7-10 Last administered on 09/28/18 16:15; Admin Dose 2 TAB; Start 09/23/18 at 17:30 Docusate Sodium (Colace) 100 mg Q12H PRN PO .CONSTIPATION Last administered on 09/27/18 06:48; Admin Dose 100 MG; Start 09/23/18 at 17:30 Magnesium Hydroxide (Milk Of Mag) 30 ml DAILY PRN PO .CONSTIPATION; Start 09/23/18 at 17:30 Insulin Aspart (Novolog Insulin Pen) NOVOLOG *MILD* ALGORITHM WITH MEALS BEDTIME SC Last administered on 09/26/18 17:44; Admin Dose 1 UNIT; Start 09/23/18 at 18:00 Heparin Sodium (Porcine) (Heparin (1000 Units/ml)) 4,000 unit AFTER DIALYSIS CATHETER ; Start 09/23/18 at 17:30 Albumin Human 50 ml @ 100 mls/hr WITH DIALYSIS PRN IV SBP < 90 DURING DIALYSIS; Start 09/23/18 at 17:30 Atorvastatin Calcium (Lipitor) 40 mg QHS PO Last administered on 09/28/18 20:28; Admin Dose 40 MG; Start 09/23/18 at 21:00 Linagliptin (Tradjenta) 5 mg DAILY PO Last administered on 09/28/18 08:50; Admin Dose 5 MG; Start 09/24/18 at 09:00 Fish Oil (Fish Oil) 2,000 mg BID PO Last administered on 09/29/18 09:01; Admin Dose 2,000 MG; Start 09/23/18 at 21:00 Diagnostic Test (Pha) (Accu-Chek) 1 ea AC MEALS XX Last administered on 09/29/18 11:30; Admin Dose 1 EA; Start 09/24/18 at 07:00 Diagnostic Test (Pha) (Accu-Chek) 1 ea 2 HOURS AFTER MEALS XX Last administered on 09/29/18 14:28; Admin Dose 1 EA; Start 09/23/18 at 20:00 Fluticasone Propionate (Flonase 0.05% Nasal) 1 spray BID NASAL Last administered on 09/24/18 21:18; Admin Dose 1 SPRAY; Start 09/24/18 at 01:00 Repaglinide (Prandin) 1 mg AC MEALS PO Last administered on 09/29/18 13:01; Admin Dose 1 MG; Start 09/25/18 at 11:30 Lisinopril (Zestril) 40 mg BID PO Last administered on 09/29/18 09:02; Admin D ose 40 MG; Start 09/26/18 at 09:00 Diphenhydramine HCl (Benadryl) 25 mg Q6H PRN IV itching Last administered on 09/26/18 13:28; Admin Dose 25 MG; Start 09/26/18 at 01:00 Mupirocin (Bactroban) 1 applic BID TOP Last administered on 09/29/18 09:03; Admin Dose 1 APPLIC; Start 09/27/18 at 09:00 Sodium Hypochlorite (Dakins Diluted (1/40)) 1 applic BID TP Last administered on 09/29/18 09:03; Admin Dose 1 APPLIC; Start 09/27/18 at 09:00 Calcium Acetate (Phoslo) 667 mg WITH MEALS PO Last administered on 09/29/18 13:00; Admin Dose 667 MG; Start 09/27/18 at 12:00 Famotidine (Pepcid) 20 mg DAILY PO Last administered on 09/29/18 09:00; Admin Dose 20 MG; Start 09/28/18 at 09:00 Insulin Glargine (Lantus) 28 units DAILY@2000 SC Last administered on 09/28/18 21:39; Admin Dose 28 UNITS; Start 09/28/18 at 20:00 Morphine Sulfate (morphine) 2 mg Q4H PRN IV SEVERE PAIN LEVEL 7-10 Last administered on 09/29/18 01:49; Admin Dose 2 MG; Start 09/28/18 at 19:30 Vancomycin HCl (Vanco Iv Per Pharmacy) VANCOMYCIN PER PHARMACY PER PROTOCOL XX ; Start 09/29/18 at 14:30 Vancomycin HCl 2 gm/Sodium Chloride 500 ml @ 125 mls/hr LOADING DOSE ONCE IVPB ; Start 09/29/18 at 15:30; Stop 09/29/18 at 19:29 VTE Prophylaxis Risk score (from Ns)>0 risk: 3 SCD applied (from Ns): No SCD contraindication: other Lines/Catheters IV Catheter Type: Espitia in Place: No Assessment/Plan Hospital Course Subjective Persistent diarrhea today Objective Physical exam General: Patient is laying in bed and answers questions appropriately Mentation: Patient is alert and oriented 4, Head: Normocephalic atraumatic Eyes: EOMI, pupils reactive to light Neck: Supple, nontender, midline Respiratory: Clear to auscultation bilaterally Cardiovascular: regular rate, no obvious murmurs Gastrointestinal: non-tender to palpation, bowel sounds heard. Neurological: Moves all extremities spontaneously Skin: Left foot surgical site, bandaged, CDI Assessment/Plan 1. Charcot neuroarthropathy of left foot - s/p Left foot midfoot osteotomy and fusion of calcaneocuboid joint, foot exostectomy, 5th metatarsal, application of multiplane external fixator, excisional debridement of ulceration, skin, subcutaneous tissue, and foot island pedicle flap, 3.5 x 1 cm. on 09/24/18 - Podiatry on board and appreciate consultation. - pain control Diarrhea -1 day onset, may be antibiotics, ID changed to Zosyn to vancomycin, monitor, -C. difficile and stool culture ordered 2. Uncontrolled Diabetes Mellitus - A1c noted - Endocrinology consultation appreciated. Sugars well controlled - ISS and accuchecks 3. ESRD on HD - Nephrology consultation appreciated - , , Thursday schedule 4. HTN - stable - continue home medications 5. RITA - offered CPAP but refusing face mask 6. Disposition -DC to acute rehab once diarrhea improved slightly FÁTIMA SLAUGHTER September 29, 2018 14:54
[2018-09-29] MEDS ORDERED: VANCOMYCIN HCL 2 GM in SOD CHLORIDE 0.9% 500 ML IVPB ONE (15:30)
--- NOTE | 2018-09-29 16:17 | CONS ---
DATE OF ADMISSION: 09/23/2018 DATE OF CONSULTATION: 09/29/2018 SUBJECTIVE FINDINGS: The patient is being followed for left foot, status post surgery for Charcot manisha ints and wound closure. Denies any fever, nausea, vomiting. He did relate intermittent fever, is on Zosyn. The patient has been evaluated by PT and a candidate for acute rehabilitation. The patient seen by endocrinology. Appreciate recommendations. PHYSICAL EXAMINATION: VITAL SIGNS: Temperature is 97.9, pulse 80, respiratory 18, blood pressure is 129/66, pulse ox is 99 on room air. GENERAL: The patient is alert, oriented. LUNGS: Regular respirations. EXTREMITIES: Right foot with a stable Charcot plantar ulceration approximately 1 cm in diameter. No signs of infection left foot with external ring fixator. Plantar wound appears healed. Lateral inc ision healing. Sutures present. Minimal to mild edema. No signs of pin-tract infection. Pins are all tensioned and no signs of cellulitis or lymphangitis. LABORATORIES: WBC 12.1, hemoglobin 8.5, hematocrit 26.4, platelets 299. ASSESSMENT: 1. Charcot left foot, status post surgical intervention. 2. Diabetic foot ulceration, right foot without signs of infection. 3. Leukocytosis. PLAN: Appreciate ID recommendations. Unclear source of infection. No signs of infection to the ope rative site of the right foot. The patient using topical antimicrobial ointment on the right foot. Agree with acute rehabilitation. The patient is weightbearing to the right side. Recommend nonweigh tbearing with use of crutches or walker. Appreciate Endo recommendations. Pin site care performed. Dictated By: KRISS MIRAMONTES DPM RB/ALEXANDREA Conf#: [id number] DID#: [id number] CC: FÁTIMA SLAUGHTER MD;*EndCC*
--- NOTE | 2018-09-29 19:30 | CONS ---
Assessment/Plan Assessment/Plan Assessment/Plan (Daily) 1. Acute Hyperglycemia- imporving BS control, Endocrine following 2. ESRD on HD TTS schedule 3. H/O DM II 4. H/o HL 5. H/O HTN Plan: plan for HD tomorrow pt regular schedule for HD is TTS , s/p Surgery for left foot charcoat foot will follow up Consultation Date/Type/Reason Admit Date/Time September 23, 2018 at 11:58 Initial Consult Date 09/23/18 Type of Consult NEPHROLOGY Requesting Provider: JANE QUICK MD Date/Time of Note DATE: 09/29/18 TIME: 19:30 Exam/Review of Systems Exam Vitals Vital Signs Date Temp Pulse Resp B/P (MAP) Pulse Ox O2 O2 Flow FiO2 Time Delivery Rate 09/29/18 99.0 85 16 144/67 94 13:57 (92) 09/28/18 Room Air 11:55 09/26/18 3.0 13:37 Intake and Output 09/28/18 09/28/18 09/29/18 1515:00 23:00 07:00 IntakeIntake Total 120 ml 320 ml 50 ml OutputOutput Total 3400 ml BalanceBalance -3280 ml 320 ml 50 ml Results Result Diagram: 09/29/18 0450 09/29/18 0450 Results 24hrs Laboratory Tests Test 09/28/18 21:33 09/29/18 04:50 09/29/18 07:35 09/29/18 12:54 Bedside Glucose 105 99 92 White Blood Count 12.3 H Red Blood Count 2.91 L Hemoglobin 8.9 L Hematocrit 27.4 L Mean Corpuscular 94.2 Volume Mean Corpuscular 30.6 Hemoglobin Mean Corpuscular 32.5 Hemoglobin Concent Red Cell 14.4 Distribution Width Platelet Count 325 Mean Platelet Volume 10.1 Immature 0.600 H Granulocytes % Neutrophils % 66.1 Lymphocytes % 15.2 Monocytes % 15.8 H Eosinophils % 1.9 Basophils % 0.4 Nucleated Red Blood 0.2 H Cells % Immature 0.070 H Granulocytes # Neutrophils # 8.1 H Lymphocytes # 1.9 Monocytes # 2.0 H Eosinophils # 0.2 Basophils # 0.1 Nucleated Red Blood 0.0 Cells # Sodium Level 140 Potassium Level 4.5 Chloride Level 98 Carbon Dioxide Level 27 Anion Gap 15 H Blood Urea Nitrogen 40 #H Creatinine 9.61 #H Glucose Level 93 Calcium Level 8.6 Phosphorus Level 8.7 H Magnesium Level 2.3 Albumin 4.0 Test 09/29/18 14:12 09/29/18 17:52 Bedside Glucose 102 78 Medications Medication Current Medications Miscellaneous Information 1 ea NOTE XX ; Start 09/23/18 at 16:30 Glucose (Glutose) 15 gm Q15M PRN PO DECREASED GLUCOSE; Start 09/23/18 at 16:30 Glucose (Glutose) 22.5 gm Q15M PRN PO DECREASED GLUCOSE; Start 09/23/18 at 16:30 Dextrose (D50w Syringe) 25 ml Q15M PRN IV DECREASED GLUCOSE; Start 09/23/18 at 16:30 Dextrose (D50w Syringe) 50 ml Q15M PRN IV DECREASED GLUCOSE; Start 09/23/18 at 16:30 Glucagon (Glucagen) 1 mg Q15M PRN IM DECREASED GLUCOSE; Start 09/23/18 at 16:30 Glucose (Glutose) 15 gm Q15M PRN BUCCAL DECREASED GLUCOSE; Start 09/23/18 at 16:30 Calcitriol (Rocaltrol) 0.25 mcg DAILY PO Last administered on 09/29/18at 09:00; Admin Dose 0.25 MCG; Start 09/24/18 at 09:00 Carvedilol (Coreg) 25 mg BID PO Last administered on 09/29/18at 09:03; Admin Dose 25 MG; Start 09/23/18 at 21:00 IV Flush (NS 3 ml) 3 ml PER PROTOCOL IV ; Start 09/23/18 at 17:30 Ondansetron HCl (Zofran Inj) 4 mg Q6H PRN IV NAUSEA/VOMITING Last administered on 09/29/18at 07:38; Admin Dose 4 MG; Start 09/23/18 at 17:30 Acetaminophen (Tylenol Tab) 650 mg Q6H PRN PO .PAIN 1-3 OR TEMP; Start 09/23/18 at 17:30 Acetaminophen/ Hydrocodone Bitart ([place] (5/325)) 1 tab Q6H PRN PO .MOD PAIN 4- 6; Start 09/23/18 at 17:30 Acetaminophen/ Hydrocodone Bitart ([place] (5/325)) 2 tab Q6H PRN PO .SEVERE PAIN 7-10 Last administered on 09/28/18 16:15; Admin Dose 2 TAB; Start 09/23/18 at 17:30 Docusate Sodium (Colace) 100 mg Q12H PRN PO .CONSTIPATION Last administered on 09/27/18 06:48; Admin Dose 100 MG; Start 09/23/18 at 17:30 Magnesium Hydroxide (Milk Of Mag) 30 ml DAILY PRN PO .CONSTIPATION; Start 09/23/18 at 17:30 Insulin Aspart (Novolog Insulin Pen) NOVOLOG *MILD* ALGORITHM WITH MEALS BEDTIME SC Last administered on 09/26/18 17:44; Admin Dose 1 UNIT; Start 09/23/18 at 18:00 Heparin Sodium (Porcine) (Heparin (1000 Units/ml)) 4,000 unit AFTER DIALYSIS CATHETER ; Start 09/23/18 at 17:30 Albumin Human 50 ml @ 100 mls/hr WITH DIALYSIS PRN IV SBP < 90 DURING DIALYSIS; Start 09/23/18 at 17:30 Atorvastatin Calcium (Lipitor) 40 mg QHS PO Last administered on 09/28/18 20:28; Admin Dose 40 MG; Start 09/23/18 at 21:00 Linagliptin (Tradjenta) 5 mg DAILY PO Last administered on 09/28/18 08:50; Admin Dose 5 MG; Start 09/24/18 at 09:00 Fish Oil (Fish Oil) 2,000 mg BID PO Last administered on 09/29/18 09:01; Admin Dose 2,000 MG; Start 09/23/18 at 21:00 Diagnostic Test (Pha) (Accu-Chek) 1 ea AC MEALS XX Last administered on 09/29/18 17:53; Admin Dose 1 EA; Start 09/24/18 at 07:00 Diagnostic Test (Pha) (Accu-Chek) 1 ea 2 HOURS AFTER MEALS XX Last administered on 09/29/18 14:28; Admin Dose 1 EA; Start 09/23/18 at 20:00 Fluticasone Propionate (Flonase 0.05% Nasal) 1 spray BID NASAL Last administered on 09/24/18 21:18; Admin Dose 1 SPRAY; Start 09/24/18 at 01:00 Repaglinide (Prandin) 1 mg AC MEALS PO Last administered on 09/29/18 17:53; Admin Dose 1 MG; Start 09/25/18 at 11:30 Lisinopril (Zestril) 40 mg BID PO Last administered on 09/29/18 09:02; Admin Dose 40 MG; Start 09/26/18 at 09:00 Diphenhydramine HCl (Benadryl) 25 mg Q6H PRN IV itching Last administered on 09/26/18 13:28; Admin Dose 25 MG; Start 09/26/18 at 01:00 Mupirocin (Bactroban) 1 applic BID TOP Last administered on 09/29/18 09:03; Admin Dose 1 APPLIC; Start 09/27/18 at 09:00 Sodium Hypochlorite (Dakins Diluted ()) 1 applic BID TP Last administered on 09/29/18 09:03; Admin Dose 1 APPLIC; Start 09/27/18 at 09:00 Calcium Acetate (Phoslo) 667 mg WITH MEALS PO Last administered on 09/29/18 17:53; Admin Dose 667 MG; Start 09/27/18 at 12:00 Famotidine (Pepcid) 20 mg DAILY PO Last administered on 09/29/18 09:00; Admin Dose 20 MG; Start 09/28/18 at 09:00 Insulin Glargine (Lantus) 28 units DAILY@2000 SC Last administered on 09/28/18 21:39; Admin Dose 28 UNITS; Start 09/28/18 at 20:00 Morphine Sulfate (morphine) 2 mg Q4H PRN IV SEVERE PAIN LEVEL 7-10 Last administered on 09/29/18 01:49; Admin Dose 2 MG; Start 09/28/18 at 19:30 Vancomycin HCl (Vanco Iv Per Pharmacy) VANCOMYCIN PER PHARMACY PER PROTOCOL XX ; Start 09/29/18 at 14:30 OPAL QUINONEZ MD September 29, 2018 19:30
[2018-09-29 19:49] VITALS: BP 137/71; PULSE 89; RESP 18
[2018-09-29] MEDS: INSULIN GLARGINE [LANTus] (100 UNITS/ML) SYG SC SCH (20:00)
[2018-09-29] MEDS: ATORVASTATIN 40 MG TAB PO SCH (20:18)
[2018-09-29] MEDS ORDERED: CALCIUM CARBONATE 500 MG CHEW TAB PO PRN (23:00)
[2018-09-30] VITALS (18 sets, daily range): BP systolic 108–168; BP diastolic 59–82; PULSE 79–103; RESP 18–19
[2018-09-30] MEDS: CALCIUM ACETATE 667 MG CAP PO SCH ×3 (08:00→17:23)
[2018-09-30] MEDS: INSULIN ASPART [NOVOLOG] 3 ML PEN SC SCH ×4 (08:00→21:00)
[2018-09-30] MEDS: REPAGLINIDE 2 MG TAB PO SCH ×3 (08:01→17:22)
[2018-09-30] MEDS: ACCU-CHEK XX SCH ×6 (08:01→20:00)
[2018-09-30] MEDS: CALCITRIOL 0.25 MCG CAP PO SCH (08:49)
[2018-09-30] MEDS: FAMOTIDINE 20 MG TAB PO SCH (08:49)
[2018-09-30] MEDS: FISH OIL 1,000 MG CAP PO SCH ×2 (08:49→21:32)
[2018-09-30] MEDS: LISINOPRIL 20 MG TAB PO SCH ×2 (08:50→21:33)
[2018-09-30] MEDS: FLUTICASONE 0.05% 16 GM NAS SPRAY NASAL SCH ×2 (08:51→21:00)
[2018-09-30] MEDS: LINAGLIPTIN 5 MG TABLET PO SCH (08:51)
[2018-09-30] MEDS: DAKINS 0.0125%(1/40) 473 ML SOLUTION TP SCH ×2 (08:53→21:00)
[2018-09-30] MEDS: MUPIROCIN 2% 22 GM OINT TOP SCH ×2 (08:53→21:00)
--- NOTE | 2018-09-30 13:15 | CONS ---
Assessment/Plan Assessment/Plan Problems: (1) Diabetes mellitus type 2 in obese Onset Date: ~ 09/1995 Status: Chronic Comment: Adequate glycemic control at this time on the present regimen without hypoglycemia, or glucose excursions. Continue current therapeutic protocol. Please note if his appetite picks up we may need to adjust on the medicines before and I believe were in good shape (2) Charcot's joint, left ankle and foot Status: Chronic Comment: As per podiatry (3) Charcot's joint, right ankle and foot Status: Chronic Comment: As per podiatry (4) Essential hypertension Status: Chronic Comment: Good control on a simplified regimen (5) End-stage renal disease on hemodialysis Status: Chronic Comment: Continues with hemodialysis. Please note the hyperphosphatemia in the consideration for increasing the PhosLo medication to help with this (6) Obstructive sleep apnea Status: Chronic Comment: Noted. (7) Hyperlipidemia associated with type 2 diabetes mellitus Status: Chronic Comment: On treatment and stable (8) Chronic kidney disease-mineral and bone disorder Status: Chronic Comment: As per nephrology Consultation Date/Type/Reason Admit Date/Time September 23, 2018 at 11:58 Initial Consult Date 09/23/18 Type of Consult Endocrinology Reason for Consultation Diabetes mellitus type 2; bilateral Charcot joint; systemic inflammatory response syndrome; end-stage renal disease; hyperphosphatemia; essential hypertension; Requesting Provider: JANE QUICK MD Date/Time of Note DATE: 09/30/18 TIME: 13:12 24 HR Interval Summary Free Text/Dictation Patient reports he still has some nausea although it may be slightly better today. Constitutional: no complaints (Denies fevers chills or sweats) Detailed Summary Respiratory: no complaints Cardiovascular: no complaints Gastrointestinal: diarrhea (Ports soft bowel movements no watery diarrhea) Exam/Review of Systems Exam Vitals Vital Signs Date Temp Pulse Resp B/P (MAP) Pulse Ox O2 O2 Flow FiO2 Time Delivery Rate 09/30/18 85 13:00 09/30/18 18 138/70 95 Room Air 10:30 (92) 09/30/18 99.1 08:05 09/26/18 3.0 13:37 Intake and Output 09/29/18 09/29/18 09/30/18 1515:00 23:00 07:00 IntakeIntake Total 610 ml 960 ml OutputOutput Total 1 ml BalanceBalance 610 ml 960 ml -1 ml Constitutional: alert, oriented, obese Head: normocephalic, atraumatic Neck: supple, non-tender Respiratory: clear to auscultation, normal air movement Cardiovascular: regular rate and rhythm, nl pulses Gastrointestinal: soft, nl liver, spleen, non-tender Results Result Diagram: 09/30/18 0431 09/30/18 0431 Results 24hrs Laboratory Tests Test 09/29/18 14:12 09/29/18 17:52 09/29/18 20:08 09/30/18 04:31 Bedside Glucose 102 78 92 White Blood Count 10.2 Red Blood Count 2.99 L Hemoglobin 9.0 L Hematocrit 27.9 L Mean Corpuscular 93.3 Volume Mean Corpuscular 30.1 Hemoglobin Mean Corpuscular 32.3 Hemoglobin Concent Red Cell 14.1 Distribution Width Platelet Count 307 Mean Platelet Volume 10.2 Immature 0.700 H Granulocytes % Neutrophils % 61.3 Lymphocytes % 17.5 Monocytes % 16.7 H Eosinophils % 3.3 Basophils % 0.5 Nucleated Red Blood 0.3 H Cells % Immature 0.070 H Granulocytes # Neutrophils # 6.2 Lymphocytes # 1.8 Monocytes # 1.7 H Eosinophils # 0.3 Basophils # 0.1 Nucleated Red Blood 0.0 Cells # Sodium Level 138 Potassium Level 4.5 Chloride Level 98 Carbon Dioxide Level 24 Anion Gap 16 H Blood Urea Nitrogen 52 H Creatinine 10.66 H Glucose Level 92 Calcium Level 8.3 L Phosphorus Level 10.0 H Magnesium Level 2.1 Albumin 3.5 Test 09/30/18 07:59 09/30/18 12:43 Bedside Glucose 107 107 Medications Medication Current Medications Miscellaneous Information 1 ea NOTE XX ; Start 09/23/18 at 16:30 Glucose (Glutose) 15 gm Q15M PRN PO DECREASED GLUCOSE; Start 09/23/18 at 16:30 Glucose (Glutose) 22.5 gm Q15M PRN PO DECREASED GLUCOSE; Start 09/23/18 at 16:30 Dextrose (D50w Syringe) 25 ml Q15M PRN IV DECREASED GLUCOSE; Start 09/23/18 at 16:30 Dextrose (D50w Syringe) 50 ml Q15M PRN IV DECREASED GLUCOSE; Start 09/23/18 at 16:30 Glucagon (Glucagen) 1 mg Q15M PRN IM DECREASED GLUCOSE; Start 09/23/18 at 16:30 Glucose (Glutose) 15 gm Q15M PRN BUCCAL DECREASED GLUCOSE; Start 09/23/18 at 16:30 Calcitriol (Rocaltrol) 0.25 mcg DAILY PO Last administered on 09/30/18at 08:49; Admin Dose 0.25 MCG; Start 09/24/18 at 09:00 Carvedilol (Coreg) 25 mg BID PO Last administered on 09/29/18 20:19; Admin Dose 25 MG; Start 09/23/18 at 21:00 IV Flush (NS 3 ml) 3 ml PER PROTOCOL IV ; Start 09/23/18 at 17:30 Ondansetron HCl (Zofran Inj) 4 mg Q6H PRN IV NAUSEA/VOMITING Last administered on 09/29/18 20:23; Admin Dose 4 MG; Start 09/23/18 at 17:30 Acetaminophen (Tylenol Tab) 650 mg Q6H PRN PO .PAIN 1-3 OR TEMP; Start 09/23/18 at 17:30 Acetaminophen/ Hydrocodone Bitart ([place] (5/325)) 1 tab Q6H PRN PO .MOD PAIN 4- 6; Start 09/23/18 at 17:30 Acetaminophen/ Hydrocodone Bitart ([place] (5/325)) 2 tab Q6H PRN PO .SEVERE PAIN 7-10 Last administered on 09/28/18at 16:15; Admin Dose 2 TAB; Start 09/23/18 at 17:30 Docusate Sodium (Colace) 100 mg Q12H PRN PO .CONSTIPATION Last administered on 09/27/18at 06:48; Admin Dose 100 MG; Start 09/23/18 at 17:30 Magnesium Hydroxide (Milk Of Mag) 30 ml DAILY PRN PO .CONSTIPATION; Start 09/23/18 at 17:30 Insulin Aspart (Novolog Insulin Pen) NOVOLOG *MILD* ALGORITHM WITH MEALS BEDTIME SC Last administered on 09/26/18 17:44; Admin Dose 1 UNIT; Start 09/23/18 at 18:00 Heparin Sodium (Porcine) (Heparin (1000 Units/ml)) 4,000 unit AFTER DIALYSIS CATHETER ; Start 09/23/18 at 17:30 Albumin Human 50 ml @ 100 mls/hr WITH DIALYSIS PRN IV SBP < 90 DURING DIALYSIS; Start 09/23/18 at 17:30 Atorvastatin Calcium (Lipitor) 40 mg QHS PO Last administered on 09/29/18 20:18; Admin Dose 40 MG; Start 09/23/18 at 21:00 Linagliptin (Tradjenta) 5 mg DAILY PO Last administered on 09/28/18 08:50; Admin Dose 5 MG; Start 09/24/18 at 09:00 Fish Oil (Fish Oil) 2,000 mg BID PO Last administered on 09/30/18 08:49; Admin Dose 2,000 MG; Start 09/23/18 at 21:00 Diagnostic Test (Pha) (Accu-Chek) 1 ea AC MEALS XX Last administered on 09/29/18 17:53; Admin Dose 1 EA; Start 09/24/18 at 07:00 Diagnostic Test (Pha) (Accu-Chek) 1 ea 2 HOURS AFTER MEALS XX Last administered on 09/29/18 14:28; Admin Dose 1 EA; Start 09/23/18 at 20:00 Fluticasone Propionate (Flonase 0.05% Nasal) 1 spray BID NASAL Last administered on 09/24/18 21:18; Admin Dose 1 SPRAY; Start 09/24/18 at 01:00 Repaglinide (Prandin) 1 mg AC MEALS PO Last administered on 09/29/18 17:53; Admin Dose 1 MG; Start 09/25/18 at 11:30 Lisinopril (Zestril) 40 mg BID PO Last administered on 09/29/18 20:19; Admin Dose 40 MG; Start 09/26/18 at 09:00 Diphenhydramine HCl (Benadryl) 25 mg Q6H PRN IV itching Last administered on 09/26/18 13:28; Admin Dose 25 MG; Start 09/26/18 at 01:00 Mupirocin (Bactroban) 1 applic BID TOP Last administered on 09/29/18 20:26; Admin Dose 1 APPLIC; Start 09/27/18 at 09:00 Sodium Hypochlorite (Dakins Diluted (1/40)) 1 applic BID TP Last administered on 09/29/18 20:26; Admin Dose 1 APPLIC; Start 09/27/18 at 09:00 Famotidine (Pepcid) 20 mg DAILY PO Last administered on 09/30/18at 08:49; Admin Dose 20 MG; Start 09/28/18 at 09:00 Insulin Glargine (Lantus) 28 units DAILY@2000 SC Last administered on 09/28/18at 21:39; Admin Dose 28 UNITS; Start 09/28/18 at 20:00 Morphine Sulfate (morphine) 2 mg Q4H PRN IV SEVERE PAIN LEVEL 7-10 Last administered on 09/29/18at 01:49; Admin Dose 2 MG; Start 09/28/18 at 19:30 Vancomycin HCl (Vanco Iv Per Pharmacy) VANCOMYCIN PER PHARMACY PER PROTOCOL XX ; Start 09/29/18 at 14:30 Calcium Carbonate (Tums) 500 mg Q6H PRN PO INDIGESTION; Start 09/29/18 at 23:00 Miscellaneous Information (*Rx Drug Level Order Reminder*) RANDOM VANCOMYCIN LEVEL 5... 0500 ONCE XX ; Start 10/01/18 at 05:00; Stop 10/01/18 at 05:01 Calcium Acetate (Phoslo) 1,334 mg WITH MEALS PO ; Start 09/30/18 at 18:00 BRIE GRAF MD September 30, 2018 13:15
--- NOTE | 2018-09-30 13:48 | PN ---
Date/Time of Note Date/Time of Note DATE: 09/30/18 TIME: 13:48 Objective Vitals Vital Signs Date Temp Pulse Resp B/P (MAP) Pulse Ox O2 O2 Flow FiO2 Time Delivery Rate 09/30/18 83 13:30 09/30/18 18 138/70 95 Room Air 10:30 (92) 09/30/18 99.1 08:05 09/26/18 3.0 13:37 Intake and Output 09/29/18 09/29/18 09/30/18 1515:00 23:00 07:00 IntakeIntake Total 610 ml 960 ml OutputOutput Total 1 ml BalanceBalance 610 ml 960 ml -1 ml Results Result Diagram: 09/30/18 0431 09/30/18 0431 Medications Medications Current Medications Miscellaneous Information 1 ea NOTE XX ; Start 09/23/18 at 16:30 Glucose (Glutose) 15 gm Q15M PRN PO DECREASED GLUCOSE; Start 09/23/18 at 16:30 Glucose (Glutose) 22.5 gm Q15M PRN PO DECREASED GLUCOSE; Start 09/23/18 at 16:30 Dextrose (D50w Syringe) 25 ml Q15M PRN IV DECREASED GLUCOSE; Start 09/23/18 at 16:30 Dextrose (D50w Syringe) 50 ml Q15M PRN IV DECREASED GLUCOSE; Start 09/23/18 at 16:30 Glucagon (Glucagen) 1 mg Q15M PRN IM DECREASED GLUCOSE; Start 09/23/18 at 16:30 Glucose (Glutose) 15 gm Q15M PRN BUCCAL DECREASED GLUCOSE; Start 09/23/18 at 16:30 Calcitriol (Rocaltrol) 0.25 mcg DAILY PO Last administered on 09/30/18at 08:49; Admin Dose 0.25 MCG; Start 09/24/18 at 09:00 Carvedilol (Coreg) 25 mg BID PO Last administered on 09/29/18at 20:19; Admin Dose 25 MG; Start 09/23/18 at 21:00 IV Flush (NS 3 ml) 3 ml PER PROTOCOL IV ; Start 09/23/18 at 17:30 Ondansetron HCl (Zofran Inj) 4 mg Q6H PRN IV NAUSEA/VOMITING Last administered on 09/29/18at 20:23; Admin Dose 4 MG; Start 09/23/18 at 17:30 Acetaminophen (Tylenol Tab) 650 mg Q6H PRN PO .PAIN 1-3 OR TEMP; Start 09/23/18 at 17:30 Acetaminophen/ Hydrocodone Bitart ([place] (5/325)) 1 tab Q6H PRN PO .MOD PAIN 4- 6; Start 09/23/18 at 17:30 Acetaminophen/ Hydrocodone Bitart ([place] (5/325)) 2 tab Q6H PRN PO .SEVERE PAIN 7-10 Last administered on 09/28/18 16:15; Admin Dose 2 TAB; Start 09/23/18 at 17:30 Docusate Sodium (Colace) 100 mg Q12H PRN PO .CONSTIPATION Last administered on 09/27/18 06:48; Admin Dose 100 MG; Start 09/23/18 at 17:30 Magnesium Hydroxide (Milk Of Mag) 30 ml DAILY PRN PO .CONSTIPATION; Start 09/23/18 at 17:30 Insulin Aspart (Novolog Insulin Pen) NOVOLOG *MILD* ALGORITHM WITH MEALS BEDTIME SC Last administered on 09/26/18 17:44; Admin Dose 1 UNIT; Start 09/23/18 at 18:00 Heparin Sodium (Porcine) (Heparin (1000 Units/ml)) 4,000 unit AFTER DIALYSIS CATHETER ; Start 09/23/18 at 17:30 Albumin Human 50 ml @ 100 mls/hr WITH DIALYSIS PRN IV SBP < 90 DURING DIAL YSIS; Start 09/23/18 at 17:30 Atorvastatin Calcium (Lipitor) 40 mg QHS PO Last administered on 09/29/18 20:18; Admin Dose 40 MG; Start 09/23/18 at 21:00 Linagliptin (Tradjenta) 5 mg DAILY PO Last administered on 09/28/18 08:50; Admin Dose 5 MG; Start 09/24/18 at 09:00 Fish Oil (Fish Oil) 2,000 mg BID PO Last administered on 09/30/18 08:49; Admin Dose 2,000 MG; Start 09/23/18 at 21:00 Diagnostic Test (Pha) (Accu-Chek) 1 ea AC MEALS XX Last administered on 09/29/18 17:53; Admin Dose 1 EA; Start 09/24/18 at 07:00 Diagnostic Test (Pha) (Accu-Chek) 1 ea 2 HOURS AFTER MEALS XX Last admini stered on 09/29/18 14:28; Admin Dose 1 EA; Start 09/23/18 at 20:00 Fluticasone Propionate (Flonase 0.05% Nasal) 1 spray BID NASAL Last administered on 09/24/18 21:18; Admin Dose 1 SPRAY; Start 09/24/18 at 01:00 Repaglinide (Prandin) 1 mg AC MEALS PO Last administered on 09/29/18 17:53; Admin Dose 1 MG; Start 09/25/18 at 11:30 Lisinopril (Zestril) 40 mg BID PO Last administered on 09/29/18 20:19; Admin Dose 40 MG; Start 09/26/18 at 09:00 Diphenhydramine HCl (Benadryl) 25 mg Q6H PRN IV itching Last administered on 09/26/18 13:28; Admin Dose 25 MG; Start 09/26/18 at 01:00 Mupirocin (Bactroban) 1 applic BID TOP Last administered on 09/29/18 20:26; Admin Dose 1 APPLIC; Start 09/27/18 at 09:00 Sodium Hypochlorite (Dakins Diluted (40)) 1 applic BID TP Last administered on 09/29/18 20:26; Admin Dose 1 APPLIC; Start 09/27/18 at 09:00 Famotidine (Pepcid) 20 mg DAILY PO Last administered on 09/30/18 08:49; Admin Dose 20 MG; Start 09/28/18 at 09:00 Insulin Glargine (Lantus) 28 units DAILY@2000 SC Last administered on 09/28/18at 21:39; Admin Dose 28 UNITS; Start 09/28/18 at 20:00 Morphine Sulfate (morphine) 2 mg Q4H PRN IV SEVERE PAIN LEVEL 7-10 Last administered on 09/29/18 01:49; Admin Dose 2 MG; Start 09/28/18 at 19:30 Vancomycin HCl (Vanco Iv Per Pharmacy) VANCOMYCIN PER PHARMACY PER PROTOCOL XX ; Start 09/29/18 at 14:30 Calcium Carbonate (Tums) 500 mg Q6H PRN PO INDIGESTION; Start 09/29/18 at 23:00 Miscellaneous Information (*Rx Drug Level Order Reminder*) RANDOM VANCOMYCIN LEVEL 5... 0500 ONCE XX ; Start 10/01/18 at 05:00; Stop 10/01/18 at 05:01 Calcium Acetate (Phoslo) 1,334 mg WITH MEALS PO ; Start 09/30/18 at 18:00 VTE Prophylaxis Risk score (from Ns)>0 risk: 5 SCD applied (from [facility]): Yes Lines/Catheters IV Catheter Type: Espitia in Place: No Assessment/Plan Hospital Course Subjective Persistent diarrhea continues, but patient states slightly more formed Objective Physical exam General: Patient is laying in bed and answers questions appropriately Mentation: Patient is alert and oriented 4, Head: Normocephalic atraumatic Eyes: EOMI, pupils reactive to light Neck: Supple, nontender, midline Respiratory: Clear to auscultation bilaterally Cardiovascular: regular rate, no obvious murmurs Gastrointestinal: non-tender to palpation, bowel sounds heard. Neurological: Moves all extremities spontaneously Skin: Left foot surgical site, bandaged, CDI Assessment/Plan 1. Charcot neuroarthropathy of left foot - s/p Left foot midfoot osteotomy and fusion of calcaneocuboid joint, foot exostectomy, 5th metatarsal, application of multiplane external fixator, excisional debridement of ulceration, skin, subcutaneous tissue, and foot island pedicle flap, 3.5 x 1 cm. on 09/24/18 - Podiatry on board and appreciate consultation. - pain control Diarrhea -1 day onset, may be antibiotics, ID changed to Zosyn to vancomycin, monitor, -C. difficile and stool culture ordered 2. Uncontrolled Diabetes Mellitus - A1c noted - Endocrinology consultation appreciated. Sugars well controlled - ISS and accuchecks 3. ESRD on HD - Nephrology consultation appreciated - , , Thursday schedule 4. HTN - stable - continue home medications 5. RITA - offered CPAP but refusing face mask 6. Disposition -DC to acute rehab once diarrhea improved slightly and c-dif test returns FÁTIMA SLAUGHTER September 30, 2018 13:48
--- NOTE | 2018-09-30 14:10 | CONS ---
Assessment/Plan Assessment/Plan Assessment/Plan (Daily) 1. Acute Hyperglycemia- imporving BS control, Endocrine following 2. ESRD on HD TTS schedule 3. H/O DM II 4. H/o HL 5. H/O HTN Plan: s/p HD today 3 L removed, pt regular schedule for HD is TTS , s/p Surgery for left foot charcoat foot continue on IV vancomycin for 7 days, pending discharge to acute rehab will follow up Consultation Date/Type/Reason Admit Date/Time September 23, 2018 at 11:58 Initial Consult Date 09/23/18 Type of Consult NEPHROLOGY Requesting Provider: JANE QUICK MD Date/Time of Note DATE: 09/30/18 TIME: 14:10 24 HR Interval Summary Free Text/Dictation continue on IV vancomycin for 7 days, pending discharge to acute rehab Exam/Review of Systems Exam Vitals Vital Signs Date Temp Pulse Resp B/P (MAP) Pulse Ox O2 O2 Flow FiO2 Time Delivery Rate 09/30/18 99.0 86 18 149/69 95 Room Air 14:03 (95) 09/26/18 3.0 13:37 Intake and Output 09/29/18 09/29/18 09/30/18 1515:00 23:00 07:00 IntakeIntake Total 610 ml 960 ml OutputOutput Total 1 ml BalanceBalance 610 ml 960 ml -1 ml Exam Constitutional: alert Respiratory: clear to auscultation, diminished breath sounds Cardiovascular: regular rate and rhythm, nl pulses Gastrointestinal: soft, non-tender Musculoskeletal: muscle weakness, swelling, other (R arm AVG) Neurological: SUMMER BABYSITTER II-XII intact, nl mental status, nl speech, nl strength Results Result Diagram: 09/30/18 0431 09/30/18 0431 Results 24hrs Laboratory Tests Test 09/29/18 14:12 09/29/18 17:52 09/29/18 20:08 09/30/18 04:31 Bedside Glucose 102 78 92 White Blood Count 10.2 Red Blood Count 2.99 L Hemoglobin 9.0 L Hematocrit 27.9 L Mean Corpuscular 93.3 Volume Mean Corpuscular 30.1 Hemoglobin Mean Corpuscular 32.3 Hemoglobin Concent Red Cell 14.1 Distribution Width Platelet Count 307 Mean Platelet Volume 10.2 Immature 0.700 H Granulocytes % Neutrophils % 61.3 Lymphocytes % 17.5 Monocytes % 16.7 H Eosinophils % 3.3 Basophils % 0.5 Nucleated Red Blood 0.3 H Cells % Immature 0.070 H Granulocytes # Neutrophils # 6.2 Lymphocytes # 1.8 Monocytes # 1.7 H Eosinophils # 0.3 Basophils # 0.1 Nucleated Red Blood 0.0 Cells # Sodium Level 138 Potassium Level 4.5 Chloride Level 98 Carbon Dioxide Level 24 Anion Gap 16 H Blood Urea Nitrogen 52 H Creatinine 10.66 H Glucose Level 92 Calcium Level 8.3 L Phosphorus Level 10.0 H Magnesium Level 2.1 Albumin 3.5 Test 09/30/18 07:59 09/30/18 12:43 Bedside Glucose 107 107 Medications Medication Current Medications Miscellaneous Information 1 ea NOTE XX ; Start 09/23/18 at 16:30 Glucose (Glutose) 15 gm Q15M PRN PO DECREASED GLUCOSE; Start 09/23/18 at 16:30 Glucose (Glutose) 22.5 gm Q15M PRN PO DECREASED GLUCOSE; Start 09/23/18 at 16:30 Dextrose (D50w Syringe) 25 ml Q15M PRN IV DECREASED GLUCOSE; Start 09/23/18 at 16:30 Dextrose (D50w Syringe) 50 ml Q15M PRN IV DECREASED GLUCOSE; Start 09/23/18 at 16:30 Glucagon (Glucagen) 1 mg Q15M PRN IM DECREASED GLUCOSE; Start 09/23/18 at 16:30 Glucose (Glutose) 15 gm Q15M PRN BUCCAL DECREASED GLUCOSE; Start 09/23/18 at 16:30 Calcitriol (Rocaltrol) 0.25 mcg DAILY PO Last administered on 09/30/18at 08:49; Admin Dose 0.25 MCG; Start 09/24/18 at 09:00 Carvedilol (Coreg) 25 mg BID PO Last administered on 09/29/18at 20:19; Admin Dose 25 MG; Start 09/23/18 at 21:00 IV Flush (NS 3 ml) 3 ml PER PROTOCOL IV ; Start 09/23/18 at 17:30 Ondansetron HCl (Zofran Inj) 4 mg Q6H PRN IV NAUSEA/VOMITING Last administered on 09/29/18at 20:23; Admin Dose 4 MG; Start 09/23/18 at 17:30 Acetaminophen (Tylenol Tab) 650 mg Q6H PRN PO .PAIN 1-3 OR TEMP; Start 09/23/18 at 17:30 Acetaminophen/ Hydrocodone Bitart ([place] (5/325)) 1 tab Q6H PRN PO .MOD PAIN 4- 6; Start 09/23/18 at 17:30 Acetaminophen/ Hydrocodone Bitart ([place] (5/325)) 2 tab Q6H PRN PO .SEVERE PAIN 7-10 Last administered on 09/28/18 16:15; Admin Dose 2 TAB; Start 09/23/18 at 17:30 Docusate Sodium (Colace) 100 mg Q12H PRN PO .CONSTIPATION Last administered on 09/27/18 06:48; Admin Dose 100 MG; Start 09/23/18 at 17:30 Magnesium Hydroxide (Milk Of Mag) 30 ml DAILY PRN PO .CONSTIPATION; Start 09/23/18 at 17:30 Insulin Aspart (Novolog Insulin Pen) NOVOLOG *MILD* ALGORITHM WITH MEALS BEDTIME SC Last administered on 09/26/18 17:44; Admin Dose 1 UNIT; Start 09/23/18 at 18:00 Heparin Sodium (Porcine) (Heparin (1000 Units/ml)) 4,000 unit AFTER DIALYSIS CATHETER ; Start 09/23/18 at 17:30 Albumin Human 50 ml @ 100 mls/hr WITH DIALYSIS PRN IV SBP < 90 DURING DIALYSIS; Start 09/23/18 at 17:30 Atorvastatin Calcium (Lipitor) 40 mg QHS PO Last administered on 09/29/18 20:18; Admin Dose 40 MG; Start 09/23/18 at 21:00 Linagliptin (Tradjenta) 5 mg DAILY PO Last administered on 09/28/18 08:50; Admin Dose 5 MG; Start 09/24/18 at 09:00 Fish Oil (Fish Oil) 2,000 mg BID PO Last administered on 09/30/18 08:49; Admin Dose 2,000 MG; Start 09/23/18 at 21:00 Diagnostic Test (Pha) (Accu-Chek) 1 ea AC MEALS XX Last administered on 09/29/18 17:53; Admin Dose 1 EA; Start 09/24/18 at 07:00 Diagnostic Test (Pha) (Accu-Chek) 1 ea 2 HOURS AFTER MEALS XX Last administered on 09/29/18 14:28; Admin Dose 1 EA; Start 09/23/18 at 20:00 Fluticasone Propionate (Flonase 0.05% Nasal) 1 spray BID NASAL Last administered on 09/24/18 21:18; Admin Dose 1 SPRAY; Start 09/24/18 at 01:00 Repaglinide (Prandin) 1 mg AC MEALS PO Last administered on 09/29/18at 17:53; Admin Dose 1 MG; Start 09/25/18 at 11:30 Lisinopril (Zestril) 40 mg BID PO Last administered on 09/29/18 20:19; Admin Dose 40 MG; Start 09/26/18 at 09:00 Diphenhydramine HCl (Benadryl) 25 mg Q6H PRN IV itching Last administered on 09/26/18 13:28; Admin Dose 25 MG; Start 09/26/18 at 01:00 Mupirocin (Bactroban) 1 applic BID TOP Last administered on 09/29/18 20:26; Admin Dose 1 APPLIC; Start 09/27/18 at 09:00 Sodium Hypochlorite (Dakins Diluted (1/40)) 1 applic BID TP Last administered on 09/29/18 20:26; Admin Dose 1 APPLIC; Start 09/27/18 at 09:00 Famotidine (Pepcid) 20 mg DAILY PO Last administered on 09/30/18at 08:49; Admin Dose 20 MG; Start 09/28/18 at 09:00 Insulin Glargine (Lantus) 28 units DAILY@2000 SC Last administered on 09/28/18at 21:39; Admin Dose 28 UNITS; Start 09/28/18 at 20:00 Morphine Sulfate (morphine) 2 mg Q4H PRN IV SEVERE PAIN LEVEL 7-10 Last administered on 09/29/18at 01:49; Admin Dose 2 MG; Start 09/28/18 at 19:30 Vancomycin HCl (Vanco Iv Per Pharmacy) VANCOMYCIN PER PHARMACY PER PROTOCOL XX ; Start 09/29/18 at 14:30 Calcium Carbonate (Tums) 500 mg Q6H PRN PO INDIGESTION; Start 09/29/18 at 23:00 Miscellaneous Information (*Rx Drug Level Order Reminder*) RANDOM VANCOMYCIN LEVEL 5... 0500 ONCE XX ; Start 5/24/19 at 05:00; Stop 10/01/18 at 05:01 Calcium Acetate (Phoslo) 1,334 mg WITH MEALS PO ; Start 09/30/18 at 18:00 OPAL QUINONEZ MD September 30, 2018 14:10
--- NOTE | 2018-09-30 14:44 | CONS ---
Assessment/Plan Assessment/Plan Hospital Course (Demo Recall) Patient is alert in hemodialysis feels good no fevers overnight. WBC 10.2 neutrophils 61.3. Antimicrobials: Vancomycin, status post Zosyn PHYSICAL EXAMINATION: GENERAL: This is a well-developed, well-nourished, middle-aged man who is alert, in no distress. HEENT: Head is atraumatic, normocephalic. Sclerae are anicteric. Buccal mucosa is pink. NECK: Supple. CHEST: Rise symmetrical. Breath sounds diminished to bases. HEART: S1, S2. ABDOMEN: Soft. Bowel tones are present. EXTREMITIES: Without cyanosis. Left foot with Douglas wrap and external hardware present. Assessment: 1. Systemic inflammatory response syndrome 2. Left foot charcoaled status post midfoot osteotomy and fusion 09/24/18 3. Diabetes with diabetic neuropathy 4. End-stage renal disease 5. Left upper extremity AV fistula Plan: Patient is stable, WBC normalized, continue on IV vancomycin for 7 days, pending discharge to acute rehab Consultation Date/Type/Reason Admit Date/Time September 23, 2018 at 11:58 Initial Consult Date 09/23/18 Type of Consult id Requesting Provider: JANE QUICK MD Date/Time of Note DATE: 09/30/18 TIME: 14:43 Exam/Review of Systems Exam Vitals Vital Signs Date Temp Pulse Resp B/P (MAP) Pulse Ox O2 O2 Flow FiO2 Time Delivery Rate 09/30/18 99.0 86 18 149/69 95 Room Air 14:03 (95) 09/26/18 3.0 13:37 Intake and Output 09/29/18 09/29/18 09/30/18 1515:00 23:00 07:00 IntakeIntake Total 610 ml 960 ml OutputOutput Total 1 ml BalanceBalance 610 ml 960 ml -1 ml Results Result Diagram: 09/30/18 0431 09/30/18 0431 Results 24hrs Laboratory Tests Test 09/29/18 17:52 09/29/18 20:08 09/30/18 04:31 09/30/18 07:59 Bedside Glucose 78 92 107 White Blood Count 10.2 Red Blood Count 2.99 L Hemoglobin 9.0 L Hematocrit 27.9 L Mean Corpuscular 93.3 Volume Mean Corpuscular 30.1 Hemoglobin Mean Corpuscular 32.3 Hemoglobin Concent Red Cell 14.1 Distribution Width Platelet Count 307 Mean Platelet Volume 10.2 Immature 0.700 H Granulocytes % Neutrophils % 61.3 Lymphocytes % 17.5 Monocytes % 16.7 H Eosinophils % 3.3 Basophils % 0.5 Nucleated Red Blood 0.3 H Cells % Immature 0.070 H Granulocytes # Neutrophils # 6.2 Lymphocytes # 1.8 Monocytes # 1.7 H Eosinophils # 0.3 Basophils # 0.1 Nucleated Red Blood 0.0 Cells # Sodium Level 138 Potassium Level 4.5 Chloride Level 98 Carbon Dioxide Level 24 Anion Gap 16 H Blood Urea Nitrogen 52 H Creatinine 10.66 H Glucose Level 92 Calcium Level 8.3 L Phosphorus Level 10.0 H Magnesium Level 2.1 Albumin 3.5 Test 09/30/18 12:43 Bedside Glucose 107 Medications Medication Current Medications Miscellaneous Information 1 ea NOTE XX ; Start 09/23/18 at 16:30 Glucose (Glutose) 15 gm Q15M PRN PO DECREASED GLUCOSE; Start 09/23/18 at 16:30 Glucose (Glutose) 22.5 gm Q15M PRN PO DECREASED GLUCOSE; Start 09/23/18 at 16:30 Dextrose (D50w Syringe) 25 ml Q15M PRN IV DECREASED GLUCOSE; Start 09/23/18 at 16:30 Dextrose (D50w Syringe) 50 ml Q15M PRN IV DECREASED GLUCOSE; Start 09/23/18 at 16:30 Glucagon (Glucagen) 1 mg Q15M PRN IM DECREASED GLUCOSE; Start 09/23/18 at 16:30 Glucose (Glutose) 15 gm Q15M PRN BUCCAL DECREASED GLUCOSE; Start 09/23/18 at 16:30 Calcitriol (Rocaltrol) 0.25 mcg DAILY PO Last administered on 09/30/18at 08:49; Admin Dose 0.25 MCG; Start 09/24/18 at 09:00 Carvedilol (Coreg) 25 mg BID PO Last administered on 09/29/18at 20:19; Admin Dose 25 MG; Start 09/23/18 at 21:00 IV Flush (NS 3 ml) 3 ml PER PROTOCOL IV ; Start 09/23/18 at 17:30 Ondansetron HCl (Zofran Inj) 4 mg Q6H PRN IV NAUSEA/VOMITING Last administered on 09/29/18at 20:23; Admin Dose 4 MG; Start 09/23/18 at 17:30 Acetaminophen (Tylenol Tab) 650 mg Q6H PRN PO .PAIN 1-3 OR TEMP; Start 09/23/18 at 17:30 Acetaminophen/ Hydrocodone Bitart ([place] (5/325)) 1 tab Q6H PRN PO .MOD PAIN 4- 6; Start 09/23/18 at 17:30 Acetaminophen/ Hydrocodone Bitart ([place] (5/325)) 2 tab Q6H PRN PO .SEVERE PAIN 7-10 Last administered on 09/28/18 16:15; Admin Dose 2 TAB; Start 09/23/18 at 17:30 Docusate Sodium (Colace) 100 mg Q12H PRN PO .CONSTIPATION Last administered on 09/27/18 06:48; Admin Dose 100 MG; Start 09/23/18 at 17:30 Magnesium Hydroxide (Milk Of Mag) 30 ml DAILY PRN PO .CONSTIPATION; Start 09/23/18 at 17:30 Insulin Aspart (Novolog Insulin Pen) NOVOLOG *MILD* ALGORITHM WITH MEALS BEDTIME SC Last administered on 09/26/18 17:44; Admin Dose 1 UNIT; Start at 18:00 Heparin Sodium (Porcine) (Heparin (1000 Units/ml)) 4,000 unit AFTER DIALYSIS CATHETER ; Start 09/23/18 at 17:30 Albumin Human 50 ml @ 100 mls/hr WITH DIALYSIS PRN IV SBP < 90 DURING DIALYSIS; Start 09/23/18 at 17:30 Atorvastatin Calcium (Lipitor) 40 mg QHS PO Last administered on 09/29/18 20:18; Admin Dose 40 MG; Start 09/23/18 at 21:00 Linagliptin (Tradjenta) 5 mg DAILY PO Last administered on 09/28/18 08:50; Admin Dose 5 MG; Start 09/24/18 at 09:00 Fish Oil (Fish Oil) 2,000 mg BID PO Last administered on 09/30/18 08:49; Admin Dose 2,000 MG; Start 09/23/18 at 21:00 Diagnostic Test (Pha) (Accu-Chek) 1 ea AC MEALS XX Last administered on 09/29/18 17:53; Admin Dose 1 EA; Start 09/24/18 at 07:00 Diagnostic Test (Pha) (Accu-Chek) 1 ea 2 HOURS AFTER MEALS XX Last a dministered on 09/29/18 14:28; Admin Dose 1 EA; Start 09/23/18 at 20:00 Fluticasone Propionate (Flonase 0.05% Nasal) 1 spray BID NASAL Last administered on 09/24/18 21:18; Admin Dose 1 SPRAY; Start 09/24/18 at 01:00 Repaglinide (Prandin) 1 mg AC MEALS PO Last administered on 09/29/18 17:53; Admin Dose 1 MG; Start 09/25/18 at 11:30 Lisinopril (Zestril) 40 mg BID PO Last administered on 09/29/18 20:19; Admin Dose 40 MG; Start 09/26/18 at 09:00 Diphenhydramine HCl (Benadryl) 25 mg Q6H PRN IV itching Last administered on 09/26/18 13:28; Admin Dose 25 MG; Start 09/26/18 at 01:00 Mupirocin (Bactroban) 1 applic BID TOP Last administered on 09/29/18 20:26; Admin Dose 1 APPLIC; Start 09/27/18 at 09:00 Sodium Hypochlorite (Dakins Diluted (40)) 1 applic BID TP Last administered on 09/29/18 20:26; Admin Dose 1 APPLIC; Start 09/27/18 at 09:00 Famotidine (Pepcid) 20 mg DAILY PO Last administered on 09/30/18 08:49; Admin Dose 20 MG; Start 09/28/18 at 09:00 Insulin Glargine (Lantus) 28 units DAILY@2000 SC Last administered on 09/28/18 21:39; Admin Dose 28 UNITS; Start 09/28/18 at 20:00 Morphine Sulfate (morphine) 2 mg Q4H PRN IV SEVERE PAIN LEVEL 7-10 Last administered on 09/29/18 01:49; Admin Dose 2 MG; Start 09/28/18 at 19:30 Vancomycin HCl (Vanco Iv Per Pharmacy) VANCOMYCIN PER PHARMACY PER PROTOCOL XX ; Start 09/29/18 at 14:30 Calcium Carbonate (Tums) 500 mg Q6H PRN PO INDIGESTION; Start 09/29/18 at 23:00 Miscellaneous Information (*Rx Drug Level Order Reminder*) RANDOM VANCOMYCIN LEVEL 5... 0500 ONCE XX ; Start 10/01/18 at 05:00; Stop 10/01/18 at 05:01 Calcium Acetate (Phoslo) 1,334 mg WITH MEALS PO ; Start 09/30/18 at 18:00 JAZMYNE BANG NP September 30, 2018 14:44
[2018-09-30] MEDS: INSULIN GLARGINE [LANTus] (100 UNITS/ML) SYG SC SCH (20:00)
[2018-09-30] MEDS: ATORVASTATIN 40 MG TAB PO SCH (21:32)
[2018-10-01 02:09] VITALS: BP 132/63; PULSE 80; RESP 19
[2018-10-01] MEDS: ACCU-CHEK XX SCH ×6 (07:00→20:00)
[2018-10-01] MEDS: INSULIN ASPART [NOVOLOG] 3 ML PEN SC SCH ×4 (08:00→21:38)
[2018-10-01] MEDS: LINAGLIPTIN 5 MG TABLET PO SCH (08:07)
[2018-10-01] MEDS: DAKINS 0.0125%(1/40) 473 ML SOLUTION TP SCH ×2 (08:07→21:00)
[2018-10-01] MEDS: MUPIROCIN 2% 22 GM OINT TOP SCH ×2 (08:07→21:00)
[2018-10-01] MEDS: CALCITRIOL 0.25 MCG CAP PO SCH (08:08)
[2018-10-01] MEDS: REPAGLINIDE 2 MG TAB PO SCH ×3 (08:08→17:30)
[2018-10-01] MEDS: FLUTICASONE 0.05% 16 GM NAS SPRAY NASAL SCH ×2 (08:09→21:00)
[2018-10-01] MEDS: CALCIUM ACETATE 667 MG CAP PO SCH ×3 (08:10→17:34)
[2018-10-01] MEDS: FISH OIL 1,000 MG CAP PO SCH ×2 (08:13→21:00)
[2018-10-01] MEDS: FAMOTIDINE 20 MG TAB PO SCH (08:13)
[2018-10-01 08:14] VITALS: BP 159/74; PULSE 86; RESP 17
[2018-10-01] MEDS: LISINOPRIL 20 MG TAB PO SCH ×2 (08:14→21:00)
--- NOTE | 2018-10-01 08:29 | CONS ---
Assessment/Plan Assessment/Plan Assessment/Plan (Daily) 1. Acute Hyperglycemia- imporving BS control, Endocrine following 2. ESRD on HD TTS schedule 3. H/O DM II 4. H/o HL 5. H/O HTN Plan: s/p HD yesterday 3 L removed, pt regular schedule for HD is TTS , HD ordered for thursday s/p Surgery for left foot charcoat foot continue on IV vancomycin for 7 days, pending discharge to acute rehab will follow up Consultation Date/Type/Reason Admit Date/Time September 23, 2018 at 11:58 Initial Consult Date 09/23/18 Type of Consult NEPHROLOGY Requesting Provider: JANE QUICK MD Date/Time of Note DATE: 10/01/18 TIME: 08:29 24 HR Interval Summary Free Text/Dictation pt doing well, plan for possible transfer to Acute rehab unit, Plan for HD tomorrow Exam/Review of Systems Exam Vitals Vital Signs Date Temp Pulse Resp B/P (MAP) Pulse Ox O2 O2 Flow FiO2 Time Delivery Rate 10/01/18 99.4 86 17 159/74 94 Room Air 08:14 (102) Intake and Output 09/30/18 09/30/18 10/01/18 1515:00 23:00 07:00 IntakeIntake Total 720 ml 240 ml OutputOutput Total 3400 ml BalanceBalance -2680 ml 240 ml Exam Constitutional: alert Respiratory: clear to auscultation, diminished breath sounds Cardiovascular: regular rate and rhythm, nl pulses Gastrointestinal: soft, non-tender Musculoskeletal: muscle weakness, swelling, other (R arm AVG) Neurological: [employer]ITIONAL [employer] HER[employer] II-XII intact, nl mental status, nl speech, nl strength Results Result Diagram: 10/01/18 0439 10/01/18 0439 Results 24hrs Laboratory Tests Test 09/30/18 12:43 09/30/18 17:21 09/30/18 20:08 09/30/18 21:30 Bedside Glucose 107 158 149 134 Test 10/01/18 04:39 White Blood Count 9.9 Red Blood Count 2.92 L Hemoglobin 8.8 L Hematocrit 27.2 L Mean Corpuscular 93.2 Volume Mean Corpuscular 30.1 Hemoglobin Mean Corpuscular 32.4 Hemoglobin Concent Red Cell 14.2 Distribution Width Platelet Count 305 Mean Platelet Volume 10.1 Immature 0.600 H Granulocytes % Neutrophils % 52.3 Lymphocytes % 27.3 Monocytes % 16.6 H Eosinophils % 2.7 Basophils % 0.5 Nucleated Red Blood 0.0 Cells % Immature 0.060 H Granulocytes # Neutrophils # 5.2 Lymphocytes # 2.7 Monocytes # 1.6 H Eosinophils # 0.3 Basophils # 0.1 Nucleated Red Blood 0.0 Cells # Sodium Level 136 Potassium Level 4.4 Chloride Level 96 L Carbon Dioxide Level 27 Anion Gap 13 Blood Urea Nitrogen 38 #H Creatinine 9.25 H Est Glomerular 6 L Filtrat Rate mL/min Glucose Level 135 # Calcium Level 8.3 L Phosphorus Level 7.1 #H Magnesium Level 2.2 Total Bilirubin 0.4 Direct Bilirubin 0.00 Indirect Bilirubin 0.4 Aspartate Amino 39 Transf (AST/SGOT) Alanine 17 Aminotransferase (AL T/SGPT) Alkaline Phosphatase 63 Total Protein 7.5 Albumin 3.8 Globulin 3.70 H Albumin/Globulin 1.02 Ratio Amylase Level 65 Lipase 53 Random Vancomycin 17.1 Level Medications Medication Current Medications Miscellaneous Information 1 ea NOTE XX ; Start 09/23/18 at 16:30 Glucose (Glutose) 15 gm Q15M PRN PO DECREASED GLUCOSE; Start 09/23/18 at 16:30 Glucose (Glutose) 22.5 gm Q15M PRN PO DECREASED GLUCOSE; Start 09/23/18 at 16:30 Dextrose (D50w Syringe) 25 ml Q15M PRN IV DECREASED GLUCOSE; Start 09/23/18 at 16:30 Dextrose (D50w Syringe) 50 ml Q15M PRN IV DECREASED GLUCOSE; Start 09/23/18 at 16:30 Glucagon (Glucagen) 1 mg Q15M PRN IM DECREASED GLUCOSE; Start 09/23/18 at 16:30 Glucose (Glutose) 15 gm Q15M PRN BUCCAL DECREASED GLUCOSE; Start 09/23/18 at 16:30 Calcitriol (Rocaltrol) 0.25 mcg DAILY PO Last administered on 10/01/18at 08:08; Admin Dose 0.25 MCG; Start 09/24/18 at 09:00 Carvedilol (Coreg) 25 mg BID PO Last administered on 10/01/18at 08:14; Admin Dose 25 MG; Start 09/23/18 at 21:00 IV Flush (NS 3 ml) 3 ml PER PROTOCOL IV ; Start 09/23/18 at 17:30 Ondansetron HCl (Zofran Inj) 4 mg Q6H PRN IV NAUSEA/VOMITING Last administered on 09/29/18 20:23; Admin Dose 4 MG; Start 09/23/18 at 17:30 Acetaminophen (Tylenol Tab) 650 mg Q6H PRN PO .PAIN 1-3 OR TEMP Last administered on 09/30/18 21:33; Admin Dose 650 MG; Start 09/23/18 at 17:30 Acetaminophen/ Hydrocodone Bitart ([place] (5/325)) 1 tab Q6H PRN PO .MOD PAIN 4- 6; Start 09/23/18 at 17:30 Acetaminophen/ Hydrocodone Bitart ([place] (5/325)) 2 tab Q6H PRN PO .SEVERE PAIN 7-10 Last administered on 09/28/18 16:15; Admin Dose 2 TAB; Start 09/23/18 at 17:30 Docusate Sodium (Colace) 100 mg Q12H PRN PO .CONSTIPATION Last administered on 09/27/18 06:48; Admin Dose 100 MG; Start 09/23/18 at 17:30 Magnesium Hydroxide (Milk Of Mag) 30 ml DAILY PRN PO .CONSTIPATION; Start 09/23/18 at 17:30 Insulin Aspart (Novolog Insulin Pen) NOVOLOG *MILD* ALGORITHM WITH MEALS BEDTIME SC Last administered on 09/26/18 17:44; Admin Dose 1 UNIT; Start 09/23/18 at 18:00 Heparin Sodium (Porcine) (Heparin (1000 Units/ml)) 4,000 unit AFTER DIALYSIS CATHETER ; Start 09/23/18 at 17:30 Albumin Human 50 ml @ 100 mls/hr WITH DIALYSIS PRN IV SBP < 90 DURING DIAL YSIS; Start 09/23/18 at 17:30 Atorvastatin Calcium (Lipitor) 40 mg QHS PO Last administered on 09/30/18 21:32; Admin Dose 40 MG; Start 09/23/18 at 21:00 Linagliptin (Tradjenta) 5 mg DAILY PO Last administered on 10/01/18 08:07; Admin Dose 5 MG; Start 09/24/18 at 09:00 Fish Oil (Fish Oil) 2,000 mg BID PO Last administered on 09/30/18 21:32; Admin Dose 2,000 MG; Start 09/23/18 at 21:00 Diagnostic Test (Pha) (Accu-Chek) 1 ea AC MEALS XX Last administered on 09/29/18 17:53; Admin Dose 1 EA; Start 09/24/18 at 07:00 Diagnostic Test (Pha) (Accu-Chek) 1 ea 2 HOURS AFTER MEALS XX Last admini stered on 09/29/18 14:28; Admin Dose 1 EA; Start 09/23/18 at 20:00 Fluticasone Propionate (Flonase 0.05% Nasal) 1 spray BID NASAL Last administered on 10/01/18 08:09; Admin Dose 1 SPRAY; Start 09/24/18 at 01:00 Repaglinide (Prandin) 1 mg AC MEALS PO Last administered on 10/01/18 08:08; Admin Dose 1 MG; Start 09/25/18 at 11:30 Lisinopril (Zestril) 40 mg BID PO Last administered on 10/01/18 08:14; Admin Dose 40 MG; Start 09/26/18 at 09:00 Diphenhydramine HCl (Benadryl) 25 mg Q6H PRN IV itching Last administered on 09/26/18 13:28; Admin Dose 25 MG; Start 09/26/18 at 01:00 Mupirocin (Bactroban) 1 applic BID TOP Last administered on 10/01/18 08:07; Admin Dose 1 APPLIC; Start 09/27/18 at 09:00 Sodium Hypochlorite (Dakins Diluted (1/40)) 1 applic BID TP Last administered on 10/01/18 08:07; Admin Dose 1 APPLIC; Start 09/27/18 at 09:00 Famotidine (Pepcid) 20 mg DAILY PO Last administered on 09/30/18 08:49; Admin Dose 20 MG; Start 09/28/18 at 09:00 Insulin Glargine (Lantus) 28 units DAILY@2000 SC Last administered on 09/28/18 21:39; Admin Dose 28 UNITS; Start 09/28/18 at 20:00 Morphine Sulfate (morphine) 2 mg Q4H PRN IV SEVERE PAIN LEVEL 7-10 Last administered on 09/29/18 01:49; Admin Dose 2 MG; Start 5/21/19 at 19:30 Vancomycin HCl (Vanco Iv Per Pharmacy) VANCOMYCIN PER PHARMACY PER PROTOCOL XX ; Start 09/29/18 at 14:30 Calcium Carbonate (Tums) 500 mg Q6H PRN PO INDIGESTION; Start 09/29/18 at 23:00 Calcium Acetate (Phoslo) 1,334 mg WITH MEALS PO Last administered on 10/01/18at 08:10; Admin Dose 1,334 MG; Start 09/30/18 at 18:00 OAPL QUINONEZ MD October 01, 2018 08:29
[2018-10-01] MEDS ORDERED: FAMO20TA18 PO (11:34)
[2018-10-01] MEDS ORDERED: Insulin Glargine SC (11:34)
[2018-10-01] MEDS ORDERED: ATOR40TA68 PO (11:34)
[2018-10-01] MEDS ORDERED: LISI-471 PO (11:34)
[2018-10-01] MEDS ORDERED: LINA5TAB PO (11:34)
[2018-10-01] MEDS ORDERED: OMEG100024 PO (11:34)
[2018-10-01] MEDS ORDERED: CALC200T26 PO (11:34)
[2018-10-01] MEDS ORDERED: MUPI22OI2 TOP (11:34)
[2018-10-01] MEDS ORDERED: CALC667C PO (11:34)
[2018-10-01] MEDS ORDERED: REPA2TAB23 PO (11:34)
--- NOTE | 2018-10-01 11:37 | DS ---
Date/Time of Note Date/Time of Note DATE: 10/01/18 TIME: 11:37 Discharge Summary Admission/Discharge Info Admit Date/Time September 23, 2018 at 11:58 Discharge Date/Time Patient Condition: Stable Hospital Course Patient is a male with a past medical history significant for Charcot foot of the left foot, diabetes mellitus, end-stage renal disease on hemodialysis, hypertension who presents to [facility] for elective fixation of his Charcot foot. Patient is doing well, status post surgery from podiatry however will need continued rehab and is currently nonweightbearing on his left foot. Patient did have some issues with his diabetes mellitus and endocrine was consulted and had been adjusting his diabetic regimen as indicated. Of note patient did have a episode of diarrhea while on antibiotics so Zosyn was stopped and antibiotics was changed per i nfectious disease. Patient's diarrhea subsided within 1 day and there is less concern for issues like Clostridium difficile. Patient will continue his dialysis, diabetes management, podiatry management and rehab. Discharge diagnoses Charcot neuroarthropathy of left foot, status post surgical correction Diarrhea, resolved Diabetes mellitus, chronic End-stage renal disease on hemodialysis, chronic Hypertension Obstructive sleep apnea, refusing facemask Home Meds Active Scripts Mupirocin* (Bactroban*) 2% -22 Gram Oint...g., 1 APPLIC TOP BID for 10 Days Prov:FÁTIMA SLAUGHTER 10/01/18 Repaglinide* (Prandin*) 2 Mg Tablet, 1 MG PO AC MEALS for 30 Days, TAB Prov:FÁTIMA SLAUGHTER 10/01/18 Linagliptin (TRADJENTA) 5 Mg Tablet, 5 MG PO DAILY for 30 Days, TAB Prov:FÁTIMA SLAUGHTER 10/01/18 [Insulin Glargine] 100 UNITS/ML SOLN No Conflict Check, 28 UNITS SC DAILY@1999 for 30 Days Prov:FÁTIMA SLAUGHTER 10/01/18 Famotidine* (Famotidine*) 20 Mg Tablet, 20 MG PO DAILY for 30 Days, TAB Prov:FÁTIMA SLAUGHTER 10/01/18 Calcium Carbonate (CALCIUM CARBONATE) 200 Mg Tab.chew, 500 MG PO Q6H PRN for INDIGESTION for 30 Days, TAB.CHEW Prov:FÁTIMA SLAUGHTER 10/01/18 Calcium Acetate* (Calcium Acetate*) 667 Mg Capsule, 1334 MG PO WITH MEALS for 30 Days, CAP Prov:FÁTIMA SLAUGHTER 10/01/18 [place]-3/Dha/Epa/Fish Oil (Fish Oil 1,000 mg Softgel) 1,000 Mg Capsule, 2000 MG PO BID for 30 Days, CAP Prov:FÁTIMA SLAUGHTER 10/01/18 Lisinopril* (Lisinopril*) 20 Mg Tablet, 40 MG PO BID for 30 Days, TAB Prov:FÁTIMA SLAUGHTER 10/01/18 Atorvastatin* (Atorvastatin*) 40 Mg Tablet, 40 MG PO QHS for 30 Days, TAB Prov:FÁTIMA SLAUGHTER 10/01/18 Reported Medications Calcitriol* (Rocaltrol*) 0.25 Mcg Capsule, 0.25 MCG PO DAILY, CAP 09/02/18 Ergocalciferol (Vitamin D2) (VITAMIN D2) 50,000 Unit Capsule, 52700 UNIT PO Q SUN, CAP 09/02/18 Carvedilol* (Carvedilol*) 25 Mg Tablet, 25 MG PO BID, #60 TAB 09/02/18 Discontinued Reported Medications Insulin Glargine,Hum.rec.anlog (Marshalugema Solostar) 300 Unit/1 Ml Insuln.pen, 30 UNIT SQ QHS, EA 09/23/18 Sodium Bicarbonate* (Sodium Bicarbonate*) Unknown Strength Tablet, 1 TAB PO BID, TAB 09/02/18 Insulin Lispro (Humalog Kwikpen U-100) 100 Unit/1 Ml Insuln.pen, 10 UNIT SQ WITH MEALS, EA 09/02/18 Ferric Citrate (Auryxia) 210 Mg Tablet, 420 MG PO TID, TAB 09/02/18 Atorvastatin Calcium* (Atorvastatin Calcium*) 20 Mg Tablet, 20 MG PO QHS, #30 TAB 09/02/18 Amlodipine Besylate* (Amlodipine Besylate*) 10 Mg Tablet, 10 MG PO DAILY, #30 TAB 09/02/18 Primary Care Provider Not On Staff Doctor Time spent on discharge: > 30 minutes Pending Labs Laboratory Tests Test 09/30/18 12:43 09/30/18 17:21 09/30/18 20:08 09/30/18 21:30 Bedside 107 158 149 134 Glucose mg/dL (70-220) mg/dL (70-220) mg/dL (70-220) mg/dL (70-220) Test 10/01/18 04:39 10/01/18 08:06 10/01/18 10:29 White Blood 9.9 Count 10^3/ul (4.8-10 .8) Red Blood 2.92 Count 10^6/ul (4.70-6 .10) Hemoglobin 8.8 g/dl (14.0-18.0 ) Hematocrit 27.2 % (42.0-52.0) Mean 93.2 Corpuscular fl (82.0-101.0) Volume Mean 30.1 Corpuscular pg (29.0-33.0) Hemoglobin Mean 32.4 Corpuscular g/dl (32.0-37.0 Hemoglobin Conc ) ent Red Cell 14.2 Distribution % (11.5-14.5) Width Platelet Count 305 10^3/UL (140-41 5) Mean Platelet 10.1 Volume fl (7.4-10.4) Immature 0.600 Granulocytes % % (0.001-0.429) Neutrophils % 52.3 % (39.0-77.0) Lymphocytes % 27.3 % (15.0-51.0) Monocytes % 16.6 % (0.0-11.0) Eosinophils % 2.7 % (0.0-7.0) Basophils % 0.5 % (0.0-2.0) Nucleated Red 0.0 Blood Cells % /100WBC (0.0-0. 0) Immature 0.060 Granulocytes # 10^3/ul (0.0-0. 031) Neutrophils # 5.2 10^3/ul (1.6-7. 5) Lymphocytes # 2.7 10^3/ul (0.8-2. 9) Monocytes # 1.6 10^3/ul (0.3-0. 9) Eosinophils # 0.3 10^3/ul (0.0-0. 5) Basophils # 0.1 10^3/ul (0.0-0. 1) Nucleated Red 0.0 Blood Cells # 10^3/ul (0.0-0. 0) Sodium Level 136 mmol/L (135-144 ) Potassium 4.4 Level mmol/L (3.5-5.1 ) Chloride Level 96 mmol/L (97-110) Carbon Dioxide 27 Level mmol/L (21-31) Anion Gap 13 (5-13) Blood Urea 38 mg/dl (7-20) Nitrogen Creatinine 9.25 mg/dl (0.61-1.2 4) Est Glomerular 6 mL/min (>60) Filtrat Rate mL/min Glucose Level 135 mg/dl (70-220) Calcium Level 8.3 mg/dl (8.4-10.2 ) Phosphorus 7.1 Level mg/dl (2.5-4.9) Magnesium 2.2 Level mg/dl (1.7-2.5) Total 0.4 Bilirubin mg/dl (0.2-1.3) Direct 0.00 Bilirubin mg/dl (0.00-0.2 0) Indirect 0.4 Bilirubin mg/dl (0-1.1) Aspartate Amino 39 IU/L (15-46) Transf (AST/SGO T) Alanine 17 IU/L (13-69) Aminotransferas e (ALT/SGPT) Alkaline 63 Phosphatase IU/L (42-121) Total Protein 7.5 g/dl (6.1-8.1) Albumin 3.8 g/dl (3.3-4.9) Globulin 3.70 g/dl (1.3-3.2) Albumin/Globuli 1.02 n Ratio Amylase Level 65 U/L (11-123) Lipase 53 U/L (23-300) Random 17.1 ug/ml Vancomycin Level Bedside 130 202 Glucose mg/dL (70-220) mg/dL (70-220) FÁTIMA SLAUGHTER October 01, 2018 11:37
--- NOTE | 2018-10-01 11:42 | CONS ---
Assessment/Plan Assessment/Plan Hospital Course (Demo Recall) S/p fevers 101 yesterday, wbc trending down, nad. Antimicrobials: Vancomycin, status post Zosyn PHYSICAL EXAMINATION: GENERAL: This is a well-developed, well-nourished, middle-aged man who is alert, in no distress. HEENT: Head is atraumatic, normocephalic. Sclerae are anicteric. Buccal m ucosa is pink. NECK: Supple. CHEST: Rise symmetrical. Breath sounds diminished to bases. HEART: S1, S2. ABDOMEN: Soft. Bowel tones are present. EXTREMITIES: Without cyanosis. Left foot with Douglas wrap and external hardware present. Assessment: 1. Systemic inflammatory response syndrome 2. Left foot charcoaled status post midfoot osteotomy and fusion 09/24/18 3. Diabetes with diabetic neuropathy 4. End-stage renal disease 5. Left upper extremity AV fistula Plan: Stable, check cxr, add empiric Flagyl, stool for C dif, repeat cx's prn Consultation Date/Type/Reason Admit Date/Time September 23, 2018 at 11:58 Initial Consult Date 09/23/18 Type of Consult id Requesting Provider: JANE QUICK MD Date/Time of Note DATE: 10/01/18 TIME: 11:41 Exam/Review of Systems Exam Vitals Vital Signs Date Temp Pulse Resp B/P (MAP) Pulse Ox O2 O2 Flow FiO2 Time Delivery Rate 10/01/18 99.4 86 17 159/74 94 Room Air 08:14 (102) Intake and Output 09/30/18 09/30/18 10/01/18 1515:00 23:00 07:00 IntakeIntake Total 720 ml 240 ml OutputOutput Total 3400 ml BalanceBalance -2680 ml 240 ml Results Result Diagram: 10/01/18 0439 10/01/18 0439 Results 24hrs Laboratory Tests Test 09/30/18 12:43 09/30/18 17:21 09/30/18 20:08 09/30/18 21:30 Bedside Glucose 107 158 149 134 Test 10/01/18 04:39 10/01/18 08:06 10/01/18 10:29 White Blood Count 9.9 Red Blood Count 2.92 L Hemoglobin 8.8 L Hematocrit 27.2 L Mean Corpuscular 93.2 Volume Mean Corpuscular 30.1 Hemoglobin Mean Corpuscular 32.4 Hemoglobin Concent Red Cell 14.2 Distribution Width Platelet Count 305 Mean Platelet Volume 10.1 Immature 0.600 H Granulocytes % Neutrophils % 52.3 Lymphocytes % 27.3 Monocytes % 16.6 H Eosinophils % 2.7 Basophils % 0.5 Nucleated Red Blood 0.0 Cells % Immature 0.060 H Granulocytes # Neutrophils # 5.2 Lymphocytes # 2.7 Monocytes # 1.6 H Eosinophils # 0.3 Basophils # 0.1 Nucleated Red Blood 0.0 Cells # Sodium Level 136 Potassium Level 4.4 Chloride Level 96 L Carbon Dioxide Level 27 Anion Gap 13 Blood Urea Nitrogen 38 #H Creatinine 9.25 H Est Glomerular 6 L Filtrat Rate mL/min Glucose Level 135 # Calcium Level 8.3 L Phosphorus Level 7.1 #H Magnesium Level 2.2 Total Bilirubin 0.4 Direct Bilirubin 0.00 Indirect Bilirubin 0.4 Aspartate Amino 39 Transf (AST/SGOT) Alanine 17 Aminotransferase (AL T/SGPT) Alkaline Phosphatase 63 Total Protein 7.5 Albumin 3.8 Globulin 3.70 H Albumin/Globulin 1.02 Ratio Amylase Level 65 Lipase 53 Random Vancomycin 17.1 Level Bedside Glucose 130 202 Medications Medication Current Medications Miscellaneous Information 1 ea NOTE XX ; Start 09/23/18 at 16:30 Glucose (Glutose) 15 gm Q15M PRN PO DECREASED GLUCOSE; Start 09/23/18 at 16:30 Glucose (Glutose) 22.5 gm Q15M PRN PO DECREASED GLUCOSE; Start 09/23/18 at 16:30 Dextrose (D50w Syringe) 25 ml Q15M PRN IV DECREASED GLUCOSE; Start 09/23/18 at 16:30 Dextrose (D50w Syringe) 50 ml Q15M PRN IV DECREASED GLUCOSE; Start 09/23/18 at 16:30 Glucagon (Glucagen) 1 mg Q15M PRN IM DECREASED GLUCOSE; Start 09/23/18 at 16:30 Glucose (Glutose) 15 gm Q15M PRN BUCCAL DECREASED GLUCOSE; Start 09/23/18 at 16:30 Calcitriol (Rocaltrol) 0.25 mcg DAILY PO Last administered on 10/01/18at 08:08; Admin Dose 0.25 MCG; Start 09/24/18 at 09:00 Carvedilol (Coreg) 25 mg BID PO Last administered on 10/01/18at 08:14; Admin Dose 25 MG; Start 09/23/18 at 21:00 IV Flush (NS 3 ml) 3 ml PER PROTOCOL IV ; Start 09/23/18 at 17:30 Ondansetron HCl (Zofran Inj) 4 mg Q6H PRN IV NAUSEA/VOMITING Last administered on 09/29/18 20:23; Admin Dose 4 MG; Start 09/23/18 at 17:30 Acetaminophen (Tylenol Tab) 650 mg Q6H PRN PO .PAIN 1-3 OR TEMP Last administered on 09/30/18 21:33; Admin Dose 650 MG; Start 09/23/18 at 17:30 Acetaminophen/ Hydrocodone Bitart ([place] (5/325)) 1 tab Q6H PRN PO .MOD PAIN 4- 6; Start 09/23/18 at 17:30 Acetaminophen/ Hydrocodone Bitart ([place] (5/325)) 2 tab Q6H PRN PO .SEVERE PAIN 7-10 Last administered on 09/28/18 16:15; Admin Dose 2 TAB; Start 09/23/18 at 17:30 Docusate Sodium (Colace) 100 mg Q12H PRN PO .CONSTIPATION Last administered on 09/27/18 06:48; Admin Dose 100 MG; Start 09/23/18 at 17:30 Magnesium Hydroxide (Milk Of Mag) 30 ml DAILY PRN PO .CONSTIPATION; Start 09/23/18 at 17:30 Insulin Aspart (Novolog Insulin Pen) NOVOLOG *MILD* ALGORITHM WITH MEALS BEDTIME SC Last administered on 09/26/18 17:44; Admin Dose 1 UNIT; Start 09/23/18 at 18:00 Heparin Sodium (Porcine) (Heparin (1000 Units/ml)) 4,000 unit AFTER DIALYSIS CATHETER ; Start 09/23/18 at 17:30 Albumin Human 50 ml @ 100 mls/hr WITH DIALYSIS PRN IV SBP < 90 DURING DIALYSIS; Start 09/23/18 at 17:30 Atorvastatin Calcium (Lipitor) 40 mg QHS PO Last administered on 09/30/18 21:32; Admin Dose 40 MG; Start 09/23/18 at 21:00 Linagliptin (Tradjenta) 5 mg DAILY PO Last administered on 10/01/18 08:07; Admin Dose 5 MG; Start 09/24/18 at 09:00 Fish Oil (Fish Oil) 2,000 mg BID PO Last administered on 09/30/18 21:32; Admin Dose 2,000 MG; Start 09/23/18 at 21:00 Diagnostic Test (Pha) (Accu-Chek) 1 ea AC MEALS XX Last administered on 09/29/18 17:53; Admin Dose 1 EA; Start 09/24/18 at 07:00 Diagnostic Test (Pha) (Accu-Chek) 1 ea 2 HOURS AFTER MEALS XX Last administered on 09/29/18 14:28; Admin Dose 1 EA; Start 09/23/18 at 20:00 Fluticasone Propionate (Flonase 0.05% Nasal) 1 spray BID NASAL Last administered on 10/01/18 08:09; Admin Dose 1 SPRAY; Start 09/24/18 at 01:00 Repaglinide (Prandin) 1 mg AC MEALS PO Last administered on 10/01/18 08:08; Admin Dose 1 MG; Start 09/25/18 at 11:30 Lisinopril (Zestril) 40 mg BID PO Last administered on 10/01/18 08:14; Admin Dose 40 MG; Start 09/26/18 at 09:00 Diphenhydramine HCl (Benadryl) 25 mg Q6H PRN IV itching Last administered on 09/26/18 13:28; Admin Dose 25 MG; Start 09/26/18 at 01:00 Mupirocin (Bactroban) 1 applic BID TOP Last administered on 10/01/18 08:07; Admin Dose 1 APPLIC; Start 09/27/18 at 09:00 Sodium Hypochlorite (Dakins Diluted (1/40)) 1 applic BID TP Last administered on 10/01/18 08:07; Admin Dose 1 APPLIC; Start 09/27/18 at 09:00 Famotidine (Pepcid) 20 mg DAILY PO Last administered on 09/30/18 08:49; Admin Dose 20 MG; Start 09/28/18 at 09:00 Insulin Glargine (Lantus) 28 units DAILY@2000 SC Last administered on 09/28/18 21:39; Admin Dose 28 UNITS; Start 09/28/18 at 20:00 Morphine Sulfate (morphine) 2 mg Q4H PRN IV SEVERE PAIN LEVEL 7-10 Last adminis tered on 09/29/18at 01:49; Admin Dose 2 MG; Start 09/28/18 at 19:30 Vancomycin HCl (Vanco Iv Per Pharmacy) VANCOMYCIN PER PHARMACY PER PROTOCOL XX ; Start 09/29/18 at 14:30 Calcium Carbonate (Tums) 500 mg Q6H PRN PO INDIGESTION; Start 09/29/18 at 23:00 Calcium Acetate (Phoslo) 1,334 mg WITH MEALS PO Last administered on 10/01/18at 08:10; Admin Dose 1,334 MG; Start 09/30/18 at 18:00 Vancomycin HCl 250 ml @ 125 mls/hr 1600 IVPB ; Start 10/01/18 at 16:00; Stop 10/01/18 at 23:00 JAZMYNE BANG NP October 01, 2018 11:42
[2018-10-01 14:01] VITALS: BP 155/70; PULSE 87; RESP 18
[2018-10-01] MEDS: metroNIDAZOLE 500 MG TAB PO SCH ×2 (14:20→21:44)
[2018-10-01] MEDS ORDERED: VANCOMYCIN 1 GM 250 ML IVPB SCH (16:00)
--- NOTE | 2018-10-01 16:12 | CONS ---
Assessment/Plan Assessment/Plan Problems: (1) Diabetes mellitus type 2 in obese Onset Date: ~ 09/1995 Status: Chronic Comment: 10 use with good glycemic control in a controlled environment with controlled administration medications and controlled diet. At this time would advocate to continue current therapeutics. (2) Essential hypertension Status: Chronic Comment: Good blood pressure control with a simplified medication regimen. Please note less medication side effects (3) End-stage renal disease on hemodialysis Status: Chronic Comment: As per nephrology. (4) Obstructive sleep apnea Status: Chronic Comment: Noted. (5) Hyperlipidemia associated with type 2 diabetes mellitus Status: Chronic Comment: Stable on treatment. Consultation Date/Type/Reason Admit Date/Time September 23, 2018 at 11:58 Initial Consult Date 09/23/18 Type of Consult Endocrinology Reason for Consultation Diabetes mellitus type 2 with elevated sugars as an outpatient; hypertension; bilateral Charcot joints Requesting Provider: JANE QUICK MD Date/Time of Note DATE: 10/01/18 TIME: 16:10 24 HR Interval Summary Free Text/Dictation Patient reports no new complaints and reports that in general he is doing well and is anxiously looking forward to going to the acute rehabilitation unit when approved Constitutional: no complaints Detailed Summary Endocrine: no complaints Exam/Review of Systems Exam Vitals Vital Signs Date Temp Pulse Resp B/P (MAP) Pulse Ox O2 O2 Flow FiO2 Time Delivery Rate 10/01/18 98.9 87 18 155/70 92 Room Air 14:01 (98) Intake and Output 09/30/18 09/30/18 10/01/18 1515:00 23:00 07:00 IntakeIntake Total 720 ml 240 ml OutputOutput Total 3400 ml BalanceBalance -2680 ml 240 ml Exam No change in examination Results Result Diagram: 10/01/18 0439 10/01/18 0439 Results 24hrs Laboratory Tests Test 09/30/18 17:21 09/30/18 20:08 09/30/18 21:30 10/01/18 04:39 Bedside Glucose 158 149 134 White Blood Count 9.9 Red Blood Count 2.92 L Hemoglobin 8.8 L Hematocrit 27.2 L Mean Corpuscular 93.2 Volume Mean Corpuscular 30.1 Hemoglobin Mean Corpuscular 32.4 Hemoglobin Concent Red Cell 14.2 Distribution Width Platelet Count 305 Mean Platelet Volume 10.1 Immature 0.600 H Granulocytes % Neutrophils % 52.3 Lymphocytes % 27.3 Monocytes % 16.6 H Eosinophils % 2.7 Basophils % 0.5 Nucleated Red Blood 0.0 Cells % Immature 0.060 H Granulocytes # Neutrophils # 5.2 Lymphocytes # 2.7 Monocytes # 1.6 H Eosinophils # 0.3 Basophils # 0.1 Nucleated Red Blood 0.0 Cells # Sodium Level 136 Potassium Level 4.4 Chloride Level 96 L Carbon Dioxide Level 27 Anion Gap 13 Blood Urea Nitrogen 38 #H Creatinine 9.25 H Est Glomerular 6 L Filtrat Rate mL/min Glucose Level 135 # Calcium Level 8.3 L Phosphorus Level 7.1 #H Magnesium Level 2.2 Total Bilirubin 0.4 Direct Bilirubin 0.00 Indirect Bilirubin 0.4 Aspartate Amino 39 Transf (AST/SGOT) Alanine 17 Aminotransferase (AL T/SGPT) Alkaline Phosphatase 63 Total Protein 7.5 Albumin 3.8 Globulin 3.70 H Albumin/Globulin 1.02 Ratio Amylase Level 65 Lipase 53 Random Vancomycin 17.1 Level Test 10/01/18 08:06 10/01/18 10:29 10/01/18 12:41 10/01/18 14:20 Bedside Glucose 130 202 161 162 Medications Medication Current Medications Miscellaneous Information 1 ea NOTE XX ; Start 09/23/18 at 16:30 Glucose (Glutose) 15 gm Q15M PRN PO DECREASED GLUCOSE; Start 09/23/18 at 16:30 Glucose (Glutose) 22.5 gm Q15M PRN PO DECREASED GLUCOSE; Start 09/23/18 at 16:30 Dextrose (D50w Syringe) 25 ml Q15M PRN IV DECREASED GLUCOSE; Start 09/23/18 at 16:30 Dextrose (D50w Syringe) 50 ml Q15M PRN IV DECREASED GLUCOSE; Start 09/23/18 at 16:30 Glucagon (Glucagen) 1 mg Q15M PRN IM DECREASED GLUCOSE; Start 09/23/18 at 16:30 Glucose (Glutose) 15 gm Q15M PRN BUCCAL DECREASED GLUCOSE; Start 09/23/18 at 16:30 Calcitriol (Rocaltrol) 0.25 mcg DAILY PO Last administered on 10/01/18at 08:08; Admin Dose 0.25 MCG; Start 09/24/18 at 09:00 Carvedilol (Coreg) 25 mg BID PO Last administered on 10/01/18at 08:14; Admin Dose 25 MG; Start 09/23/18 at 21:00 IV Flush (NS 3 ml) 3 ml PER PROTOCOL IV ; Start 09/23/18 at 17:30 Ondansetron HCl (Zofran Inj) 4 mg Q6H PRN IV NAUSEA/VOMITING Last administered on 09/29/18 20:23; Admin Dose 4 MG; Start 09/23/18 at 17:30 Acetaminophen (Tylenol Tab) 650 mg Q6H PRN PO .PAIN 1-3 OR TEMP Last administered on 09/30/18 21:33; Admin Dose 650 MG; Start 09/23/18 at 17:30 Acetaminophen/ Hydrocodone Bitart ([place] (5/325)) 1 tab Q6H PRN PO .MOD PAIN 4- 6; Start 09/23/18 at 17:30 Acetaminophen/ Hydrocodone Bitart ([place] (5/325)) 2 tab Q6H PRN PO .SEVERE PAIN 7-10 Last administered on 09/28/18 16:15; Admin Dose 2 TAB; Start 09/23/18 at 17:30 Docusate Sodium (Colace) 100 mg Q12H PRN PO .CONSTIPATION Last administered on 09/27/18 06:48; Admin Dose 100 MG; Start 09/23/18 at 17:30 Magnesium Hydroxide (Milk Of Mag) 30 ml DAILY PRN PO .CONSTIPATION; Start 09/23/18 at 17:30 Insulin Aspart (Novolog Insulin Pen) NOVOLOG *MILD* ALGORITHM WITH MEALS BEDTIME SC Last administered on 10/01/18 12:45; Admin Dose 1 UNIT; Start 09/23/18 at 18:00 Heparin Sodium (Porcine) (Heparin (1000 Units/ml)) 4,000 unit AFTER DIALYSIS CATHETER ; Start 09/23/18 at 17:30 Albumin Human 50 ml @ 100 mls/hr WITH DIALYSIS PRN IV SBP < 90 DURING DIALYSIS; Start 09/23/18 at 17:30 Atorvastatin Calcium (Lipitor) 40 mg QHS PO Last administered on 09/30/18 21:32; Admin Dose 40 MG; Start 09/23/18 at 21:00 Linagliptin (Tradjenta) 5 mg DAILY PO Last administered on 10/01/18 08:07; Admin Dose 5 MG; Start 09/24/18 at 09:00 Fish Oil (Fish Oil) 2,000 mg BID PO Last administered on 09/30/18 21:32; Admin Dose 2,000 MG; Start 09/23/18 at 21:00 Diagnostic Test (Pha) (Accu-Chek) 1 ea AC MEALS XX Last administered on 09/29/18 17:53; Admin Dose 1 EA; Start 09/24/18 at 07:00 Diagnostic Test (Pha) (Accu-Chek) 1 ea 2 HOURS AFTER MEALS XX Last administered on 10/01/18 14:20; Admin Dose 1 EA; Start 09/23/18 at 20:00 Fluticasone Propionate (Flonase 0.05% Nasal) 1 spray BID NASAL Last administered on 10/01/18 08:09; Admin Dose 1 SPRAY; Start 09/24/18 at 01:00 Repaglinide (Prandin) 1 mg AC MEALS PO Last administered on 10/01/18 08:08; Admin Dose 1 MG; Start 09/25/18 at 11:30 Lisinopril (Zestril) 40 mg BID PO Last administered on 10/01/18 08:14; Admin Dose 40 MG; Start 09/26/18 at 09:00 Diphenhydramine HCl (Benadryl) 25 mg Q6H PRN IV itching Last administered on 09/26/18 13:28; Admin Dose 25 MG; Start 09/26/18 at 01:00 Mupirocin (Bactroban) 1 applic BID TOP Last administered on 10/01/18 08:07; Admin Dose 1 APPLIC; Start 09/27/18 at 09:00 Sodium Hypochlorite (Dakins Diluted (1/40)) 1 applic BID TP Last administered on 10/01/18 08:07; Admin Dose 1 APPLIC; Start 09/27/18 at 09:00 Famotidine (Pepcid) 20 mg DAILY PO Last administered on 09/30/18 08:49; Admin Dose 20 MG; Start 09/28/18 at 09:00 Insulin Glargine (Lantus) 28 units DAILY@2000 SC Last administered on 09/28/18 21:39; Admin Dose 28 UNITS; Start 09/28/18 at 20:00 Morphine Sulfate (morphine) 2 mg Q4H PRN IV SEVERE PAIN LEVEL 7-10 Last administered on 09/29/18at 01:49; Admin Dose 2 MG; Start 09/28/18 at 19:30 Vancomycin HCl (Vanco Iv Per Pharmacy) VANCOMYCIN PER PHARMACY PER PROTOCOL XX ; Start 09/29/18 at 14:30 Calcium Carbonate (Tums) 500 mg Q6H PRN PO INDIGESTION; Start 09/29/18 at 23:00 Calcium Acetate (Phoslo) 1,334 mg WITH MEALS PO Last administered on 10/01/18at 08:10; Admin Dose 1,334 MG; Start 09/30/18 at 18:00 Vancomycin HCl 250 ml @ 125 mls/hr 1600 IVPB Last administered on 10/01/18at 15:34; Admin Dose 125 MLS/HR; Start 10/01/18 at 16:00; Stop 10/01/18 at 23:00 Metronidazole (Flagyl) 500 mg Q8 PO Last administered on 10/01/18at 14:20; Admin Dose 500 MG; Start 10/01/18 at 14:00 BRIE GRAF MD October 01, 2018 16:12
--- NOTE | 2018-10-01 17:53 | CONS ---
Assessment/Plan Assessment/Plan Assessment/Plan (Daily) Left foot Charcot, left foot varus deformity with degenerative joint disease. Left foot diabetic foot ulceration. Diabetes type 2 with peripheral neuropathy ESRD on HD [facility] Plan Patient denied pain to the surgical site and there was no sign of hardware failure. X-rays were reviewed and no broken hardware was appreciated. Patient to remain in non weight bearing to the left lower extremity and keep dressings clean dry and intact. Patient would benefit from 4th floor acute rehab. Continue with dialysis as scheduled and tight glycemic control. Pain medications as needed. Consultation Date/Type/Reason Admit Date/Time September 23, 2018 at 11:58 Initial Consult Date 09/23/18 Requesting Provider: JNAE QUICK MD Date/Time of Note DATE: 10/01/18 TIME: 17:53 24 HR Interval Summary Free Text/Dictation Patient reported bumping Exam/Review of Systems Exam Vitals Vital Signs Date Temp Pulse Resp B/P (MAP) Pulse Ox O2 O2 Flow FiO2 Time Delivery Rate 10/01/18 98.9 87 18 155/70 92 Room Air 14:01 (98) Intake and Output 09/30/18 09/30/18 10/01/18 1515:00 23:00 07:00 IntakeIntake Total 720 ml 240 ml OutputOutput Total 3400 ml BalanceBalance -2680 ml 240 ml Exam No broken pin sites Hardware in place and in rectus alignment No pain with palpation to the surgical site No strikethrough drainage no proximal streaking Wound flap with brisk capillary refill time to the plantar aspect of the foot. Results Result Diagram: 10/01/18 0439 10/01/18 0439 Results 24hrs Laboratory Tests Test 09/30/18 20:08 09/30/18 21:30 10/01/18 04:39 10/01/18 08:06 Bedside Glucose 149 134 130 White Blood Count 9.9 Red Blood Count 2.92 L Hemoglobin 8.8 L Hematocrit 27.2 L Mean Corpuscular 93.2 Volume Mean Corpuscular 30.1 Hemoglobin Mean Corpuscular 32.4 Hemoglobin Concent Red Cell 14.2 Distribution Width Platelet Count 305 Mean Platelet Volume 10.1 Immature 0.600 H Granulocytes % Neutrophils % 52.3 Lymphocytes % 27.3 Monocytes % 16.6 H Eosinophils % 2.7 Basophils % 0.5 Nucleated Red Blood 0.0 Cells % Immature 0.060 H Granulocytes # Neutrophils # 5.2 Lymphocytes # 2.7 Monocytes # 1.6 H Eosinophils # 0.3 Basophils # 0.1 Nucleated Red Blood 0.0 Cells # Sodium Level 136 Potassium Level 4.4 Chloride Level 96 L Carbon Dioxide Level 27 Anion Gap 13 Blood Urea Nitrogen 38 #H Creatinine 9.25 H Est Glomerular 6 L Filtrat Rate mL/min Glucose Level 135 # Calcium Level 8.3 L Phosphorus Level 7.1 #H Magnesium Level 2.2 Total Bilirubin 0.4 Direct Bilirubin 0.00 Indirect Bilirubin 0.4 Aspartate Amino 39 Transf (AST/SGOT) Alanine 17 Aminotransferase (AL T/SGPT) Alkaline Phosphatase 63 Total Protein 7.5 Albumin 3.8 Globulin 3.70 H Albumin/Globulin 1.02 Ratio Amylase Level 65 Lipase 53 Random Vancomycin 17.1 Level Test 10/01/18 10:29 10/01/18 12:41 10/01/18 14:20 Bedside Glucose 202 161 162 Medications Medication Current Medications Miscellaneous Information 1 ea NOTE XX ; Start 09/23/18 at 16:30 Glucose (Glutose) 15 gm Q15M PRN PO DECREASED GLUCOSE; Start 09/23/18 at 16:30 Glucose (Glutose) 22.5 gm Q15M PRN PO DECREASED GLUCOSE; Start 09/23/18 at 16: 30 Dextrose (D50w Syringe) 25 ml Q15M PRN IV DECREASED GLUCOSE; Start 09/23/18 at 16:30 Dextrose (D50w Syringe) 50 ml Q15M PRN IV DECREASED GLUCOSE; Start 09/23/18 at 16:30 Glucagon (Glucagen) 1 mg Q15M PRN IM DECREASED GLUCOSE; Start 09/23/18 at 16:30 Glucose (Glutose) 15 gm Q15M PRN BUCCAL DECREASED GLUCOSE; Start 09/23/18 at 16:30 Calcitriol (Rocaltrol) 0.25 mcg DAILY PO Last administered on 10/01/18at 08:08; Admin Dose 0.25 MCG; Start 09/24/18 at 09:00 Carvedilol (Coreg) 25 mg BID PO Last administered on 10/01/18at 08:14; Admin Dose 25 MG; Start 09/23/18 at 21:00 IV Flush (NS 3 ml) 3 ml PER PROTOCOL IV ; Start 09/23/18 at 17:30 Ondansetron HCl (Zofran Inj) 4 mg Q6H PRN IV NAUSEA/VOMITING Last administered on 09/29/18 20:23; Admin Dose 4 MG; Start 09/23/18 at 17:30 Acetaminophen (Tylenol Tab) 650 mg Q6H PRN PO .PAIN 1-3 OR TEMP Last administered on 09/30/18 21:33; Admin Dose 650 MG; Start 09/23/18 at 17:30 Acetaminophen/ Hydrocodone Bitart ([place] (5/325)) 1 tab Q6H PRN PO .MOD PAIN 4- 6; Start 09/23/18 at 17:30 Acetaminophen/ Hydrocodone Bitart ([place] (5/325)) 2 tab Q6H PRN PO .SEVERE PAIN 7-10 Last administered on 09/28/18 16:15; Admin Dose 2 TAB; Start 09/23/18 at 17:30 Docusate Sodium (Colace) 100 mg Q12H PRN PO .CONSTIPATION Last administered on 09/27/18 06:48; Admin Dose 100 MG; Start 09/23/18 at 17:30 Magnesium Hydroxide (Milk Of Mag) 30 ml DAILY PRN PO .CONSTIPATION; Start 09/23/18 at 17:30 Insulin Aspart (Novolog Insulin Pen) NOVOLOG *MILD* ALGORITHM WITH MEALS BEDTIME SC Last administered on 10/01/18 12:45; Admin Dose 1 UNIT; Start 09/23/18 at 18:00 Heparin Sodium (Porcine) (Heparin (1000 Units/ml)) 4,000 unit AFTER DIALYSIS CATHETER ; Start 09/23/18 at 17:30 Albumin Human 50 ml @ 100 mls/hr WITH DIALYSIS PRN IV SBP < 90 DURING DIALYSIS; Start 09/23/18 at 17:30 Atorvastatin Calcium (Lipitor) 40 mg QHS PO Last administered on 09/30/18 2 1:32; Admin Dose 40 MG; Start 09/23/18 at 21:00 Linagliptin (Tradjenta) 5 mg DAILY PO Last administered on 10/01/18 08:07; Admin Dose 5 MG; Start 09/24/18 at 09:00 Fish Oil (Fish Oil) 2,000 mg BID PO Last administered on 09/30/18 21:32; Admin Dose 2,000 MG; Start 09/23/18 at 21:00 Diagnostic Test (Pha) (Accu-Chek) 1 ea AC MEALS XX Last administered on 09/29/18 17:53; Admin Dose 1 EA; Start 09/24/18 at 07:00 Diagnostic Test (Pha) (Accu-Chek) 1 ea 2 HOURS AFTER MEALS XX Last administered on 10/01/18 14:20; Admin Dose 1 EA; Start 09/23/18 at 20:00 Fluticasone Propionate (Flonase 0.05% Nasal) 1 spray BID NASAL Last administered on 10/01/18 08:09; Admin Dose 1 SPRAY; Start 09/24/18 at 01:00 Repaglinide (Prandin) 1 mg AC MEALS PO Last administered on 10/01/18 08:08; Admin Dose 1 MG; Start 09/25/18 at 11:30 Lisinopril (Zestril) 40 mg BID PO Last administered on 10/01/18 08:14; Admin Dose 40 MG; Start 09/26/18 at 09:00 Diphenhydramine HCl (Benadryl) 25 mg Q6H PRN IV itching Last administered on 09/26/18 13:28; Admin Dose 25 MG; Start 09/26/18 at 01:00 Mupirocin (Bactroban) 1 applic BID TOP Last administered on 10/01/18 08:07; Admin Dose 1 APPLIC; Start 09/27/18 at 09:00 Sodium Hypochlorite (Dakins Diluted (1/40)) 1 applic BID TP Last administered on 10/01/18 08:07; Admin Dose 1 APPLIC; Start 09/27/18 at 09:00 Famotidine (Pepcid) 20 mg DAILY PO Last administered on 09/30/18 08:49; Admin Dose 20 MG; Start 09/28/18 at 09:00 Insulin Glargine (Lantus) 28 units DAILY@2000 SC Last administered on 09/28/18 21:39; Admin Dose 28 UNITS; Start 09/28/18 at 20:00 Morphine Sulfate (morphine) 2 mg Q4H PRN IV SEVERE PAIN LEVEL 7-10 Last administered on 09/29/18 01:49; Admin Dose 2 MG; Start 09/28/18 at 19:30 Vancomycin HCl (Vanco Iv Per Pharmacy) VANCOMYCIN PER PHARMACY PER PROTOCOL XX ; Start 09/29/18 at 14:30 Calcium Carbonate (Tums) 500 mg Q6H PRN PO INDIGESTION; Start 09/29/18 at 23:00 Calcium Acetate (Phoslo) 1,334 mg WITH MEALS PO Last administered on 10/01/18at 08:10; Admin Dose 1,334 MG; Start 09/30/18 at 18:00 Vancomycin HCl 250 ml @ 125 mls/hr 1600 IVPB Last administered on 10/01/18at 15:34; Admin Dose 125 MLS/HR; Start 10/01/18 at 16:00; Stop 10/01/18 at 23:00 Metronidazole (Flagyl) 500 mg Q8 PO Last administered on 10/01/18at 14:20; Admin Dose 500 MG; Start 10/01/18 at 14:00 MARTIN LOZADA DPM October 01, 2018 17:53
[2018-10-01 20:00] VITALS: BP 171/79; PULSE 90; RESP 17
[2018-10-01] MEDS: ATORVASTATIN 40 MG TAB PO SCH (21:00)
[2018-10-01 21:38] VITALS: BP 164/77; PULSE 67
[2018-10-01] MEDS: INSULIN GLARGINE [LANTus] (100 UNITS/ML) SYG SC SCH (21:39)
[2018-10-02] VITALS (8 sets, daily range): BP systolic 103–175; BP diastolic 52–82; PULSE 83–90; RESP 16–19
[2018-10-02] MEDS: metroNIDAZOLE 500 MG TAB PO SCH ×3 (06:00→21:13)
[2018-10-02] MEDS: ACCU-CHEK XX SCH ×6 (07:00→20:00)
[2018-10-02] MEDS: REPAGLINIDE 2 MG TAB PO SCH ×3 (07:00→17:30)
[2018-10-02] MEDS: INSULIN ASPART [NOVOLOG] 3 ML PEN SC SCH ×4 (08:00→21:13)
[2018-10-02] MEDS: CALCIUM ACETATE 667 MG CAP PO SCH ×3 (08:00→18:00)
--- NOTE | 2018-10-02 08:02 | PN ---
Date/Time of Note Date/Time of Note DATE: 10/02/18 TIME: 08:02 Assessment/Plan VTE Prophylaxis Risk score (from Nsg)>0 risk: 4 SCD applied (from Ns): No SCD contraindicated: other Pharmacological prophylaxis: heparin Lines/Catheters IV [facility] [place] Urinary Cath still in place: No Assessment/Plan Hospital Course SUBJECTIVE: The patient refused all his medications today stating that they are giving him diarrhea. OBJECTIVE: Physical Exam General: Obese 53 year-old male lying in bed in no apparent distress. HEENT: Normocephalic, atraumatic. Eyes: Anicteric sclerae, conjunctivae clear. ENT: Nasal septum midline, oral mucosa moist. Neck supple, no JVD noticed. Respiratory: Bilaterally clear breath sounds. No use of accessory muscles of respiration. No adventitious breath sounds. Cardiovascular: S1, S2 heard. Regular rate and rhythm. Abdomen: Soft, nontender, and nondistended. Bowel sounds positive in all 4 quadrants. Genitourinary: Deferred. Extremities: No cyanosis, no clubbing, no edema. Left lower extremity surgical dressing with external fixation device in place. Neurologic: Cranial nerves II through XII grossly intact. The patient is awake, alert, and oriented. Skin: Normal skin turgor. No skin rashes. Labs & Vitals per chart ASSESSMENT & PLAN 53-year-old male with past medical history of diabetes mellitus, end-stage renal disease on hemodialysis on Tuesdays//Saturdays, hypertension, and obstructive sleep apnea who presented to [facility] for elective surgical intervention on left Charcot neuroarthropathy. 1. Left foot Charcot, left foot varus deformity with degenerative joint disease; left foot diabetic foot ulceration. -Status post left foot midfoot osteotomy and fusion of calcaneocuboid joint; left foot exostectomy, fifth metatarsal; left foot excisional debridement of ulceration, skin, subcutaneous tissue; left foot island pedicle flap. -Continue antimicrobials as per ID. -Continue local wound care. 2. Diabetes mellitus. -Hemoglobin A1c 11.7. -Continue sliding scale insulin with premeal insulin and basal insulin. 3. ESRD on HD. Continue hemodialysis on scheduled days Tuesdays//Thursday. 4. Hypertension -Continue antihypertensives. 5. Obstructive sleep apnea. -Continue nocturnal CPAP. 6. Normocytic normochromic anemia. -Most probably anemia of chronic disease. -Monitor H&H closely. 7. Dyslipidemia. -Continue Lipitor. 7. Fluids, electrolytes, and nutrition. -Carbohydrate controlled, renal diet. 8. DVT prophylaxis. -Subcutaneous heparin. 9. Plan. -Continue antimicrobials as per ID. -Await bed availability at acute rehabilitation unit. The patient was seen in collaboration with Dr. Castellano. Result Diagram: 10/01/18 0439 10/01/18 0439 Results 24hrs Laboratory Tests Test 10/01/18 08:06 10/01/18 10:29 10/01/18 12:41 10/01/18 14:20 Bedside Glucose 130 202 161 162 Test 10/01/18 17:33 10/01/18 21:30 10/02/18 02:40 Bedside Glucose 140 187 178 Exam/Review of Systems Exam Vitals Vital Signs Date Temp Pulse Resp B/P (MAP) Pulse Ox O2 O2 Flow FiO2 Time Delivery Rate 10/02/18 98.5 85 16 159/79 96 07:30 (105) 10/01/18 Room Air 14:01 Intake and Output 10/01/18 10/01/18 10/02/18 1515:00 23:00 07:00 IntakeIntake Total 340 ml 470 ml BalanceBalance 340 ml 470 ml Results Results 24hrs Laboratory Tests Test 10/01/18 08:06 10/01/18 10:29 10/01/18 12:41 10/01/18 14:20 Bedside Glucose 130 202 161 162 Test 10/01/18 17:33 10/01/18 21:30 10/02/18 02:40 Bedside Glucose 140 187 178 Medications Medication Current Medications Miscellaneous Information 1 ea NOTE XX ; Start 09/23/18 at 16:30 Glucose (Glutose) 15 gm Q15M PRN PO DECREASED GLUCOSE; Start 09/23/18 at 16:30 Glucose (Glutose) 22.5 gm Q15M PRN PO DECREASED GLUCOSE; Start 09/23/18 at 16:30 Dextrose (D50w Syringe) 25 ml Q15M PRN IV DECREASED GLUCOSE; Start 09/23/18 at 16:30 Dextrose (D50w Syringe) 50 ml Q15M PRN IV DECREASED GLUCOSE; Start 09/23/18 at 16:30 Glucagon (Glucagen) 1 mg Q15M PRN IM DECREASED GLUCOSE; Start 09/23/18 at 16:30 Glucose (Glutose) 15 gm Q15M PRN BUCCAL DECREASED GLUCOSE; Start 09/23/18 at 16:30 Calcitriol (Rocaltrol) 0.25 mcg DAILY PO Last administered on 10/01/18 08:08; Admin Dose 0.25 MCG; Start 09/24/18 at 09:00 Carvedilol (Coreg) 25 mg BID PO Last administered on 10/01/18 08:14; Admin Dose 25 MG; Start 09/23/18 at 21:00 IV Flush (NS 3 ml) 3 ml PER PROTOCOL IV ; Start 09/23/18 at 17:30 Ondansetron HCl (Zofran Inj) 4 mg Q6H PRN IV NAUSEA/VOMITING Last administered on 09/29/18 20:23; Admin Dose 4 MG; Start 09/23/18 at 17:30 Acetaminophen (Tylenol Tab) 650 mg Q6H PRN PO .PAIN 1-3 OR TEMP Last admi nistered on 09/30/18at 21:33; Admin Dose 650 MG; Start 09/23/18 at 17:30 Acetaminophen/ Hydrocodone Bitart ([place] (5/325)) 1 tab Q6H PRN PO .MOD PAIN 4- 6; Start 09/23/18 at 17:30 Acetaminophen/ Hydrocodone Bitart ([place] (5/325)) 2 tab Q6H PRN PO .SEVERE PAIN 7-10 Last administered on 09/28/18 16:15; Admin Dose 2 TAB; Start 09/23/18 at 17:30 Docusate Sodium (Colace) 100 mg Q12H PRN PO .CONSTIPATION Last administered on 09/27/18 06:48; Admin Dose 100 MG; Start 09/23/18 at 17:30 Magnesium Hydroxide (Milk Of Mag) 30 ml DAILY PRN PO .CONSTIPATION; Start 09/23/18 at 17:30 Insulin Aspart (Novolog Insulin Pen) NOVOLOG *MILD* ALGORITHM WITH MEALS BEDTIME SC Last administered on 10/01/18 21:38; Admin Dose 1 UNIT; Start 09/23/18 at 18:00 Heparin Sodium (Porcine) (Heparin (1000 Units/ml)) 4,000 unit AFTER DIALYSIS CATHETER ; Start 09/23/18 at 17:30 Albumin Human 50 ml @ 100 mls/hr WITH DIALYSIS PRN IV SBP < 90 DURING DIALYSIS; Start 09/23/18 at 17:30 Atorvastatin Calcium (Lipitor) 40 mg QHS PO Last administered on 09/30/18 21:32; Admin Dose 40 MG; Start 09/23/18 at 21:00 Linagliptin (Tradjenta) 5 mg DAILY PO Last administered on 10/01/18 08:07; Admin Dose 5 MG; Start 09/24/18 at 09:00 Fish Oil (Fish Oil) 2,000 mg BID PO Last administered on 09/30/18 21:32; Admin Dose 2,000 MG; Start 09/23/18 at 21:00 Diagnostic Test (Pha) (Accu-Chek) 1 ea AC MEALS XX Last administered on 09/29/18 17:53; Admin Dose 1 EA; Start 09/24/18 at 07:00 Diagnostic Test (Pha) (Accu-Chek) 1 ea 2 HOURS AFTER MEALS XX Last administered on 10/01/18 14:20; Admin Dose 1 EA; Start 09/23/18 at 20:00 Fluticasone Propionate (Flonase 0.05% Nasal) 1 spray BID NASAL Last administered on 10/01/18 08:09; Admin Dose 1 SPRAY; Start 09/24/18 at 01:00 Repaglinide (Prandin) 1 mg AC MEALS PO Last administered on 10/01/18 08:08; Admin Dose 1 MG; Start 09/25/18 at 11:30 Lisinopril (Zestril) 40 mg BID PO Last administered on 10/01/18 08:14; Admin Dose 40 MG; Start 09/26/18 at 09:00 Diphenhydramine HCl (Benadryl) 25 mg Q6H PRN IV itching Last administered on 09/26/18 13:28; Admin Dose 25 MG; Start 09/26/18 at 01:00 Mupirocin (Bactroban) 1 applic BID TOP Last administered on 10/01/18 08:07; A dmin Dose 1 APPLIC; Start 09/27/18 at 09:00 Sodium Hypochlorite (Dakins Diluted (/40)) 1 applic BID TP Last administered on 10/01/18 08:07; Admin Dose 1 APPLIC; Start 09/27/18 at 09:00 Famotidine (Pepcid) 20 mg DAILY PO Last administered on 09/30/18 08:49; Admin Dose 20 MG; Start 09/28/18 at 09:00 Insulin Glargine (Lantus) 28 units DAILY@2000 SC Last administered on 10/01/18at 21:39; Admin Dose 28 UNITS; Start 09/28/18 at 20:00 Morphine Sulfate (morphine) 2 mg Q4H PRN IV SEVERE PAIN LEVEL 7-10 Last administered on 09/29/18at 01:49; Admin Dose 2 MG; Start 09/28/18 at 19:30 Vancomycin HCl (Vanco Iv Per Pharmacy) VANCOMYCIN PER PHARMACY PER PROTOCOL XX ; Start 09/29/18 at 14:30 Calcium Carbonate (Tums) 500 mg Q6H PRN PO INDIGESTION; Start 09/29/18 at 23:00 Calcium Acetate (Phoslo) 1,334 mg WITH MEALS PO Last administered on 10/01/18 08:10; Admin Dose 1,334 MG; Start 09/30/18 at 18:00 Metronidazole (Flagyl) 500 mg Q8 PO Last administered on 10/01/18 14:20; Admin Dose 500 MG; Start 10/01/18 at 14:00 GERALD MOTA NP October 02, 2018 08:02
[2018-10-02] MEDS: FISH OIL 1,000 MG CAP PO SCH ×2 (09:00→21:00)
[2018-10-02] MEDS: MUPIROCIN 2% 22 GM OINT TOP SCH ×2 (09:00→21:00)
[2018-10-02] MEDS: CALCITRIOL 0.25 MCG CAP PO SCH (09:00)
[2018-10-02] MEDS: LINAGLIPTIN 5 MG TABLET PO SCH (09:00)
[2018-10-02] MEDS: DAKINS 0.0125%(1/40) 473 ML SOLUTION TP SCH ×2 (09:00→21:00)
[2018-10-02] MEDS: FAMOTIDINE 20 MG TAB PO SCH (09:00)
[2018-10-02] MEDS: FLUTICASONE 0.05% 16 GM NAS SPRAY NASAL SCH ×2 (09:00→21:00)
[2018-10-02] MEDS: LISINOPRIL 20 MG TAB PO SCH ×2 (09:00→21:00)
--- NOTE | 2018-10-02 10:02 | CONS ---
Assessment/Plan Assessment/Plan Assessment/Plan (Daily) 1. Acute Hyperglycemia- imporving BS control, Endocrine following 2. ESRD on HD TTS schedule 3. H/O DM II 4. H/o HL 5. H/O HTN Plan: s/p HD today 3.2 L removed, pt regular schedule for HD is TTS s/p Surgery for left foot charcoat foot continue on IV vancomycin for 7 days, pending discharge to acute rehab will follow up Consultation Date/Type/Reason Admit Date/Time September 23, 2018 at 11:58 Initial Consult Date 09/23/18 Type of Consult NEPHROLOGY Requesting Provider: JANE QUICK MD Date/Time of Note DATE: 10/02/18 TIME: 10:02 Exam/Review of Systems Exam Vitals Vital Signs Date Temp Pulse Resp B/P (MAP) Pulse Ox O2 O2 Flow FiO2 Time Delivery Rate 10/02/18 98.5 85 16 159/79 96 07:30 (105) 10/01/18 Room Air 14:01 Intake and Output 10/01/18 10/01/18 10/02/18 1515:00 23:00 07:00 IntakeIntake Total 340 ml 470 ml BalanceBalance 340 ml 470 ml Exam Constitutional: alert Respiratory: clear to auscultation, diminished breath sounds Cardiovascular: regular rate and rhythm, nl pulses Gastrointestinal: soft, non-tender Musculoskeletal: muscle weakness, swelling, other (R arm AVG) Neurological: SUBSTITUTE NURSE II-XII intact, nl mental status, nl speech, nl strength Results Result Diagram: 10/01/18 0439 10/01/18 0439 Results 24hrs Laboratory Tests Test 10/01/18 10:29 10/01/18 12:41 10/01/18 14:20 10/01/18 17:33 Bedside Glucose 202 161 162 140 Test 10/01/18 21:30 10/02/18 02:40 10/02/18 08:16 Bedside Glucose 187 178 112 Medications Medication Current Medications Miscellaneous Information 1 ea NOTE XX ; Start 09/23/18 at 16:30 Glucose (Glutose) 15 gm Q15M PRN PO DECREASED GLUCOSE; Start 09/23/18 at 16:30 Glucose (Glutose) 22.5 gm Q15M PRN PO DECREASED GLUCOSE; Start 09/23/18 at 16:30 Dextrose (D50w Syringe) 25 ml Q15M PRN IV DECREASED GLUCOSE; Start 09/23/18 at 16:30 Dextrose (D50w Syringe) 50 ml Q15M PRN IV DECREASED GLUCOSE; Start 09/23/18 at 16:30 Glucagon (Glucagen) 1 mg Q15M PRN IM DECREASED GLUCOSE; Start 09/23/18 at 16:30 Glucose (Glutose) 15 gm Q15M PRN BUCCAL DECREASED GLUCOSE; Start 09/23/18 at 16:30 Calcitriol (Rocaltrol) 0.25 mcg DAILY PO Last administered on 10/01/18 08:08; Admin Dose 0.25 MCG; Start 09/24/18 at 09:00 Carvedilol (Coreg) 25 mg BID PO Last administered on 10/01/18 08:14; Admin Dose 25 MG; Start 09/23/18 at 21:00 IV Flush (NS 3 ml) 3 ml PER PROTOCOL IV ; Start 09/23/18 at 17:30 Ondansetron HCl (Zofran Inj) 4 mg Q6H PRN IV NAUSEA/VOMITING Last administered on 09/29/18 20:23; Admin Dose 4 MG; Start 09/23/18 at 17:30 Acetaminophen (Tylenol Tab) 650 mg Q6H PRN PO .PAIN 1-3 OR TEMP Last administered on 09/30/18 21:33; Admin Dose 650 MG; Start 09/23/18 at 17:30 Acetaminophen/ Hydrocodone Bitart ([place] (5/325)) 1 tab Q6H PRN PO .MOD PAIN 4- 6; Start 09/23/18 at 17:30 Acetaminophen/ Hydrocodone Bitart ([place] (5/325)) 2 tab Q6H PRN PO .SEVERE PAIN 7-10 Last administered on 09/28/18 16:15; Admin Dose 2 TAB; Start 09/23/18 at 17:30 Docusate Sodium (Colace) 100 mg Q12H PRN PO .CONSTIPATION Last administered on 09/27/18 06:48; Admin Dose 100 MG; Start 09/23/18 at 17:30 Magnesium Hydroxide (Milk Of Mag) 30 ml DAILY PRN PO .CONSTIPATION; Start 09/23/18 at 17:30 Insulin Aspart (Novolog Insulin Pen) NOVOLOG *MILD* ALGORITHM WITH MEALS BEDTIME SC Last administered on 10/01/18 21:38; Admin Dose 1 UNIT; Start 09/23 at 18:00 Heparin Sodium (Porcine) (Heparin (1000 Units/ml)) 4,000 unit AFTER DIALYSIS CATHETER ; Start 09/23/18 at 17:30 Albumin Human 50 ml @ 100 mls/hr WITH DIALYSIS PRN IV SBP < 90 DURING DI ALYSIS; Start 09/23/18 at 17:30 Atorvastatin Calcium (Lipitor) 40 mg QHS PO Last administered on 09/30/18 21:32; Admin Dose 40 MG; Start 09/23/18 at 21:00 Linagliptin (Tradjenta) 5 mg DAILY PO Last administered on 10/01/18 08:07; Admin Dose 5 MG; Start 09/24/18 at 09:00 Fish Oil (Fish Oil) 2,000 mg BID PO Last administered on 09/30/18 21:32; Admin Dose 2,000 MG; Start 09/23/18 at 21:00 Diagnostic Test (Pha) (Accu-Chek) 1 ea AC MEALS XX Last administered on 09/29/18 17:53; Admin Dose 1 EA; Start 09/24/18 at 07:00 Diagnostic Test (Pha) (Accu-Chek) 1 ea 2 HOURS AFTER MEALS XX Last admi nistered on 10/01/18 14:20; Admin Dose 1 EA; Start 09/23/18 at 20:00 Fluticasone Propionate (Flonase 0.05% Nasal) 1 spray BID NASAL Last administered on 10/01/18 08:09; Admin Dose 1 SPRAY; Start 09/24/18 at 01:00 Repaglinide (Prandin) 1 mg AC MEALS PO Last administered on 10/01/18 08:08; Admin Dose 1 MG; Start 09/25/18 at 11:30 Lisinopril (Zestril) 40 mg BID PO Last administered on 10/01/18 08:14; Admin Dose 40 MG; Start 09/26/18 at 09:00 Diphenhydramine HCl (Benadryl) 25 mg Q6H PRN IV itching Last administered on 09/26/18 13:28; Admin Dose 25 MG; Start 09/26/18 at 01:00 Mupirocin (Bactroban) 1 applic BID TOP Last administered on 10/01/18 08:07; Admin Dose 1 APPLIC; Start 09/27/18 at 09:00 Sodium Hypochlorite (Dakins Diluted ()) 1 applic BID TP Last administered on 10/01/18 08:07; Admin Dose 1 APPLIC; Start 09/27/18 at 09:00 Famotidine (Pepcid) 20 mg DAILY PO Last administered on 09/30/18 08:49; Admin Dose 20 MG; Start 09/28/18 at 09:00 Insulin Glargine (Lantus) 28 units DAILY@2000 SC Last administered on 10/01/18 21:39; Admin Dose 28 UNITS; Start 09/28/18 at 20:00 Morphine Sulfate (morphine) 2 mg Q4H PRN IV SEVERE PAIN LEVEL 7-10 Last administered on 09/29/18 01:49; Admin Dose 2 MG; Start 09/28/18 at 19:30 Vancomycin HCl (Vanco Iv Per Pharmacy) VANCOMYCIN PER PHARMACY PER PROTOCOL XX ; Start 09/29/18 at 14:30 Calcium Carbonate (Tums) 500 mg Q6H PRN PO INDIGESTION; Start 09/29/18 at 23:00 Calcium Acetate (Phoslo) 1,334 mg WITH MEALS PO Last administered on 10/01/18 08:10; Admin Dose 1,334 MG; Start 09/30/18 at 18:00 Metronidazole (Flagyl) 500 mg Q8 PO Last administered on 10/01/18 14:20; Admin Dose 500 MG; Start 10/01/18 at 14:00 OPAL QUINONEZ MD October 02, 2018 10:02
--- NOTE | 2018-10-02 15:57 | CONS ---
Assessment/Plan Assessment/Plan Problems: (1) Diabetes mellitus type 2 in obese Onset Date: ~ 09/1995 Status: Chronic Comment: Good glycemic control. Assessment/Plan (Daily) Continue current regimen of insulin glinide, and DPP4 Consultation Date/Type/Reason Admit Date/Time September 23, 2018 at 11:58 Initial Consult Date 09/23/18 Type of Consult Endocrine Reason for Consultation Glucose management Requesting Provider: JANE QUICK MD Date/Time of Note DATE: 10/02/18 TIME: 15:54 24 HR Interval Summary Free Text/Dictation No complaints at this time. No hypoglycemic events nor symptoms Exam/Review of Systems Exam Vitals Vital Signs Date Temp Pulse Resp B/P (MAP) Pulse Ox O2 O2 Flow FiO2 Time Delivery Rate 10/02/18 98.5 85 16 133/69 94 13:55 (90) 10/02/18 Room Air 12:40 Intake and Output 10/01/18 10/01/18 10/02/18 1515:00 23:00 07:00 IntakeIntake Total 340 ml 470 ml BalanceBalance 340 ml 470 ml Constitutional: alert, oriented, obese Head: normocephalic Eyes: nl conjunctiva Neck: supple Respiratory: clear to auscultation Cardiovascular: regular rate and rhythm Gastrointestinal: soft Musculoskeletal: other (Left foot with external fixation) Results Result Diagram: 10/01/18 0439 10/01/18 0439 Results 24hrs Laboratory Tests Test 10/01/18 17:33 10/01/18 21:30 10/02/18 02:40 10/02/18 08:16 Bedside Glucose 140 187 178 112 Test 10/02/18 10:24 10/02/18 13:26 10/02/18 15:21 Bedside Glucose 105 109 151 Medications Medication Current Medications Miscellaneous Information 1 ea NOTE XX ; Start 09/23/18 at 16:30 Glucose (Glutose) 15 gm Q15M PRN PO DECREASED GLUCOSE; Start 09/23/18 at 16:30 Glucose (Glutose) 22.5 gm Q15M PRN PO DECREASED GLUCOSE; Start 09/23/18 at 16:30 Dextrose (D50w Syringe) 25 ml Q15M PRN IV DECREASED GLUCOSE; Start 09/23/18 at 16:30 Dextrose (D50w Syringe) 50 ml Q15M PRN IV DECREASED GLUCOSE; Start 09/23/18 at 16:30 Glucagon (Glucagen) 1 mg Q15M PRN IM DECREASED GLUCOSE; Start 09/23/18 at 16:30 Glucose (Glutose) 15 gm Q15M PRN BUCCAL DECREASED GLUCOSE; Start 09/23/18 at 16:30 Calcitriol (Rocaltrol) 0.25 mcg DAILY PO Last administered on 10/01/18 08:08; Admin Dose 0.25 MCG; Start 09/24/18 at 09:00 Carvedilol (Coreg) 25 mg BID PO Last administered on 10/01/18 08:14; Admin Dose 25 MG; Start 09/23/18 at 21:00 IV Flush (NS 3 ml) 3 ml PER PROTOCOL IV ; Start 09/23/18 at 17:30 Ondansetron HCl (Zofran Inj) 4 mg Q6H PRN IV NAUSEA/VOMITING Last administered on 09/29/18 20:23; Admin Dose 4 MG; Start 09/23/18 at 17:30 Acetaminophen (Tylenol Tab) 650 mg Q6H PRN PO .PAIN 1-3 OR TEMP Last administered on 09/30/18at 21:33; Admin Dose 650 MG; Start 09/23/18 at 17:30 Acetaminophen/ Hydrocodone Bitart ([place] (5/325)) 1 tab Q6H PRN PO .MOD PAIN 4- 6; Start 09/23/18 at 17:30 Acetaminophen/ Hydrocodone Bitart ([place] (5/325)) 2 tab Q6H PRN PO .SEVERE PAIN 7-10 Last administered on 09/28/18at 16:15; Admin Dose 2 TAB; Start 09/23/18 at 17:30 Docusate Sodium (Colace) 100 mg Q12H PRN PO .CONSTIPATION Last administered on 09/27/18 06:48; Admin Dose 100 MG; Start 09/23/18 at 17:30 Magnesium Hydroxide (Milk Of Mag) 30 ml DAILY PRN PO .CONSTIPATION; Start 09/23/18 at 17:30 Insulin Aspart (Novolog Insulin Pen) NOVOLOG *MILD* ALGORITHM WITH MEALS BEDTIME SC Last administered on 10/01/18at 21:38; Admin Dose 1 UNIT; Start 09/23/18 at 18:00 Heparin Sodium (Porcine) (Heparin (1000 Units/ml)) 4,000 unit AFTER DIALYSIS C ATHETER ; Start 09/23/18 at 17:30 Albumin Human 50 ml @ 100 mls/hr WITH DIALYSIS PRN IV SBP < 90 DURING DIALYSIS; Start 09/23/18 at 17:30 Atorvastatin Calcium (Lipitor) 40 mg QHS PO Last administered on 09/30/18 21:32; Admin Dose 40 MG; Start 09/23/18 at 21:00 Linagliptin (Tradjenta) 5 mg DAILY PO Last administered on 10/01/18 08:07; Admin Dose 5 MG; Start 09/24/18 at 09:00 Fish Oil (Fish Oil) 2,000 mg BID PO Last administered on 09/30/18 21:32; Admin Dose 2,000 MG; Start 09/23/18 at 21:00 Diagnostic Test (Pha) (Accu-Chek) 1 ea AC MEALS XX Last administered on 09/29/18 17:53; Admin Dose 1 EA; Start 09/24/18 at 07:00 Diagnostic Test (Pha) (Accu-Chek) 1 ea 2 HOURS AFTER MEALS XX Last administered on 10/01/18 14:20; Admin Dose 1 EA; Start 09/23/18 at 20:00 Fluticasone Propionate (Flonase 0.05% Nasal) 1 spray BID NASAL Last administered on 10/01/18 08:09; Admin Dose 1 SPRAY; Start 09/24/18 at 01:00 Repaglinide (Prandin) 1 mg AC MEALS PO Last administered on 10/01/18 08:08; Admin Dose 1 MG; Start 09/25/18 at 11:30 Lisinopril (Zestril) 40 mg BID PO Last administered on 10/01/18 08:14; Admin Dose 40 MG; Start 09/26/18 at 09:00 Diphenhydramine HCl (Benadryl) 25 mg Q6H PRN IV itching Last administered on 09/26/18 13:28; Admin Dose 25 MG; Start 09/26/18 at 01:00 Mupirocin (Bactroban) 1 applic BID TOP Last administered on 10/01/18 08:07; Admin Dose 1 APPLIC; Start 09/27/18 at 09:00 Sodium Hypochlorite (Dakins Diluted (40)) 1 applic BID TP Last administered o n 5/24/19at 08:07; Admin Dose 1 APPLIC; Start 09/27/18 at 09:00 Famotidine (Pepcid) 20 mg DAILY PO Last administered on 09/30/18 08:49; Admin Dose 20 MG; Start 09/28/18 at 09:00 Insulin Glargine (Lantus) 28 units DAILY@2000 SC Last administered on 10/01/18 21:39; Admin Dose 28 UNITS; Start 09/28/18 at 20:00 Morphine Sulfate (morphine) 2 mg Q4H PRN IV SEVERE PAIN LEVEL 7-10 Last administered on 09/29/18 01:49; Admin Dose 2 MG; Start 09/28/18 at 19:30 Vancomycin HCl (Vanco Iv Per Pharmacy) VANCOMYCIN PER PHARMACY PER PROTOCOL XX ; Start 09/29/18 at 14:30 Calcium Carbonate (Tums) 500 mg Q6H PRN PO INDIGESTION; Start 09/29/18 at 23:00 Calcium Acetate (Phoslo) 1,334 mg WITH MEALS PO Last administered on 10/01/18 08:10; Admin Dose 1,334 MG; Start 09/30/18 at 18:00 Metronidazole (Flagyl) 500 mg Q8 PO Last administered on 10/01/18 14:20; Admin Dose 500 MG; Start 10/01/18 at 14:00 GIA COATS MD October 02, 2018 15:57
[2018-10-02] MEDS: ATORVASTATIN 40 MG TAB PO SCH (21:00)
[2018-10-02] MEDS: INSULIN GLARGINE [LANTus] (100 UNITS/ML) SYG SC SCH (21:03)
[2018-10-02] MEDS: HEPARIN 5,000 UNIT/1 ML VIAL SC SCH (21:16)
[2018-10-03 02:00] VITALS: BP 140/72; PULSE 90; RESP 19
[2018-10-03] MEDS: HEPARIN 5,000 UNIT/1 ML VIAL SC SCH ×3 (06:00→21:21)
[2018-10-03] MEDS: metroNIDAZOLE 500 MG TAB PO SCH ×3 (06:00→21:21)
[2018-10-03] MEDS: REPAGLINIDE 2 MG TAB PO SCH ×3 (07:00→17:30)
[2018-10-03] MEDS: ACCU-CHEK XX SCH ×6 (07:00→20:00)
--- NOTE | 2018-10-03 07:33 | PN ---
Date/Time of Note Date/Time of Note DATE: 10/03/18 TIME: 07:33 Assessment/Plan VTE Prophylaxis Risk score (from Nsg)>0 risk: 4 SCD applied (from Ns): No SCD contraindicated: other Pharmacological prophylaxis: heparin Lines/Catheters IV C[facility]ter Type [facility]from [facility] Urinary Cath still in place: No Assessment/Plan Hospital Course SUBJECTIVE: The patient refused all his medications today stating that they are giving him diarrhea. OBJECTIVE: Physical Exam General: Obese 53 year-old male lying in bed in no apparent distress. HEENT: Normocephalic, atraumatic. Eyes: Anicteric sclerae, conjunctivae clear. ENT: Nasal septum midline, oral mucosa moist. Neck supple, no JVD noticed. Respiratory: Bilaterally clear breath sounds. No use of accessory muscles of respiration. No adventitious breath sounds. Cardiovascular: S1, S2 heard. Regular rate and rhythm. Abdomen: Soft, nontender, and nondistended. Bowel sounds positive in all 4 quadrants. Genitourinary: Deferred. Extremities: No cyanosis, no clubbing, no edema. Left lower extremity surgical dressing with external fixation device in place. Neurologic: Cranial nerves II through XII grossly intact. The patient is awake, alert, and oriented. Skin: Normal skin turgor. No skin rashes. Labs & Vitals per chart ASSESSMENT & PLAN 53-year-old male with past medical history of diabetes mellitus, end-stage renal disease on hemodialysis on Tuesdays//Saturdays, hypertension, and obstructive sleep apnea who presented to [facility] for elective surgical intervention on left Charcot neuroarthropathy. 1. Left foot Charcot, left foot varus deformity with degenerative joint disease; left foot diabetic foot ulceration. -Status post left foot midfoot osteotomy and fusion of calcaneocuboid joint; left foot exostectomy, fifth metatarsal; left foot excisional debridement of ulceration, skin, subcutaneous tissue; left foot island pedicle flap. -Continue antimicrobials as per ID. -Continue local wound care. 2. Diabetes mellitus. -Hemoglobin A1c 11.7. -Continue sliding scale insulin with premeal insulin and basal insulin. 3. ESRD on HD. Continue hemodialysis on scheduled days Tuesdays//Thursday. 4. Hypertension -Continue antihypertensives. 5. Obstructive sleep apnea. -Continue nocturnal CPAP. 6. Normocytic normochromic anemia. -Most probably anemia of chronic disease. -Monitor H&H closely. 7. Dyslipidemia. -Continue Lipitor. 7. Fluids, electrolytes, and nutrition. -Carbohydrate controlled, renal diet. 8. DVT prophylaxis. -Subcutaneous heparin. 9. Plan. -Continue antimicrobials as per ID. -Await bed availability at acute rehabilitation unit. The patient was seen in collaboration with Dr. Castellano. Result Diagram: 10/01/18 0439 10/01/18 0439 Results 24hrs Laboratory Tests Test 10/02/18 08:16 10/02/18 10:24 10/02/18 13:26 10/02/18 15:21 Bedside Glucose 112 105 109 151 Test 10/02/18 18:32 10/02/18 20:59 10/03/18 03:09 Bedside Glucose 187 199 165 Exam/Review of Systems Exam Vitals Vital Signs Date Temp Pulse Resp B/P (MAP) Pulse Ox O2 O2 Flow FiO2 Time Delivery Rate 10/03/18 98.6 90 19 140/72 94 02:00 (94) 10/02/18 Room Air 12:40 Intake and Output 10/02/18 10/02/18 10/03/18 1515:00 23:00 07:00 IntakeIntake Total 664 ml 920 ml OutputOutput Total 3400 ml BalanceBalance -2736 ml 920 ml Results Results 24hrs Laboratory Tests Test 10/02/18 08:16 10/02/18 10:24 10/02/18 13:26 10/02/18 15:21 Bedside Glucose 112 105 109 151 Test 10/02/18 18:32 10/02/18 20:59 10/03/18 03:09 Bedside Glucose 187 199 165 Medications Medication Current Medications Miscellaneous Information 1 ea NOTE XX ; Start 09/23/18 at 16:30 Glucose (Glutose) 15 gm Q15M PRN PO DECREASED GLUCOSE; Start 09/23/18 at 16:30 Glucose (Glutose) 22.5 gm Q15M PRN PO DECREASED GLUCOSE; Start 09/23/18 at 16:30 Dextrose (D50w Syringe) 25 ml Q15M PRN IV DECREASED GLUCOSE; Start 09/23/18 at 16:30 Dextrose (D50w Syringe) 50 ml Q15M PRN IV DECREASED GLUCOSE; Start 09/23/18 at 16:30 Glucagon (Glucagen) 1 mg Q15M PRN IM DECREASED GLUCOSE; Start 09/23/18 at 16:30 Glucose (Glutose) 15 gm Q15M PRN BUCCAL DECREASED GLUCOSE; Start 09/23/18 at 16:30 Calcitriol (Rocaltrol) 0.25 mcg DAILY PO Last administered on 10/01/18 08:08; Admin Dose 0.25 MCG; Start 09/24/18 at 09:00 Carvedilol (Coreg) 25 mg BID PO Last administered on 10/01/18 08:14; Admin Dose 25 MG; Start 09/23/18 at 21:00 IV Flush (NS 3 ml) 3 ml PER PROTOCOL IV ; Start 09/23/18 at 17:30 Ondansetron HCl (Zofran Inj) 4 mg Q6H PRN IV NAUSEA/VOMITING Last administered on 09/29/18 20:23; Admin Dose 4 MG; Start 09/23/18 at 17:30 Acetaminophen (Tylenol Tab) 650 mg Q6H PRN PO .PAIN 1-3 OR TEMP Last administered on 09/30/18at 21:33; Admin Dose 650 MG; Start 09/23/18 at 17:30 Acetaminophen/ Hydrocodone Bitart ([place] (5/325)) 1 tab Q6H PRN PO .MOD PAIN 4- 6; Start 09/23/18 at 17:30 Acetaminophen/ Hydrocodone Bitart ([place] (5/325)) 2 tab Q6H PRN PO .SEVERE PAIN 7-10 Last administered on 09/28/18at 16:15; Admin Dose 2 TAB; Start 09/23/18 at 17:30 Docusate Sodium (Colace) 100 mg Q12H PRN PO .CONSTIPATION Last administered on 09/27/18at 06:48; Admin Dose 100 MG; Start 09/23/18 at 17:30 Magnesium Hydroxide (Milk Of Mag) 30 ml DAILY PRN PO .CONSTIPATION; Start 09/23/18 at 17:30 Insulin Aspart (Novolog Insulin Pen) NOVOLOG *MILD* ALGORITHM WITH MEALS BEDTIME SC Last administered on 10/02/18 21:13; Admin Dose 1 UNIT; Start 09/23/18 at 18:00 Heparin Sodium (Porcine) (Heparin (1000 Units/ml)) 4,000 unit AFTER DIALYSIS CATHETER ; Start 09/23/18 at 17:30 Albumin Human 50 ml @ 100 mls/hr WITH DIALYSIS PRN IV SBP < 90 DURING DIALYSIS; Start 09/23/18 at 17:30 Atorvastatin Calcium (Lipitor) 40 mg QHS PO Last administered on 09/30/18 21:32; Admin Dose 40 MG; Start 09/23/18 at 21:00 Linagliptin (Tradjenta) 5 mg DAILY PO Last administered on 10/01/18 08:07; Admin Dose 5 MG; Start 09/24/18 at 09:00 Fish Oil (Fish Oil) 2,000 mg BID PO Last administered on 09/30/18 21:32; Admin Dose 2,000 MG; Start 09/23/18 at 21:00 Diagnostic Test (Pha) (Accu-Chek) 1 ea AC MEALS XX Last administered on 09/29/18 17:53; Admin Dose 1 EA; Start 09/24/18 at 07:00 Diagnostic Test (Pha) (Accu-Chek) 1 ea 2 HOURS AFTER MEALS XX Last administered on 10/01/18 14:20; Admin Dose 1 EA; Start 09/23/18 at 20:00 Fluticasone Propionate (Flonase 0.05% Nasal) 1 spray BID NASAL Last adm inistered on 10/01/18 08:09; Admin Dose 1 SPRAY; Start 09/24/18 at 01:00 Repaglinide (Prandin) 1 mg AC MEALS PO Last administered on 10/01/18 08:08; Admin Dose 1 MG; Start 09/25/18 at 11:30 Lisinopril (Zestril) 40 mg BID PO Last administered on 10/01/18 08:14; Admin Dose 40 MG; Start 09/26/18 at 09:00 Diphenhydramine HCl (Benadryl) 25 mg Q6H PRN IV itching Last administered on 09/26/18 13:28; Admin Dose 25 MG; Start 09/26/18 at 01:00 Mupirocin (Bactroban) 1 applic BID TOP Last administered on 10/01/18 08:07; Admin Dose 1 APPLIC; Start 09/27/18 at 09:00 Sodium Hypochlorite (Dakins Diluted ()) 1 applic BID TP Last administered on 10/01/18 08:07; Admin Dose 1 APPLIC; Start 09/27/18 at 09:00 Famotidine (Pepcid) 20 mg DAILY PO Last administered on 09/30/18 08:49; Admin Dose 20 MG; Start 09/28/18 at 09:00 Insulin Glargine (Lantus) 28 units DAILY@2000 SC Last administered on 10/02/18 21:03; Admin Dose 28 UNITS; Start 09/28/18 at 20:00 Morphine Sulfate (morphine) 2 mg Q4H PRN IV SEVERE PAIN LEVEL 7-10 Last administered on 09/29/18 01:49; Admin Dose 2 MG; Start 09/28/18 at 19:30 Vancomycin HCl (Vanco Iv Per Pharmacy) VANCOMYCIN PER PHARMACY PER PROTOCOL XX ; Start 09/29/18 at 14:30 Calcium Carbonate (Tums) 500 mg Q6H PRN PO INDIGESTION; Start 09/29/18 at 23:00 Calcium Acetate (Phoslo) 1,334 mg WITH MEALS PO Last administered on 10/01/18at 08:10; Admin Dose 1,334 MG; Start 09/30/18 at 18:00 Metronidazole (Flagyl) 500 mg Q8 PO Last administered on 10/01/18at 14:20; Admin Dose 500 MG; Start 10/01/18 at 14:00 Heparin Sodium (Porcine) (Heparin (5000 Units/1ml)) 5,000 unit Q8 SC ; Start 10/02/18 at 22:00 GERALD MOTA NP October 03, 2018 07:33
[2018-10-03 07:45] VITALS: BP 157/78; PULSE 92; RESP 18
[2018-10-03] MEDS: CALCIUM ACETATE 667 MG CAP PO SCH ×3 (08:00→17:52)
[2018-10-03] MEDS: INSULIN ASPART [NOVOLOG] 3 ML PEN SC SCH ×4 (08:00→20:49)
[2018-10-03] MEDS: FAMOTIDINE 20 MG TAB PO SCH (08:33)
[2018-10-03] MEDS: FLUTICASONE 0.05% 16 GM NAS SPRAY NASAL SCH ×2 (08:33→20:50)
[2018-10-03] MEDS: FISH OIL 1,000 MG CAP PO SCH ×2 (08:33→20:46)
[2018-10-03] MEDS: DAKINS 0.0125%(1/40) 473 ML SOLUTION TP SCH ×2 (08:33→20:50)
[2018-10-03] MEDS: MUPIROCIN 2% 22 GM OINT TOP SCH ×2 (08:33→20:50)
[2018-10-03] MEDS: CALCITRIOL 0.25 MCG CAP PO SCH (08:34)
[2018-10-03] MEDS: LISINOPRIL 20 MG TAB PO SCH ×2 (08:34→20:46)
[2018-10-03] MEDS: LINAGLIPTIN 5 MG TABLET PO SCH (08:34)
--- NOTE | 2018-10-03 12:21 | CONS ---
Assessment/Plan Assessment/Plan Problems: (1) Diabetes mellitus type 2 in obese Onset Date: ~ 09/1995 Status: Chronic Comment: Good glycemic control Assessment/Plan (Daily) Continue current regimen of insulin, glinide and DPP4 Consultation Date/Type/Reason Admit Date/Time September 23, 2018 at 11:58 Initial Consult Date 09/23/18 Type of Consult Endocrine Reason for Consultation Glucose management Requesting Provider: JANE QUICK MD Date/Time of Note DATE: 10/03/18 TIME: 12:19 24 HR Interval Summary Free Text/Dictation No complaints at this time. No hypoglycemia Exam/Review of Systems Exam Vitals Vital Signs Date Temp Pulse Resp B/P (MAP) Pulse Ox O2 O2 Flow FiO2 Time Delivery Rate 10/03/18 98.6 90 19 140/72 94 02:00 (94) 10/02/18 Room Air 12:40 Intake and Output 10/02/18 10/02/18 10/03/18 1515:00 23:00 07:00 IntakeIntake Total 664 ml 920 ml OutputOutput Total 3400 ml BalanceBalance -2736 ml 920 ml Constitutional: alert, oriented Respiratory: clear to auscultation Cardiovascular: regular rate and rhythm Extremities: other (left lower extremity external fixation) Additional Comments POC glucose reviewed Results Result Diagram: 10/01/18 0439 10/01/18 0439 Results 24hrs Laboratory Tests Test 10/02/18 13:26 10/02/18 15:21 10/02/18 18:32 10/02/18 20:59 Bedside Glucose 109 151 187 199 Test 10/03/18 03:09 10/03/18 08:31 10/03/18 10:16 Bedside Glucose 165 138 133 Medications Medication Current Medications Miscellaneous Information 1 ea NOTE XX ; Start 09/23/18 at 16:30 Glucose (Glutose) 15 gm Q15M PRN PO DECREASED GLUCOSE; Start 09/23/18 at 16:30 Glucose (Glutose) 22.5 gm Q15M PRN PO DECREASED GLUCOSE; Start 09/23/18 at 16:30 Dextrose (D50w Syringe) 25 ml Q15M PRN IV DECREASED GLUCOSE; Start 09/23/18 at 16:30 Dextrose (D50w Syringe) 50 ml Q15M PRN IV DECREASED GLUCOSE; Start 09/23/18 at 16:30 Glucagon (Glucagen) 1 mg Q15M PRN IM DECREASED GLUCOSE; Start 09/23/18 at 16:30 Glucose (Glutose) 15 gm Q15M PRN BUCCAL DECREASED GLUCOSE; Start 09/23/18 at 16:30 Calcitriol (Rocaltrol) 0.25 mcg DAILY PO Last administered on 10/01/18 08:08; Admin Dose 0.25 MCG; Start 09/24/18 at 09:00 Carvedilol (Coreg) 25 mg BID PO Last administered on 10/01/18 08:14; Admin Dose 25 MG; Start 09/23/18 at 21:00 IV Flush (NS 3 ml) 3 ml PER PROTOCOL IV ; Start 09/23/18 at 17:30 Ondansetron HCl (Zofran Inj) 4 mg Q6H PRN IV NAUSEA/VOMITING Last administered on 09/29/18 20:23; Admin Dose 4 MG; Start 09/23/18 at 17:30 Acetaminophen (Tylenol Tab) 650 mg Q6H PRN PO .PAIN 1-3 OR TEMP Last administered on 09/30/18at 21:33; Admin Dose 650 MG; Start 09/23/18 at 17:30 Acetaminophen/ Hydrocodone Bitart ([place] (5/325)) 1 tab Q6H PRN PO .MOD PAIN 4- 6; Start 09/23/18 at 17:30 Acetaminophen/ Hydrocodone Bitart ([place] (5/325)) 2 tab Q6H PRN PO .SEVERE PAIN 7-10 Last administered on 09/28/18 16:15; Admin Dose 2 TAB; Start 09/23/18 at 17:30 Docusate Sodium (Colace) 100 mg Q12H PRN PO .CONSTIPATION Last administered on 09/27/18 06:48; Admin Dose 100 MG; Start 09/23/18 at 17:30 Magnesium Hydroxide (Milk Of Mag) 30 ml DAILY PRN PO .CONSTIPATION; Start 09/23/18 at 17:30 Insulin Aspart (Novolog Insulin Pen) NOVOLOG *MILD* ALGORITHM WITH MEALS BEDTIME SC Last administered on 10/02/18 21:13; Admin Dose 1 UNIT; Start 09/23/18 at 18:00 Heparin Sodium (Porcine) (Heparin (1000 Units/ml)) 4,000 unit AFTER DIALYSIS CATHETER ; Start 09/23/18 at 17:30 Albumin Human 50 ml @ 100 mls/hr WITH DIALYSIS PRN IV SBP < 90 DURING DIALYSIS; Start 09/23/18 at 17:30 Atorvastatin Calcium (Lipitor) 40 mg QHS PO Last administered on 09/30/18 21:32; Admin Dose 40 MG; Start 09/23/18 at 21:00 Linagliptin (Tradjenta) 5 mg DAILY PO Last administered on 10/01/18 08:07; Admin Dose 5 MG; Start 09/24/18 at 09:00 Fish Oil (Fish Oil) 2,000 mg BID PO Last administered on 09/30/18 21:32; Admin Dose 2,000 MG; Start 09/23/18 at 21:00 Diagnostic Test (Pha) (Accu-Chek) 1 ea AC MEALS XX Last administered on 09/29/18 17:53; Admin Dose 1 EA; Start 09/24/18 at 07:00 Diagnostic Test (Pha) (Accu-Chek) 1 ea 2 HOURS AFTER MEALS XX Last administered on 10/01/18 14:20; Admin Dose 1 EA; Start 09/23/18 at 20:00 Fluticasone Propionate (Flonase 0.05% Nasal) 1 spray BID NASAL Last administered on 10/01/18 08:09; Admin Dose 1 SPRAY; Start 09/24/18 at 01:00 Repaglinide (Prandin) 1 mg AC MEALS PO Last administered on 10/01/18 08:08; Admin Dose 1 MG; Start 09/25/18 at 11:30 Lisinopril (Zestril) 40 mg BID PO Last administered on 10/01/18 08:14; Admin Dose 40 MG; Start 09/26/18 at 09:00 Diphenhydramine HCl (Benadryl) 25 mg Q6H PRN IV itching Last administered on 09/26/18 13:28; Admin Dose 25 MG; Start 09/26/18 at 01:00 Mupirocin (Bactroban) 1 applic BID TOP Last administered on 10/01/18 08:07; Admin Dose 1 APPLIC; Start 09/27/18 at 09:00 Sodium Hypochlorite (Dakins Diluted (40)) 1 applic BID TP Last administered on 10/01/18 08:07; Admin Dose 1 APPLIC; Start 09/27/18 at 09:00 Famotidine (Pepcid) 20 mg DAILY PO Last administered on 09/30/18 08:49; Admin Dose 20 MG; Start 09/28/18 at 09:00 Insulin Glargine (Lantus) 28 units DAILY@2000 SC Last administered on 10/02/18 21:03; Admin Dose 28 UNITS; Start 09/28/18 at 20:00 Morphine Sulfate (morphine) 2 mg Q4H PRN IV SEVERE PAIN LEVEL 7-10 Last administered on 09/29/18 01:49; Admin Dose 2 MG; Start 09/28/18 at 19:30 Vancomycin HCl (Vanco Iv Per Pharmacy) VANCOMYCIN PER PHARMACY PER PROTOCOL XX ; Start 09/29/18 at 14:30 Calcium Carbonate (Tums) 500 mg Q6H PRN PO INDIGESTION; Start 09/29/18 at 23:00 Calcium Acetate (Phoslo) 1,334 mg WITH MEALS PO Last administered on 10/01/18at 08:10; Admin Dose 1,334 MG; Start 09/30/18 at 18:00 Metronidazole (Flagyl) 500 mg Q8 PO Last administered on 10/01/18at 14:20; Admin Dose 500 MG; Start 10/01/18 at 14:00 Heparin Sodium (Porcine) (Heparin (5000 Units/1ml)) 5,000 unit Q8 SC ; Start 10/02/18 at 22:00 GIA COATS MD October 03, 2018 12:21
[2018-10-03 12:55] VITALS: BP 171/81; PULSE 81; RESP 18
--- NOTE | 2018-10-03 14:02 | CONS ---
Assessment/Plan Assessment/Plan Assessment/Plan (Daily) 1. Acute Hyperglycemia- imporving BS control, Endocrine following 2. ESRD on HD TTS schedule 3. H/O DM II 4. H/o HL 5. H/O HTN with accelerated HTN now Plan: s/p HD yesterday 3.2 L removed, pt regular schedule for HD is TTS - next HD will be on Thursday s/p Surgery for left foot charcoat foot continue on IV vancomycin for 7 days, pending discharge to acute rehab pt is concerned about loose stools/diarrhea, will stop phoslo but he need to continue taking his other pO meds for better BP control will follow up Consultation Date/Type/Reason Admit Date/Time September 23, 2018 at 11:58 Initial Consult Date 09/23/18 Type of Consult NEPHROLOGY Requesting Provider: JANE QUICK MD Date/Time of Note DATE: 10/03/18 TIME: 14:02 24 HR Interval Summary Free Text/Dictation pt has been refusing PO BP meds and Phoslo due to loose stools/diarrhea, S/p HD yesterday , BP has been running high Exam/Review of Systems Exam Vitals Vital Signs Date Temp Pulse Resp B/P (MAP) Pulse Ox O2 O2 Flow FiO2 Time Delivery Rate 10/03/18 98.0 81 18 171/81 97 12:55 (111) 10/02/18 Room Air 12:40 Intake and Output 10/02/18 10/02/18 10/03/18 1515:00 23:00 07:00 IntakeIntake Total 664 ml 920 ml OutputOutput Total 3400 ml BalanceBalance -2736 ml 920 ml Exam Constitutional: alert Respiratory: clear to auscultation, diminished breath sounds Cardiovascular: regular rate and rhythm, nl pulses Gastrointestinal: soft, non-tender Musculoskeletal: muscle weakness, swelling, other (R arm AVG) Neurological: PRESSURIZER II-XII intact, nl mental status, nl speech, nl strength Results Result Diagram: 10/01/189 10/01/18438 Results 24hrs Laboratory Tests Test 10/02/18 15:21 10/02/18 18:32 10/02/18 20:59 10/03/18 03:09 Bedside Glucose 151 187 199 165 Test 10/03/18 08:31 5/26/19 10:16 10/03/18 12:33 Bedside Glucose 138 133 120 Medications Medication Current Medications Miscellaneous Information 1 ea NOTE XX ; Start 09/23/18 at 16:30 Glucose (Glutose) 15 gm Q15M PRN PO DECREASED GLUCOSE; Start 09/23/18 at 16:30 Glucose (Glutose) 22.5 gm Q15M PRN PO DECREASED GLUCOSE; Start 09/23/18 at 16:30 Dextrose (D50w Syringe) 25 ml Q15M PRN IV DECREASED GLUCOSE; Start 09/23/18 at 16:30 Dextrose (D50w Syringe) 50 ml Q15M PRN IV DECREASED GLUCOSE; Start 09/23/18 at 16:30 Glucagon (Glucagen) 1 mg Q15M PRN IM DECREASED GLUCOSE; Start 09/23/18 at 16:30 Glucose (Glutose) 15 gm Q15M PRN BUCCAL DECREASED GLUCOSE; Start 09/23/18 at 16:30 Calcitriol (Rocaltrol) 0.25 mcg DAILY PO Last administered on 10/01/18at 08:08; Admin Dose 0.25 MCG; Start 09/24/18 at 09:00 Carvedilol (Coreg) 25 mg BID PO Last administered on 10/01/18at 08:14; Admin Dose 25 MG; Start 09/23/18 at 21:00 IV Flush (NS 3 ml) 3 ml PER PROTOCOL IV ; Start 09/23/18 at 17:30 Ondansetron HCl (Zofran Inj) 4 mg Q6H PRN IV NAUSEA/VOMITING Last administered on 09/29/18at 20:23; Admin Dose 4 MG; Start 09/23/18 at 17:30 Acetaminophen (Tylenol Tab) 650 mg Q6H PRN PO .PAIN 1-3 OR TEMP Last administered on 09/30/18at 21:33; Admin Dose 650 MG; Start 09/23/18 at 17:30 Acetaminophen/ Hydrocodone Bitart ([place] (5/325)) 1 tab Q6H PRN PO .MOD PAIN 4- 6; Start 09/23/18 at 17:30 Acetaminophen/ Hydrocodone Bitart ([place] (5/325)) 2 tab Q6H PRN PO .SEVERE PAIN 7-10 Last administered on 09/28/18at 16:15; Admin Dose 2 TAB; Start 09/23/18 at 17:30 Docusate Sodium (Colace) 100 mg Q12H PRN PO .CONSTIPATION Last administered on 09/27/18 06:48; Admin Dose 100 MG; Start 09/23/18 at 17:30 Magnesium Hydroxide (Milk Of Mag) 30 ml DAILY PRN PO .CONSTIPATION; Start 09/23/18 at 17:30 Insulin Aspart (Novolog Insulin Pen) NOVOLOG *MILD* ALGORITHM WITH MEALS BEDTIME SC Last administered on 10/02/18 21:13; Admin Dose 1 UNIT; Start 09/23/18 at 18:00 Heparin Sodium (Porcine) (Heparin (1000 Units/ml)) 4,000 unit AFTER DIALYSIS CATHETER ; Start 09/23/18 at 17:30 Albumin Human 50 ml @ 100 mls/hr WITH DIALYSIS PRN IV SBP < 90 DURING DIALYSIS; Start 09/23/18 at 17:30 Atorvastatin Calcium (Lipitor) 40 mg QHS PO Last administered on 09/30/18 21:32; Admin Dose 40 MG; Start 09/23/18 at 21:00 Linagliptin (Tradjenta) 5 mg DAILY PO Last administered on 10/01/18 08:07; Admin Dose 5 MG; Start 09/24/18 at 09:00 Fish Oil (Fish Oil) 2,000 mg BID PO Last administered on 09/30/18 21:32; Admin Dose 2,000 MG; Start 09/23/18 at 21:00 Diagnostic Test (Pha) (Accu-Chek) 1 ea AC MEALS XX Last administered on 09/29/18 17:53; Admin Dose 1 EA; Start 09/24/18 at 07:00 Diagnostic Test (Pha) (Accu-Chek) 1 ea 2 HOURS AFTER MEALS XX Last administered on 10/01/18 14:20; Admin Dose 1 EA; Start 09/23/18 at 20:00 Fluticasone Propionate (Flonase 0.05% Nasal) 1 spray BID NASAL Last administered on 10/01/18 08:09; Admin Dose 1 SPRAY; Start 09/24/18 at 01:00 Repaglinide (Prandin) 1 mg AC MEALS PO Last administered on 10/01/18 08:08; Admin Dose 1 MG; Start 09/25/18 at 11:30 Lisinopril (Zestril) 40 mg BID PO Last administered on 10/01/18 08:14; Admin Dose 40 MG; Start 09/26/18 at 09:00 Diphenhydramine HCl (Benadryl) 25 mg Q6H PRN IV itching Last administered on 09/26/18 13:28; Admin Dose 25 MG; Start 09/26/18 at 01:00 Mupirocin (Bactroban) 1 applic BID TOP Last administered on 10/01/18 08:07; Admin Dose 1 APPLIC; Start 09/27/18 at 09:00 Sodium Hypochlorite (Dakins Diluted (40)) 1 applic BID TP Last administered on 10/01/18 08:07; Admin Dose 1 APPLIC; Start 09/27/18 at 09:00 Famotidine (Pepcid) 20 mg DAILY PO Last administered on 09/30/18 08:49; Admin Dose 20 MG; Start 09/28/18 at 09:00 Insulin Glargine (Lantus) 28 units DAILY@2000 SC Last administered on 10/02/18 21:03; Admin Dose 28 UNITS; Start 09/28/18 at 20:00 Morphine Sulfate (morphine) 2 mg Q4H PRN IV SEVERE PAIN LEVEL 7-10 Last adminis tered on 09/29/18 01:49; Admin Dose 2 MG; Start 09/28/18 at 19:30 Vancomycin HCl (Vanco Iv Per Pharmacy) VANCOMYCIN PER PHARMACY PER PROTOCOL XX ; Start 09/29/18 at 14:30 Calcium Carbonate (Tums) 500 mg Q6H PRN PO INDIGESTION; Start 09/29/18 at 23:00 Calcium Acetate (Phoslo) 1,334 mg WITH MEALS PO Last administered on 10/01/18 08:10; Admin Dose 1,334 MG; Start 09/30/18 at 18:00 Metronidazole (Flagyl) 500 mg Q8 PO Last administered on 10/01/18 14:20; Admin Dose 500 MG; Start 10/01/18 at 14:00 Heparin Sodium (Porcine) (Heparin (5000 Units/1ml)) 5,000 unit Q8 SC ; Start 10/02/18 at 22:00 Miscellaneous Information (*Rx Drug Level Order Reminder*) RANDOM VANCO LEVEL... 0500 ONCE XX ; Start 10/04/18 at 05:00; Stop 10/04/18 at 05:01 OPAL QUINONEZ MD October 03, 2018 14:02
--- NOTE | 2018-10-03 14:47 | DS ---
Discharge Summary Admission/Discharge Info Discharge Date/Time Hospital Course Home Meds Active Scripts Atorvastatin* (Atorvastatin*) 40 Mg Tablet, 40 MG PO QHS, #30 TAB Prov:GERALD MOTA NP 10/05/18 [place]-3/Dha/Epa/Fish Oil (Fish Oil 1,000 mg Softgel) 1,000 Mg Capsule, 2000 MG PO BID, #60 CAP 2 caps BID Prov:GERALD MOTA NP 10/05/18 Lisinopril* (Lisinopril*) 20 Mg Tablet, 40 MG PO BID, #60 TAB 2 tab (40 mg) po BID Prov:GERALD MOTA NP 10/05/18 Repaglinide* (Prandin*) 2 Mg Tablet, 1 MG PO AC MEALS, #90 TAB 1/2 tablet 1(mg) Prov:GERALD MOTA NP 10/05/18 Mupirocin* (Bactroban*) 2% -22 Gram Oint...g., 1 APPLIC TOP BID for 10 Days Prov:FÁTIMA SLAUGHTER 10/01/18 Linagliptin (TRADJENTA) 5 Mg Tablet, 5 MG PO DAILY for 30 Days, TAB Prov:FÁTIMA SLAUGHTER 10/01/18 Famotidine* (Famotidine*) 20 Mg Tablet, 20 MG PO DAILY for 30 Days, TAB Prov:FÁTIMA SLAUGHTER 10/01/18 Calcium Carbonate (CALCIUM CARBONATE) 200 Mg Tab.chew, 500 MG PO Q6H PRN for INDIGESTION for 30 Days, TAB.CHEW Prov:FÁTIMA SLAUGHTER 10/01/18 Calcium Acetate* (Calcium Acetate*) 667 Mg Capsule, 1334 MG PO WITH MEALS for 30 Days, CAP Prov:FÁTIMA SLAUGHTER 10/01/18 Reported Medications Calcitriol* (Rocaltrol*) 0.25 Mcg Capsule, 0.25 MCG PO DAILY, CAP 09/02/18 Ergocalciferol (Vitamin D2) (VITAMIN D2) 50,000 Unit Capsule, 16020 UNIT PO Q SUN, CAP 09/02/18 Carvedilol* (Carvedilol*) 25 Mg Tablet, 25 MG PO BID, #60 TAB 09/02/18 Discontinued Reported Medications Insulin Glargine,Hum.rec.anlog (Vish Ospina) 300 Unit/1 Ml Insuln.pen, 30 UNIT SQ QHS, EA 09/23/18 Sodium Bicarbonate* (Sodium Bicarbonate*) Unknown Strength Tablet, 1 TAB PO BID, TAB 09/02/18 Insulin Lispro (Humalog Kwikpen U-100) 100 Unit/1 Ml Insuln.pen, 10 UNIT SQ WITH MEALS, EA 09/02/18 Ferric Citrate (Auryxia) 210 Mg Tablet, 420 MG PO TID, TAB 09/02/18 Atorvastatin Calcium* (Atorvastatin Calcium*) 20 Mg Tablet, 20 MG PO QHS, #30 TAB 09/02/18 Amlodipine Besylate* (Amlodipine Besylate*) 10 Mg Tablet, 10 MG PO DAILY, #30 TAB 09/02/18 Pending Labs GERALD MOTA NP October 03, 2018 14:47
[2018-10-03 19:27] VITALS: BP 155/75; PULSE 84; RESP 18
[2018-10-03] MEDS: ATORVASTATIN 40 MG TAB PO SCH (20:46)
[2018-10-03] MEDS: INSULIN GLARGINE [LANTus] (100 UNITS/ML) SYG SC SCH (20:50)
[2018-10-04 01:26] VITALS: BP 133/62; PULSE 83; RESP 18
[2018-10-04] MEDS: HEPARIN 5,000 UNIT/1 ML VIAL SC SCH ×3 (05:47→21:53)
[2018-10-04] MEDS: metroNIDAZOLE 500 MG TAB PO SCH ×3 (05:47→21:53)
[2018-10-04] MEDS: INSULIN ASPART [NOVOLOG] 3 ML PEN SC SCH ×4 (08:00→20:47)
[2018-10-04 08:01] VITALS: BP 150/70; PULSE 80; RESP 16
[2018-10-04] MEDS: ACCU-CHEK XX SCH ×6 (08:07→20:00)
[2018-10-04] MEDS: REPAGLINIDE 2 MG TAB PO SCH ×3 (08:17→17:30)
[2018-10-04] MEDS: LINAGLIPTIN 5 MG TABLET PO SCH (08:17)
[2018-10-04] MEDS: FISH OIL 1,000 MG CAP PO SCH ×2 (08:18→20:46)
[2018-10-04] MEDS: FAMOTIDINE 20 MG TAB PO SCH (08:18)
[2018-10-04] MEDS: LISINOPRIL 20 MG TAB PO SCH ×2 (08:19→20:47)
[2018-10-04] MEDS: CALCIUM ACETATE 667 MG CAP PO SCH ×3 (08:19→17:31)
[2018-10-04] MEDS: CALCITRIOL 0.25 MCG CAP PO SCH (08:20)
[2018-10-04] MEDS: DAKINS 0.0125%(1/40) 473 ML SOLUTION TP SCH ×2 (08:23→20:51)
[2018-10-04] MEDS: FLUTICASONE 0.05% 16 GM NAS SPRAY NASAL SCH ×2 (08:23→20:48)
[2018-10-04] MEDS: MUPIROCIN 2% 22 GM OINT TOP SCH ×2 (08:23→20:51)
--- NOTE | 2018-10-04 09:45 | CONS ---
Assessment/Plan Assessment/Plan Problems: (1) Diabetes mellitus type 2 in obese Onset Date: ~ 09/1995 Status: Chronic Comment: Blood sugar control continues nicely in a somewhat simplified regimen. Please note he is not on medicine for his diabetes that typically cause diarrhea. (2) Charcot's joint, left ankle and foot Status: Chronic Comment: Noted (3) Charcot's joint, right ankle and foot Status: Chronic Comment: Noted (4) Hyperlipidemia associated with type 2 diabetes mellitus Status: Chronic Comment: On full dose Statin therapy (5) Essential hypertension Status: Chronic Comment: Adequate control (6) End-stage renal disease on hemodialysis Status: Chronic Comment: As per nephrology (7) Obesity (BMI 30-39.9) Status: Chronic Comment: Calorie restrictiion diet (8) Obstructive sleep apnea Status: Chronic Comment: Stable (9) Chronic kidney disease-mineral and bone disorder Status: Chronic Comment: Stable Consultation Date/Type/Reason Admit Date/Time September 23, 2018 at 11:58 Initial Consult Date 09/23/18 Type of Consult Endocrinology Reason for Consultation Diabetes mellitus type 2 complicated by peripheral neuropathy; bilateral Charcot joints; end-stage renal disease; retention; hyperlipidemia Requesting Provider: JANE QUICK MD Date/Time of Note DATE: 10/04/18 TIME: 09:41 24 HR Interval Summary Free Text/Dictation Patient complains of the onset of diarrhea. Please note that 3 days ago he had a C. difficile test that was negative. Detailed Summary Gastrointestinal: diarrhea Endocrine: no complaints Exam/Review of Systems Exam Vitals Vital Signs Date Temp Pulse Resp B/P (MAP) Pulse Ox O2 O2 Flow FiO2 Time Delivery Rate 10/04/18 98.2 80 16 150/70 96 08:01 (96) 10/02/18 Room Air 12:40 Intake and Output 10/03/18 10/03/18 10/04/18 1515:00 23:00 07:00 IntakeIntake Total 840 ml BalanceBalance 840 ml Constitutional: alert, oriented Respiratory: clear to auscultation, normal air movement Cardiovascular: regular rate and rhythm, nl pulses Results Result Diagram: 10/01/18 0439 10/01/18 0439 Results 24hrs Laboratory Tests Test 10/03/18 10:16 10/03/18 12:33 10/03/18 14:50 10/03/18 17:47 Bedside Glucose 133 120 153 164 Test 10/03/18 20:44 10/04/18 04:37 10/04/18 08:06 Bedside Glucose 249 H 135 Random Vancomycin 18.7 Level Medications Medication Current Medications Miscellaneous Information 1 ea NOTE XX ; Start 09/23/18 at 16:30 Glucose (Glutose) 15 gm Q15M PRN PO DECREASED GLUCOSE; Start 09/23/18 at 16:30 Glucose (Glutose) 22.5 gm Q15M PRN PO DECREASED GLUCOSE; Start 09/23/18 at 16:30 Dextrose (D50w Syringe) 25 ml Q15M PRN IV DECREASED GLUCOSE; Start 09/23/18 at 16:30 Dextrose (D50w Syringe) 50 ml Q15M PRN IV DECREASED GLUCOSE; Start 09/23/18 at 16:30 Glucagon (Glucagen) 1 mg Q15M PRN IM DECREASED GLUCOSE; Start 09/23/18 at 16:30 Glucose (Glutose) 15 gm Q15M PRN BUCCAL DECREASED GLUCOSE; Start 09/23/18 at 16:30 Calcitriol (Rocaltrol) 0.25 mcg DAILY PO Last administered on 10/01/18at 08:08; Admin Dose 0.25 MCG; Start 09/24/18 at 09:00 Carvedilol (Coreg) 25 mg BID PO Last administered on 10/04/18at 08:27; Admin Dose 25 MG; Start 09/23/18 at 21:00 IV Flush (NS 3 ml) 3 ml PER PROTOCOL IV ; Start 09/23/18 at 17:30 Ondansetron HCl (Zofran Inj) 4 mg Q6H PRN IV NAUSEA/VOMITING Last administered on 09/29/18at 20:23; Admin Dose 4 MG; Start 09/23/18 at 17:30 Acetaminophen (Tylenol Tab) 650 mg Q6H PRN PO .PAIN 1-3 OR TEMP Last administered on 09/30/18at 21:33; Admin Dose 650 MG; Start 09/23/18 at 17:30 Acetaminophen/ Hydrocodone Bitart ([place] (5/325)) 1 tab Q6H PRN PO .MOD PAIN 4- 6; Start 09/23/18 at 17:30 Acetaminophen/ Hydrocodone Bitart ([place] (5/325)) 2 tab Q6H PRN PO .SEVERE PAIN 7-10 Last administered on 09/28/18 16:15; Admin Dose 2 TAB; Start 09/23/18 at 17:30 Docusate Sodium (Colace) 100 mg Q12H PRN PO .CONSTIPATION Last administered on 09/27/18 06:48; Admin Dose 100 MG; Start 09/23/18 at 17:30 Magnesium Hydroxide (Milk Of Mag) 30 ml DAILY PRN PO .CONSTIPATION; Start 09/23/18 at 17:30 Insulin Aspart (Novolog Insulin Pen) NOVOLOG *MILD* ALGORITHM WITH MEALS BEDTIME SC Last administered on 10/03/18 20:49; Admin Dose 2 UNIT; Start 09/23/18 at 18:00 Heparin Sodium (Porcine) (Heparin (1000 Units/ml)) 4,000 unit AFTER DIALYSIS CATHETER ; Start 09/23/18 at 17:30 Albumin Human 50 ml @ 100 mls/hr WITH DIALYSIS PRN IV SBP < 90 DURING DIALYSIS; Start 09/23/18 at 17:30 Atorvastatin Calcium (Lipitor) 40 mg QHS PO Last administered on 10/03/18 20:46; Admin Dose 40 MG; Start 09/23/18 at 21:00 Linagliptin (Tradjenta) 5 mg DAILY PO Last administered on 10/04/18 08:17; Admin Dose 5 MG; Start 09/24/18 at 09:00 Fish Oil (Fish Oil) 2,000 mg BID PO Last administered on 10/04/18 08:18; Admin Dose 2,000 MG; Start 09/23/18 at 21:00 Diagnostic Test (Pha) (Accu-Chek) 1 ea AC MEALS XX Last administered on 09/29/18 17:53; Admin Dose 1 EA; Start 09/24/18 at 07:00 Diagnostic Test (Pha) (Accu-Chek) 1 ea 2 HOURS AFTER MEALS XX Last administered on 10/01/18 14:20; Admin Dose 1 EA; Start 09/23/18 at 20:00 Fluticasone Propionate (Flonase 0.05% Nasal) 1 spray BID NASAL Last administered on 10/01/18 08:09; Admin Dose 1 SPRAY; Start 09/24/18 at 01:00 Repaglinide (Prandin) 1 mg AC MEALS PO Last administered on 10/01/18 08:08; Admin Dose 1 MG; Start 09/25/18 at 11:30 Lisinopril (Zestril) 40 mg BID PO Last administered on 10/04/18 08:19; Admin Dose 40 MG; Start 09/26/18 at 09:00 Diphenhydramine HCl (Benadryl) 25 mg Q6H PRN IV itching Last administered on 09/26/18 13:28; Admin Dose 25 MG; Start 09/26/18 at 01:00 Mupirocin (Bactroban) 1 applic BID TOP Last administered on 10/01/18 08:07; Admin Dose 1 APPLIC; Start 09/27/18 at 09:00 Sodium Hypochlorite (Dakins Diluted ()) 1 applic BID TP Last administered on 10/01/18 08:07; Admin Dose 1 APPLIC; Start 09/27/18 at 09:00 Famotidine (Pepcid) 20 mg DAILY PO Last administered on 09/30/18 08:49; Admin Dose 20 MG; Start 09/28/18 at 09:00 Insulin Glargine (Lantus) 28 units DAILY@2000 SC Last administered on 10/03/18 20:50; Admin Dose 28 UNITS; Start 09/28/18 at 20:00 Morphine Sulfate (morphine) 2 mg Q4H PRN IV SEVERE PAIN LEVEL 7-10 Last administered on 09/29/18 01:49; Admin Dose 2 MG; Start 09/28/18 at 19:30 Vancomycin HCl (Vanco Iv Per Pharmacy) VANCOMYCIN PER PHARMACY PER PROTOCOL XX ; Start 09/29/18 at 14:30 Calcium Carbonate (Tums) 500 mg Q6H PRN PO INDIGESTION; Start 09/29/18 at 23:00 Calcium Acetate (Phoslo) 1,334 mg WITH MEALS PO Last administered on 10/04/18 08:19; Admin Dose 1,334 MG; Start 09/30/18 at 18:00 Metronidazole (Flagyl) 500 mg Q8 PO Last administered on 10/01/18 14:20; Admin Dose 500 MG; Start 10/01/18 at 14:00 Heparin Sodium (Porcine) (Heparin (5000 Units/1ml)) 5,000 unit Q8 SC ; Start 5/25/19 at 22:00 BRIE GRAF MD October 04, 2018 09:45
--- NOTE | 2018-10-04 12:14 | CONS ---
Assessment/Plan Assessment/Plan Assessment/Plan (Daily) 1. Acute Hyperglycemia- imporving BS control, Endocrine following 2. ESRD on HD TTS schedule 3. H/O DM II 4. H/o HL 5. H/O HTN with accelerated HTN now Plan: HD ordered for tomorrow, pt regular schedule for HD is TTS - BP Now better controlled, in systolic 150-160s s/p Surgery for left foot charcoat foot continue on IV vancomycin for 7 days, pending discharge to acute rehab will follow up and talk to pt about medication side effects tomorrow Consultation Date/Type/Reason Admit Date/Time September 23, 2018 at 11:58 Initial Consult Date 09/23/18 Type of Consult NEPHROLOGY Requesting Provider: JANE QUICK MD Date/Time of Note DATE: 10/04/18 TIME: 12:13 Exam/Review of Systems Exam Vitals Vital Signs Date Temp Pulse Resp B/P (MAP) Pulse Ox O2 O2 Flow FiO2 Time Delivery Rate 10/04/18 98.2 80 16 150/70 96 08:01 (96) 10/02/18 Room Air 12:40 Intake and Output 10/03/18 10/03/18 10/04/18 1515:00 23:00 07:00 IntakeIntake Total 840 ml BalanceBalance 840 ml Exam Constitutional: alert Respiratory: clear to auscultation, diminished breath sounds Cardiovascular: regular rate and rhythm, nl pulses Gastrointestinal: soft, non-tender Musculoskeletal: muscle weakness, swelling, other (R arm AVG) 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, nl mental status, nl speech, nl strength Results Result Diagram: 10/01/18 0439 10/01/18 0439 Results 24hrs Laboratory Tests Test 10/03/18 12:33 10/03/18 14:50 10/03/18 17:47 10/03/18 20:44 Bedside Glucose 120 153 164 249 H Test 10/04/18 04:37 10/04/18 08:06 10/04/18 10:11 Random Vancomycin 18.7 Level Bedside Glucose 135 168 Medications Medication Current Medications Miscellaneous Information 1 ea NOTE XX ; Start 09/23/18 at 16:30 Glucose (Glutose) 15 gm Q15M PRN PO DECREASED GLUCOSE; Start 09/23/18 at 16:30 Glucose (Glutose) 22.5 gm Q15M PRN PO DECREASED GLUCOSE; Start 09/23/18 at 16:30 Dextrose (D50w Syringe) 25 ml Q15M PRN IV DECREASED GLUCOSE; Start 09/23/18 at 16:30 Dextrose (D50w Syringe) 50 ml Q15M PRN IV DECREASED GLUCOSE; Start 09/23/18 at 16:30 Glucagon (Glucagen) 1 mg Q15M PRN IM DECREASED GLUCOSE; Start 09/23/18 at 16:30 Glucose (Glutose) 15 gm Q15M PRN BUCCAL DECREASED GLUCOSE; Start 09/23/18 at 16:30 Calcitriol (Rocaltrol) 0.25 mcg DAILY PO Last administered on 10/01/18at 08:08; Admin Dose 0.25 MCG; Start 09/24/18 at 09:00 Carvedilol (Coreg) 25 mg BID PO Last administered on 10/04/18 08:27; Admin Dose 25 MG; Start 09/23/18 at 21:00 IV Flush (NS 3 ml) 3 ml PER PROTOCOL IV ; Start 09/23/18 at 17:30 Ondansetron HCl (Zofran Inj) 4 mg Q6H PRN IV NAUSEA/VOMITING Last administered on 09/29/18 20:23; Admin Dose 4 MG; Start 09/23/18 at 17:30 Acetaminophen (Tylenol Tab) 650 mg Q6H PRN PO .PAIN 1-3 OR TEMP Last administered on 09/30/18at 21:33; Admin Dose 650 MG; Start 09/23/18 at 17:30 Acetaminophen/ Hydrocodone Bitart ([place] (5/325)) 1 tab Q6H PRN PO .MOD PAIN 4- 6; Start 09/23/18 at 17:30 Acetaminophen/ Hydrocodone Bitart ([place] (5/325)) 2 tab Q6H PRN PO .SEVERE PAIN 7-10 Last administered on 09/28/18at 16:15; Admin Dose 2 TAB; Start 09/23/18 at 17:30 Docusate Sodium (Colace) 100 mg Q12H PRN PO .CONSTIPATION Last administered on 09/27/18at 06:48; Admin Dose 100 MG; Start 09/23/18 at 17:30 Magnesium Hydroxide (Milk Of Mag) 30 ml DAILY PRN PO .CONSTIPATION; Start 09/23/18 at 17:30 Insulin Aspart (Novolog Insulin Pen) NOVOLOG *MILD* ALGORITHM WITH MEALS BEDTIME SC Last administered on 10/03/18 20:49; Admin Dose 2 UNIT; Start 09/23/18 at 18:00 Heparin Sodium (Porcine) (Heparin (1000 Units/ml)) 4,000 unit AFTER DIALYSIS CATHETER ; Start 09/23/18 at 17:30 Albumin Human 50 ml @ 100 mls/hr WITH DIALYSIS PRN IV SBP < 90 DURING DIALYSIS; Start 09/23/18 at 17:30 Atorvastatin Calcium (Lipitor) 40 mg QHS PO Last administered on 10/03/18 20:46; Admin Dose 40 MG; Start 09/23/18 at 21:00 Linagliptin (Tradjenta) 5 mg DAILY PO Last administered on 10/04/18 08:17; Admin Dose 5 MG; Start 09/24/18 at 09:00 Fish Oil (Fish Oil) 2,000 mg BID PO Last administered on 10/04/18 08:18; Admin Dose 2,000 MG; Start 09/23/18 at 21:00 Diagnostic Test (Pha) (Accu-Chek) 1 ea AC MEALS XX Last administered on 09/29/18 17:53; Admin Dose 1 EA; Start 09/24/18 at 07:00 Diagnostic Test (Pha) (Accu-Chek) 1 ea 2 HOURS AFTER MEALS XX Last administered on 10/01/18 14:20; Admin Dose 1 EA; Start 09/23/18 at 20:00 Fluticasone Propionate (Flonase 0.05% Nasal) 1 spray BID NASAL Last administered on 10/01/18 08:09; Admin Dose 1 SPRAY; Start 09/24/18 at 01:00 Repaglinide (Prandin) 1 mg AC MEALS PO Last administered on 10/01/18 08:08; Admin Dose 1 MG; Start 09/25/18 at 11:30 Lisinopril (Zestril) 40 mg BID PO Last administered on 10/04/18 08:19; Admin Dose 40 MG; Start 09/26/18 at 09:00 Diphenhydramine HCl (Benadryl) 25 mg Q6H PRN IV itching Last administered on 09/26/18 13:28; Admin Dose 25 MG; Start 09/26/18 at 01:00 Mupirocin (Bactroban) 1 applic BID TOP Last administered on 10/01/18 08:07; Admin Dose 1 APPLIC; Start 09/27/18 at 09:00 Sodium Hypochlorite (Dakins Diluted (/40)) 1 applic BID TP Last administered on 10/01/18 08:07; Admin Dose 1 APPLIC; Start 09/27/18 at 09:00 Famotidine (Pepcid) 20 mg DAILY PO Last administered on 09/30/18 08:49; Admin Dose 20 MG; Start 09/28/18 at 09:00 Insulin Glargine (Lantus) 28 units DAILY@2000 SC Last administered on 10/03/18 20:50; Admin Dose 28 UNITS; Start 09/28/18 at 20:00 Morphine Sulfate (morphine) 2 mg Q4H PRN IV SEVERE PAIN LEVEL 7-10 Last administered on 09/29/18 01:49; Admin Dose 2 MG; Start 09/28/18 at 19:30 Vancomycin HCl (Vanco Iv Per Pharmacy) VANCOMYCIN PER PHARMACY PER PROTOCOL XX ; Start 09/29/18 at 14:30 Calcium Carbonate (Tums) 500 mg Q6H PRN PO INDIGESTION; Start 09/29/18 at 23:00 Calcium Acetate (Phoslo) 1,334 mg WITH MEALS PO Last administered on 10/04/18 08:19; Admin Dose 1,334 MG; Start 09/30/18 at 18:00 Metronidazole (Flagyl) 500 mg Q8 PO Last administered on 10/01/18at 14:20; Admin Dose 500 MG; Start 10/01/18 at 14:00 Heparin Sodium (Porcine) (Heparin (5000 Units/1ml)) 5,000 unit Q8 SC ; Start 10/02/18 at 22:00 OPAL QUINONEZ MD October 04, 2018 12:13
--- NOTE | 2018-10-04 14:44 | PN ---
Date/Time of Note Date/Time of Note DATE: 10/04/18 TIME: 14:43 Assessment/Plan VTE Prophylaxis Risk score (from Nsg)>0 risk: 4 SCD applied (from Nsg): No SCD contraindicated: other Pharmacological prophylaxis: heparin Lines/Catheters IV Catheter Type (from Nrsg): Peripheral IV Urinary Cath still in place: No Assessment/Plan Hospital Course SUBJECTIVE: Denies any pain. The patient is very upset that he was not transferred to ARU yesterday. OBJECTIVE: Physical Exam General: Obese 53 year-old male lying in bed in no apparent distress. HEENT: Normocephalic, atraumatic. Eyes: Anicteric sclerae, conjunctivae clear. ENT: Nasal septum midline, oral mucosa moist. Neck supple, no JVD noticed. Respiratory: Bilaterally clear breath sounds. No use of accessory muscles of respiration. No adventitious breath sounds. Cardiovascular: S1, S2 heard. Regular rate and rhythm. Abdomen: Soft, nontender, and nondistended. Bowel sounds positive in all 4 quadrants. Genitourinary: Deferred. Extremities: No cyanosis, no clubbing, no edema. Left lower extremity surgical dressing with external fixation device in place. Neurologic: Cranial nerves II through XII grossly intact. The patient is awake, alert, and oriented. Skin: Normal skin turgor. No skin rashes. Labs & Vitals per chart ASSESSMENT & PLAN 53-year-old male with past medical history of diabetes mellitus, end-stage renal disease on hemodialysis on Tuesdays//Saturdays, hypertension, and obstructive sleep apnea who presented to [facility] for elective surgical intervention on left Charcot neuroarthropathy. 1. Left foot Charcot, left foot varus deformity with degenerative joint disease; left foot diabetic foot ulceration. -Status post left foot midfoot osteotomy and fusion of calcaneocuboid joint; left foot exostectomy, fifth metatarsal; left foot excisional debridement of ulceration, skin, subcutaneous tissue; left foot island pedicle flap. -Continue antimicrobials as per ID. -Continue local wound care. 2. Diabetes mellitus. -Hemoglobin A1c 11.7. -Continue sliding scale insulin with premeal insulin and basal insulin. 3. ESRD on HD. Continue hemodialysis on scheduled days Tuesdays//Thursday. 4. Hypertension -Continue antihypertensives. 5. Obstructive sleep apnea. -Continue nocturnal CPAP. 6. Normocytic normochromic anemia. -Most probably anemia of chronic disease. -Monitor H&H closely. 7. Dyslipidemia. -Continue Lipitor. 7. Fluids, electrolytes, and nutrition. -Carbohydrate controlled, renal diet. 8. DVT prophylaxis. -Subcutaneous heparin. 9. Plan. -Continue antimicrobials as per ID. -Await bed availability at acute rehabilitation unit. The patient was seen in collaboration with Dr. Del Valle. Result Diagram: 10/01/18 0439 10/01/18 0439 Results 24hrs Laboratory Tests Test 10/03/18 14:50 10/03/18 17:47 10/03/18 20:44 10/04/18 04:37 Bedside Glucose 153 164 249 H Random Vancomycin 18.7 Level Test 10/04/18 08:06 10/04/18 10:11 10/04/18 13:12 Bedside Glucose 135 168 147 Exam/Review of Systems Exam Vitals Vital Signs Date Temp Pulse Resp B/P (MAP) Pulse Ox O2 O2 Flow FiO2 Time Delivery Rate 10/04/18 98.2 80 16 150/70 96 08:01 (96) 10/02/18 Room Air 12:40 Intake and Output 10/03/18 10/03/18 10/04/18 1515:00 23:00 07:00 IntakeIntake Total 840 ml BalanceBalance 840 ml Results Results 24hrs Laboratory Tests Test 10/03/18 14:50 10/03/18 17:47 10/03/18 20:44 10/04/18 04:37 Bedside Glucose 153 164 249 H Random Vancomycin 18.7 Level Test 10/04/18 08:06 10/04/18 10:11 10/04/18 13:12 Bedside Glucose 135 168 147 Medications Medication Current Medications Miscellaneous Information 1 ea NOTE XX ; Start 09/23/18 at 16:30 Glucose (Glutose) 15 gm Q15M PRN PO DECREASED GLUCOSE; Start 09/23/18 at 16:30 Glucose (Glutose) 22.5 gm Q15M PRN PO DECREASED GLUCOSE; Start 09/23/18 at 16:30 Dextrose (D50w Syringe) 25 ml Q15M PRN IV DECREASED GLUCOSE; Start 09/23/18 at 16:30 Dextrose (D50w Syringe) 50 ml Q15M PRN IV DECREASED GLUCOSE; Start 09/23/18 at 16:30 Glucagon (Glucagen) 1 mg Q15M PRN IM DECREASED GLUCOSE; Start 09/23/18 at 16:30 Glucose (Glutose) 15 gm Q15M PRN BUCCAL DECREASED GLUCOSE; Start 09/23/18 at 16:30 Calcitriol (Rocaltrol) 0.25 mcg DAILY PO Last administered on 10/01/18 08:08; Admin Dose 0.25 MCG; Start 09/24/18 at 09:00 Carvedilol (Coreg) 25 mg BID PO Last administered on 10/04/18 08:27; Admin Dose 25 MG; Start 09/23/18 at 21:00 IV Flush (NS 3 ml) 3 ml PER PROTOCOL IV ; Start 09/23/18 at 17:30 Ondansetron HCl (Zofran Inj) 4 mg Q6H PRN IV NAUSEA/VOMITING Last administered on 09/29/18 20:23; Admin Dose 4 MG; Start 09/23/18 at 17:30 Acetaminophen (Tylenol Tab) 650 mg Q6H PRN PO .PAIN 1-3 OR TEMP Last administered on 09/30/18at 21:33; Admin Dose 650 MG; Start 09/23/18 at 17:30 Acetaminophen/ Hydrocodone Bitart ([place] (5/325)) 1 tab Q6H PRN PO .MOD PAIN 4- 6; Start 09/23/18 at 17:30 Acetaminophen/ Hydrocodone Bitart ([place] (5/325)) 2 tab Q6H PRN PO .SEVERE PAIN 7-10 Last administered on 09/28/18at 16:15; Admin Dose 2 TAB; Start 09/23/18 at 17:30 Docusate Sodium (Colace) 100 mg Q12H PRN PO .CONSTIPATION Last administered on 09/27/18 06:48; Admin Dose 100 MG; Start 09/23/18 at 17:30 Magnesium Hydroxide (Milk Of Mag) 30 ml DAILY PRN PO .CONSTIPATION; Start 09/23/18 at 17:30 Insulin Aspart (Novolog Insulin Pen) NOVOLOG *MILD* ALGORITHM WITH MEALS BEDTIME SC Last administered on 10/04/18 13:16; Admin Dose 1 UNIT; Start 09/23/18 at 18:00 Heparin Sodium (Porcine) (Heparin (1000 Units/ml)) 4,000 unit AFTER DIALYSIS CATHETER ; Start 09/23/18 at 17:30 Albumin Human 50 ml @ 100 mls/hr WITH DIALYSIS PRN IV SBP < 90 DURING DIALYSIS; Start 09/23/18 at 17:30 Atorvastatin Calcium (Lipitor) 40 mg QHS PO Last administered on 10/03/18 20:46; Admin Dose 40 MG; Start 09/23/18 at 21:00 Linagliptin (Tradjenta) 5 mg DAILY PO Last administered on 10/04/18 08:17; Admin Dose 5 MG; Start 09/24/18 at 09:00 Fish Oil (Fish Oil) 2,000 mg BID PO Last administered on 10/04/18 08:18; Admin Dose 2,000 MG; Start 09/23/18 at 21:00 Diagnostic Test (Pha) (Accu-Chek) 1 ea AC MEALS XX Last administered on 09/29/18 17:53; Admin Dose 1 EA; Start 09/24/18 at 07:00 Diagnostic Test (Pha) (Accu-Chek) 1 ea 2 HOURS AFTER MEALS XX Last administered on 10/01/18 14:20; Admin Dose 1 EA; Start 09/23/18 at 20:00 Fluticasone Propionate (Flonase 0.05% Nasal) 1 spray BID NASAL Last administered on 10/01/18 08:09; Admin Dose 1 SPRAY; Start 09/24/18 at 01:00 Repaglinide (Prandin) 1 mg AC MEALS PO Last administered on 10/01/18 08:08; Admin Dose 1 MG; Start 09/25/18 at 11:30 Lisinopril (Zestril) 40 mg BID PO Last administered on 10/04/18 08:19; Admin Dose 40 MG; Start 09/26/18 at 09:00 Diphenhydramine HCl (Benadryl) 25 mg Q6H PRN IV itching Last administered on 09/26/18 13:28; Admin Dose 25 MG; Start 09/26/18 at 01:00 Mupirocin (Bactroban) 1 applic BID TOP Last administered on 10/01/18 08:07; Admin Dose 1 APPLIC; Start 09/27/18 at 09:00 Sodium Hypochlorite (Dakins Diluted (40)) 1 applic BID TP Last administered on 10/01/18 08:07; Admin Dose 1 APPLIC; Start 09/27/18 at 09:00 Famotidine (Pepcid) 20 mg DAILY PO Last administered on 09/30/18 08:49; Admin Dose 20 MG; Start 09/28/18 at 09:00 Insulin Glargine (Lantus) 28 units DAILY@2000 SC Last administered on 10/03/18 20:50; Admin Dose 28 UNITS; Start 09/28/18 at 20:00 Morphine Sulfate (morphine) 2 mg Q4H PRN IV SEVERE PAIN LEVEL 7-10 Last administered on 09/29/18 01:49; Admin Dose 2 MG; Start 09/28/18 at 19:30 Vancomycin HCl (Vanco Iv Per Pharmacy) VANCOMYCIN PER PHARMACY PER PROTOCOL XX ; Start 09/29/18 at 14:30 Calcium Carbonate (Tums) 500 mg Q6H PRN PO INDIGESTION; Start 09/29/18 at 23:00 Calcium Acetate (Phoslo) 1,334 mg WITH MEALS PO Last administered on 10/04/18at 13:32; Admin Dose 1,334 MG; Start 09/30/18 at 18:00 Metronidazole (Flagyl) 500 mg Q8 PO Last administered on 10/01/18at 14:20; Admin Dose 500 MG; Start 10/01/18 at 14:00 Heparin Sodium (Porcine) (Heparin (5000 Units/1ml)) 5,000 unit Q8 SC ; Start 10/02/18 at 22:00 GERALD MOTA NP October 04, 2018 14:44
[2018-10-04 14:58] VITALS: BP 126/69; PULSE 74; RESP 16
[2018-10-04 19:33] VITALS: BP 160/76; PULSE 79; RESP 16
[2018-10-04] MEDS: ATORVASTATIN 40 MG TAB PO SCH (20:46)
[2018-10-04] MEDS: INSULIN GLARGINE [LANTus] (100 UNITS/ML) SYG SC SCH (20:50)
[2018-10-05] VITALS (18 sets, daily range): BP systolic 118–161; BP diastolic 59–83; PULSE 72–88; RESP 16–20
[2018-10-05] MEDS: metroNIDAZOLE 500 MG TAB PO SCH ×2 (05:36→13:16)
[2018-10-05] MEDS: HEPARIN 5,000 UNIT/1 ML VIAL SC SCH ×3 (05:36→20:51)
[2018-10-05] MEDS: INSULIN ASPART [NOVOLOG] 3 ML PEN SC SCH ×4 (08:00→20:49)
[2018-10-05] MEDS: ACCU-CHEK XX SCH ×6 (08:05→20:00)
[2018-10-05] MEDS: REPAGLINIDE 2 MG TAB PO SCH ×3 (08:05→17:25)
[2018-10-05] MEDS: CALCIUM ACETATE 667 MG CAP PO SCH ×4 (08:06→19:09)
[2018-10-05] MEDS: LINAGLIPTIN 5 MG TABLET PO SCH (08:06)
[2018-10-05] MEDS: FISH OIL 1,000 MG CAP PO SCH ×2 (08:06→20:46)
[2018-10-05] MEDS: LISINOPRIL 20 MG TAB PO SCH ×2 (08:07→20:46)
[2018-10-05] MEDS: CALCITRIOL 0.25 MCG CAP PO SCH (08:07)
[2018-10-05] MEDS: FLUTICASONE 0.05% 16 GM NAS SPRAY NASAL SCH ×2 (08:07→20:50)
[2018-10-05] MEDS: MUPIROCIN 2% 22 GM OINT TOP SCH ×2 (08:07→20:50)
[2018-10-05] MEDS: DAKINS 0.0125%(1/40) 473 ML SOLUTION TP SCH ×2 (08:07→20:50)
[2018-10-05] MEDS: FAMOTIDINE 20 MG TAB PO SCH (08:07)
--- NOTE | 2018-10-05 13:25 | CONS ---
Assessment/Plan Assessment/Plan Hospital Course (Demo Recall) No events, no fevers Antimicrobials: Vancomycin Flagyl PHYSICAL EXAMINATION: GENERAL: This is a well-developed, well-nourished, middle-aged man who is alert, in no distress. HEENT: Head is atraumatic, normocephalic. Sclerae are anicteric. Buccal mucosa is pink. NECK: Supple. CHEST: Rise symmetrical. Breath sounds diminished to bases. HEART: S1, S2. ABDOMEN: Soft. Bowel tones are present. EXTREMITIES: Without cyanosis. Left foot with Douglas wrap and external hardware present. Assessment: 1. Systemic inflammatory response syndrome 2. Left foot Charcot status post midfoot osteotomy and fusion 09/24/18 3. Diabetes with diabetic neuropathy 4. End-stage renal disease 5. Left upper extremity AV fistula Plan: Stable, C dif neg, dc abx Consultation Date/Type/Reason Admit Date/Time September 23, 2018 at 11:58 Initial Consult Date 09/23/18 Type of Consult id Requesting Provider: JANE QUICK MD Date/Time of Note DATE: 10/05/18 TIME: 13:22 Exam/Review of Systems Exam Vitals Vital Signs Date Temp Pulse Resp B/P (MAP) Pulse Ox O2 O2 Flow FiO2 Time Delivery Rate 10/05/18 98.4 09:55 10/05/18 72 20 158/75 96 07:42 (102) 10/02/18 Room Air 12:40 Intake and Output 10/04/18 10/04/18 10/05/18 1515:00 23:00 07:00 IntakeIntake Total 780 ml 520 ml BalanceBalance 780 ml 520 ml Results Result Diagram: 10/01/18 0439 10/01/18 0439 Results 24hrs Laboratory Tests Test 10/04/18 15:25 10/04/18 17:30 10/04/18 20:44 10/05/18 08:04 Bedside Glucose 135 143 167 115 Test 10/05/18 10:21 Bedside Glucose 148 Medications Medication Current Medications Miscellaneous Information 1 ea NOTE XX ; Start 09/23/18 at 16:30 Glucose (Glutose) 15 gm Q15M PRN PO DECREASED GLUCOSE; Start 09/23/18 at 16:30 Glucose (Glutose) 22.5 gm Q15M PRN PO DECREASED GLUCOSE; Start 09/23/18 at 16:30 Dextrose (D50w Syringe) 25 ml Q15M PRN IV DECREASED GLUCOSE; Start 09/23/18 at 16:30 Dextrose (D50w Syringe) 50 ml Q15M PRN IV DECREASED GLUCOSE; Start 09/23/18 at 16:30 Glucagon (Glucagen) 1 mg Q15M PRN IM DECREASED GLUCOSE; Start 09/23/18 at 16:30 Glucose (Glutose) 15 gm Q15M PRN BUCCAL DECREASED GLUCOSE; Start 09/23/18 at 16:30 Calcitriol (Rocaltrol) 0.25 mcg DAILY PO Last administered on 10/01/18 08:08; Admin Dose 0.25 MCG; Start 09/24/18 at 09:00 Carvedilol (Coreg) 25 mg BID PO Last administered on 10/04/18at 20:46; Admin Dose 25 MG; Start 09/23/18 at 21:00 IV Flush (NS 3 ml) 3 ml PER PROTOCOL IV ; Start 09/23/18 at 17:30 Ondansetron HCl (Zofran Inj) 4 mg Q6H PRN IV NAUSEA/VOMITING Last administered on 09/29/18at 20:23; Admin Dose 4 MG; Start 09/23/18 at 17:30 Acetaminophen (Tylenol Tab) 650 mg Q6H PRN PO .PAIN 1-3 OR TEMP Last administered on 09/30/18at 21:33; Admin Dose 650 MG; Start 09/23/18 at 17:30 Acetaminophen/ Hydrocodone Bitart ([place] (5/325)) 1 tab Q6H PRN PO .MOD PAIN 4- 6; Start 09/23/18 at 17:30 Acetaminophen/ Hydrocodone Bitart ([place] (5/325)) 2 tab Q6H PRN PO .SEVERE PAIN 7-10 Last administered on 09/28/18at 16:15; Admin Dose 2 TAB; Start 09/23/18 at 17:30 Docusate Sodium (Colace) 100 mg Q12H PRN PO .CONSTIPATION Last administered on 09/27/18at 06:48; Admin Dose 100 MG; Start 09/23/18 at 17:30 Magnesium Hydroxide (Milk Of Mag) 30 ml DAILY PRN PO .CONSTIPATION; Start 09/23/18 at 17:30 Insulin Aspart (Novolog Insulin Pen) NOVOLOG *MILD* ALGORITHM WITH MEALS BEDTIME SC Last administered on 10/05/18 13:13; Admin Dose 1 UNIT; Start 09/23/18 at 18:00 Heparin Sodium (Porcine) (Heparin (1000 Units/ml)) 4,000 unit AFTER DIALYSIS CATHETER ; Start 09/23/18 at 17:30 Albumin Human 50 ml @ 100 mls/hr WITH DIALYSIS PRN IV SBP < 90 DURING DIALYSIS; Start 09/23/18 at 17:30 Atorvastatin Calcium (Lipitor) 40 mg QHS PO Last administered on 10/04/18 20:46; Admin Dose 40 MG; Start 09/23/18 at 21:00 Linagliptin (Tradjenta) 5 mg DAILY PO Last administered on 10/05/18 08:06; Admin Dose 5 MG; Start 09/24/18 at 09:00 Fish Oil (Fish Oil) 2,000 mg BID PO Last administered on 10/05/18 08:06; Admin Dose 2,000 MG; Start 09/23/18 at 21:00 Diagnostic Test (Pha) (Accu-Chek) 1 ea AC MEALS XX Last administered on 09/29/18 17:53; Admin Dose 1 EA; Start 09/24/18 at 07:00 Diagnostic Test (Pha) (Accu-Chek) 1 ea 2 HOURS AFTER MEALS XX Last administered on 10/01/18 14:20; Admin Dose 1 EA; Start 09/23/18 at 20:00 Fluticasone Propionate (Flonase 0.05% Nasal) 1 spray BID NASAL Last administere d on 10/01/18 08:09; Admin Dose 1 SPRAY; Start 09/24/18 at 01:00 Repaglinide (Prandin) 1 mg AC MEALS PO Last administered on 10/01/18 08:08; Admin Dose 1 MG; Start 09/25/18 at 11:30 Lisinopril (Zestril) 40 mg BID PO Last administered on 10/04/18 20:47; Admin Dose 40 MG; Start 09/26/18 at 09:00 Diphenhydramine HCl (Benadryl) 25 mg Q6H PRN IV itching Last administered on 09/26/18 13:28; Admin Dose 25 MG; Start 09/26/18 at 01:00 Mupirocin (Bactroban) 1 applic BID TOP Last administered on 10/01/18 08:07; Admin Dose 1 APPLIC; Start 09/27/18 at 09:00 Sodium Hypochlorite (Dakins Diluted ()) 1 applic BID TP Last administered on 10/01/18 08:07; Admin Dose 1 APPLIC; Start 09/27/18 at 09:00 Famotidine (Pepcid) 20 mg DAILY PO Last administered on 09/30/18 08:49; Admin Dose 20 MG; Start 09/28/18 at 09:00 Insulin Glargine (Lantus) 28 units DAILY@2000 SC Last administered on 10/04/18 20:50; Admin Dose 28 UNITS; Start 09/28/18 at 20:00 Morphine Sulfate (morphine) 2 mg Q4H PRN IV SEVERE PAIN LEVEL 7-10 Last administered on 09/29/18 01:49; Admin Dose 2 MG; Start 09/28/18 at 19:30 Vancomycin HCl (Vanco Iv Per Pharmacy) VANCOMYCIN PER PHARMACY PER PROTOCOL XX ; Start 09/29/18 at 14:30 Calcium Carbonate (Tums) 500 mg Q6H PRN PO INDIGESTION; Start 09/29/18 at 23:00 Calcium Acetate (Phoslo) 1,334 mg WITH MEALS PO Last administered on 10/05/18 13:16; Admin Dose 1,334 MG; Start 09/30/18 at 18:00 Metronidazole (Flagyl) 500 mg Q8 PO Last administered on 10/01/18 14:20; Admin Dose 500 MG; Start 10/01/18 at 14:00 Heparin Sodium (Porcine) (Heparin (5000 Units/1ml)) 5,000 unit Q8 SC ; Start 10/02/18 at 22:00 Vancomycin HCl 250 ml @ 125 mls/hr ONCE ONCE IVPB ; Start 10/05/18 at 18:00; Stop 10/05/18 at 19:59 JAZMYNE BANG NP October 05, 2018 13:25
--- NOTE | 2018-10-05 14:49 | PN ---
Date/Time of Note Date/Time of Note DATE: 10/05/18 TIME: 14:48 Assessment/Plan VTE Prophylaxis Risk score (from Nsg)>0 risk: 4 SCD applied (from Nsg): No SCD contraindicated: other Pharmacological prophylaxis: heparin Lines/Catheters IV Catheter Type (from Nrsg): Peripheral IV Urinary Cath still in place: No Assessment/Plan Hospital Course SUBJECTIVE: Denies any pain. Getting HD. Has been selectively refusing medications that have diarrhea as a side-effect. OBJECTIVE: Physical Exam General: Obese 53 year-old male lying in bed in no apparent distress. HEENT: Normocephalic, atraumatic. Eyes: Anicteric sclerae, conjunctivae clear. ENT: Nasal septum midline, oral mucosa moist. Neck supple, no JVD noticed. Respiratory: Bilaterally clear breath sounds. No use of accessory muscles of respiration. No adventitious breath sounds. Cardiovascular: S1, S2 heard. Regular rate and rhythm. Abdomen: Soft, nontender, and nondistended. Bowel sounds positive in all 4 quadrants. Genitourinary: Deferred. Extremities: No cyanosis, no clubbing, no edema. Left lower extremity surgical dressing with external fixation device in place. Neurologic: Cranial nerves II through XII grossly intact. The patient is awake, alert, and oriented. Skin: Normal skin turgor. No skin rashes. Labs & Vitals per chart ASSESSMENT & PLAN 53-year-old male with past medical history of diabetes mellitus, end-stage renal disease on hemodialysis on Tuesdays//Saturdays, hypertension, and obstructive sleep apnea who presented to [facility] for elective surgical intervention on left Charcot neuroarthropathy. 1. Left foot Charcot, left foot varus deformity with degenerative joint disease; left foot diabetic foot ulceration. -Status post left foot midfoot osteotomy and fusion of calcaneocuboid joint; left foot exostectomy, fifth metatarsal; left foot excisional debridement of ulceration, skin, subcutaneous tissue; left foot island pedicle flap. -Continue antimicrobials as per ID. -Continue local wound care. 2. Diabetes mellitus. -Hemoglobin A1c 11.7. -Continue sliding scale insulin with premeal insulin and basal insulin. 3. ESRD on HD. Continue hemodialysis on scheduled days Tuesdays//Thursday. 4. Hypertension -Continue antihypertensives. 5. Obstructive sleep apnea. -Continue nocturnal CPAP. 6. Normocytic normochromic anemia. -Most probably anemia of chronic disease. -Monitor H&H closely. 7. Dyslipidemia. -Continue Lipitor. 7. Fluids, electrolytes, and nutrition. -Carbohydrate controlled, renal diet. 8. DVT prophylaxis. -Subcutaneous heparin. 9. Plan. -Continue antimicrobials as per ID. -Await bed availability/acceptance at acute rehabilitation unit. The patient was seen in collaboration with Dr. Del Valle. Result Diagram: 10/01/18 0439 10/01/18 0439 Results 24hrs Laboratory Tests Test 10/04/18 15:25 10/04/18 17:30 10/04/18 20:44 10/05/18 08:04 Bedside Glucose 135 143 167 115 Test 10/05/18 10:21 10/05/18 13:08 Bedside Glucose 148 141 Exam/Review of Systems Exam Vitals Vital Signs Date Temp Pulse Resp B/P (MAP) Pulse Ox O2 O2 Flow FiO2 Time Delivery Rate 10/05/18 98.1 75 20 149/79 96 13:57 (102) 10/02/18 Room Air 12:40 Intake and Output 10/04/18 10/04/18 10/05/18 1515:00 23:00 07:00 IntakeIntake Total 780 ml 520 ml BalanceBalance 780 ml 520 ml Results Results 24hrs Laboratory Tests Test 10/04/18 15:25 10/04/18 17:30 10/04/18 20:44 10/05/18 08:04 Bedside Glucose 135 143 167 115 Test 10/05/18 10:21 10/05/18 13:08 Bedside Glucose 148 141 Medications Medication Current Medications Miscellaneous Information 1 ea NOTE XX ; Start 09/23/18 at 16:30 Glucose (Glutose) 15 gm Q15M PRN PO DECREASED GLUCOSE; Start 09/23/18 at 16:30 Glucose (Glutose) 22.5 gm Q15M PRN PO DECREASED GLUCOSE; Start 09/23/18 at 16:30 Dextrose (D50w Syringe) 25 ml Q15M PRN IV DECREASED GLUCOSE; Start 09/23/18 at 16:30 Dextrose (D50w Syringe) 50 ml Q15M PRN IV DECREASED GLUCOSE; Start 09/23/18 at 16:30 Glucagon (Glucagen) 1 mg Q15M PRN IM DECREASED GLUCOSE; Start 09/23/18 at 16:30 Glucose (Glutose) 15 gm Q15M PRN BUCCAL DECREASED GLUCOSE; Start 09/23/18 at 16:30 Calcitriol (Rocaltrol) 0.25 mcg DAILY PO Last administered on 10/01/18 08:08; Admin Dose 0.25 MCG; Start 09/24/18 at 09:00 Carvedilol (Coreg) 25 mg BID PO Last administered on 10/04/18at 20:46; Admin Dose 25 MG; Start 09/23/18 at 21:00 IV Flush (NS 3 ml) 3 ml PER PROTOCOL IV ; Start 09/23/18 at 17:30 Ondansetron HCl (Zofran Inj) 4 mg Q6H PRN IV NAUSEA/VOMITING Last administered on 09/29/18 20:23; Admin Dose 4 MG; Start 09/23/18 at 17:30 Acetaminophen (Tylenol Tab) 650 mg Q6H PRN PO .PAIN 1-3 OR TEMP Last administe red on 09/30/18at 21:33; Admin Dose 650 MG; Start 09/23/18 at 17:30 Acetaminophen/ Hydrocodone Bitart ([place] (5/325)) 1 tab Q6H PRN PO .MOD PAIN 4- 6; Start 09/23/18 at 17:30 Acetaminophen/ Hydrocodone Bitart ([place] (5/325)) 2 tab Q6H PRN PO .SEVERE PAIN 7-10 Last administered on 09/28/18at 16:15; Admin Dose 2 TAB; Start 09/23/18 at 17:30 Docusate Sodium (Colace) 100 mg Q12H PRN PO .CONSTIPATION Last administered on 09/27/18 06:48; Admin Dose 100 MG; Start 09/23/18 at 17:30 Magnesium Hydroxide (Milk Of Mag) 30 ml DAILY PRN PO .CONSTIPATION; Start 09/23/18 at 17:30 Insulin Aspart (Novolog Insulin Pen) NOVOLOG *MILD* ALGORITHM WITH MEALS BEDTIME SC Last administered on 10/05/18 13:13; Admin Dose 1 UNIT; Start 09/23/18 at 18:00 Heparin Sodium (Porcine) (Heparin (1000 Units/ml)) 4,000 unit AFTER DIALYSIS CATHETER ; Start 09/23/18 at 17:30 Albumin Human 50 ml @ 100 mls/hr WITH DIALYSIS PRN IV SBP < 90 DURING DIALYSIS; Start 09/23/18 at 17:30 Atorvastatin Calcium (Lipitor) 40 mg QHS PO Last administered on 10/04/18 20:46; Admin Dose 40 MG; Start 09/23/18 at 21:00 Linagliptin (Tradjenta) 5 mg DAILY PO Last administered on 10/05/18 08:06; Admin Dose 5 MG; Start 09/24/18 at 09:00 Fish Oil (Fish Oil) 2,000 mg BID PO Last administered on 10/05/18 08:06; Admin Dose 2,000 MG; Start 09/23/18 at 21:00 Diagnostic Test (Pha) (Accu-Chek) 1 ea AC MEALS XX Last administered on 09/29 17:53; Admin Dose 1 EA; Start 09/24/18 at 07:00 Diagnostic Test (Pha) (Accu-Chek) 1 ea 2 HOURS AFTER MEALS XX Last administered on 10/01/18 14:20; Admin Dose 1 EA; Start 09/23/18 at 20:00 Fluticasone Propionate (Flonase 0.05% Nasal) 1 spray BID NASAL Last administered on 10/01/18 08:09; Admin Dose 1 SPRAY; Start 09/24/18 at 01:00 Repaglinide (Prandin) 1 mg AC MEALS PO Last administered on 10/01/18 08:08; Admin Dose 1 MG; Start 09/25/18 at 11:30 Lisinopril (Zestril) 40 mg BID PO Last administered on 10/04/18 20:47; Admin Dose 40 MG; Start 09/26/18 at 09:00 Diphenhydramine HCl (Benadryl) 25 mg Q6H PRN IV itching Last administered on 09/26/18 13:28; Admin Dose 25 MG; Start 09/26/18 at 01:00 Mupirocin (Bactroban) 1 applic BID TOP Last administered on 10/01/18 08:07; Admin Dose 1 APPLIC; Start 09/27/18 at 09:00 Sodium Hypochlorite (Dakins Diluted (40)) 1 applic BID TP Last administered on 10/01/18 08:07; Admin Dose 1 APPLIC; Start 09/27/18 at 09:00 Famotidine (Pepcid) 20 mg DAILY PO Last administered on 09/30/18at 08:49; Admin Dose 20 MG; Start 09/28/18 at 09:00 Insulin Glargine (Lantus) 28 units DAILY@2000 SC Last administered on 10/04/18at 20:50; Admin Dose 28 UNITS; Start 09/28/18 at 20:00 Morphine Sulfate (morphine) 2 mg Q4H PRN IV SEVERE PAIN LEVEL 7-10 Last administered on 09/29/18at 01:49; Admin Dose 2 MG; Start 09/28/18 at 19:30 Calcium Carbonate (Tums) 500 mg Q6H PRN PO INDIGESTION; Start 09/29/18 at 23:00 Calcium Acetate (Phoslo) 1,334 mg WITH MEALS PO Last administered on 10/05/18at 13:16; Admin Dose 1,334 MG; Start 09/30/18 at 18:00 Heparin Sodium (Porcine) (Heparin (5000 Units/1ml)) 5,000 unit Q8 SC ; Start 10/02/18 at 22:00 Saccharomyces Boulardii (Florastor) 250 mg BID PO ; Start 10/05/18 at 21:00 GERALD MOTA NP October 05, 2018 14:49
--- NOTE | 2018-10-05 16:34 | CONS ---
Assessment/Plan Assessment/Plan Assessment/Plan (Daily) 1. Acute Hyperglycemia- imporving BS control, Endocrine following 2. ESRD on HD TTS schedule 3. H/O DM II 4. H/o HL 5. H/O HTN with accelerated HTN now Plan: s/p HD today, will keep pt on TTS schedule s/p Surgery for left foot charcoat foot will follow up Consultation Date/Type/Reason Admit Date/Time September 23, 2018 at 11:58 Initial Consult Date 09/23/18 Type of Consult NEPHROLOGY Requesting Provider: JANE QUICK MD Date/Time of Note DATE: 10/05/18 TIME: 16:34 Exam/Review of Systems Exam Vitals Vital Signs Date Temp Pulse Resp B/P (MAP) Pulse Ox O2 O2 Flow FiO2 Time Delivery Rate 10/05/18 98.1 75 20 149/79 96 13:57 (102) 10/02/18 Room Air 12:40 Intake and Output 10/04/18 10/04/18 10/05/18 1515:00 23:00 07:00 IntakeIntake Total 780 ml 520 ml BalanceBalance 780 ml 520 ml Results Result Diagram: 10/01/18 0439 10/01/18 0439 Results 24hrs Laboratory Tests Test 10/04/18 17:30 10/04/18 20:44 10/05/18 08:04 10/05/18 10:21 Bedside Glucose 143 167 115 148 Test 10/05/18 13:08 10/05/18 15:01 Bedside Glucose 141 139 Medications Medication Current Medications Miscellaneous Information 1 ea NOTE XX ; Start 09/23/18 at 16:30 Glucose (Glutose) 15 gm Q15M PRN PO DECREASED GLUCOSE; Start 09/23/18 at 16:30 Glucose (Glutose) 22.5 gm Q15M PRN PO DECREASED GLUCOSE; Start 09/23/18 at 16:30 Dextrose (D50w Syringe) 25 ml Q15M PRN IV DECREASED GLUCOSE; Start 09/23/18 at 16:30 Dextrose (D50w Syringe) 50 ml Q15M PRN IV DECREASED GLUCOSE; Start 09/23/18 at 16:30 Glucagon (Glucagen) 1 mg Q15M PRN IM DECREASED GLUCOSE; Start 09/23/18 at 16:30 Glucose (Glutose) 15 gm Q15M PRN BUCCAL DECREASED GLUCOSE; Start 09/23/18 at 16:30 Calcitriol (Rocaltrol) 0.25 mcg DAILY PO Last administered on 10/01/18 08:08; Admin Dose 0.25 MCG; Start 09/24/18 at 09:00 Carvedilol (Coreg) 25 mg BID PO Last administered on 10/04/18 20:46; Admin Dose 25 MG; Start 09/23/18 at 21:00 IV Flush (NS 3 ml) 3 ml PER PROTOCOL IV ; Start 09/23/18 at 17:30 Ondansetron HCl (Zofran Inj) 4 mg Q6H PRN IV NAUSEA/VOMITING Last administered on 09/29/18 20:23; Admin Dose 4 MG; Start 09/23/18 at 17:30 Acetaminophen (Tylenol Tab) 650 mg Q6H PRN PO .PAIN 1-3 OR TEMP Last administered on 09/30/18 21:33; Admin Dose 650 MG; Start 09/23/18 at 17:30 Acetaminophen/ Hydrocodone Bitart ([place] (5/325)) 1 tab Q6H PRN PO .MOD PAIN 4- 6; Start 09/23/18 at 17:30 Acetaminophen/ Hydrocodone Bitart ([place] (5/325)) 2 tab Q6H PRN PO .SEVERE PAIN 7-10 Last administered on 09/28/18 16:15; Admin Dose 2 TAB; Start 09/23/18 at 17:30 Docusate Sodium (Colace) 100 mg Q12H PRN PO .CONSTIPATION Last administered on 09/27/18 06:48; Admin Dose 100 MG; Start 09/23/18 at 17:30 Magnesium Hydroxide (Milk Of Mag) 30 ml DAILY PRN PO .CONSTIPATION; Start 09/23/18 at 17:30 Insulin Aspart (Novolog Insulin Pen) NOVOLOG *MILD* ALGORITHM WITH MEALS BEDTIME SC Last administered on 10/05/18 13:13; Admin Dose 1 UNIT; Start 09/23/18 at 18:00 Heparin Sodium (Porcine) (Heparin (1000 Units/ml)) 4,000 unit AFTER DIALYSIS CATHETER ; Start 09/23/18 at 17:30 Albumin Human 50 ml @ 100 mls/hr WITH DIALYSIS PRN IV SBP < 90 DURING DIALYSIS; Start 09/23/18 at 17:30 Atorvastatin Calcium (Lipitor) 40 mg QHS PO Last administered on 10/04/18 20:46; Admin Dose 40 MG; Start 09/23/18 at 21:00 Linagliptin (Tradjenta) 5 mg DAILY PO Last administered on 10/05/18 08:06; Admin Dose 5 MG; Start 09/24/18 at 09:00 Fish Oil (Fish Oil) 2,000 mg BID PO Last administered on 10/05/18 08:06; Admin Dose 2,000 MG; Start 09/23/18 at 21:00 Diagnostic Test (Pha) (Accu-Chek) 1 ea AC MEALS XX Last administered on 09/29/18 17:53; Admin Dose 1 EA; Start 09/24/18 at 07:00 Diagnostic Test (Pha) (Accu-Chek) 1 ea 2 HOURS AFTER MEALS XX Last administered on 10/01/18 14:20; Admin Dose 1 EA; Start 09/23/18 at 20:00 Fluticasone Propionate (Flonase 0.05% Nasal) 1 spray BID NASAL Last administered on 10/01/18 08:09; Admin Dose 1 SPRAY; Start 09/24/18 at 01:00 Repaglinide (Prandin) 1 mg AC MEALS PO Last administered on 10/01/18 08:08; Admin Dose 1 MG; Start 09/25/18 at 11:30 Lisinopril (Zestril) 40 mg BID PO Last administered on 10/04/18 20:47; Admin Dose 40 MG; Start 09/26/18 at 09:00 Diphenhydramine HCl (Benadryl) 25 mg Q6H PRN IV itching Last administered on 09/26/18 13:28; Admin Dose 25 MG; Start 09/26/18 at 01:00 Mupirocin (Bactroban) 1 applic BID TOP Last administered on 10/01/18 08:07; Admin Dose 1 APPLIC; Start 09/27/18 at 09:00 Sodium Hypochlorite (Dakins Diluted (1/40)) 1 applic BID TP Last administered on 10/01/18 08:07; Admin Dose 1 APPLIC; Start 09/27/18 at 09:00 Famotidine (Pepcid) 20 mg DAILY PO Last administered on 09/30/18 08:49; Admin Dose 20 MG; Start 09/28/18 at 09:00 Insulin Glargine (Lantus) 28 units DAILY@2000 SC Last administered on 10/04/18at 20:50; Admin Dose 28 UNITS; Start 09/28/18 at 20:00 Morphine Sulfate (morphine) 2 mg Q4H PRN IV SEVERE PAIN LEVEL 7-10 Last administered on 09/29/18at 01:49; Admin Dose 2 MG; Start 09/28/18 at 19:30 Calcium Carbonate (Tums) 500 mg Q6H PRN PO INDIGESTION; Start 09/29/18 at 23:00 Calcium Acetate (Phoslo) 1,334 mg WITH MEALS PO Last administered on 10/05/18at 13:16; Admin Dose 1,334 MG; Start 09/30/18 at 18:00 Heparin Sodium (Porcine) (Heparin (5000 Units/1ml)) 5,000 unit Q8 SC ; Start 10/02/18 at 22:00 Saccharomyces Boulardii (Florastor) 250 mg BID PO ; Start 10/05/18 at 21:00 OPAL QUINONEZ MD October 05, 2018 16:34
[2018-10-05] MEDS ORDERED: VANCOMYCIN 1 GM 250 ML IVPB ONE (18:00)
--- NOTE | 2018-10-05 18:11 | CONS ---
Assessment/Plan Assessment/Plan Problems: (1) Diabetes mellitus type 2 in obese Onset Date: ~ 09/1995 Status: Chronic Comment: Adequate blood sugar control on current regimen in controlled setting. The patient may be leaving the hospital he should continue on the present regimen. (2) Charcot's joint, right ankle and foot Status: Chronic Comment: As per podiatry (3) Charcot's joint, left ankle and foot Status: Chronic Comment: As per podiatry recommendations (4) Essential hypertension Status: Chronic Comment: Adequate control at the present time (5) End-stage renal disease on hemodialysis Status: Chronic Comment: As per nephrology (6) Hyperlipidemia associated with type 2 diabetes mellitus Status: Chronic Comment: Adequate control at the present time Consultation Date/Type/Reason Admit Date/Time September 23, 2018 at 11:58 Initial Consult Date 09/23/18 Type of Consult Endocrinology Reason for Consultation Diabetes mellitus type II; diabetic peripheral neuropathy; bilateral Charcot joints; end-stage renal disease; Requesting Provider: JANE QUICK MD Date/Time of Note DATE: 10/05/18 TIME: 18:08 24 HR Interval Summary Free Text/Dictation Patient and his spouse are both quite aggravated. They did not wish to discuss the reasons behind that with me. Constitutional: no complaints Detailed Summary Respiratory: no complaints Cardiovascular: no complaints Gastrointestinal: diarrhea Exam/Review of Systems Exam Vitals Vital Signs Date Temp Pulse Resp B/P (MAP) Pulse Ox O2 O2 Flow FiO2 Time Delivery Rate 10/05/18 82 16 161/76 98 Nasal 2.0 17:44 (104) Cannula 10/05/18 98.1 13:57 Intake and Output 10/04/18 10/04/18 10/05/18 1515:00 23:00 07:00 IntakeIntake Total 780 ml 520 ml BalanceBalance 780 ml 520 ml Constitutional: alert, oriented Cardiovascular: regular rate and rhythm, nl pulses Results Result Diagram: 10/01/18 0439 10/01/18 0439 Results 24hrs Laboratory Tests Test 10/04/18 20:44 10/05/18 08:04 10/05/18 10:21 10/05/18 13:08 Bedside Glucose 167 115 148 141 Test 10/05/18 15:01 10/05/18 17:24 Bedside Glucose 139 123 Medications Medication Current Medications Miscellaneous Information 1 ea NOTE XX ; Start 09/23/18 at 16:30 Glucose (Glutose) 15 gm Q15M PRN PO DECREASED GLUCOSE; Start 09/23/18 at 16:30 Glucose (Glutose) 22.5 gm Q15M PRN PO DECREASED GLUCOSE; Start 09/23/18 at 16:30 Dextrose (D50w Syringe) 25 ml Q15M PRN IV DECREASED GLUCOSE; Start 09/23/18 at 16:30 Dextrose (D50w Syringe) 50 ml Q15M PRN IV DECREASED GLUCOSE; Start 09/23/18 at 16:30 Glucagon (Glucagen) 1 mg Q15M PRN IM DECREASED GLUCOSE; Start 09/23/18 at 16:30 Glucose (Glutose) 15 gm Q15M PRN BUCCAL DECREASED GLUCOSE; Start 09/23/18 at 16:30 Calcitriol (Rocaltrol) 0.25 mcg DAILY PO Last administered on 10/01/18at 08:08; Admin Dose 0.25 MCG; Start 09/24/18 at 09:00 Carvedilol (Coreg) 25 mg BID PO Last administered on 10/04/18at 20:46; Admin Dose 25 MG; Start 09/23/18 at 21:00 IV Flush (NS 3 ml) 3 ml PER PROTOCOL IV ; Start 09/23/18 at 17:30 Ondansetron HCl (Zofran Inj) 4 mg Q6H PRN IV NAUSEA/VOMITING Last administered on 09/29/18at 20:23; Admin Dose 4 MG; Start 09/23/18 at 17:30 Acetaminophen (Tylenol Tab) 650 mg Q6H PRN PO .PAIN 1-3 OR TEMP Last administered on 09/30/18at 21:33; Admin Dose 650 MG; Start 09/23/18 at 17:30 Acetaminophen/ Hydrocodone Bitart ([place] (5/325)) 1 tab Q6H PRN PO .MOD PAIN 4- 6; Start 09/23/18 at 17:30 Acetaminophen/ Hydrocodone Bitart ([place] (5/325)) 2 tab Q6H PRN PO .SEVERE PAIN 7-10 Last administered on 09/28/18at 16:15; Admin Dose 2 TAB; Start 09/23/18 at 17:30 Docusate Sodium (Colace) 100 mg Q12H PRN PO .CONSTIPATION Last administered on 09/27/18 06:48; Admin Dose 100 MG; Start 09/23/18 at 17:30 Magnesium Hydroxide (Milk Of Mag) 30 ml DAILY PRN PO .CONSTIPATION; Start 09/23/18 at 17:30 Insulin Aspart (Novolog Insulin Pen) NOVOLOG *MILD* ALGORITHM WITH MEALS BEDTIME SC Last administered on 10/05/18 13:13; Admin Dose 1 UNIT; Start 09/23/18 at 18:00 Heparin Sodium (Porcine) (Heparin (1000 Units/ml)) 4,000 unit AFTER DIALYSIS CATHETER ; Start 09/23/18 at 17:30 Albumin Human 50 ml @ 100 mls/hr WITH DIALYSIS PRN IV SBP < 90 DURING DIALYSIS; Start 09/23/18 at 17:30 Atorvastatin Calcium (Lipitor) 40 mg QHS PO Last administered on 10/04/18 20:46; Admin Dose 40 MG; Start 09/23/18 at 21:00 Linagliptin (Tradjenta) 5 mg DAILY PO Last administered on 10/05/18 08:06; Admin Dose 5 MG; Start 09/24/18 at 09:00 Fish Oil (Fish Oil) 2,000 mg BID PO Last administered on 10/05/18 08:06; Admin Dose 2,000 MG; Start 09/23/18 at 21:00 Diagnostic Test (Pha) (Accu-Chek) 1 ea AC MEALS XX Last administered on 09/29/18 17:53; Admin Dose 1 EA; Start 09/24/18 at 07:00 Diagnostic Test (Pha) (Accu-Chek) 1 ea 2 HOURS AFTER MEALS XX Last administered on 10/01/18 14:20; Admin Dose 1 EA; Start 09/23/18 at 20:00 Fluticasone Propionate (Flonase 0.05% Nasal) 1 spray BID NASAL Last administered on 10/01/18 08:09; Admin Dose 1 SPRAY; Start 09/24/18 at 01:00 Repaglinide (Prandin) 1 mg AC MEALS PO Last administered on 10/01/18 08:08; Admin Dose 1 MG; Start 09/25/18 at 11:30 Lisinopril (Zestril) 40 mg BID PO Last administered on 10/04/18 20:47; Admin Dose 40 MG; Start 09/26/18 at 09:00 Diphenhydramine HCl (Benadryl) 25 mg Q6H PRN IV itching Last administered on 09/26/18 13:28; Admin Dose 25 MG; Start 09/26/18 at 01:00 Mupirocin (Bactroban) 1 applic BID TOP Last administered on 10/01/18 08:07; Admin Dose 1 APPLIC; Start 09/27/18 at 09:00 Sodium Hypochlorite (Dakins Diluted ()) 1 applic BID TP Last administered on 10/01/18 08:07; Admin Dose 1 APPLIC; Start 09/27/18 at 09:00 Famotidine (Pepcid) 20 mg DAILY PO Last administered on 09/30/18 08:49; Admin Dose 20 MG; Start 09/28/18 at 09:00 Insulin Glargine (Lantus) 28 units DAILY@2000 SC Last administered on 10/04/18 20:50; Admin Dose 28 UNITS; Start 09/28/18 at 20:00 Morphine Sulfate (morphine) 2 mg Q4H PRN IV SEVERE PAIN LEVEL 7-10 Last adm inistered on 09/29/18 01:49; Admin Dose 2 MG; Start 09/28/18 at 19:30 Calcium Carbonate (Tums) 500 mg Q6H PRN PO INDIGESTION; Start 09/29/18 at 23:00 Calcium Acetate (Phoslo) 1,334 mg WITH MEALS PO Last administered on 10/05/18 17:27; Admin Dose 1,334 MG; Start 09/30/18 at 18:00 Heparin Sodium (Porcine) (Heparin (5000 Units/1ml)) 5,000 unit Q8 SC ; Start 10/02/18 at 22:00 Saccharomyces Boulardii (Florastor) 250 mg BID PO ; Start 10/05/18 at 21:00 Doxazosin Mesylate (Cardura) 1 mg HS PO ; Start 10/05/18 at 21:00 BRIE GRAF MD October 05, 2018 18:11
--- NOTE | 2018-10-05 18:29 | PDOCDIS ---
Discharge Instructions CONDITION [id number] Patient Condition: Szulo2t Stable HOME CARE INSTRUCTIONS: [id number] Diet Instructions: [id number] CARB CONTROLLED [id number] Special Diet: [id number] carb controlled, 2 gm NA diet ACTIVITY: [id number] Activity Restrictions: [id number] Slowly Increase Activity Avoid heavy lifting Do not Drive Do not operate Machinery Do not operate Power Tool Avoid Heavy Housework Keep Limb Elevated [id number] Activity Restrictions [id number] No weight bearing left lower Comment: extremity FOLLOW UP/APPOINTMENTS Follow-up Plan Please follow-up with Dr. Parks/Dr. Jaeger in 1 week. OTHER ORDERS: Other Orders: 1. Take medications as per prescription. 2. Take a low carbohydrate, low potassium diet. 3. Resume activities with weight bearing restrictions as per podiatry. 4. Please follow-up with podiatry in 1 week. GERALD MOTA NP October 05, 2018 18:29
[2018-10-05] MEDS ORDERED: ATOR40TA68 PO (18:42)
[2018-10-05] MEDS ORDERED: REPA2TAB23 PO (18:42)
[2018-10-05] MEDS ORDERED: OMEG100024 PO (18:42)
[2018-10-05] MEDS ORDERED: LISI-471 PO (18:42)
[2018-10-05] MEDS: SACCHAROMYCES BOULARDII 250 MG CAP PO SCH (20:44)
[2018-10-05] MEDS: ATORVASTATIN 40 MG TAB PO SCH (20:46)
[2018-10-05] MEDS: INSULIN GLARGINE [LANTus] (100 UNITS/ML) SYG SC SCH (20:50)
[2018-10-05] MEDS ORDERED: DOXAZOSIN 1 MG TAB PO SCH (21:00)
[2018-10-05] MEDS: morphine 2 MG INJ IV PRN (22:30)
[2018-10-05] MEDS: ONDANSETRON 4 MG INJ IV PRN (22:30)
[2018-10-06 02:00] VITALS: BP 108/56; PULSE 77; RESP 18
[2018-10-06] MEDS: REPAGLINIDE 2 MG TAB PO SCH (05:42)
[2018-10-06] MEDS: HEPARIN 5,000 UNIT/1 ML VIAL SC SCH (05:42)
[2018-10-06] MEDS: ACCU-CHEK XX SCH ×2 (07:00→10:00)
[2018-10-06 07:43] VITALS: BP 118/66; PULSE 71; RESP 18
[2018-10-06] MEDS: INSULIN ASPART [NOVOLOG] 3 ML PEN SC SCH (08:00)
--- NOTE | 2018-10-06 08:17 | CONS ---
Assessment/Plan Assessment/Plan Assessment/Plan (Daily) 1. Acute Hyperglycemia- imporving BS control, Endocrine following 2. ESRD on HD TTS schedule 3. H/O DM II 4. H/o HL 5. H/O HTN with accelerated HTN now Plan: s/p HD yesterday 3 L removed, , will keep pt on TTS schedule , plan for Hd tomorrow if pt stays here Status post left foot midfoot osteotomy and fusion of calcaneocuboid joint; left foot exostectomy, fifth metatarsal; left foot excisional debridement of ulceration, skin, subcutaneous tissue; will follow up Consultation Date/Type/Reason Admit Date/Time September 23, 2018 at 11:58 Initial Consult Date 09/23/18 Type of Consult NEPHROLOGY Requesting Provider: JANE QUICK MD Date/Time of Note DATE: 10/06/18 TIME: 08:17 24 HR Interval Summary Free Text/Dictation s/p HD yesterday 3 L removed, BP stable, afebrile, plan for d/c today Exam/Review of Systems Exam Vitals Vital Signs Date Temp Pulse Resp B/P (MAP) Pulse Ox O2 O2 Flow FiO2 Time Delivery Rate 10/06/18 98.7 71 18 118/66 94 Room Air 07:43 (83) 10/05/18 2.0 17:44 Intake and Output 10/05/18 10/05/18 10/06/18 1515:00 23:00 07:00 IntakeIntake Total 720 ml 360 ml 240 ml OutputOutput Total 3500 ml BalanceBalance 720 ml -3140 ml 240 ml Exam Constitutional: alert Respiratory: clear to auscultation, diminished breath sounds Cardiovascular: regular rate and rhythm, nl pulses Gastrointestinal: soft, non-tender Musculoskeletal: muscle weakness, swelling, other (R arm AVG) Neurological: NURSE WOUND CARE II-XII intact, nl mental status, nl speech, nl strength Results Results 24hrs Laboratory Tests Test 10/05/18 10:21 10/05/18 13:08 10/05/18 15:01 10/05/18 17:24 Bedside Glucose 148 141 139 123 Test 10/05/18 20:42 10/05/18 22:07 10/06/18 03:07 Bedside Glucose 201 186 113 Medications Medication Current Medications Miscellaneous Information 1 ea NOTE XX ; Start 09/23/18 at 16:30 Glucose (Glutose) 15 gm Q15M PRN PO DECREASED GLUCOSE; Start 09/23/18 at 16:30 Glucose (Glutose) 22.5 gm Q15M PRN PO DECREASED GLUCOSE; Start 09/23/18 at 16:30 Dextrose (D50w Syringe) 25 ml Q15M PRN IV DECREASED GLUCOSE; Start 09/23/18 at 16:30 Dextrose (D50w Syringe) 50 ml Q15M PRN IV DECREASED GLUCOSE; Start 09/23/18 at 16:30 Glucagon (Glucagen) 1 mg Q15M PRN IM DECREASED GLUCOSE; Start 09/23/18 at 16:30 Glucose (Glutose) 15 gm Q15M PRN BUCCAL DECREASED GLUCOSE; Start 09/23/18 at 16:30 Calcitriol (Rocaltrol) 0.25 mcg DAILY PO Last administered on 10/01/18 08:08; Admin Dose 0.25 MCG; Start 09/24/18 at 09:00 Carvedilol (Coreg) 25 mg BID PO Last administered on 10/05/18at 20:46; Admin Dose 25 MG; Start 09/23/18 at 21:00 IV Flush (NS 3 ml) 3 ml PER PROTOCOL IV ; Start 09/23/18 at 17:30 Ondansetron HCl (Zofran Inj) 4 mg Q6H PRN IV NAUSEA/VOMITING Last administered on 10/05/18 22:30; Admin Dose 4 MG; Start 09/23/18 at 17:30 Acetaminophen (Tylenol Tab) 650 mg Q6H PRN PO .PAIN 1-3 OR TEMP Last adminis tered on 09/30/18at 21:33; Admin Dose 650 MG; Start 09/23/18 at 17:30 Acetaminophen/ Hydrocodone Bitart ([place] (5/325)) 1 tab Q6H PRN PO .MOD PAIN 4- 6; Start 09/23/18 at 17:30 Acetaminophen/ Hydrocodone Bitart ([place] (5/325)) 2 tab Q6H PRN PO .SEVERE PAIN 7-10 Last administered on 09/28/18at 16:15; Admin Dose 2 TAB; Start 09/23/18 at 17:30 Docusate Sodium (Colace) 100 mg Q12H PRN PO .CONSTIPATION Last administered on 09/27/18at 06:48; Admin Dose 100 MG; Start 09/23/18 at 17:30 Magnesium Hydroxide (Milk Of Mag) 30 ml DAILY PRN PO .CONSTIPATION; Start 09/23/18 at 17:30 Insulin Aspart (Novolog Insulin Pen) NOVOLOG *MILD* ALGORITHM WITH MEALS BEDTIME SC Last administered on 10/05/18 20:49; Admin Dose 1 UNIT; Start 09/23/18 at 18:00 Heparin Sodium (Porcine) (Heparin (1000 Units/ml)) 4,000 unit AFTER DIALYSIS CATHETER ; Start 09/23/18 at 17:30 Albumin Human 50 ml @ 100 mls/hr WITH DIALYSIS PRN IV SBP < 90 DURING DIALYSIS; Start 09/23/18 at 17:30 Atorvastatin Calcium (Lipitor) 40 mg QHS PO Last administered on 10/05/18 20:46; Admin Dose 40 MG; Start 09/23/18 at 21:00 Linagliptin (Tradjenta) 5 mg DAILY PO Last administered on 10/05/18 08:06; Admin Dose 5 MG; Start 09/24/18 at 09:00 Fish Oil (Fish Oil) 2,000 mg BID PO Last administered on 10/05/18 20:46; Admin Dose 2,000 MG; Start 09/23/18 at 21:00 Diagnostic Test (Pha) (Accu-Chek) 1 ea AC MEALS XX Last administered on 09/29/18 17:53; Admin Dose 1 EA; Start 09/24/18 at 07:00 Diagnostic Test (Pha) (Accu-Chek) 1 ea 2 HOURS AFTER MEALS XX Last administere d on 10/01/18 14:20; Admin Dose 1 EA; Start 09/23/18 at 20:00 Fluticasone Propionate (Flonase 0.05% Nasal) 1 spray BID NASAL Last administered on 10/01/18 08:09; Admin Dose 1 SPRAY; Start 09/24/18 at 01:00 Repaglinide (Prandin) 1 mg AC MEALS PO Last administered on 10/01/18 08:08; Admin Dose 1 MG; Start 09/25/18 at 11:30 Lisinopril (Zestril) 40 mg BID PO Last administered on 10/05/18 20:46; Admin Dose 40 MG; Start 09/26/18 at 09:00 Diphenhydramine HCl (Benadryl) 25 mg Q6H PRN IV itching Last administered on 09/26/18 13:28; Admin Dose 25 MG; Start 09/26/18 at 01:00 Mupirocin (Bactroban) 1 applic BID TOP Last administered on 10/01/18 08:07; Admin Dose 1 APPLIC; Start 09/27/18 at 09:00 Sodium Hypochlorite (Dakins Diluted (/40)) 1 applic BID TP Last administered on 10/01/18 08:07; Admin Dose 1 APPLIC; Start 09/27/18 at 09:00 Famotidine (Pepcid) 20 mg DAILY PO Last administered on 09/30/18 08:49; Admin Dose 20 MG; Start 09/28/18 at 09:00 Insulin Glargine (Lantus) 28 units DAILY@2000 SC Last administered on 10/05/18 20:50; Admin Dose 28 UNITS; Start 09/28/18 at 20:00 Morphine Sulfate (morphine) 2 mg Q4H PRN IV SEVERE PAIN LEVEL 7-10 Last administered on 10/05/18 22:30; Admin Dose 2 MG; Start 09/28/18 at 19:30 Calcium Carbonate (Tums) 500 mg Q6H PRN PO INDIGESTION; Start 09/29/18 at 23:00 Calcium Acetate (Phoslo) 1,334 mg WITH MEALS PO Last administered on 10/05/18 13:16; Admin Dose 1,334 MG; Start 09/30/18 at 18:00 Heparin Sodium (Porcine) (Heparin (5000 Units/1ml)) 5,000 unit Q8 SC ; Start 10/02/18 at 22:00 Saccharomyces Boulardii (Florastor) 250 mg BID PO Last administered on 10/05/18 20:44; Admin Dose 250 MG; Start 10/05/18 at 21:00 Doxazosin Mesylate (Cardura) 1 mg HS PO Last administered on 10/05/18 20:45; Admin Dose 1 MG; Start 10/05/18 at 21:00 OPAL QUINONEZ MD October 06, 2018 08:17
[2018-10-06] MEDS: FISH OIL 1,000 MG CAP PO SCH (08:47)
[2018-10-06] MEDS: LINAGLIPTIN 5 MG TABLET PO SCH (08:47)
[2018-10-06] MEDS: SACCHAROMYCES BOULARDII 250 MG CAP PO SCH (08:47)
[2018-10-06] MEDS: LISINOPRIL 20 MG TAB PO SCH (08:48)
[2018-10-06] MEDS: FAMOTIDINE 20 MG TAB PO SCH (08:48)
[2018-10-06] MEDS: FLUTICASONE 0.05% 16 GM NAS SPRAY NASAL SCH (08:48)
[2018-10-06] MEDS: DAKINS 0.0125%(1/40) 473 ML SOLUTION TP SCH (08:49)
[2018-10-06] MEDS: CALCITRIOL 0.25 MCG CAP PO SCH (08:49)
[2018-10-06] MEDS: MUPIROCIN 2% 22 GM OINT TOP SCH (08:49)
--- NOTE | 2018-10-06 12:24 | CONS ---
Assessment/Plan Assessment/Plan Hospital Course (Demo Recall) 1100 Patient is alert feels good and ready to be discharged, he is off antibiotics, no fevers overnight PHYSICAL EXAMINATION: GENERAL: This is a well-developed, well-nourished, middle-aged man who is alert, in no distress. HEENT: Head is atraumatic, normocephalic. Sclerae are anicteric. Buccal mucosa is pink. NECK: Supple. CHEST: Rise symmetrical. Breath sounds diminished to bases. HEART: S1, S2. ABDOMEN: Soft. Bowel tones are present. EXTREMITIES: Without cyanosis. Left foot with Douglas wrap and external hardware present. Assessment: 1. S/p systemic inflammatory response syndrome 2. Left foot Charcot status post midfoot osteotomy and fusion 09/24/18 3. Diabetes with diabetic neuropathy 4. End-stage renal disease 5. Left upper extremity AV fistula Plan: Patient remains stable, pending discharge today Consultation Date/Type/Reason Admit Date/Time September 23, 2018 at 11:58 Initial Consult Date 09/23/18 Type of Consult id Requesting Provider: JANE QUICK MD Date/Time of Note DATE: 10/06/18 TIME: 12:24 Exam/Review of Systems Exam Vitals Vital Signs Date Temp Pulse Resp B/P (MAP) Pulse Ox O2 O2 Flow FiO2 Time Delivery Rate 10/06/18 98.7 71 18 118/66 94 Room Air 07:43 (83) 10/05/18 2.0 17:44 Intake and Output 10/05/18 10/05/18 10/06/18 1515:00 23:00 07:00 IntakeIntake Total 720 ml 360 ml 240 ml OutputOutput Total 3500 ml BalanceBalance 720 ml -3140 ml 240 ml Results Results 24hrs Laboratory Tests Test 10/05/18 13:08 10/05/18 15:01 10/05/18 17:24 10/05/18 20:42 Bedside Glucose 141 139 123 201 Test 10/05/18 22:07 10/06/18 03:07 10/06/18 08:42 10/06/18 10:18 Bedside Glucose 186 113 116 164 JAZMYNE BANG NP October 06, 2018 12:24
--- NOTE | 2018-10-06 13:44 | DS ---
Date/Time of Note Date/Time of Note DATE: 10/06/18 TIME: 13:43 Discharge Summary Admission/Discharge Info Admit Date/Time September 23, 2018 at 11:58 Discharge Date/Time October 06, 2018 at 11:55 Discharge Diagnosis 1. Left foot Charcot, left foot varus deformity with degenerative joint disease; left foot diabetic foot ulceration. Status post left foot midfoot osteotomy and fusion of calcaneocuboid joint; left foot exostectomy, fifth metatarsal; left foot excisional debridement of ulceration, skin, subcutaneous tissue; 2. Diabetes mellitus type 2. Hemoglobin A1c 11.7. 3. ESRD on HD. 4. Hypertension 5. Obstructive sleep apnea. 6. Normocytic normochromic anemia. 7. Dyslipidemia. 8. Obesity. BMI 36 kg/m. Patient Condition: Stable Consults 1. Amhet Parks DPM, Podiatry. 2. Oscar Jackson DPM, Podiatry. 3. Lloyd Rock MD, Infectious Diseases. 4. Baljinder Tejada MD, Nephrology. 5. Bert Manuel MD, Endocrinology. Procedures DATE OF OPERATION: 09/24/2018 SURGEON: Oscar Jackson DPM SUPERVISOR SHIPPING: Ahmet Parks DPM PREOPERATIVE DIAGNOSES: 1. Left foot Charcot, left foot varus deformity with degenerative joint disease. 2. Left foot diabetic foot ulceration. 3. Diabetes type 2 with peripheral neuropathy. POSTOPERATIVE DIAGNOSES: 1. Left foot Charcot, left foot varus deformity with degenerative joint diseas e. 2. Left foot diabetic foot ulceration. 3. Diabetes type 2 with peripheral neuropathy. PROCEDURES PERFORMED: 1. Left foot midfoot osteotomy and fusion of calcaneocuboid joint. 2. Left foot exostectomy, 5th metatarsal. 3. Left foot application of multiplane external fixator. 4. Left foot excisional debridement of ulceration, skin, subcutaneous tissue; less than 20 cm2. 5. Left foot island pedicle flap, 3.5 x 1 cm. PATHOLOGY: None. ANESTHESIA: General. ESTIMATED BLOOD LOSS: 30 mL Hx of Present Illness This is a 53-year-old male with past medical history of diabetes mellitus, end- stage renal disease on hemodialysis on Tuesdays//Saturdays, hypertension, and obstructive sleep apnea who presented to [facility] for elective surgical intervention on left Charcot neuroarthropathy. Hospital Course The patient had a left foot midfoot osteotomy and fusion of calcaneocuboid joint; left foot exostectomy, fifth metatarsal; left foot excisional debridement of ulceration, skin, subcutaneous tissue; left foot island pedicle flap on 09/24/2018. The patient was maintained on antimicrobials as per ID. Local wound care was done as per podiatry recommendations. The patient has underlying diabetes mellitus. The patient's hemoglobin A1c was found to be 11.7. The patient was maintained on sliding scale insulin along with pre-meal insulin and basal insulin. The patient was also maintained on pre-meal meglitinides and DPP4 inhibitors. The patient was being followed by endocrinology. The patient was maintained on hemodialysis on Tuesdays//Saturdays. Nephrology was following the patient. The patient has underlying hypertension. The patient was maintained on antihypertensives for the same. The patient was noticed to have normocytic, normochromic anemia. This could be anemia chronic kidney disease. The patient's H&H remained stable. The patient has underlying dyslipidemia. The patient was continued on statins and omega-3 fatty acids. At one point of time during the patient's hospital stay, he developed diarrhea. Therefore, stool studies were sent on this patient that was negative. The patient also refused certain medications at certain points of time during the patient's hospital stay stating that that was causing him diarrhea. The patient initially had orders to be discharged to acute rehabilitation unit. However, because of unavailability of bed, the patient's transfer to inpatient rehabilitation unit was delayed. Meanwhile, the patient was working with physical therapy with improvement in the patient's debility. Upon reevaluation by physical therapy team on 10/05/2018, the patient was deemed not to make an appropriate candidate for acute rehabilitation unit. Therefore, the patient was discharged home after arranging home health. Discharge Instructions 1. Take medications as per prescription. 2. Take a low carbohydrate, low potassium diet. 3. Resume activities with weight bearing restrictions as per podiatry. 4. Please follow-up with podiatry in 1 week. The patient verbalized understanding of his discharge instructions. At this time I would like to thank all the consultants for seeing the patient, doing the necessary procedures, and providing clinical recommendations. The patient was seen in collaboration with . Home Meds Active Scripts Atorvastatin* (Atorvastatin*) 40 Mg Tablet, 40 MG PO QHS, #30 TAB Prov:GERALD MOTA NP 10/05/18 [place]-3/Dha/Epa/Fish Oil (Fish Oil 1,000 mg Softgel) 1,000 Mg Capsule, 2000 MG PO BID, #60 CAP 2 caps BID Prov:GERALD MOTA NP 10/05/18 Lisinopril* (Lisinopril*) 20 Mg Tablet, 40 MG PO BID, #60 TAB 2 tab (40 mg) po BID Prov:GERALD MOTA NP 10/05/18 Repaglinide* (Prandin*) 2 Mg Tablet, 1 MG PO AC MEALS, #90 TAB 1/2 tablet 1(mg) Prov:GERALD MOTA NP 10/05/18 Linagliptin (TRADJENTA) 5 Mg Tablet, 5 MG PO DAILY for 30 Days, TAB Prov:FÁTIMA SLAUGHTER 10/01/18 Famotidine* (Famotidine*) 20 Mg Tablet, 20 MG PO DAILY for 30 Days, TAB Prov:FÁTIMA SLAUGHTER 10/01/18 Calcium Carbonate (CALCIUM CARBONATE) 200 Mg Tab.chew, 500 MG PO Q6H PRN for INDIGESTION for 30 Days, TAB.CHEW Prov:FÁTIMA SLAUGHTER 10/01/18 Calcium Acetate* (Calcium Acetate*) 667 Mg Capsule, 1334 MG PO WITH MEALS for 30 Days, CAP Prov:FÁTIMA SLAUGHTER 10/01/18 Reported Medications Calcitriol* (Rocaltrol*) 0.25 Mcg Capsule, 0.25 MCG PO DAILY, CAP 09/02/18 Ergocalciferol (Vitamin D2) (VITAMIN D2) 50,000 Unit Capsule, 22499 UNIT PO Q SUN, CAP 09/02/18 Carvedilol* (Carvedilol*) 25 Mg Tablet, 25 MG PO BID, #60 TAB 09/02/18 Discontinued Reported Medications Insulin Glargine,Hum.rec.anlog (Vish Ospina) 300 Unit/1 Ml Insuln.pen, 30 UNIT SQ QHS, EA 09/23/18 Sodium Bicarbonate* (Sodium Bicarbonate*) Unknown Strength Tablet, 1 TAB PO BID, TAB 09/02/18 Insulin Lispro (Humalog Kwikpen U-100) 100 Unit/1 Ml Insuln.pen, 10 UNIT SQ WITH MEALS, EA 09/02/18 Ferric Citrate (Auryxia) 210 Mg Tablet, 420 MG PO TID, TAB 09/02/18 Atorvastatin Calcium* (Atorvastatin Calcium*) 20 Mg Tablet, 20 MG PO QHS, #30 TAB 09/02/18 Amlodipine Besylate* (Amlodipine Besylate*) 10 Mg Tablet, 10 MG PO DAILY, #30 TAB 09/02/18 Follow-up Plan Please follow-up with Dr. Parks/Dr. Jaeger in 1 week. Primary Care Provider Not On Staff Doctor Time spent on discharge: > 30 minutes Pending Labs Laboratory Tests Test 10/05/18 15:01 10/05/18 17:24 10/05/18 20:42 10/05/18 22:07 Bedside 139 123 201 186 Glucose mg/dL (70-220) mg/dL (70-220) mg/dL (70-220) mg/dL (70-220) Test 10/06/18 03:07 10/06/18 08:42 10/06/18 10:18 Bedside 113 116 164 Glucose mg/dL (70-220) mg/dL (70-220) mg/dL (70-220) GERALD MOTA NP October 06, 2018 13:44
== END 2018-10-06 11:55 | disposition home health service (06) | DRG 40 ==
LOC: REC 11:58 → 2NE 17:10
PROVIDERS: ADMIT Podiatrist Foot & Ankle Surgery; ATTEND Internal Medicine
PROC: 5A1D70Z Performance of Urinary Filtration, Intermittent, Less than 6 Hours Per Day (ICD-10-PCS; 2018-09-23)
PROC: 0JBR0ZZ Excision of Left Foot Subcutaneous Tissue and Fascia, Open Approach (ICD-10-PCS; 2018-09-24)
PROC: 0QBP0ZZ Excision of Left Metatarsal, Open Approach (ICD-10-PCS; 2018-09-24)
PROC: 0HXNXZZ Transfer Left Foot Skin, External Approach (ICD-10-PCS; 2018-09-24)
PROC: 0SG Lower Joints, Fusion (ICD-10-PCS; principal; 2018-09-24 15:00)
DX: E11.610 Type 2 diabetes mellitus with diabetic neuropathic arthropathy (principal); N18.6 End stage renal disease; R65.10 Systemic inflammatory response syndrome (SIRS) of non-infectious origin without acute organ dysfunction; I12.0 Hypertensive chronic kidney disease with stage 5 chronic kidney disease or end stage renal disease; E11.65 Type 2 diabetes mellitus with hyperglycemia; E11.621 Type 2 diabetes mellitus with foot ulcer; E11.22 Type 2 diabetes mellitus with diabetic chronic kidney disease; Z99.2 Dependence on renal dialysis; G47.33 Obstructive sleep apnea (adult) (pediatric); D63.1 Anemia in chronic kidney disease; E78.5 Hyperlipidemia, unspecified; E66.9 Obesity, unspecified; Z68.36 Body mass index [BMI] 36.0-36.9, adult; R19.7 Diarrhea, unspecified; E11.69 Type 2 diabetes mellitus with other specified complication; E11.42 Type 2 diabetes mellitus with diabetic polyneuropathy; E11.21 Type 2 diabetes mellitus with diabetic nephropathy; Z53.09 Procedure and treatment not carried out because of other contraindication; M21.172 Varus deformity, not elsewhere classified, left ankle; M19.072 Primary osteoarthritis, left ankle and foot; M89.9 Disorder of bone, unspecified; E87.5 Hyperkalemia; M25.775 Osteophyte, left foot; E78.2 Mixed hyperlipidemia; Z79.4 Long term (current) use of insulin; Z86.718 Personal history of other venous thrombosis and embolism
CPT/HCPCS: 71045; 73610; 73620; 80048; 80053; 80061; 80069; 80202; 82150; 82306; 82607; 82962; 83036; 83540; 83690; 83735; 84100; 84132; 84439; 84443; 84481; 85025; 85610; 85730; 86592; 87045; 87075; 87340; 90935; 97110; 97116; 97161; 97530; 97542; J1170; J1200; J1644; J1815; J2270; J2405; J2543; J2765; J3370; J7030; J7040; P9047

== ENCOUNTER 2019-01-07 13:30 | Day surgery (SDC) | payer OTHER ==
[~2019-01-07] VITALS: Ht 177.8 cm; Wt 112.5 kg
[2019-01-07] VITALS (16 sets, daily range): BP systolic 102–142; BP diastolic 46–74; PULSE 62–97; RESP 10–19; Ht 177.8 cm; Wt 112.5 kg
[~2019-01-07 13:30] MED LIST changes: +ATOR40TA68 PO; +CALC200T26 PO; +CALC667C PO; +CEFAZOLIN 2 GM/50 ML (PMX) 50 ML IVPB ONE; +DEXTROSE 5%-0.45% NACL 1,000 ML IV SCH; +ESCI10TA PO; +FAMO20TA18 PO; -FERR210T PO; -INSU100I12 SQ; -INSU300I SQ; +LINA5TAB PO; +LISI-471 PO; +OMEG100024 PO; +REPA1TAB5 PO; +REPA2TAB23 PO; -SODI325T PO
[2019-01-07] MEDS ORDERED: FENTAnyl 50 MCG/ML VIAL ONE (15:53)
[2019-01-07] MEDS ORDERED: CEFAZOLIN 1 GM INJ ONE (15:53)
[2019-01-07] MEDS ORDERED: PROPOFOL 20 ML ONE (15:53)
[2019-01-07] MEDS ORDERED: MIDAZOLAM 1 MG/ML 2 ML INJ ONE (15:53)
[2019-01-07] MEDS ORDERED: ROPIVACAINE 0.5 % 30 ML VIAL ONE (15:55)
[2019-01-07] MEDS ORDERED: ROPIVACAINE 0.2% 20 ML VIAL ONE (15:55)
[2019-01-07] MEDS ORDERED: PHENYLephrine (100 MCG/ML) 10ML SYG ONE (16:31)
[2019-01-07] MEDS ORDERED: METOCLOPRAMIDE 10 MG INJ ONE (16:31)
[2019-01-07] MEDS ORDERED: ONDANSETRON 4 MG INJ ONE (16:31)
[2019-01-07] MEDS ORDERED: EPHEDrine 25 MG/5 ML SYG ONE (16:31)
[2019-01-07] MEDS ORDERED: METOCLOPRAMIDE 10 MG INJ IV PRN (17:00)
[2019-01-07] MEDS ORDERED: LABETALOL HCL 20MG INJ IV PRN (17:00)
[2019-01-07] MEDS ORDERED: ONDANSETRON 4 MG INJ IV PRN (17:00)
[2019-01-07] MEDS ORDERED: hydrALAzine 20 MG INJ IV PRN (17:00)
[2019-01-07] MEDS ORDERED: EPHEDrine 25 MG/5 ML SYG IV PRN (17:00)
[2019-01-07] MEDS ORDERED: FENTAnyl 50 MCG/ML VIAL IV PRN ×2 (17:00)
== END 2019-01-07 18:17 | disposition home or self-care (01) ==
LOC: SDS 13:30
PROVIDERS: ATTEND Podiatrist Foot & Ankle Surgery
DX: Z47.2 Encounter for removal of internal fixation device (principal); E09.42 Drug or chemical induced diabetes mellitus with neurological complications with diabetic polyneuropathy; I10 Essential (primary) hypertension
CPT/HCPCS: 82962; 84132; J0690; J2250; J2370; J2405; J2765; J2795; J3010